=== PATIENT | male | born 1940 | race Caucasian/White ===

== ENCOUNTER 2017-12-31 18:55 | Observation (INO) | payer OTHER ==
--- OUTSIDE RECORDS SUMMARY | 2017-12-31 18:58 | XMS REPORT | Clinical Summary ---
:1940 Author Organization [facility] Address [address] [place] [address] Care Team Providers Name Role Phone Henrry Nevarez MD Primary Care Provider Allergies Active Allergy Reactions Severity Noted Date Comments Morphine 06/30/2017 confusion Current Medications Prescription Sig. Disp. Refills Start Date End Date Status atorvastatin (LIPITOR) Take 10 mg by Active 10 MG tablet mouth daily. glimepiride (AMARYL) 4 Take 4 mg by Active MG tablet mouth daily before breakfast. lisinopril Take 5 mg by 4 04/28/2017 Active (PRINIVIL,ZESTRIL) 5 mg mouth nightly. tablet clopidogrel (PLAVIX) 75 Take 75 mg by 2 03/18/2017 Active mg tablet mouth nightly. levothyroxine Take 50 mcg by Active (SYNTHROID, LEVOXYL) 50 mouth every mcg tablet morning. tamsulosin (FLOMAX) 0.4 Take 0.4 mg by Active mg capsule,extended mouth nightly. release 24hr allopurinol (ZYLOPRIM) Take 100 mg by Active 100 MG tablet mouth daily. metoprolol tartrate Take 25 mg by Active (LOPRESSOR) 25 mg mouth 2 (two) tablet times a day. insulin ASPART Inject under the Active (NovoLOG) 100 unit/mL skin 3 (three) injection times a day before meals. INSULIN DETEMIR Inject 15 Units Active (LEVEMIR U-100 INSULIN under the skin 2 SUBQ) (two) times a day. cetirizine (ZyrTEC) 5 Take 5 mg by Active MG tablet mouth daily. traMADol (ULTRAM) 50 mg Take 1 tablet (50 80 tablet 0 07/11/2017 tablet mg total) by 8 mouth every 4 (four) hours as needed for moderate pain for up to 14 days. HYDROcodone-acetaminoph Take 1 tablet by 80 tablet 0 07/11/2017 en (NORCO) 7.5-325 mg mouth every 6 8 per tablet (six) hours as needed for severe pain for up to 14 days. Max Daily Amount: 4 tablets HYDROcodone-acetaminoph Take 1 tablet by 60 tablet 07/28/2017 en (NORCO) 7.5-325 mg mouth every 6 8 per tablet (six) hours as needed for severe pain for up to 14 days. Max Daily Amount: 4 tablets methylPREDNISolone Take 1 tablet (4 21 tablet 0 12/06/2017 (MEDROL DOSEPAK) 4 mg mg total) by 8 tablet mouth See Admin Instructions for 5 days. Use as directed by package instructions traMADol (ULTRAM) 50 mg Take 1 tablet (50 30 tablet 0 12/06/2017 tablet mg total) by 8 mouth every 6 (six) hours as needed for moderate pain for up to 5 days. Active Problems Problem Noted Date Osteoarthritis of left knee 07/10/2017 Primary osteoarthritis of left knee 07/03/2017 Encounters Date Type Specialty Care Team Description 12/06/2017 Office Visit Orthopedic Surgery Roman Camarena Quadriceps weakness HAZEL Mckee (Primary Dx) 07/28/2017 Office Visit Orthopedic Surgery Brea Rodríguez Status post total MD Dimitrios left knee replacement (Primary Dx) 07/18/2017 Office Visit Orthopedic Surgery Roman Camarena Status post total HAZEL Mckee left knee replacement (Primary Dx) 07/11/2017 Orders Only Orthopedic Surgery Roman Camarena PA-C 07/10/2017 - Hospital Encounter Orthopedic Surgery Brea Rodríguez Osteoarthritis of 07/11/2017 MD Dimitrios left knee, unspecified osteoarthritis type 07/10/2017 Anesthesia Event Orthopedic Surgery Rob Weber Jr., LEGAL ACTIVITY ADJUDICATOR 07/10/2017 Procedure Pass Orthopedic Surgery 07/10/2017 Surgery Orthopedic Surgery Brea Rodríguez LEFT TOTAL KNEE MD Dimitrios ARTHROPLASTY 07/04/2017 Orders Only Orthopedic Surgery Roman Camarena PA-C 07/04/2017 Orders Only Orthopedic Surgery Edgar, Ernestine, Primary MA osteoarthritis of left knee (Primary Dx) 06/30/2017 Hospital Encounter Radiology Brea Rodríguez MD 06/30/2017 Pre-Admit Testing Pre-Admission Brea Rodríguez Pre-op testing Appointment Testing MD Dimitrios (Primary Dx) 06/30/2017 Office Visit Orthopedic Surgery Brea Rodríguez Primary MD Dimitrios osteoarthritis of left knee (Primary Dx) 06/30/2017 Anesthesia Event Pre-Admission Isabel Santiago Testing W., GRINDER NEEDLE TIP 06/21/2017 Office Visit Orthopedic Surgery Brea Rodríguez Acute medial meniscus MD Dimitrios tear of left knee, initial encounter (Primary Dx) 06/21/2017 Procedure Pass Radiology 06/20/2017 Orders Only Orthopedic Surgery Jeannine Hernández L, Left knee pain, MA unspecified chronicity (Primary Dx) after 12/30/2016 Social History Tobacco Use Types Packs/Day Years Used Date Former Smoker Cigarettes 1 10 Quit: 1989 Smokeless Tobacco: Never Used Alcohol Use Drinks/Week oz/Week Comments No Sex Assigned at Date Recorded Not on file Last Filed Vital Signs Vital Sign Reading Time Taken Blood Pressure 134/63 07/11/2017 7:36 AM CDT Pulse 57 07/11/2017 7:36 AM CDT Temperature 36.1 C (96.9 F) 07/11/2017 7:36 AM CDT Respiratory Rate 18 07/11/2017 7:36 AM CDT Oxygen Saturation 96% 07/11/2017 7:36 AM CDT Inhaled Oxygen Concentration - - Weight 110 kg (242 lb 11.2 oz) 07/10/2017 6:08 AM CDT Height 182.9 cm (6') 07/10/2017 6:08 AM CDT Body Mass Index 32.92 07/10/2017 6:08 AM CDT Plan of Treatment Health Maintenance Due Date Last Done Comments SHINGRIX VACCINE (#1) 1988 ZOSTER VACCINE 1998 PNEUMOCOCCAL-13 12/17/2003 INFLUENZA VACCINE 10/18/2017 01/18/2010 PNEUMOCOCCAL POLYSACCHARIDE VACCINE AGE 65 AND OVER Completed 01/18/2010 Implants Implanted Type Area Automatic Lathe Tender Device Expiration Model / Identifier Date Serial / Lot Vangrd Ant Stblzd Brg 14x79 - [id number] IMPLANT Left: [employer] [id number] / Implanted: Qty: 1 on 07/10/2017 by Brea Rodríguez MD DEVICES Knee / [id number] Cement Bone R+G 1dose Palacos - [id number] Knee Joint Left: [employer] [id number] / Implanted: Qty: 1 on 07/10/2017 by Brea Rodríguez MD Implants Knee / [id number]$ Cement Bone R+G 1dose Palacos - [id number] Knee Joint Left: [employer] [id number] / Implanted: Qty: 1 on 07/10/2017 by Brea Rodríguez MD Implants Knee / [id number]$ Stem Tib Prim Finned [id number] Ascent Maxim - [id number] Knee Joint Left: [employer] 11/06/2026 [id number] / Implanted: Qty: 1 on 07/10/2017 by Brea Rodríguez MD Implants Knee / [id number] Component Fml Cr Lt Anatom Interlok 70mm Vanguard - [id number] Knee Joint Left: [employer] 02/06/2025 [id number] / Implanted: Qty: 1 on 07/10/2017 by Brea Rodríguez MD Implants Knee / [id number] Tray Tib Prim Interlok 79mm Ascent Maxim - [id number] Knee Joint Left: [employer] 04/05/2027 [id number] / Implanted: Qty: 1 on 07/10/2017 by Brea Rodríguez MD Implants Knee / [id number] Implant Ptlr Vanguard 3 Peg Series A Std 34x8.5mm - [id number] Knee Joint Left: [employer] 05/29/2022 [id number] / Implanted: Qty: 1 on 07/10/2017 by Brea Rodríguez MD Implants Knee / [id number] Procedures Procedure Name Priority Date/Time Associated Diagnosis Comments XR KNEE 3 VW LEFT Routine 07/28/2017 1:24 Status post total Results for this PM CDT left knee procedure are in replacement the results section. XR LEG LENGTH Routine 07/28/2017 1:24 Status post total Results for this EVALUATION PM CDT left knee procedure are in replacement the results section. POC GLUCOSE Routine 07/11/2017 9:04 Results for this AM CDT procedure are in the results section. HC COMPLETE BLD COUNT Routine 07/11/2017 8:46 Results for this W/AUTO DIFF AM CDT procedure are in the results section. CBC WITH PLATELET AND Routine 07/11/2017 7:40 Results for this DIFFERENTIAL AM CDT procedure are in the results section. CBC WITH PLATELET AND Routine 07/11/2017 5:20 Results for this DIFFERENTIAL AM CDT procedure are in the results section. ZZESTIMATED GFR Routine 07/11/2017 4:00 Results for this AM CDT procedure are in the results section. MAGNESIUM LEVEL Routine 07/11/2017 4:00 Results for this AM CDT procedure are in the results section. PHOSPHORUS LEVEL Routine 07/11/2017 4:00 Results for this AM CDT procedure are in the results section. BASIC METABOLIC PANEL Routine 07/11/2017 4:00 Results for this AM CDT procedure are in the results section. POC GLUCOSE Routine 07/10/2017 9:42 Results for this PM CDT procedure are in the results section. POC GLUCOSE Routine 07/10/2017 5:50 Results for this PM CDT procedure are in the results section. POC GLUCOSE Routine 07/10/2017 11:33 Results for this AM CDT procedure are in the results section. POC GLUCOSE Routine 07/10/2017 10:06 Results for this AM CDT procedure are in the results section. SURGICAL PATHOLOGY Routine 07/10/2017 9:38 Results for this REQUEST AM CDT procedure are in the results section. CO AN ELECTIVE Routine 07/10/2017 9:01 ENDOTRACHEAL AIRWAY AM CDT Procedure Note - Rob Weber Jr., LEGAL ACTIVITY ADJUDICATOR - 07/10/2017 9:01 AM CDT Airway Date/Time: 07/10/2017 8:25 AM Performed by: ROB WEBER JR. Authorized by: JOSE EDUARDO STRAUSS Location: OR Urgency: Elective Difficult Airway: No Preoxygenated with 100% O2: Yes C-spine Precautions Maintained Throughout: Yes Mask Ventilation: Easy mask Final Airway Type: Endotracheal airway Final Endotracheal Airway: ETT Cuffed: Yes Technique Used: Video laryngoscopy (GLIDESCOPE 4) Devices/Methods Used in Placement: Intubating stylet Insertion Site: Oral Laryngoscope Blade/Videolaryngoscope Blade Size: 4 ETT Size (mm): 8.0 Cuff at minimum occlusion pressure: Yes Measured from: Teeth ETT to Teeth (cm): 22 Placement Verified by: CO2 detection, direct visualization and equal breath sounds Rapid Sequence Induction (RSI): No Modified RSI: No Number of Attempts at Approach: 1 DL X 1 no view, glidescope x 1 successful. ARTHROPLASTY, KNEE, TOTAL 07/10/2017 7:30 AM CDT Osteoarthritis of left knee, unspecified osteoarthritis type Case Notes POSSIBLE EXTENDED RECOVERY NEEDED; BIOMET LLOYD, CRYOCUFF, ROLLING WALKER Special Needs POSSIBLE EXTENDED RECOVERY NEEDED; BIOMET LLOYD, CRYOCUFF, ROLLING WALKER POC PANEL 4 Routine 07/10/2017 7:12 Results for this AM CDT procedure are in the results section. XR CHEST 2 VW Routine 06/30/2017 2:15 Pre-op testing Results for this PM CDT procedure are in the results section. ECG PRE/POST OP Routine 06/30/2017 1:32 Pre-op testing Results for this PM CDT procedure are in the results section. URINE CULTURE Routine 06/30/2017 1:30 Results for this PM CDT procedure are in the results section. ZZESTIMATED GFR Routine 06/30/2017 1:17 Results for this PM CDT procedure are in the results section. HEMOGLOBIN A1C Routine 06/30/2017 1:17 Pre-op testing Results for this PM CDT procedure are in the results section. URINALYSIS SCREEN AND Routine 06/30/2017 1:17 Pre-op testing Results for this MICROSCOPY, WITH REFLEX PM CDT procedure are in TO CULTURE the results section. PROTHROMBIN TIME WITH Routine 06/30/2017 1:17 Pre-op testing Results for this INR PM CDT procedure are in the results section. PARTIAL THROMBOPLASTIN Routine 06/30/2017 1:17 Pre-op testing Results for this TIME (PTT) PM CDT procedure are in the results section. COMPREHENSIVE METABOLIC Routine 06/30/2017 1:17 Pre-op testing Results for this PANEL PM CDT procedure are in the results section. CBC HEMOGRAM Routine 06/30/2017 1:17 Pre-op testing Results for this PM CDT procedure are in the results section. MRI KNEE WO CONTRAST Routine 06/28/2017 1:40 Acute medial Results for this LEFT PM CDT meniscus tear of procedure are in left knee, initial the results encounter section. XR KNEE 3 VW LEFT Routine 06/21/2017 10:49 Left knee pain, Results for this AM CDT unspecified procedure are in chronicity the results section. XR LEG LENGTH Routine 06/21/2017 10:48 Left knee pain, Results for this EVALUATION AM CDT unspecified procedure are in chronicity the results section. after 12/30/2016 Results XR Knee 3 Vw Left (07/28/2017 1:24 PM)Only the most recent of2 resultswithin the time period is included. Narrative Performed At 3 x-ray views of the left knee show properly placed Biomet Vanguard total HM RADIANT knee replacement 80 mm stem. The patella is tracking concentrically. The posterior slope of the tibial component is excellent. Performing Organization Address [facility] CenterLabotec Phone Number [facility] [address] [place] [address] XR Leg Length Evaluation (07/28/2017 1:24 PM)Only the most recent of2 resultswithin the time period is included. Narrative Performed At Social mechanical axis of the right lower extremity to fall through the RADIANT midline where there is a revision style total knee that is properly placed. On the opposite left lower extremity the mechanical axis falls just lateral to the midline where the knee is slightly rotated, and there is a properly placed total knee arthroplasty. Bilateral hips and ankles are essentially normal. Performing Organization Address [facility] CenterPerception Softwarems Phone Number [facility] [address] [place] [address] POC glucose (07/11/2017 9:04 AM)Only the most recent of5 resultswithin the time period is included. POC glucose 141 (H) 65 - 99 mg/dL [facility] DEPARTMENT OF PATHOLOGY AND Comment: GENOMIC MEDICINE [facility] Notified RN Meter ID: [id number] Mer[employer] System Director: Edd Perez I Performing Organization Address [facility]/[employer] Phone Number [facility] DEPARTMENT OF PATHOLOGY AND [address] [place] [phone] GENOMIC MEDICINE CBC with platelet and differential (07/11/2017 8:46 AM)Only the most recent of3 resultswithin the time period is included. WBC 8.90 4.50 - 11.00 k/uL [facility] DEPARTMENT OF PATHOLOGY AND GENOMIC MEDICINE RBC 3.73 (L) 4.40 - 6.00 m/uL [facility] DEPARTMENT OF PATHOLOGY AND GENOMIC MEDICINE HGB 10.9 (L) 14.0 - 18.0 g/dL [facility] DEPARTMENT OF PATHOLOGY AND GENOMIC MEDICINE HCT 32.6 (L) 41.0 - 51.0 % [facility] DEPARTMENT OF PATHOLOGY AND GENOMIC MEDICINE MCV 87.4 82.0 - 100.0 fL [facility] DEPARTMENT OF PATHOLOGY AND GENOMIC MEDICINE MCH 29.2 27.0 - 34.0 pg [facility] DEPARTMENT OF PATHOLOGY AND GENOMIC MEDICINE MCHC 33.4 31.0 - 37.0 g/dL [facility] DEPARTMENT OF PATHOLOGY AND GENOMIC MEDICINE RDW - SD 42.5 37.0 - 55.0 fL [facility] DEPARTMENT OF PATHOLOGY AND GENOMIC MEDICINE MPV 8.7 (L) 8.8 - 13.2 fL [facility] DEPARTMENT OF PATHOLOGY AND GENOMIC MEDICINE Platelet count 110 (L) 150 - 400 k/uL [facility] DEPARTMENT OF PATHOLOGY AND GENOMIC MEDICINE Nucleated RBC 0.00 /100 WBC [facility] DEPARTMENT OF PATHOLOGY AND GENOMIC MEDICINE Neutrophils 71.3 (H) 39.0 - 69.0 % [facility] DEPARTMENT OF PATHOLOGY AND GENOMIC MEDICINE Lymphocytes 18.4 (L) 25.0 - 45.0 % [facility] DEPARTMENT OF PATHOLOGY AND GENOMIC MEDICINE Monocytes 8.5 0.0 - 10.0 % [facility] DEPARTMENT OF PATHOLOGY AND GENOMIC MEDICINE Eosinophils 1.1 0.0 - 5.0 % [facility] DEPARTMENT OF PATHOLOGY AND GENOMIC MEDICINE Basophils 0.3 0.0 - 1.0 % [facility] DEPARTMENT OF PATHOLOGY AND GENOMIC MEDICINE Immature granulocytes 0.4Comment: 0.0 - 1.0 % [facility] DEPARTMENT OF "Immature PATHOLOGY AND GENOMIC granulocytes" MEDICINE (promyelocytes, myelocytes, metamyelocytes) Performing Organization Address City/State/Zipcode Phone Number [facility] DEPARTMENT OF PATHOLOGY AND [address] [place] [address] [facility] Estimated GFR (07/11/2017 4:00 AM)Only the most recent of2 resultswithin the time period is included. GFR Non Af Amer 32 (A) mL/min/1.73 m2 [facility] DEPARTMENT OF PATHOLOGY AND GENOMIC MEDICINE GFR Af Amer 39 (A) mL/min/1.73 m2 [facility] DEPARTMENT OF Comment: PATHOLOGY AND GENOMIC Chronic kidney disease: <60 mL/min/1.73m2 MEDICINE Kidney failure: <15 mL/min/1.73m2 The estimated GFR is calculated from the IDMS-traceable Modification of Diet in Renal Disease Equation. The accuracy of the calculation is poor when the creatinine is normal. Calculated values >90 mL/min/1.73m2 are not reported. This equation has not been validated in children (<18 years), women, the elderly (>70 years), or ethnic groups other than Caucasians and Americans. Specimen Plasma specimen Performing Organization Address City/[facility] Centercode Phone Number [facility] DEPARTMENT OF PATHOLOGY AND [address] [place] [address] Phosphorus level (07/11/2017 4:00 AM) Phosphorus 3.1 2.4 - 4.5 mg/dL [facility] DEPARTMENT OF PATHOLOGY AND [facility] MEDICINE Specimen Plasma specimen Performing Organization Address [facility] Centercode Phone Number [facility] DEPARTMENT OF PATHOLOGY AND [address] [place] [address] Magnesium level (07/11/2017 4:00 AM) Magnesium 1.8 1.6 - 2.4 mg/dL [facility] DEPARTMENT OF PATHOLOGY AND [facility] MEDICINE Specimen Plasma specimen Performing Organization Address [facility] Phone Number [facility] DEPARTMENT OF PATHOLOGY AND [address] [place] [address] Basic metabolic panel (07/11/2017 4:00 AM) Sodium 134 (L) 135 - 148 mEq/L [facility] DEPARTMENT OF PATHOLOGY AND GENOMIC MEDICINE Potassium 5.8 (H) 3.5 - 5.0 mEq/L [facility] DEPARTMENT OF PATHOLOGY AND GENOMIC MEDICINE Chloride 102 98 - 112 mEq/L [facility] DEPARTMENT OF PATHOLOGY AND GENOMIC MEDICINE CO2 15 (L) 24 - 31 mEq/L [facility] DEPARTMENT OF PATHOLOGY AND GENOMIC MEDICINE Anion gap 17 (H) 7 - 15 mEq/L [facility] DEPARTMENT OF PATHOLOGY Comment: [facility] Starting from June , anion gap calculation no longer incorporates potassium. Please note the change. BUN 38 (H) 8 - 23 mg/dL [facility] DEPARTMENT OF PATHOLOGY AND GENOMIC MEDICINE Creatinine 2.0 (H) 0.7 - 1.2 mg/dL [facility] DEPARTMENT OF PATHOLOGY AND GENOMIC MEDICINE Glucose 152 (H) 65 - 99 mg/dL [facility] DEPARTMENT OF PATHOLOGY AND GENOMIC MEDICINE Calcium 8.4 (L) 8.8 - 10.2 mg/dL [facility] DEPARTMENT OF PATHOLOGY AND GENOMIC MEDICINE Specimen Plasma specimen Performing Organization Address City/[facility] Centercode Phone Number [facility] DEPARTMENT OF PATHOLOGY AND [address] [place] [address] GENOMIC MEDICINE Surgical pathology request (07/10/2017 9:38 AM) [facility] DEPARTMENT OF PATHOLOGY AND GENOMIC MEDICINE Surgical pathology report See link below for PDF [facility] DEPARTMENT OF Lab Report PATHOLOGY AND GENOMIC MEDICINE Result status This is Final Report to [facility] DEPARTMENT OF [id number] PATHOLOGY AND GENOMIC MEDICINE Performing Organization Address City/[facility] Centercode Phone Number [facility] DEPARTMENT OF PATHOLOGY AND [address] [place] [phone] GENOMIC MEDICINE POC panel 4 (07/10/2017 7:12 AM) POC sodium 138 135 - 148 mmol/L [facility] DEPARTMENT OF PATHOLOGY AND GENOMIC MEDICINE POC potassium 4.7 3.5 - 5.0 mmol/L [facility] DEPARTMENT OF PATHOLOGY AND GENOMIC MEDICINE POC hematocrit 36 (L) 41 - 51 % [facility] DEPARTMENT OF Comment: PATHOLOGY AND GENOMIC Meter ID: [id number] MEDICINE Merit System Director: [email or web address] POC glucose 185 (H) 65 - 99 mg/dL [facility] DEPARTMENT OF PATHOLOGY AND GENOMIC MEDICINE Performing Organization Address [facility] Phone Number [facility] DEPARTMENT OF PATHOLOGY AND [address] [place] [address] GENOMIC MEDICINE XR Chest 2 Vw (06/30/2017 2:15 PM) Narrative Performed At EXAMINATION:XR CHEST 2 VW RADIANT CLINICAL HISTORY: Z01.818 Encounter for other preprocedural examination, pre op testing COMPARISON:03/06/2012 IMPRESSION: No active disease in the chest. Lungs are clear. Cardiomediastinal silhouette is within normal limits. No effusion or pneumothorax noted. Visualized osseous structures are intact. [facility]-[id number] Procedure Note Interface, Radiology Results Incoming - 06/30/2017 2:40 PM CDT EXAMINATION: XR CHEST 2 VW CLINICAL HISTORY: Z01.818 Encounter for other preprocedural examination, pre op testing COMPARISON: 03/06/2012 IMPRESSION: No active disease in the chest. Lungs are clear. Cardiomediastinal silhouette is within normal limits. No effusion or pneumothorax noted. Visualized osseous structures are intact. [facility]-[id number] Performing Organization Address City/[facility] Centercode Phone Number [facility] [address] [place] [address] ECG Pre/Post Op (06/30/2017 1:32 PM) Ventricular rate 59 [facility] MUSE Atrial rate 59 [facility] MUSE CO interval 180 [facility] MUSE QRSD interval 92 [facility] MUSE QT interval 426 [facility] MUSE QTC interval 421 [facility] MUSE P axis 1 63 [facility] MUSE QRS axis 1 -3 [facility] MUSE T wave axis 20 [facility] MUSE EKG impression Sinus bradycardia-Otherwise normal ECG-No [facility] MUSE previous ECGs available- Performing Organization Address City/[facility]/Zipcode Phone Number [facility] MUSE [address] [place] [address] Urine culture (06/30/2017 1:30 PM) Urine culture SEE COMMENTComment: Bacteriuria [facility] DEPARTMENT OF PATHOLOGY screen negative. AND GENOMIC MEDICINE Performing Organization Address [facility] Centercoms Phone Number [facility] DEPARTMENT OF PATHOLOGY AND [address] [place] [phone] GENOMIC MEDICINE Urinalysis screen and microscopy, with reflex to culture (06/30/2017 1:17 PM) Specimen site Clean catch [facility] DEPARTMENT OF PATHOLOGY AND GENOMIC MEDICINE Color, UA Straw [facility] DEPARTMENT OF PATHOLOGY AND GENOMIC MEDICINE Appearance, UA Clear [facility] DEPARTMENT OF PATHOLOGY AND GENOMIC MEDICINE Specific gravity, UA 1.018 1.001 - 1.035 [facility] DEPARTMENT OF PATHOLOGY AND GENOMIC MEDICINE pH, UA 5.0 5.0 - 8.5 [facility] DEPARTMENT OF PATHOLOGY AND GENOMIC MEDICINE Protein, UA Negative Negative [facility] DEPARTMENT OF PATHOLOGY AND GENOMIC MEDICINE Glucose, UA 2+ (A) Negative [facility] DEPARTMENT OF PATHOLOGY AND GENOMIC MEDICINE Ketones, UA Negative Negative [facility] DEPARTMENT OF PATHOLOGY AND GENOMIC MEDICINE Bilirubin, UA Negative Negative [facility] DEPARTMENT OF PATHOLOGY AND GENOMIC MEDICINE Blood, UA Negative Negative [facility] DEPARTMENT OF PATHOLOGY AND GENOMIC MEDICINE Nitrite, UA Negative Negative [facility] DEPARTMENT OF PATHOLOGY AND GENOMIC MEDICINE Urobilinogen, UA <2.0 <2.0 [facility] DEPARTMENT OF PATHOLOGY AND GENOMIC MEDICINE Leukocyte esterase, UA Negative Negative [facility] DEPARTMENT OF PATHOLOGY AND GENOMIC MEDICINE Epithelial cells, UA <1 /HPF [facility] DEPARTMENT OF PATHOLOGY AND GENOMIC MEDICINE WBC, UA 1 0 - 1 /HPF [facility] DEPARTMENT OF PATHOLOGY AND GENOMIC MEDICINE RBC, UA 1 0 - 5 /HPF [facility] DEPARTMENT OF PATHOLOGY AND GENOMIC MEDICINE Bacteria, UA Few None seen [facility] DEPARTMENT OF PATHOLOGY AND GENOMIC MEDICINE Yeast, UA None seen [facility] DEPARTMENT OF PATHOLOGY AND GENOMIC MEDICINE Yeast with pseudohyphae, UA None seen [facility] DEPARTMENT OF PATHOLOGY AND GENOMIC MEDICINE Specimen Urine Performing Organization Address [facility] Centercoms Phone Number [facility] [facility] DEPARTMENT OF PATHOLOGY AND [address] [place] [address] Partial thromboplastin time, activated (06/30/2017 1:17 PM) PTT 30.1 23.0 - 36.0 sec [facility] DEPARTMENT OF PATHOLOGY Comment: AND [facility] MEDICINE PTT therapeutic range for unfractionated heparin is 61.0-112.0 seconds which corresponds to Anti-Xa 0.3-0.7 U/ml. Specimen Blood Performing Organization Address City/[facility] Phone Number [facility] DEPARTMENT OF PATHOLOGY AND [address] [place] [address] Prothrombin time with INR (06/30/2017 1:17 PM) Prothrombin time 14.0 12.0 - 15.0 sec [facility] DEPARTMENT OF PATHOLOGY AND GENOMIC MEDICINE INR 1.1 [facility] DEPARTMENT OF Comment: PATHOLOGY AND GENOMIC The International Normalized Ratio (INR) is a therapeutic MEDICINE monitoring tool for patients who are stable on oral anticoagulant therapy. An INR of 2.0-3.0 is suggested for deep vein thrombosis/pulmonary embolism. Specimen Blood Performing Organization Address [facility] Phone Number [facility] DEPARTMENT OF PATHOLOGY AND [address] [place] [address] CBC hemogram (06/30/2017 1:17 PM) WBC 7.76 4.50 - 11.00 k/uL [facility] DEPARTMENT OF PATHOLOGY AND GENOMIC MEDICINE RBC 4.79 4.40 - 6.00 m/uL [facility] DEPARTMENT OF PATHOLOGY AND GENOMIC MEDICINE HGB 14.1 14.0 - 18.0 g/dL [facility] DEPARTMENT OF PATHOLOGY AND GENOMIC MEDICINE HCT 42.1 41.0 - 51.0 % [facility] DEPARTMENT OF PATHOLOGY AND GENOMIC MEDICINE MCV 87.9 82.0 - 100.0 fL [facility] DEPARTMENT OF PATHOLOGY AND GENOMIC MEDICINE MCH 29.4 27.0 - 34.0 pg [facility] DEPARTMENT OF PATHOLOGY AND GENOMIC MEDICINE MCHC 33.5 31.0 - 37.0 g/dL [facility] DEPARTMENT OF PATHOLOGY AND GENOMIC MEDICINE RDW - SD 43.3 37.0 - 55.0 fL [facility] DEPARTMENT OF PATHOLOGY AND GENOMIC MEDICINE MPV 8.7 (L) 8.8 - 13.2 fL [facility] DEPARTMENT OF PATHOLOGY AND GENOMIC MEDICINE Platelet count 152 150 - 400 k/uL [facility] DEPARTMENT OF PATHOLOGY AND GENOMIC MEDICINE Nucleated RBC 0.00 /100 WBC [facility] DEPARTMENT OF PATHOLOGY AND GENOMIC MEDICINE Specimen Blood Performing Organization Address City/[facility]ercode Phone Number [facility] DEPARTMENT PATHOLOGY AND [address] [place] [id number] [place] [address] Hemoglobin A1c (06/30/2017 1:17 PM) Hemoglobin A1C 8.4 (H) 4.0 - 5.6 % [facility] DEPARTMENT OF PATHOLOGY Comment: AND [facility] HbA1c cutoffs for diagnosing diabetes: 4.0% - 5.6%=normal 5.7% - 6.4%=increased risk for diabetes (prediabetes) >=6.5%=diabetes Goals for glycemic control (ADA 2016) < 7.0%Target for non adults with diabetes. More or less stringent targets may be appropriate for individual patients. <7.5% Target for Children and adolescents with type 1 diabetes. Specimen Blood Performing Organization Address City/[facility]ode Phone Number [facility] DEPARTMENT PATHOLOGY AND [address] [place] [address] [facility] Comprehensive metabolic panel (06/30/2017 1:17 PM) Sodium 141 135 - 148 mEq/L [facility] DEPARTMENT OF PATHOLOGY AND GENOMIC MEDICINE Potassium 5.7 (H) 3.5 - 5.0 mEq/L [facility] DEPARTMENT OF PATHOLOGY AND GENOMIC MEDICINE Chloride 104 98 - 112 mEq/L [facility] DEPARTMENT OF PATHOLOGY AND GENOMIC MEDICINE CO2 23 (L) 24 - 31 mEq/L [facility] DEPARTMENT OF PATHOLOGY AND GENOMIC MEDICINE Anion gap 14 7 - 15 mEq/L [facility] DEPARTMENT OF Comment: PATHOLOGY AND GENOMIC Starting from June , anion gap calculation MEDICINE no longer incorporates potassium. Please note the change. BUN 46 (H) 8 - 23 mg/dL [facility] DEPARTMENT OF PATHOLOGY AND GENOMIC MEDICINE Creatinine 2.3 (H) 0.7 - 1.2 mg/dL [facility] DEPARTMENT OF PATHOLOGY AND GENOMIC MEDICINE Glucose 126 (H) 65 - 99 mg/dL [facility] DEPARTMENT OF PATHOLOGY AND GENOMIC MEDICINE Calcium 10.3 (H) 8.8 - 10.2 mg/dL [facility] DEPARTMENT OF PATHOLOGY AND GENOMIC MEDICINE Protein 7.7 6.3 - 8.3 g/dL [facility] DEPARTMENT OF Comment: PATHOLOGY AND GENOMIC 4.6-7.0 g/dL MEDICINE 1 week 4.4-7.6 g/dL 7 months-1year5.1-7.3 g/dL 1-2 years5.6-7.5 g/dL >3 years6.0-8.0 g/dL 18-150 6.3-8.3 g/dL Albumin 3.6 3.5 - 5.0 g/dL [facility] DEPARTMENT OF PATHOLOGY AND GENOMIC MEDICINE A/G ratio 0.9 0.7 - 3.8 [facility] DEPARTMENT OF PATHOLOGY AND GENOMIC MEDICINE Alkaline phosphatase 63 40 - 129 U/L [facility] DEPARTMENT OF PATHOLOGY AND GENOMIC MEDICINE AST 20 10 - 50 U/L [facility] DEPARTMENT OF PATHOLOGY AND GENOMIC MEDICINE ALT 21 5 - 50 U/L [facility] DEPARTMENT OF PATHOLOGY AND GENOMIC MEDICINE Total bilirubin 0.3 0.0 - 1.2 mg/dL [facility] DEPARTMENT OF PATHOLOGY AND GENOMIC MEDICINE Specimen Plasma specimen Performing Organization Address City/State/Zipcode Phone Number [facility] DEPARTMENT OF PATHOLOGY AND [address] [place] [address] [facility] MEDICINE MRI Knee Left Wo Contrast (06/28/2017 1:40 PM) Narrative Performed At EXAMINATION:MRI KNEE WO CONTRAST LEFT [facility] CLINICAL HISTORY: 76 years Male S83.242A Other tear of medial meniscuscurrent injuryleft kneeinitial encounter, Please evaluate for medial meniscal tear as well as articular cartilage. TECHNIQUE:Multiplanar multisequence MR imaging of the left knee was performed without contrast. COMPARISON:None. FINDINGS: There is blunting of the posterior horn of the lateral meniscus consistent with a small to moderate tear. This extends to the area of the posterior root attachment. The anterior horn of the lateral meniscus demonstrates degenerative signal change but otherwise appears intact. The medial meniscus demonstrates blunting and degeneration of the posterior horn witha horizontal degenerative tear along the inferior surface and extending to the free edge. The medial meniscus demonstrates diffuse degenerative signal change especially involving the posterior horn. Cruciate ligaments: The anterior and posterior cruciate ligaments are intact. Collateral ligaments: The medial and lateral collateral ligaments are intact. Osseous structures and cartilaginous surfaces: In the lateral compartment there is no focal full-thickness chondral lesion identified although articular cartilage is diffusely attenuated. A small subchondral cyst in the proximal tibial plateau posterior laterally measures approximately 3 mm. Medially there is diffuse denuding of articular cartilage over the central weightbearing surfaces of the medial femoral condyle medial tibial plateau with extensive subchondral cystic changes involving the medial tibial plateau anteriorly with a cyst measuring up to 11 mm. In the patellofemoral compartment there is diffuse attenuation of articular cartilage with no focal lesions identified. Patellofemoral joint: The patella fits normally and the trochlear groove. The visualized portions of the quadriceps and patellar tendons are intact. Miscellaneous findings: There is a small joint effusion. There is no popliteal cyst. IMPRESSION: 1. Small to moderate tear involving the posterior horn of the lateral meniscus extending to the posterior root attachment. 2. Complex although mainly a degenerative tear involving the posterior horn of the medial meniscus 3. 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 Minimal volume of joint fluid. [id number] Procedure Note Hm Interface, Radiology Results Incoming - 06/28/2017 2:39 PM CDT EXAMINATION: MRI KNEE WO CONTRAST LEFT CLINICAL HISTORY: 76 years Male S83.242A Other tear of medial meniscus current injury left knee initial encounter, Please evaluate for medial meniscal tear as well as articular cartilage. TECHNIQUE: Multiplanar multisequence MR imaging of the left knee was performed without contrast. COMPARISON: None. FINDINGS: There is blunting of the posterior horn of the lateral meniscus consistent with a small to moderate tear. This extends to the area of the posterior root attachment. The anterior horn of the lateral meniscus demonstrates degenerative signal change but otherwise appears intact. The medial meniscus demonstrates blunting and degeneration of the posterior horn with a horizontal degenerative tear along the inferior surface and extending to the free edge. The medial meniscus demonstrates diffuse degenerative signal change especially involving the posterior horn. Cruciate ligaments: The anterior and posterior cruciate ligaments are intact. Collateral ligaments: The medial and lateral collateral ligaments are intact. Osseous structures and cartilaginous surfaces: In the lateral compartment there is no focal full-thickness chondral lesion identified although articular cartilage is diffusely attenuated. A small subchondral cyst in the proximal tibial plateau posterior laterally measures approximately 3 mm. Medially there is diffuse denuding of articular cartilage over the central weightbearing surfaces of the medial femoral condyle medial tibial plateau with extensive subchondral cystic changes involving the medial tibial plateau anteriorly with a cyst measuring up to 11 mm. In the patellofemoral compartment there is diffuse attenuation of articular cartilage with no focal lesions identified. Patellofemoral joint: The patella fits normally and the trochlear groove. The visualized portions of the quadriceps and patellar tendons are intact. Miscellaneous findings: There is a small joint effusion. There is no popliteal cyst. IMPRESSION: 1. Small to moderate tear involving the posterior horn of the lateral meniscus extending to the posterior root attachment. 2. Complex although mainly a degenerative tear involving the posterior horn of the medial meniscus 3. 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 Minimal volume of joint fluid. [id number] [facility] Organization Address City/State/Zipcode Phone Number [facility] [address] [place] [address] after 12/30/2016 Insurance Payer Benefit Plan / Group Subscriber ID Type Phone Address [employer] MEDICARE AETNA MEDICARE HMO/PPO [facility] xxxxxxxx HMO [phone] [id number]
[2017-12-31 20:18] LABS: Absolute Lymphocytes (CBC) 1.2 K/uL (0.7-4.9); Absolute Monocytes 0.9 K/uL (0.1-1.3); Absolute Neutrophil 10.4 K/uL (1.8-8.0); Basophils % 0.4 % (0-1.3); Eosinophils % 0.5 % (0-4.4); Hematocrit 34.4 % (39.6-49.0); Lymphocytes % 9.8 % (15.3-44.8); MCH 30.5 pg (27.0-35.0); MCV 88.1 fL (80-100); MPV 6.3 fL (7.6-11.3); Monocytes % 7.1 % (3.3-12.3)
[2017-12-31 20:19] LABS: Protime INR 1.22
--- NOTE | 2017-12-31 20:21 | RAD REPORT ---
EXAM DESCRIPTION: RAD - Chest Single View - 12/31/2017 8:11 pm CLINICAL HISTORY: weakness Chest pain. COMPARISON: CHEST SINGLE VIEW dated 09/03/2009; CHEST PA AND LAT 2 VIEW dated 12/16/2008; CHEST PA AND LAT 2 VIEW dated 09/28/2004 FINDINGS: Portable technique limits examination quality. The lungs are grossly clear. The heart is normal in size. No displaced fractures. IMPRESSION: No acute intrathoracic process suspected.
[2017-12-31 20:35] LABS: ALT/SGPT 28 U/L (12-78); AST/SGOT 55 U/L (15-37); Albumin 3.3 g/dL (3.4-5.0); Alkaline Phosphatase 54 U/L (45-117); BUN Blood Urea Nitrogen 35 mg/dL (7-18); Bicarbonate 25 mmol/L (21-32); Bilirubin Direct < 0.1 mg/dL (0-0.2); Bilirubin Total 0.3 mg/dL (0.2-1.0); Glucose Level 172 mg/dL (74-106); NT PRO-BNP 687 pg/mL (<450); Potassium 4.2 mmol/L (3.5-5.1); Protein, Total 6.6 g/dL (6.4-8.2); Sodium Level 139 mmol/L (136-145); Troponin (Emerg Dept Use Only) 0.04 ng/mL (0.0-0.045)
[2017-12-31] MEDS ORDERED: CEFTRIAXONE/SWI 1gm 1 GM/10 ML SYR ONE (21:34)
[2017-12-31 21:35] LABS: Urine Bacteria 20-50 /HPF (NONE SEEN); Urine Culture Reflex Order REFLEXED; Urine RBC <5 /HPF (NONE SEEN)
--- NOTE | 2017-12-31 22:01 | EDPHYS ---
Physician Documentation [facility] Name: Kendrick Worley Age: 77 yrs Sex: Male : 1940 Arrival Date: 12/31/2017 Time: 18:56 Bed 19 Private MD: ED Physician Lizeth Renae HPI: 12/31 19:09 This 77 yrs old Male presents to ER via EMS with complaints of Urinary jmm Problem. 19:09 Patient complains of progressively worsening weakness and dysuria beginning earlier jmm this week. Patient states he is unable to get up out of his chair. Patient denies chest pain, shortness of breath, abdominal pain, vomiting or back pain. . Onset: The symptoms/episode began/occurred gradually. The patient has not experienced similar symptoms in the past. Historical: - Allergies: 19:04 No Known Allergies; aj - Home Meds: 19:04 Glimepiride Oral [Active]; Lasix Oral [Active]; Plavix Oral [Active]; Novolog Sub-Q aj [Active]; - PMHx: 19:04 Myocardial infarction; Diabetes - IDDM; aj - PSHx: 19:04 Knee surgery; aj - Immunization history:: Adult Immunizations up to date. - Social history:: Smoking status: Patient/guardian denies using tobacco. - Ebola Screening: : Patient negative for fever greater than or equal to 101.5 degrees Fahrenheit, and additional compatible Ebola Virus Disease symptoms Patient denies exposure to infectious person Patient denies travel to an Ebola-affected area in the 21 days before illness onset No symptoms or risks identified at this time. ROS: 19:09 Constitutional: Negative for fever, chills, and weight loss, Eyes: Negative for injury, jmm pain, redness, and discharge, ENT: Negative for injury, pain, and discharge, Neck: Negative for injury, pain, and swelling, Cardiovascular: Negative for chest pain, palpitations, and edema, Respiratory: Negative for shortness of breath, cough, wheezing, and pleuritic chest pain, Abdomen/GI: Negative for abdominal pain, nausea, vomiting, diarrhea, and constipation. 19:09 : Positive for urinary symptoms. 19:09 Neuro: Positive for weakness. 19:09 All other systems are negative. Exam: 19:09 Head/Face: atraumatic. Eyes: EOMI, no conjunctival erythema appreciated ENT: Moist [facility] Mucus Membranes Neck: Trachea midline, Supple Chest/axilla: Normal chest wall appearance and motion. 19:09 Constitutional: The patient appears in no acute distress, alert, awake. 19:09 Cardiovascular: Rate: normal, Rhythm: regular, Pulses: no pulse deficits are appreciated. 19:09 Respiratory: the patient does not display signs of respiratory distress, Respirations: normal, Breath sounds: are clear throughout. 19:09 Abdomen/GI: Inspection: abdomen appears normal, Bowel sounds: normal, Palpation: abdomen is soft and non-tender. 19:09 Back: ROM is normal. 19:09 Musculoskeletal/extremity: ROM: intact in all extremities. 19:09 Skin: Appearance: Color: normal in color. 19:09 Neuro: Orientation: is normal, Mentation: is normal, Memory: is normal. 19:09 Psych: Behavior/mood is pleasant, cooperative. Vital Signs: 19:04 BP 140 / 58; Pulse 84; Resp 20; Temp 98.1; Pulse Ox 94% on R/A; Weight 102.06 kg; aj Height 6 ft. 0 in. (182.88 cm); 20:08 BP 129 / 63; Pulse 76; Resp 19 S; Pulse Ox 95% on R/A; jd3 22:34 BP 144 / 83; Pulse 85; Resp 17 S; Pulse Ox 98% on R/A; jd3 23:13 BP 128 / 77; Pulse 73; Resp 20 S; Pulse Ox 99% on R/A; jd3 19:04 Body Mass Index 30.52 (102.06 kg, 182.88 cm) aj MDM: 19:09 Patient medically screened. [facility] 21:59 Data reviewed: vital signs, nurses notes. Counseling: I had a detailed discussion with [facility] the patient and/or guardian regarding: the historical points, exam findings, and any diagnostic results supporting the discharge/admit diagnosis, lab results, radiology results, the need for further work-up and treatment in the hospital. ED course: I discussed the patient with Dr. joseph whom accepted admission. . 12/31 19:12 Order name: Basic Metabolic Panel; Complete Time: 21:12 [facility] 12/31 19:12 Order name: CBC with Diff; Complete Time: 20:29 [facility] 12/31 19:12 Order name: LFT's; Complete Time: 21:12 [facility] 12/31 19:12 Order name: Magnesium; Complete Time: 21:12 [facility] 12/31 19:12 Order name: NT PRO-BNP; Complete Time: 21:12 [facility] 12/31 19:12 Order name: PT-INR; Complete Time: 20:29 [facility] 12/31 19:12 Order name: Troponin (emerg Dept Use Only); Complete Time: 21:12 [facility] 12/31 19:15 Order name: Lipase; Complete Time: 20:31 [facility] 12/31 19:16 Order name: Procalcitonin; Complete Time: 21:12 [facility] 12/31 19:16 Order name: Lactate; Complete Time: 20:31 [facility] 12/31 19:16 Order name: Blood Culture Adult (2) [facility] 12/31 19:43 Order name: Urine Microscopic Only; Complete Time: 21:40 [facility] 12/31 19:43 Order name: Urine Culture [facility] 12/31 21:30 Order name: Urine Dipstick--Ancillary (enter results) wy 12/31 19:12 Order name: XRAY Chest (1 view); Complete Time: 20:29 [facility] 12/31 19:12 Order name: EKG; Complete Time: 19:12 [facility] 12/31 19:12 Order name: Cardiac monitoring; Complete Time: 19:32 [facility] 12/31 19:12 Order name: EKG - Nurse/Tech; Complete Time: 20:05 [facility] 12/31 19:12 Order name: IV Saline Lock; Complete Time: 19:32 [facility] 12/31 19:12 Order name: Labs collected and sent; Complete Time: 20:05 [facility] 12/31 19:12 Order name: O2 Per Protocol; Complete Time: 19:32 [facility] 12/31 19:12 Order name: O2 Sat Monitoring; Complete Time: 19:32 [facility] 12/31 19:16 Order name: Urine Dipstick-Ancillary (obtain specimen); Complete Time: 21:23 [facility] Administered Medications: 21:33 Drug: Rocephin - (cefTRIAXone) 1 grams Route: IVPB; Infused Over: 30 mins; Site: right jd3 antecubital; 22:35 Follow up: Response: No adverse reaction; IV Status: Completed infusion jd3 Disposition: 01/01 09:53 Co-signature as Attending Physician, Lizeth Renae MD. ma2 Disposition: 12/31/17 22:00 Hospitalization ordered by Lizeth Morin for Observation. Preliminary diagnosis are Urinary tract infection, site not specified, Weakness. - Bed requested for Telemetry/MedSurg (observation). - Status is Observation. jd3 - Condition is Stable. - Problem is new. - Symptoms are unchanged. UTI on Admission? Yes Signatures: Dispatcher [employer] EDIsabel Brownlee RN Dileep Fulton PA PA jmm Garcia, Cindy RN Lars Nguyen RN RN jd3 Alzahri, Mohammad, MD MD ma2 Corrections: (The following items were deleted from the chart) 12/31 22:51 22:00 Hospitalization Ordered by Lizeth Morin MD for Observation. Preliminary cg diagnosis is Urinary tract infection, site not specified; Weakness. Bed requested for Telemetry/MedSurg (observation). Status is Observation. Condition is Stable. Problem is new. Symptoms are unchanged. UTI on Admission? Yes. [facility] 23:55 22:51 12/31/2017 22:00 Hospitalization Ordered by Lizeth Morin MD for Observation. jd3 Preliminary diagnosis is Urinary tract infection, site not specified; Weakness. Bed requested for Telemetry/MedSurg (observation). Status is Observation. Condition is Stable. Problem is new. Symptoms are unchanged. UTI on Admission? Yes. cg
--- NOTE | 2017-12-31 22:01 | ER ---
Nurse's Notes [facility] Name: Kendrick Worley Age: 77 yrs Sex: Male : 1940 Arrival Date: 12/31/2017 Time: 18:56 Bed 19 Private MD: Diagnosis: Urinary tract infection, site not specified;Weakness Presentation: 12/31 18:57 Presenting complaint: EMS states: Burning with urination and generalized weakness for 2 aj days. Patient reports chronic UTI's, has appointment with PCP tomorrow. EMS reports patient was unable to stand up to get onto stretcher. Transition of care: patient was not received from another setting of care. Onset of symptoms was December 29, 2017. Risk Assessment: Do you want to hurt yourself or someone else? Patient reports no desire to harm self or others. Initial Sepsis Screen: Does the patient meet any 2 criteria? No. Patient's initial sepsis screen is negative. Does the patient have a suspected source of infection? No. Patient's initial sepsis screen is negative. 18:57 Method Of Arrival: EMS: [facility] 18:57 Acuity: SHERLEY 3 18:57 Care prior to arrival: Medication(s) given: Normal saline infusion, 700 ml IV aj initiated. 18 GA, in the right antecubital area. 19:07 Care prior to arrival: Glucose check: 183. Triage Assessment: 19:04 General: Appears in no apparent distress. comfortable, Behavior is calm, cooperative, aj appropriate for age. Pain: Denies pain. Neuro: Level of Consciousness is awake, alert, obeys commands, Oriented to person, place, time, situation, Appropriate for age. Neuro: Reports weakness generalized. Respiratory: Airway is patent Respiratory effort is even, unlabored, Respiratory pattern is regular, symmetrical. : Reports burning with urination. Derm: Skin is intact, is healthy with good turgor, Skin is pink, warm \T\ dry. normal. Historical: - Allergies: 19:04 No Known Allergies; aj - Home Meds: 19:04 Glimepiride Oral [Active]; Lasix Oral [Active]; Plavix Oral [Active]; Novolog Sub-Q aj [Active]; - PMHx: 19:04 Myocardial infarction; Diabetes - IDDM; aj - PSHx: 19:04 Knee surgery; aj - Immunization history:: Adult Immunizations up to date. - Social history:: Smoking status: Patient/guardian denies using tobacco. - Ebola Screening: : Patient negative for fever greater than or equal to 101.5 degrees Fahrenheit, and additional compatible Ebola Virus Disease symptoms Patient denies exposure to infectious person Patient denies travel to an Ebola-affected area in the 21 days before illness onset No symptoms or risks identified at this time. Screenin:45 Abuse screen: Denies threats or abuse. Nutritional screening: No deficits noted. jd3 Tuberculosis screening: No symptoms or risk factors identified. Fall Risk IV access (20 points). Ambulatory Aid- None/Bed Rest/Nurse Assist (0 pts). Gait- Weak (10 pts.). Mental Status- Oriented to own ability (0 pts). Total Leal Fall Scale indicates Low Risk Score (25-44 pts). Fall prevention measures have been instituted. Side Rails Up X 2 Placed close to Nursing Station Frequent Obs/Assesments occuring Family Present and informed to notify staff if they need to leave bedside. Assessment: 19:15 General: Appears in no apparent distress. uncomfortable, Behavior is calm, cooperative, jd3 appropriate for age. Pain: Denies pain. Neuro: Level of Consciousness is awake, alert, obeys commands, Oriented to person, place, time, situation, Appropriate for age Speech is normal, Pupils are PERRLA, Reports weakness. Cardiovascular: Capillary refill < 3 seconds Patient's skin is warm and dry. Rhythm is sinus rhythm. Respiratory: Airway is patent Respiratory effort is even, unlabored, Respiratory pattern is regular, symmetrical, Denies shortness of breath. GI: No signs and/or symptoms were reported involving the gastrointestinal system. : Reports urinary frequency. EENT: No signs and/or symptoms were reported regarding the EENT system. Derm: Skin is intact, Skin is dry, Skin is normal, Skin temperature is warm. Musculoskeletal: Circulation, motion, and sensation intact. Range of motion: intact in all extremities. 20:58 Reassessment: Patient appears in no apparent distress at this time. No changes from jd3 previously documented assessment. Patient and/or family updated on plan of care and expected duration. Pain level reassessed. Patient is alert, oriented x 3, equal unlabored respirations, skin warm/dry/pink. 21:30 Reassessment: Patient appears in no apparent distress at this time. No changes from d3 previously documented assessment. Patient and/or family updated on plan of care and expected duration. Pain level reassessed. Patient is alert, oriented x 3, equal unlabored respirations, skin warm/dry/pink. 22:31 Reassessment: Patient appears in no apparent distress at this time. No changes from jd3 previously documented assessment. Patient and/or family updated on plan of care and expected duration. Pain level reassessed. Patient is alert, oriented x 3, equal unlabored respirations, skin warm/dry/pink. awaiting bed assignment. 23:11 Reassessment: Patient appears in no apparent distress at this time. No changes from jd3 previously documented assessment. Patient and/or family updated on plan of care and expected duration. Pain level reassessed. Patient is alert, oriented x 3, equal unlabored respirations, skin warm/dry/pink. Vital Signs: 19:04 BP 140 / 58; Pulse 84; Resp 20; Temp 98.1; Pulse Ox 94% on R/A; Weight 102.06 kg; aj Height 6 ft. 0 in. (182.88 cm); 20:08 BP 129 / 63; Pulse 76; Resp 19 S; Pulse Ox 95% on R/A; jd3 22:34 BP 144 / 83; Pulse 85; Resp 17 S; Pulse Ox 98% on R/A; jd3 23:13 BP 128 / 77; Pulse 73; Resp 20 S; Pulse Ox 99% on R/A; jd3 19:04 Body Mass Index 30.52 (102.06 kg, 182.88 cm) ED Course: 18:56 Patient arrived in ED. 19:00 Dileep Lawrence PA is PHCP. [facility] 19:00 Lizeth Renae MD is Attending Physician. [facility] 19:00 Triage completed. 19:04 Arm band placed on left wrist. Patient placed in an exam room, on a stretcher, on telemetry monitor, on pulse oximetry. 19:20 Lars Hess, JANET is Primary Nurse. [facility] 20:11 XRAY Chest (1 view) In Process Unspecified. EDMS 20:46 Patient has correct armband on for positive identification. Bed in low position. Call [facility] light in reach. Side rails up X2. Adult w/ patient. 21:59 Lizeth Morin MD is Hospitalizing Provider. ignacio 23:34 No provider procedures requiring assistance completed. Maintain EMS IV. Dressing jd3 intact. Good blood return noted. Site clean \T\ dry. Gauge \T\ site: 20 G in right AC. Patient admitted, IV remains in place. Administered Medications: 21:33 Drug: Rocephin - (cefTRIAXone) 1 grams Route: IVPB; Infused Over: 30 mins; Site: right jd3 antecubital; 22:35 Follow up: Response: No adverse reaction; IV Status: Completed infusion jd3 Outcome: 22:00 Decision to Hospitalize by Provider. ignacio 23:35 Admitted to Med/surg accompanied by tech, via stretcher, room 422, with chart, Report laisha called to Lisa GONZALES 23:35 Condition: stable 23:35 Instructed on the need for admit, Demonstrated understanding of instructions. 23:55 Patient left the ED. laisha Signatures: Dispatcher [employer] Isabel Guzman RN Dileep Fulton PA PA jmm Davies, Jonathon, RN RN jcookie Corrections: (The following items were deleted from the chart) 19:00 18:57 Care prior to arrival: None. pedro vasquez
[2017-12-31 22:10] LABS: Urine Blood 2+ (NEG); Urine Glucose 1+ (NEG); Urine Protein TRACE (NEG); Urine Specific Gravity 1.015 (1.005-1.030); Urine pH 5.5 (5.0-7.0)
[2017-12-31] MEDS ORDERED: ONDANSETRON 4 MG/2 ML VIAL IV PRN (22:52)
[2017-12-31] MEDS ORDERED: ACETAMINOPHEN 500 MG TAB PO PRN (22:52)
[2017-12-31] MEDS ORDERED: MORPHINE 2 MG/ML SYR IV PRN (22:52)
[2018-01-01] MEDS: NA CHLORIDE 0.9% 1,000 ML IV SCH ×2 (00:17→12:55)
[2018-01-01 04:35] LABS: Absolute Lymphocytes (CBC) 1.8 K/uL (0.7-4.9); Absolute Monocytes 0.9 K/uL (0.1-1.3); Absolute Neutrophil 10.1 K/uL (1.8-8.0); Basophils % 0.6 % (0-1.3); Eosinophils % 0.6 % (0-4.4); Hematocrit 32.4 % (39.6-49.0); Lymphocytes % 13.7 % (15.3-44.8); MCH 30.3 pg (27.0-35.0); MPV 6.5 fL (7.6-11.3); Monocytes % 6.9 % (3.3-12.3); RBC Red Blood Cell Count 3.69 M/uL (4.33-5.43)
[2018-01-01 04:47] LABS: Albumin 2.9 g/dL (3.4-5.0); Bilirubin Total 0.5 mg/dL (0.2-1.0); Potassium 4.2 mmol/L (3.5-5.1); Protein, Total 6.2 g/dL (6.4-8.2)
[2018-01-01] MEDS ORDERED: MORPHINE 4 MG/ML SYR IV PRN (07:25)
--- NOTE | 2018-01-01 08:07 | P.HP ---
Certification for Inpatient Patient admitted to: Observation With expected LOS: <2 Midnights Patient will require the following post-hospital care: None Practitioner: I am a practitioner with admitting privileges, knowledge of patient current condition, hospital course, and medical plan of care. Services: Services provided to patient in accordance with Admission requirements found in Title 42 Section 412.3 of the Code of Federal Regulations Patient History Date of Service: 01/01/18 History of Present Illness: Patient is a 77-year-old gentleman who comes into the hospital with dysuria. Patient also has generalized weakness and has not been able to really get out of bed much. When EMS came to his home he was unable to stand up to get onto the stretcher. Patient was loaded up on the stretcher and he was brought to the emergency room were his workup revealed that he had a urinary tract infection. This may be causing his weakness. Will go ahead and treat with IV antibiotics and IV hydration. Will monitor his labs closely. Will also get physical therapy evaluation. He will be admitted to the hospital for further evaluation. Allergies No Known Drug Allergies Allergy (Unverified 08/22/14 22:40) Unknown - Past Medical/Surgical History Has patient received pneumonia vaccine in the past: Yes Diabetic: Yes -: [place] -: DM -: STENT PLACEMENT 3YRS AGO -: KNEE REPLACEMENT - Family History Father Medical History: Lung disease, Cancer - Social History Smoking Status: Former smoker Alcohol use: No CD- Drugs: No Caffeine use: Yes Place of Residence: Home Review of Systems 10-point ROS is otherwise unremarkable Physical Examination - Vital Signs Temperature: 98.1 F Blood Pressure: 145/86 Pulse: 76 Respirations: 20 Pulse Ox (%): 100 - Physical Exam General: Alert, In no apparent distress, Oriented x2 HEENT: Atraumatic, PERRLA, Mucous membr. moist/pink, EOMI, Sclerae nonicteric Neck: Supple, 2+ carotid pulse no bruit, No LAD, Without JVD or thyroid abnormality Respiratory: Clear to auscultation bilaterally, Normal air movement Cardiovascular: Regular rate/rhythm, Normal S1 S2, Systolic murmur Gastrointestinal: Normal bowel sounds, Soft and benign, Non-distended, No tenderness, No rebound, No guarding Musculoskeletal: No clubbing, No swelling, No tenderness Integumentary: No rashes Neurological: Normal gait, Normal speech, Normal strength at 5/5 x4 extr, Normal tone, Sensation intact, Cranial nerves 3-12 intact, Normal affect Lymphatics: No axilla or inguinal lymphadenopathy - Studies Laboratory Data (last 24 hrs) 12/31/17 20:00: Lipase 156 12/31/17 20:00: PT 14.4 H, INR 1.22 12/31/17 20:00: WBC 12.6 H, Hgb 11.9 L, Hct 34.4 L, Plt Count 145 L 12/31/17 20:00: Sodium 139, Potassium 4.2, BUN 35 H, Creatinine 2.30 H, Glucose 172 H, Magnesium 2.0, Total Bilirubin 0.3, AST 55 H, ALT 28, Alkaline Phosphatase 54 Assessment & Plan - Problems (Diagnosis) (1) Generalized weakness Current Visit: Yes Status: Acute (2) UTI (urinary tract infection) Current Visit: Yes Status: Acute (3) Risk for falls Current Visit: Yes Status: Acute (4) Hypertension Current Visit: Yes Status: Acute (5) Type 2 diabetes mellitus Current Visit: Yes Status: Acute (6) Acute on chronic kidney failure Current Visit: Yes Status: Acute (7) CAD (coronary artery disease) Current Visit: Yes Status: Acute - Plan 1. Continue with IV hydration 2. Continue with IV antibiotics 3. Continue with pain control 4. Heart healthy diet 5. Infectious disease consultation if symptoms do not improve 6. Monitor labs closely including CBC and renal function. Await culture results prior to switching over to oral antibiotics; clinically patient is doing well and anticipate discharge in next 24-48 hrs 7. GI and DVT prophylaxis Discharge Plan: Other - Advance Directives Does patient have a Living Will: Yes Does patient have a Durable POA for Healthcare: Yes - Code Status/Comfort Care Code Status Assessed: Yes Code Status: Full Code Critical Care: No Time Spent Managing PTS Care (In Minutes): 55
[2018-01-01] MEDS: CEFTRIAXONE/SWI 1gm 1 GM/10 ML SYR IV SCH (08:16)
[2018-01-01] MEDS: ENOXAPARIN 30 MG/0.3 ML SQ SCH (08:17)
[2018-01-01] MEDS ORDERED: CEFTRIAXONE 1 GM/NS 50 ML 1 GM/50 ML BAG IV SCH (09:00)
[2018-01-01] MEDS ORDERED: D50W 25 GM/50 ML SYRINGE IV PRN (09:26)
[2018-01-01] MEDS ORDERED: GLUCAGON 1 MG/VIAL IM PRN (09:26)
--- NOTE | 2018-01-01 10:04 | EKG ---
Test Date: 2017-12-31 Test Time: 19:46:16 Interior Design Program Chair: ALEX MEASUREMENT RESULTS: Intervals: Rate: 76 OR: 198 QRSD: 96 QT: 378 QTc: 425 [place]: P: 35 OR: 198 QRS: -31 T: 2 INTERPRETIVE STATEMENTS: Normal sinus rhythm Left axis deviation Inferior infarct, age undetermined Cannot rule out Anterior infarct, age undetermined Abnormal ECG Compared to ECG 08/22/2014 15:59:12 No significant changes Electronically Signed On 01-01-18 10:03:37 CDT by Abhinav Santos
--- NOTE | 2018-01-01 12:03 | RAD REPORT ---
EXAM DESCRIPTION: RAD - Hip Bilateral With Pelvis - 01/01/2018 11:46 am CLINICAL HISTORY: Fall, pelvic pain, back pain COMPARISON: None. TECHNIQUE: AP view of the pelvis and hip joints was obtained with frogleg views of each hip joint. FINDINGS: No fracture, dislocation or acute bone findings. Femoral heads maintain smooth rounded co ntours. No AVN or other significant femoral head process. No joint effusion. No lytic, sclerotic or expansile bony destructive process. Patient does have degenerative change deepak g the superior aspect of each acetabulum, right greater than left. No suspicious soft tissue findings. Lower lumbar degenerative changes are present not fully assessed. 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
--- NOTE | 2018-01-01 12:03 | RAD REPORT ---
EXAM DESCRIPTION: RAD - Knee Left 3 View - 01/01/2018 11:46 am CLINICAL HISTORY: Fall, knee pain COMPARISON: None. FINDINGS: No fracture, dislocation or periosteal reaction.Minimal joint effusion is present. This co uld be acute or chronic. 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 No radiographic evidenc e for loosening. Small chronic joint effusion is not uncommon. No soft tissue abnormality. IMPRESSION: No acute findings seen to the implant or [place] bone. Minimal joint effusion is present which could be acute or chronic.
--- NOTE | 2018-01-01 12:04 | RAD REPORT ---
EXAM DESCRIPTION: RAD - Knee Right 3 View - 01/01/2018 11:46 am CLINICAL HISTORY: Fall, knee pain COMPARISON: None. FINDINGS: No fracture, dislocation or periosteal reaction.No measurable joint effusion seen. Patient has a revision total knee prosthesis in place. No radiographic evidence for loosening. No acute find ing of the [place] bone. Arterial calcifications are present. Degenerative changes are seen along the articular surface of the [place] patella. No foreign body or other soft tissue abnormality. IMPRESSION: Right total knee prosthesis in place with no evidence for loosening. No fracture or acute finding of the [place] bone.
[2018-01-01] MEDS: INSULIN -REGULAR HUMAN 50 UNIT/0.5 ML ML SQ SCH ×3 (12:55→21:16)
[2018-01-01] MEDS: ENSURE CLEAR 200 ML CAN PO SCH ×2 (12:59→17:36)
[2018-01-01] MEDS ORDERED: TRAMADOL HCL 50 MG TAB PO PRN (13:22)
[2018-01-01] MEDS ORDERED: ATORVASTATIN 20 MG TAB PO SCH (21:00)
[2018-01-01] MEDS: METOPROLOL XL 25 MG TAB PO SCH (21:15)
[2018-01-01] MEDS: TAMSULOSIN 0.4 MG SR CAP PO SCH (21:16)
[2018-01-02] MEDS: NA CHLORIDE 0.9% 1,000 ML IV SCH (05:03)
[2018-01-02] MEDS ORDERED: LEVOTHYROXINE SOD 0.05 MG TABLET PO SCH (06:30)
[2018-01-02] MEDS: INSULIN -REGULAR HUMAN 50 UNIT/0.5 ML ML SQ SCH ×2 (07:30→11:56)
[2018-01-02] MEDS: ENSURE CLEAR 200 ML CAN PO SCH ×2 (08:35→13:16)
[2018-01-02] MEDS: CEFTRIAXONE/SWI 1gm 1 GM/10 ML SYR IV SCH (08:35)
[2018-01-02] MEDS: ENOXAPARIN 30 MG/0.3 ML SQ SCH (08:36)
[2018-01-02] MEDS: METOPROLOL XL 25 MG TAB PO SCH (08:36)
[2018-01-02] MEDS: TAMSULOSIN 0.4 MG SR CAP PO SCH (08:37)
[2018-01-02] MEDS ORDERED: LISINOPRIL 5 MG TAB PO SCH (09:00)
[2018-01-02] MEDS ORDERED: CLOPIDOGREL 75 MG TABLET PO SCH (09:00)
[2018-01-02 13:48] LABS: Absolute Lymphocytes (CBC) 1.6 K/uL (0.7-4.9); Absolute Monocytes 0.5 K/uL (0.1-1.3); Absolute Neutrophil 5.6 K/uL (1.8-8.0); Basophils % 0.4 % (0-1.3); Eosinophils % 1.5 % (0-4.4); Hematocrit 34.4 % (39.6-49.0); MCH 30.3 pg (27.0-35.0); MPV 6.8 fL (7.6-11.3); Monocytes % 6.4 % (3.3-12.3); RBC Red Blood Cell Count 3.91 M/uL (4.33-5.43)
[2018-01-02 14:04] LABS: Potassium 4.4 mmol/L (3.5-5.1)
--- NOTE | 2018-01-03 03:58 | DS ---
Date of Discharge: 01/02/2018 Admitting Diagnoses: 1.Generalized weakness. 2.Urinary tract infection. 3.Risk for falls. 4.Essential hypertension. 5.Diabetes mellitus type 2. 6.Acute on chronic kidney injury. 7.Coronary artery disease. Discharge Diagnoses: 1.Generalized weakness, improved, likely secondary to urinary tract infection. 2.Acute urinary tract infection. Acute cystitis without hematuria. Urine culture growing mixed ana luisa ra. 3.Coronary artery disease, [place] artery and [place] heart, without angina. 4.Acute on chronic kidney injury, improved. 5.Diabetes mellitus type 2 with hyperglycemia with long-term use of insulin. 6.Risk for falls, set up with home physical therapy. 7.Essential hypertension. 8.Obesity. Hospital Course: The patient is a 77-year-old male who was admitted to the hospital with dysuria. T he patient had some generalized weakness and unable to stand up, was brought in by EMS. The patient was found to have UTI with elevated white count and left shift. The patient was started on IV antibi otics. His white count normalized. Cultures grew out mixed franky. Blood cultures did not show any growth to date. The patient otherwise did well over the course of the hospital stay. He had some im aging studies of his bilaterally knees and hip, which did not show any fracture or loosening of previ ous hardware in his knees. The patient was doing well, was then cleared for discharge and sent home in a stable condition with home health care with PT. Medications: As per medication reconciliation list that showed a course of Ceftin for UTI. Followup: Follow up with primary care physician in 2-3 days. Return to ER for worsening condition. Diet: Diabetic, renal diet. Activity: Fall precautions. Continue with home PT. Physical Examination: General: Awake, alert, oriented x3. Obese male. CV: S1, S2. No murmurs. Respiratory: Moving air well bilaterally. Abdomen: Soft, nontender, nondistended. Positive bowel sounds. Extremities: No clubbing, cyanosis, edema. Neurologic: Nonfocal. Code Status: Full. SA/MODL Voice ID: [id number] Report ID: [id number]
== END 2018-01-02 16:20 | disposition home health service (06) ==
LOC: ER 18:55 → ERHOLD 22:02 → 4TH 23:11
PROVIDERS: ADMIT Hospitalist; ATTEND Hospitalist
DX: N30.00 Acute cystitis without hematuria (principal); I25.10 Atherosclerotic heart disease of native coronary artery without angina pectoris; E66.9 Obesity, unspecified; Z68.32 Body mass index [BMI] 32.0-32.9, adult; I10 Essential (primary) hypertension; N17.9 Acute kidney failure, unspecified; E11.65 Type 2 diabetes mellitus with hyperglycemia; Z91.81 History of falling; Z96.659 Presence of unspecified artificial knee joint; Z79.4 Long term (current) use of insulin
CPT/HCPCS: 36415 ×2; 71045; 73521; 73562 ×2; 80048 ×2; 80053; 80076; 82962 ×5; 83605; 83690; 83721; 83735; 83880; 84145; 84484; 85025 ×3; 85610; 87040 ×2; 87086; 87088; 93005; 96365; 97163; 99285; G0378 ×2; J0696 ×3; J1650 ×2; J7030 ×3; 81003; 81015; J2270

== ENCOUNTER 2018-06-02 16:57 | Emergency (ER) | payer OTHER ==
--- OUTSIDE RECORDS SUMMARY | 2018-06-02 17:00 | XMS REPORT ---
:1940 Author Organization [facility] Address [address] [place] [address] Dr. Thompson [address] [place] [id number] Care Team Providers Name Role Phone Unavailable Unavailable Unavailable Problems This patient has no known problems. Allergies, Adverse Reactions, Alerts This patient has no known allergies or adverse reactions. Medications This patient has no known medications.
--- OUTSIDE RECORDS SUMMARY | 2018-06-02 17:00 | XMS REPORT | Clinical Summary ---
:1940 Author Organization [facility] Address [address] [place] [address] Care Team Providers Name Role Phone Henrry Nevarez MD Primary Care Provider Allergies Active Allergy Reactions Severity Noted Date Comments Morphine 06/30/2017 confusion Medications Medication Sig Dispensed Refills Start Date End Date Status atorvastatin (LIPITOR) Take 10 mg by 0 Active 10 MG tablet mouth daily. glimepiride (AMARYL) 4 Take 4 mg by 0 Active MG tablet mouth daily before breakfast. lisinopril Take 5 mg by 4 04/28/2017 Active (PRINIVIL,ZESTRIL) 5 mg mouth nightly. tablet clopidogrel (PLAVIX) 75 Take 75 mg by 2 03/18/2017 Active mg tablet mouth nightly. levothyroxine Take 50 mcg by 0 Active (SYNTHROID, LEVOXYL) 50 mouth every mcg tablet morning. tamsulosin (FLOMAX) 0.4 Take 0.4 mg by 0 Active mg capsule,extended mouth nightly. release 24hr allopurinol (ZYLOPRIM) Take 100 mg by 0 Active 100 MG tablet mouth daily. metoprolol tartrate Take 25 mg by 0 Active (LOPRESSOR) 25 mg mouth 2 (two) tablet times a day. insulin ASPART Inject under the 0 Active (NovoLOG) 100 unit/mL skin 3 (three) injection times a day before meals. INSULIN DETEMIR Inject 15 Units 0 Active (LEVEMIR U-100 INSULIN under the skin 2 SUBQ) (two) times a day. cetirizine (ZyrTEC) 5 Take 5 mg by 0 Active MG tablet mouth daily. traMADol (ULTRAM) 50 mg Take 1 tablet (50 80 tablet 0 07/11/2017 05/08/ 201 tablet mg total) by 8 mouth every 4 (four) hours as needed for moderate pain for up to 14 days. HYDROcodone-acetaminoph Take 1 tablet by 80 tablet 0 07/11/2017 en (NORCO) 7.5-325 mg mouth every 6 8 per tablet (six) hours as needed for severe pain for up to 14 days. 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) 07/18/2017 Office Visit Orthopedic Surgery Roman Camarena Status post total HAZEL Mckee left knee replacement (Primary Dx) 07/11/2017 Orders Only Orthopedic Surgery Roman Camarena PA-C 07/10/2017 Anesthesia Event Orthopedic Surgery Rob Weber Jr., CRISIS INTERVENTION SPECIALIST 07/10/2017 Surgery Orthopedic Surgery Kendrick Rodríguez LEFT TOTAL KNEE MD Dimitrios ARTHROPLASTY 07/10/2017 - Hospital Encounter Orthopedic Surgery Kendrick Rodríguez Osteoarthritis of 07/11/2017 MD Dimitrios left knee, unspecified osteoarthritis type 07/04/2017 Orders Only Orthopedic Surgery Roman Camarena PA-C 07/04/2017 Orders Only Orthopedic Surgery Jeannine Hernández, Primary MA osteoarthritis of left knee (Primary Dx) 06/30/2017 Hospital Encounter Radiology Kendrick Rodríguez MD 06/30/2017 Pre-Admit Testing Pre-Admission Kendrick Rodríguez Pre-op testing Appointment Testing MD Dimitrios (Primary Dx) 06/30/2017 Office Visit Orthopedic Surgery Kendrick Rodríguez Primary MD Dimitrios osteoarthritis of left knee (Primary Dx) 06/21/2017 Office Visit Orthopedic Surgery Kendrick Rodríguez Acute medial meniscus MD Dimitrios tear of left knee, initial encounter (Primary Dx) 06/20/2017 Orders Only Orthopedic Surgery Jeannine Hernández, Left knee pain, MA unspecified chronicity (Primary Dx) after 06/01/2017 Social History Tobacco Use Types Packs/Day Years Used Date Former Smoker Cigarettes 1 10 Quit: 1989 Smokeless Tobacco: Never Used Alcohol Use Drinks/Week oz/Week Comments No Sex Assigned at Date Recorded Not on file Job Start Date Occupation Industry Not on file Not on file Not on file Travel History Travel Start Travel End No recent travel history available. Last Filed Vital Signs Vital Sign Reading [...] Health Maintenance Due Date Last Done Comments SHINGLES VACCINES (#1) 1988 65+ PNEUMOCOCCAL VACCINE (2 of 2 - PPSV23) 12/17/2003 01/18/2010 INFLUENZA VACCINE 10/18/2017 01/18/2010 PNEUMOCOCCAL POLYSACCHARIDE VACCINE AGE 65 AND OVER Completed 01/18/2010 Implants Implanted Type Area Fuel Operator Device Shelf Model / Identifier Expiration Serial / Lot Date Vangrd Ant Stblzd Brg 14x79 - [id number] IMPLANT Left: [employer] [id number] / Implanted: Qty: 1 on 07/10/2017 by Kendrick Rodríguez MD DEVICES Knee / [id number] Cement Bone R+G 1dose Palacos - [id number] Knee Joint Left: [employer] [id number] / Implanted: Qty: 1 on 07/10/2017 by Kendrick Rodríguez MD Implants Knee / [id number]$ Cement Bone R+G 1dose Palacos - [id number] Knee Joint Left: [employer] [id number] / Implanted: Qty: 1 on 07/10/2017 by Kendrick Rodríguez MD Implants Knee / [id number]$ Stem Tib Prim Finned [id number] Ascent Maxim - [id number] Knee Joint Left: [employer] 11/06/2026 [id number] / Implanted: Qty: 1 on 07/10/2017 by Kendirck Rodríguez MD Implants Knee / [id number] Component Fml Cr Lt Anatom Interlok 70mm Vanguard - [id number] Knee Joint Left: [employer] 02/06/2025 [id number] / Implanted: Qty: 1 on 07/10/2017 by Kendrick Rodríguez MD Implants Knee / [id number] Tray Tib Prim Interlok 79mm Ascent Maxim - [id number] Knee Joint Left: [employer] 04/05/2027 [id number] / Implanted: Qty: 1 on 07/10/2017 by Kendrick Rodríguez MD Implants Knee / [id number] Implant Ptlr Vanguard 3 Peg Series A Std 34x8.5mm - [id number] Knee Joint Left: [employer] 05/29/2022 [id number] / Implanted: Qty: 1 on 07/10/2017 by Kendrick Rodríguez MD Implants Knee / [id number] Procedures Procedure Name Priority Date/Time Associated Diagnosis [...] CDT procedure are in the results section. OH AN ELECTIVE Routine 07/10/2017 9:01 ENDOTRACHEAL AIRWAY AM CDT Procedure Note - Rob Weber Jr., CRISIS INTERVENTION SPECIALIST - 07/10/2017 9:01 AM CDT Airway Date/Time: [...] are in chronicity the results section. after 06/01/2017 Results XR Knee 3 Vw Left (07/28/2017 1:24 PM CDT)Only the most recent of2 resultswithin the time period is included. Narrative Performed At 3 x-ray views of the left knee show properly placed Biomet Vanguard total HM [facility] knee replacement 80 mm stem. The patella is tracking concentrically. The posterior slope of the tibial component is excellent. Performing Organization Address [facility] Phone Number [facility] [address] [place] [address] XR Leg Length Evaluation (07/28/2017 1:24 PM CDT)Only the most recent of2 resultswithin the time [...] ankles are essentially normal. Performing Organization Address [facility] Phone Number [facility] [address] [place] [address] POC glucose (07/11/2017 9:04 AM CDT)Only the most recent of5 resultswithin the time period is included. POC glucose 141 (H) 65 - 99 mg/dL [facility] DEPARTMENT OF PATHOLOGY AND Comment: GENOMIC MEDICINE [facility] Notified RN Meter ID: [id number] [facility] Cashier: Edd Perez I Performing Organization Address [facility] Phone Number [facility] DEPARTMENT OF PATHOLOGY AND [address] [place], [place] [phone] [employer] CBC with platelet and differential (07/11/2017 8:46 AM CDT)Only the most recent of3 resultswithin the time period is included. WBC 8.90 4.50 - 11.00 k/uL [facility] DEPARTMENT OF PATHOLOGY AND GENOMIC MEDICINE RBC 3.73 (L) 4.40 - 6.00 m/uL [facility] DEPARTMENT OF PATHOLOGY AND GENOMIC MEDICINE HGB 10.9 (L) 14.0 - 18.0 g/dL [facility] DEPARTMENT OF PATHOLOGY AND GENOMIC MEDICINE HCT 32.6 (L) 41.0 - 51.0 % [facility] DEPARTMENT OF PATHOLOGY AND GENOMIC MEDICINE MCV 87.4 82.0 - 100.0 fL [facility] DEPARTMENT OF PATHOLOGY AND GENOMIC MEDICINE MCH 29.2 27.0 - 34.0 pg [facility] DEPARTMENT OF PATHOLOGY AND GENOMIC MEDICINE MCHC 33.4 31.0 - 37.0 g/dL [facility] DEPARTMENT OF PATHOLOGY AND GENOMIC MEDICINE RDW - SD 42.5 37.0 - 55.0 fL [facility] DEPARTMENT OF PATHOLOGY AND GENOMIC MEDICINE MPV 8.7 (L) 8.8 - 13.2 fL [facility] DEPARTMENT OF PATHOLOGY AND GENOMIC MEDICINE Platelet count 110 (L) 150 - 400 k/uL [facility] DEPARTMENT OF PATHOLOGY AND GENOMIC MEDICINE Nucleated RBC 0.00 /100 WBC [facility] DEPARTMENT OF PATHOLOGY AND GENOMIC MEDICINE Neutrophils 71.3 (H) 39.0 - 69.0 % [facility] DE[facility]MENT OF PATHOLOGY AND GENOMIC MEDICINE Lymphocytes 18.4 (L) 25.0 - 45.0 % [facility] DEPARTMENT OF PATHOLOGY AND GENOMIC MEDICINE Monocytes 8.5 0.0 - 10.0 % [facility] DE[facility]MENT OF PATHOLOGY AND GENOMIC MEDICINE Eosinophils 1.1 0.0 - 5.0 % [facility] DEPARTMENT OF PATHOLOGY AND GENOMIC MEDICINE Basophils 0.3 0.0 - 1.0 % [facility] DEPARTMENT OF PATHOLOGY AND GENOMIC MEDICINE Immature granulocytes 0.4Comment: 0.0 - 1.0 % [facility] DEPARTMENT OF "Immature PATHOLOGY AND GENOMIC granulocytes" MEDICINE (promyelocytes, myelocytes, metamyelocytes) Performing Organization Address City/State/[facility] Phone Number [facility] DEPARTMENT OF PATHOLOGY AND [address] [place] [phone] [facility] Estimated GFR (07/11/2017 4:00 AM CDT)Only the most recent of2 resultswithin the time period is included. GFR Non Af Amer 32 (A) mL/min/1.73 m2 [facility] DEPARTMENT OF PATHOLOGY AND GENOMIC MEDICINE GFR Af Amer 39 (A) mL/min/1.73 m2 [facility] DEPARTMENT OF Comment: PATHOLOGY AND GENOMIC Chronic [...] Americans. Specimen Plasma specimen Performing Organization Address City/[facility] Phone Number [facility] DEPARTMENT OF PATHOLOGY AND [address] [place] [address] Phosphorus level (07/11/2017 4:00 AM CDT) Phosphorus 3.1 2.4 - 4.5 mg/dL [facility] DEPARTMENT OF PATHOLOGY AND [facility] MEDICINE Specimen Plasma specimen Performing Organization Address City/[facility] Phone Number [facility] DEPARTMENT OF PATHOLOGY AND [address] [place] [address] Magnesium level (07/11/2017 4:00 AM CDT) Magnesium 1.8 1.6 - 2.4 mg/dL [facility] DEPARTMENT OF PATHOLOGY AND [employer] MEDICINE Specimen Plasma specimen Performing Organization Address City/[facility] Phone Number [facility] DEPARTMENT OF PATHOLOGY AND [address] [place] [address] Basic metabolic panel (07/11/2017 4:00 AM CDT) Sodium 134 (L) 135 - 148 mEq/L [facility] DEPARTMENT OF PATHOLOGY AND GENOMIC MEDICINE Potassium 5.8 (H) 3.5 - 5.0 mEq/L [facility] DEPARTMENT OF PATHOLOGY AND GENOMIC MEDICINE Chloride 102 98 - 112 mEq/L [facility] DEPARTMENT OF PATHOLOGY AND GENOMIC MEDICINE CO2 15 (L) 24 - 31 mEq/L [facility] DEPARTMENT OF PATHOLOGY AND GENOMIC MEDICINE Anion gap 17 (H) 7 - 15 mEq/L [facility] DEPARTMENT OF PATHOLOGY Comment: [facility] Starting from June , anion gap calculation no longer incorporates potassium. Please note the change. BUN 38 (H) 8 - 23 mg/dL [facility] DEPARTMENT OF PATHOLOGY AND GENOMIC MEDICINE Creatinine 2.0 (H) 0.7 - 1.2 mg/dL [facility] DEPARTMENT OF PATHOLOGY AND GENOMIC MEDICINE Glucose 152 (H) 65 - 99 mg/dL [facility] DEPARTMENT OF PATHOLOGY AND GENOMIC MEDICINE Calcium 8.4 (L) 8.8 - 10.2 mg/dL [facility] DEPARTMENT OF PATHOLOGY AND GENOMIC MEDICINE Specimen Plasma specimen Performing Organization Address [facility] Phone Number [facility] DEPARTMENT OF PATHOLOGY AND [address] [place] [phone] GENOMIC MEDICINE Surgical pathology request (07/10/2017 9:38 AM CDT) [facility] DEPARTMENT OF PATHOLOGY AND GENOMIC MEDICINE Surgical pathology report See link below for PDF [facility] DEPARTMENT OF Lab Report PATHOLOGY AND GENOMIC MEDICINE Result status This is Final Report to [facility] DEPARTMENT OF [id number] PATHOLOGY AND GENOMIC MEDICINE Performing Organization Address City/[facility] Phone Number [facility] DEPARTMENT OF PATHOLOGY AND [address] [place] [phone] GENOMIC MEDICINE POC panel 4 (07/10/2017 7:12 AM CDT) POC sodium 138 135 - 148 mmol/L [facility] DEPARTMENT OF PATHOLOGY AND GENOMIC MEDICINE POC potassium 4.7 3.5 - 5.0 mmol/L [facility] DEPARTMENT OF PATHOLOGY AND GENOMIC MEDICINE POC hematocrit 36 (L) 41 - 51 % [facility] DEPARTMENT OF Comment: PATHOLOGY AND GENOMIC Meter ID: [id number] MEDICINE [facility] Cashier: Zavala Justyna POC glucose 185 (H) 65 - 99 mg/dL [facility] DEPARTMENT OF PATHOLOGY AND GENOMIC MEDICINE Performing Organization Address [facility] Phone Number [facility] DEPARTMENT OF PATHOLOGY AND [address] [place], [place] [phone] GENOMIC MEDICINE XR Chest 2 Vw (06/30/2017 2:15 PM CDT) Narrative Performed At EXAMINATION:XR CHEST 2 VW [facility] CLINICAL HISTORY: Z01.818 Encounter for other preprocedural examination, pre op testing COMPARISON:03/06/2012 IMPRESSION: No active disease in the chest. Lungs are clear. Cardiomediastinal silhouette is within normal limits. No effusion or pneumothorax noted. Visualized osseous structures are intact. [id number] Procedure Note Interface, Radiology Results Incoming - 06/30/2017 2:40 PM CDT EXAMINATION: XR CHEST 2 VW CLINICAL HISTORY: Z01.818 Encounter for other preprocedural examination, pre op testing COMPARISON: 03/06/2012 IMPRESSION: No active disease in the chest. Lungs are clear. Cardiomediastinal silhouette is within normal limits. No effusion or pneumothorax noted. Visualized osseous structures are intact. [id number] Performing Organization Address [facility]/Zipcode Phone Number [facility] [address] [place] [phone] ECG Pre/Post Op (06/30/2017 1:32 PM CDT) Ventricular rate 59 [facility] Atrial rate 59 [facility] [place] interval 180 [facility] QRSD interval 92 [facility] QT interval 426 [facility] QTC interval 421 [facility] P axis 1 63 [facility] QRS axis 1 -3 [facility] T wave axis 20 [facility] EKG impression Sinus bradycardia-Otherwise normal ECG-No [facility] previous ECGs available- Performing Organization Address [facility] Phone Number [facility] [address] [place] [phone] Urine culture (06/30/2017 1:30 PM CDT) Urine culture SEE COMMENTComment: Bacteriuria [facility] DEPARTMENT OF PATHOLOGY screen negative. AND GENOMIC MEDICINE Performing Organization Address [facility] Phone Number [facility] DEPARTMENT OF PATHOLOGY AND [address] [place] [phone] GENOMIC MEDICINE Urinalysis screen and microscopy, with reflex to culture (06/30/2017 1:17 PM CDT) Specimen site Clean catch [facility] DEPARTMENT OF PATHOLOGY AND GENOMIC MEDICINE Color, UA Straw [facility] DEPARTMENT OF PATHOLOGY AND GENOMIC MEDICINE Appearance, UA Clear [facility] DEPARTMENT OF PATHOLOGY AND GENOMIC MEDICINE Specific gravity, UA 1.018 1.001 - 1.035 [facility] DEPARTMENT OF PATHOLOGY AND GENOMIC MEDICINE pH, UA 5.0 5.0 - 8.5 [facility] DEPARTMENT OF PATHOLOGY AND GENOMIC MEDICINE Protein, UA Negative Negative [facility] DEPARTMENT OF PATHOLOGY AND GENOMIC MEDICINE Glucose, UA 2+ (A) Negative [facility] DEPARTMENT OF PATHOLOGY AND GENOMIC MEDICINE Ketones, UA Negative Negative [facility] DEPARTMENT OF PATHOLOGY AND GENOMIC MEDICINE Bilirubin, UA Negative Negative [facility] DEPARTMENT OF PATHOLOGY AND GENOMIC MEDICINE Blood, UA Negative Negative [facility] DEPARTMENT OF PATHOLOGY AND GENOMIC MEDICINE Nitrite, UA Negative Negative [facility] DEPARTMENT OF PATHOLOGY AND GENOMIC MEDICINE Urobilinogen, UA <2.0 <2.0 [facility] DEPARTMENT OF PATHOLOGY AND GENOMIC MEDICINE Leukocyte esterase, UA Negative Negative [facility] DEPARTMENT OF PATHOLOGY AND GENOMIC MEDICINE Epithelial cells, UA <1 /HPF [facility] DEPARTMENT OF PATHOLOGY AND GENOMIC MEDICINE WBC, UA 1 0 - 1 /HPF [facility] DEPARTMENT OF PATHOLOGY AND GENOMIC MEDICINE RBC, UA 1 0 - 5 /HPF [facility] DEPARTMENT OF PATHOLOGY AND GENOMIC MEDICINE Bacteria, UA Few None seen [facility] DEPARTMENT OF PATHOLOGY AND GENOMIC MEDICINE Yeast, UA None seen [facility] DEPARTMENT OF PATHOLOGY AND GENOMIC MEDICINE Yeast with pseudohyphae, UA None seen [facility] DEPARTMENT OF PATHOLOGY AND GENOMIC MEDICINE Specimen Urine Performing Organization Address [facility] Phone Number [facility] DEPARTMENT OF PATHOLOGY AND [address] [place] [address] Partial thromboplastin time, activated (06/30/2017 1:17 PM CDT) PTT 30.1 23.0 - 36.0 sec [facility] DEPARTMENT OF PATHOLOGY Comment: AND [facility] MEDICINE PTT therapeutic range for unfractionated heparin is 61.0-112.0 seconds which corresponds to Anti-Xa 0.3-0.7 U/ml. Specimen Blood Performing Organization Address City/[facility] Phone Number [facility] DEPARTMENT OF PATHOLOGY AND [address] [place] [address] Prothrombin time with INR (06/30/2017 1:17 PM CDT) Prothrombin time 14.0 12.0 - 15.0 sec [facility] DEPARTMENT OF PATHOLOGY AND GENOMIC MEDICINE INR 1.1 [facility] DEPARTMENT OF Comment: PATHOLOGY AND GENOMIC The International Normalized Ratio (INR) is a therapeutic MEDICINE monitoring tool for patients who are stable on oral anticoagulant therapy. An INR of 2.0-3.0 is suggested for deep vein thrombosis/pulmonary embolism. Specimen Blood Performing Organization Address [facility] Phone Number [facility] DEPARTMENT OF PATHOLOGY AND [address] [place], [place] [phone] [facility] CBC hemogram (06/30/2017 1:17 PM CDT) WBC 7.76 4.50 - 11.00 k/uL [facility] DEPARTMENT OF PATHOLOGY AND GENOMIC MEDICINE RBC 4.79 4.40 - 6.00 m/uL [facility] DEPARTMENT OF PATHOLOGY AND GENOMIC MEDICINE HGB 14.1 14.0 - 18.0 g/dL [facility] DEPARTMENT OF PATHOLOGY AND GENOMIC MEDICINE HCT 42.1 41.0 - 51.0 % [facility] DEPARTMENT OF PATHOLOGY AND GENOMIC MEDICINE MCV 87.9 82.0 - 100.0 fL [facility] DEPARTMENT OF PATHOLOGY AND GENOMIC MEDICINE MCH 29.4 27.0 - 34.0 pg [facility] DEPARTMENT OF PATHOLOGY AND GENOMIC MEDICINE MCHC 33.5 31.0 - 37.0 g/dL [facility] DEPARTMENT OF PATHOLOGY AND GENOMIC MEDICINE RDW - SD 43.3 37.0 - 55.0 fL [facility] DEPARTMENT OF PATHOLOGY AND GENOMIC MEDICINE MPV 8.7 (L) 8.8 - 13.2 fL [facility] DEPARTMENT OF PATHOLOGY AND GENOMIC MEDICINE Platelet count 152 150 - 400 k/uL [facility] DEPARTMENT OF PATHOLOGY AND GENOMIC MEDICINE Nucleated RBC 0.00 /100 WBC [facility] DEPARTMENT OF PATHOLOGY AND GENOMIC MEDICINE Specimen Blood Performing Organization Address City/State/[facility] Phone Number [facility] DEPARTMENT OF PATHOLOGY AND [address] [place] [phone] [place] [address] MEDICINE Hemoglobin A1c (06/30/2017 1:17 PM CDT) Hemoglobin A1C 8.4 (H) 4.0 - 5.6 % [facility] DEPARTMENT OF PATHOLOGY Comment: AND GENOMIC MEDICINE HbA1c cutoffs for diagnosing diabetes: 4.0% - 5.6%=normal 5.7% - 6.4%=increased risk for diabetes (prediabetes) >=6.5%=diabetes Goals for glycemic control (ADA 2016) < 7.0%Target for non adults with diabetes. More or less stringent targets may be appropriate for individual patients. <7.5% Target for Children and adolescents with type 1 diabetes. Specimen Blood Performing Organization Address City/[facility] Phone Number [facility] DEPARTMENT OF PATHOLOGY AND [address] [place] [phone] [facility] Comprehensive metabolic panel (06/30/2017 1:17 PM CDT) Sodium 141 135 - 148 mEq/L [facility] DEPARTMENT OF PATHOLOGY AND GENOMIC MEDICINE Potassium 5.7 (H) 3.5 - 5.0 mEq/L [facility] DEPARTMENT OF PATHOLOGY AND GENOMIC MEDICINE Chloride 104 98 - 112 mEq/L [facility] DEPARTMENT OF PATHOLOGY AND GENOMIC MEDICINE CO2 23 (L) 24 - 31 mEq/L [facility] DEPARTMENT OF PATHOLOGY AND GENOMIC MEDICINE Anion gap 14 7 - 15 mEq/L [facility] DEPARTMENT OF Comment: PATHOLOGY AND GENOMIC Starting from June , anion gap calculation MEDICINE no longer incorporates potassium. Please note the change. BUN 46 (H) 8 - 23 mg/dL [facility] DEPARTMENT OF PATHOLOGY AND GENOMIC MEDICINE Creatinine 2.3 (H) 0.7 - 1.2 mg/dL [facility] DEPARTMENT OF PATHOLOGY AND GENOMIC MEDICINE Glucose 126 (H) 65 - 99 mg/dL [facility] DEPARTMENT OF PATHOLOGY AND GENOMIC MEDICINE Calcium 10.3 (H) 8.8 - 10.2 mg/dL [facility] DEPARTMENT OF PATHOLOGY AND GENOMIC MEDICINE Protein 7.7 6.3 - 8.3 g/dL [facility] DEPARTMENT OF Comment: PATHOLOGY AND GENOMIC 4.6-7.0 g/dL MEDICINE 1 week 4.4-7.6 g/dL 7 months-1year5.1-7.3 g/dL 1-2 years5.6-7.5 g/dL >3 years6.0-8.0 g/dL 18-150 6.3-8.3 g/dL Albumin 3.6 3.5 - 5.0 g/dL [facility] DEPARTMENT OF PATHOLOGY AND GENOMIC MEDICINE A/G ratio 0.9 0.7 - 3.8 [facility] DEPARTMENT OF PATHOLOGY AND GENOMIC MEDICINE Alkaline phosphatase 63 40 - 129 U/L [facility] DEPARTMENT OF PATHOLOGY AND GENOMIC MEDICINE AST 20 10 - 50 U/L [facility] DEPARTMENT OF PATHOLOGY AND GENOMIC MEDICINE ALT 21 5 - 50 U/L [facility] DEPARTMENT OF PATHOLOGY AND GENOMIC MEDICINE Total bilirubin 0.3 0.0 - 1.2 mg/dL [facility] DEPARTMENT OF PATHOLOGY AND GENOMIC MEDICINE Specimen Plasma specimen Performing Organization Address City/State/Zipcode Phone Number [facility] DEPARTMENT OF PATHOLOGY AND [address] [place] [address] [facility] MEDICINE MRI Knee Left Wo Contrast (06/28/2017 1:40 PM CDT) Narrative Performed At EXAMINATION:MRI KNEE WO CONTRAST [...] mm 4. Minimal volume of joint fluid. [id number] Procedure Note Hm Interface, Radiology Results Incoming [...] mm 4. Minimal volume of joint fluid. [id number] [facility] Organization Address City/State/Zipcode Phone Number [facility] [address] [place] [address] after 06/01/2017 Insurance Payer Benefit Plan / Group Subscriber ID Type Phone Address [employer]NA MEDICARE AETNA MEDICARE HMO/PPO [facility] xxxxxxxx HMO Advance Directives Patient has advance care planning documents on file. For more information, please contact:Chon Orta[address] [place] [address]
[2018-06-02 18:52] LABS: Urine Bacteria NONE SEEN /HPF (NONE SEEN); Urine Culture Reflex Order NOT NEEDED; Urine RBC <5 /HPF (NONE SEEN)
--- NOTE | 2018-06-02 18:57 | EDPHYS ---
Physician Documentation [facility] Name: Kendrick Worley Age: 77 yrs Sex: Male : 1940 Arrival Date: 06/02/2018 Time: 17:01 Bed 27 Private MD: Kj Nevarez B ED Physician Stephen Saleem HPI: 06/02 18:00 This 77 yrs old Male presents to ER via Wheelchair with complaints of Urinary pm1 Problem. 18:00 The patient presents with urinary symptoms, Burning with urination last night. Onset: pm1 The symptoms/episode began/occurred last night. Modifying factors: The symptoms are alleviated by nothing, the symptoms are aggravated by nothing. Associated signs and symptoms: Pertinent negatives: abdominal pain, diarrhea, fever, nausea, vomiting. Severity of symptoms: in the emergency department the symptoms have improved, No burning with urination with urine sample provided in the ER. The patient has experienced similar episodes in the past, a few times. The patient has not recently seen a physician. Historical: - Allergies: 17:18 Morphine (hallucinations ); aa5 17:19 Bactrim; aa5 - PMHx: 17:18 Diabetes - IDDM; Myocardial infarction; aa5 - PSHx: 17:18 Knee surgery; aa5 17:19 Right Kidney removed - cancer; aa5 - Immunization history:: Flu vaccine is up to date. - Social history:: Smoking status: Patient/guardian denies using tobacco. - Ebola Screening: : No symptoms or risks identified at this time. ROS: 18:00 Constitutional: Negative for fever, chills, and weight loss, Eyes: Negative for injury, pm1 pain, redness, and discharge, ENT: Negative for injury, pain, and discharge, Neck: Negative for injury, pain, and swelling, Cardiovascular: Negative for chest pain, palpitations, and edema, Respiratory: Negative for shortness of breath, cough, wheezing, and pleuritic chest pain, Abdomen/GI: Negative for abdominal pain, nausea, vomiting, diarrhea, and constipation, Back: Negative for injury and pain. 18:00 MS/Extremity: Negative for injury and deformity, Skin: Negative for injury, rash, and discoloration, Neuro: Negative for headache, weakness, numbness, tingling, and seizure. 18:00 : Positive for burning with urination, Negative for urinary frequency, difficulty urinating. Exam: 18:00 Constitutional: This is a well developed, well nourished patient who is awake, alert, pm1 and in no acute distress. Head/Face: Normocephalic, atraumatic. Eyes: Pupils equal round and reactive to light, extra-ocular motions intact. Lids and lashes normal. Conjunctiva and sclera are non-icteric and not injected. Cornea within normal limits. Periorbital areas with no swelling, redness, or edema. ENT: Nares patent. No nasal discharge, no septal abnormalities noted. Tympanic membranes are normal and external auditory canals are clear. Oropharynx with no redness, swelling, or masses, exudates, or evidence of obstruction, uvula midline. Mucous membranes moist. Neck: Trachea midline, no thyromegaly or masses palpated, and no cervical lymphadenopathy. Supple, full range of motion without nuchal rigidity, or vertebral point tenderness. No Meningismus. Chest/axilla: Normal chest wall appearance and motion. Nontender with no deformity. No lesions are appreciated. Cardiovascular: Regular rate and rhythm with a normal S1 and S2. No gallops, murmurs, or rubs. Normal PMI, no JVD. No pulse deficits. Respiratory: Lungs have equal breath sounds bilaterally, clear to auscultation and percussion. No rales, rhonchi or wheezes noted. No increased work of breathing, no retractions or nasal flaring. Abdomen/GI: Soft, non-tender, with normal bowel sounds. No distension or tympany. No guarding or rebound. No evidence of tenderness throughout. Back: No spinal tenderness. No costovertebral tenderness. Full range of motion. Skin: Warm, dry with normal turgor. Normal color with no rashes, no lesions, and no evidence of cellulitis. MS/ Extremity: Pulses equal, no cyanosis. Neurovascular intact. Full, normal range of motion. 18:00 Neuro: Orientation: is normal, Motor: is normal, moves all fours. Vital Signs: 17:19 BP 138 / 62; Pulse 71; Resp 16 S; Temp 98.7(TE); Pulse Ox 96% on R/A; Weight 104.33 kg aa5 (R); Height 6 ft. 0 in. (182.88 cm) (R); Pain 0/10; 19:42 BP 126 / 74; Pulse 73; Resp 18; Pulse Ox 98% on R/A; la1 17:19 Body Mass Index 31.19 (104.33 kg, 182.88 cm) aa5 MDM: 17:38 Patient medically screened. pm1 18:10 ED course: Patient just wants urine sample tested and antibiotics. Patient does not pm1 want any blood work tested. Patient wants to go home soon to receive his grandchildren at his home who are driving from out of town. 18:56 Data reviewed: vital signs. Data interpreted: Pulse oximetry: on room air is 96 %. pm1 Interpretation: normal. Counseling: I had a detailed discussion with the patient and/or guardian regarding: the historical points, exam findings, and any diagnostic results supporting the discharge/admit diagnosis, lab results, the need for outpatient follow up, to return to the emergency department if symptoms worsen or persist or if there are any questions or concerns that arise at home. 06/02 17:48 Order name: Urine Microscopic Only; Complete Time: 18:58 pm1 06/02 18:07 Order name: Urine Dipstick--Ancillary (enter results) eb 06/02 17:48 Order name: Urine Dipstick-Ancillary (obtain specimen); Complete Time: 18:06 pm1 Administered Medications: 19:00 Drug: Rocephin (cefTRIAXone) 1 grams Route: IM; Site: right ventrogluteal; la1 19:42 Follow up: Response: No adverse reaction la1 Disposition: 06/03 09:46 Co-signature as Attending Physician, Stephen Saleem MD. rn Disposition: 06/02/18 18:57 Discharged to Home. Impression: Urinary tract infection, site not specified. - Condition is Stable. - Discharge Instructions: Urinary Tract Infection, Adult. - Prescriptions for Augmentin 875- 125 mg Oral Tablet - take 1 tablet by ORAL route every 12 hours for 10 days; 20 tablet. - Medication Reconciliation Form, Thank You Letter, Antibiotic Education form. - Follow up: Emergency Department; When: As needed; Reason: Worsening of condition. Follow up: Private Physician; When: 2 - 3 days; Reason: Recheck today's complaints, Continuance of care, Re-evaluation by your physician. - Problem is new. - Symptoms have improved. Signatures: Dispatcher [employer] EDMS Stephen Saleem MD MD rn Calderon, Audri RN RN aa5 Ashok Ayala RN RN la1 Harris Allen NP PIT HOIST OPERATOR pm1 Corrections: (The following items were deleted from the chart) 06/02 19:43 18:57 06/02/2018 18:57 Discharged to Home. Impression: Urinary tract infection, site la1 not specified. Condition is Stable. Forms are Medication Reconciliation Form, Thank You Letter, Antibiotic Education, Prescription Opioid Use. Follow up: Emergency Department; When: As needed; Reason: Worsening of condition. Follow up: Private Physician; When: 2 - 3 days; Reason: Recheck today's complaints, Continuance of care, Re-evaluation by your physician. Problem is new. Symptoms have improved. pm1
--- NOTE | 2018-06-02 18:57 | ER ---
Nurse's Notes [facility] Name: Kendrick Worley Age: 77 yrs Sex: Male : 1940 Arrival Date: 06/02/2018 Time: 17:01 Bed 27 Private MD: Kj Nevarez B Diagnosis: Urinary tract infection, site not specified Presentation: 06/02 17:16 Presenting complaint: Patient states: burning with urination that began last night. Pt aa5 denies pain, denies nausea/vomiting. Reports generalized weakness that began yesterday. Transition of care: patient was not received from another setting of care. Onset of symptoms was May 2018. Risk Assessment: Do you want to hurt yourself or someone else? Patient reports no desire to harm self or others. Initial Sepsis Screen: Does the patient meet any 2 criteria? No. Patient's initial sepsis screen is negative. Does the patient have a suspected source of infection? No. Patient's initial sepsis screen is negative. Care prior to arrival: None. 17:16 Method Of Arrival: Wheelchair aa5 17:16 Acuity: SHERLEY 3 aa5 Historical: - Allergies: 17:18 Morphine (hallucinations ); aa5 17:19 Bactrim; aa5 - PMHx: 17:18 Diabetes - IDDM; Myocardial infarction; aa5 - PSHx: 17:18 Knee surgery; aa5 17:19 Right Kidney removed - cancer; aa5 - Immunization history:: Flu vaccine is up to date. - Social history:: Smoking status: Patient/guardian denies using tobacco. - Ebola Screening: : No symptoms or risks identified at this time. Screenin:43 Abuse screen: Denies threats or abuse. Nutritional screening: No deficits noted. la1 Tuberculosis screening: No symptoms or risk factors identified. Fall Risk None identified. Assessment: 18:42 General: Appears in no apparent distress. Behavior is calm, cooperative. Pain: Denies la1 pain. Neuro: Level of Consciousness is awake, alert, obeys commands, Oriented to person, place, time, situation. Cardiovascular: Capillary refill < 3 seconds Patient's skin is warm and dry. Respiratory: Airway is patent Respiratory effort is even, unlabored, Respiratory pattern is regular, symmetrical, Breath sounds are clear bilaterally. GI: No signs and/or symptoms were reported involving the gastrointestinal system. : Reports burning with urination. 19:42 Reassessment: Patient appears in no apparent distress at this time. No changes from la1 previously documented assessment. Patient and/or family updated on plan of care and expected duration. Pain level reassessed. Patient is alert, oriented x 3, equal unlabored respirations, skin warm/dry/pink. Vital Signs: 17:19 BP 138 / 62; Pulse 71; Resp 16 S; Temp 98.7(TE); Pulse Ox 96% on R/A; Weight 104.33 kg aa5 (R); Height 6 ft. 0 in. (182.88 cm) (R); Pain 0/10; 19:42 BP 126 / 74; Pulse 73; Resp 18; Pulse Ox 98% on R/A; la1 17:19 Body Mass Index 31.19 (104.33 kg, 182.88 cm) aa5 ED Course: 17:01 Patient arrived in ED. mr 17:01 Kj Nevarez MD is Private Physician. mr 17:15 Arm band placed on. aa5 17:17 Triage completed. aa5 17:38 Harris Allen NP is PHCP. pm1 17:38 Stephen Saleem MD is Attending Physician. pm1 17:40 Ashok Ayala, JANET is Primary Nurse. la1 18:06 Urine Microscopic Only Sent. jp3 18:07 Urine collected: clean catch specimen, clear, jose colored, Amount Voided: 80mL. jp3 18:15 Urine Dipstick--Ancillary (enter results) Sent. ms 18:43 Call light in reach. la1 19:43 No provider procedures requiring assistance completed. Patient did not have IV access la1 during this emergency room visit. Administered Medications: 19:00 Drug: Rocephin (cefTRIAXone) 1 grams Route: IM; Site: right ventrogluteal; la1 19:42 Follow up: Response: No adverse reaction la1 Outcome: 18:57 Discharge ordered by . pm1 19:43 Discharged to home ambulatory. la1 19:43 Condition: stable 19:43 Discharge instructions given to Instructed on discharge instructions, follow up and referral plans. medication usage, Demonstrated understanding of instructions, follow-up care, medications, Prescriptions given X 1. 19:43 Patient left the ED. la1 Signatures: Eloisa Solorio mr Lisa Santana ms Virginia Bates, RN RN aa5 Ashok Ayala, RN RN la1 Harris Allen, FRAMING MANAGER FRAMING MANAGER pm1 Raffi Odell jp3
[2018-06-02] MEDS ORDERED: LIDOCAINE 1% MPF 2 ML AMPULE ONE (19:04)
[2018-06-02] MEDS ORDERED: CEFTRIAXONE 1000 MG/VIAL ONE (19:04)
[2018-06-02 19:56] LABS: Urine Blood NEGATIVE (NEG); Urine Glucose 1+ (NEG); Urine Protein TRACE (NEG)
== END 2018-06-02 19:43 | disposition home or self-care (01) ==
LOC: ER 16:57
DX: N39.0 Urinary tract infection, site not specified (principal); E11.9 Type 2 diabetes mellitus without complications; I25.2 Old myocardial infarction; Z88.1 Allergy status to other antibiotic agents; Z88.5 Allergy status to narcotic agent; Z79.4 Long term (current) use of insulin
CPT/HCPCS: 96372; 99283; J2001; 81003; 81015

== ENCOUNTER 2018-10-19 10:58 | Emergency (ER) | payer OTHER ==
--- OUTSIDE RECORDS SUMMARY | 2018-10-19 11:05 | XMS REPORT ---
:1940 [facility] Address [address] [place] [address] Dr. Thompson [address] [place] [id number] Care Team Providers Name Role Phone Unavailable Unavailable Unavailable Problems This patient has no known problems. Allergies, Adverse Reactions, Alerts This patient has no known allergies or adverse reactions. Medications This patient has no known medications.
--- OUTSIDE RECORDS SUMMARY | 2018-10-19 11:05 | XMS REPORT | Clinical Summary ---
:1940 Author Organization [facility] Address [address] [place] [address] Care Team Providers Name Role Phone Henrry [...] by 0 Active MG tablet mouth daily. methylPREDNISolone Take 1 tablet (4 21 tablet [...] Camarena Quadriceps weakness HAZEL Mckee (Primary Dx) after 10/18/2017 Social History Tobacco Use Types Packs/Day Years Used Date Former Smoker Cigarettes 1 10 Quit: 1989 Smokeless Tobacco: Never Used Alcohol Use Drinks/Week oz/Week Comments No Sex Assigned at Date Recorded Not on file Job Start Date Occupation Industry Not on file Not on file Not on file Travel History Travel Start Travel End No recent travel history available. Last Filed Vital Signs Not on file Plan of Treatment Health Maintenance Due Date Last Done Comments SHINGLES VACCINES (#1) 1988 65+ PNEUMOCOCCAL VACCINE (2 of 2 - PPSV23) 12/17/2003 01/18/2010 INFLUENZA VACCINE 10/18/2018 01/18/2010 Implants Implanted Type Area Home Comfort Advisor Device Shelf Model / Identifier Expiration Serial / Lot Date Tony Sanchez [employer] [facility] 14x79 - [id number] IMPLANT Left: [employer] [id number] / Implanted: Qty: 1 on 07/10/2017 by Kendrick Rodríguez MD DEVICES Knee / [id number] Cement Bone R+G 1dose Palacos - [id number] Knee Joint Left: [employer] [id number] / Implanted: Qty: 1 on 07/10/2017 by Kendrick Rodríguez MD Implants Knee / [id number]$ Cement Bone R+G 1dose Palacos - [id number] Knee Joint Left: [employer] [id number] / Implanted: Qty: 1 on 07/10/2017 by Kendrick Rodríguez MD Implants Knee / [id number]$ Stem Tib Prim Finned [id number] Ascent Maxim - [id number] Knee Joint Left: [employer] 11/06/2026 [id number] / Implanted: Qty: 1 on 07/10/2017 by Kendrick Rodríguez MD Implants Knee / [id number] Component Fml Cr Lt Anatom Interlok 70mm Vanguard - [id number] Knee Joint Left: [employer] 02/06/2025 [id number] / Implanted: Qty: 1 on 07/10/2017 by Kendrick Rodríguez MD Implants Knee / [id number] Tray Tib Prim Interlok 79mm Ascent Maxim - [id number] Knee Joint Left: [employer] 04/05/2027 [id number] / Implanted: Qty: 1 on 07/10/2017 by Kendrick Rodríguez MD Implants Knee / [id number] Implant Ptlr Vanguard 3 Peg Series A Std 34x8.5mm - [id number] Knee Joint Left: [employer] 05/29/2022 [id number] / Implanted: Qty: 1 on 07/10/2017 by Kendrick Rodríguez MD Implants Knee / [id number] Results Not on fileafter 10/18/2017 Advance Directives Patient has advance care planning documents on file. For more information, please contact:Chon [address] [place] [address]
[2018-10-19 11:30] LABS: Absolute Lymphocytes (CBC) 1.3 K/uL (0.7-4.9); Basophils % 0.6 % (0-1.3); Hematocrit 40.8 % (39.6-49.0); Lymphocytes % 20.6 % (15.3-44.8); RBC Red Blood Cell Count 4.59 M/uL (4.33-5.43)
[2018-10-19 11:38] LABS: Protime INR 1.06
[2018-10-19 11:44] LABS: Potassium 4.7 mmol/L (3.5-5.1)
--- NOTE | 2018-10-19 11:56 | RAD REPORT ---
EXAM DESCRIPTION: CT - [id number] - 10/19/2018 11:23 am CLINICAL HISTORY: Fall onto concrete, head and neck injury, history of renal cell carcinoma COMPARISON: None. TECHNIQUE: Axial 5 mm thick images of the head were obtained. Axial 2 mm thick images of the cervic al spine were obtained with sagittal and coronal reconstruction images generated and reviewed. All CT scans are performed using dose optimization technique as appropriate and may include automated exposure control or mA/KV adjustment according to patient size. FINDINGS: No intracranial hemorrhage, mass, edema or acute intracranial finding. No acute cortical b ased infarction. No cortical edema or sulcal effacement. Patient has moderate severity atrophy and ch ronic ischemic change. Ventricles are in proportion to the volume loss. Arterial tree calcifications are present and there is tortuosity of the basilar artery. No extra-axial fluid collections. Mastoid air cells and paranasal sinuses are clear. No globe or orbit abnormality seen. Patient has a moderate -sized left frontal scalp hematoma. This extends over the superior left orbital ridge. No globe or or bital content abnormality seen. Partially imaged facial bones are intact. Cervical body height and alignment are normal. Significant C4-5 disc space narrowing with moderate C3 -4, C5-6 and C6-7 disc space narrowing. No fracture or acute bony abnormality. Dense vertebral artery calcifications are seen. Significant facet joint degenerative change present with bony foraminal enc roachment on the right at C2-3. Significant bony foraminal encroachment on the right at C3-4 and very severe foraminal stenosis on the right at C4-5. Moderate bilateral foraminal stenosis at C5-6. No paraspinal mass or hematoma. IMPRESSION: Patient has advanced atrophy and chronic ischemic change with no acute intracranial find ing. Prominent cervical spine degenerative change as detailed. No acute cervical spine finding. Central ca nal detail is inherently limited. Moderate scalp hematoma over the left frontal bone and left superior orbital ridge.
[2018-10-19] MEDS ORDERED: TETANUS & DIPHTHERIA TOX,ADULT 0.5 ML VIAL ONE (12:09)
--- NOTE | 2018-10-19 12:26 | EDPHYS ---
Physician Documentation [facility] Name: Kendrick Worley Age: 77 yrs Sex: Male : 1940 Arrival Date: 10/19/2018 Time: 10:59 Bed 5 Private MD: ED Physician Kiran Jacinto HPI: 10/19 11:13 This 77 yrs old Male presents to ER via EMS with complaints of Fall Injury to kdr head. 11:13 Details of fall: The patient fell from an upright position, while standing. Onset: The kdr symptoms/episode began/occurred suddenly, just prior to arrival. Associated injuries: The patient sustained injury to the head, contusion, hematoma, pain, swelling, tenderness, right knee, contusion, painful injury. Severity of symptoms: At their worst the symptoms were mild, in the emergency department the symptoms are unchanged. The patient has not experienced similar symptoms in the past. The patient has not recently seen a physician. He was cutting plywood and when he went to catch a piece of board that was falling, he fell forward hitting his head on the concrete. He denies LOC. Historical: - Allergies: 13:00 Bactrim; bp 13:00 Morphine (Hallucinations); bp - Home Meds: 13:00 Glimepiride Oral [Active]; Lasix Oral [Active]; Novolog Sub-Q [Active]; Plavix Oral bp [Active]; - PMHx: 13:00 Diabetes - IDDM; Myocardial infarction; bp - Immunization history: Last tetanus immunization: unknown. - Social history:: Smoking status: Patient/guardian denies using tobacco. - Ebola Screening: : No symptoms or risks identified at this time. ROS: 11:13 Constitutional: Negative for fever, chills, and weight loss, Eyes: Negative for injury, kdr pain, redness, and discharge, Neck: Negative for injury, pain, and swelling, Cardiovascular: Negative for chest pain, palpitations, and edema, Respiratory: Negative for shortness of breath, cough, wheezing, and pleuritic chest pain, Abdomen/GI: Negative for abdominal pain, nausea, vomiting, diarrhea, and constipation, Back: Negative for injury and pain, : Negative for injury, bleeding, discharge, and swelling, Skin: Negative for injury, rash, and discoloration, Neuro: Negative for headache, weakness, numbness, tingling, and seizure activity. Psych: Negative for depression, anxiety, suicide ideation, homicidal ideation, and hallucinations, Allergy/Immunology: Negative for hives, rash, and allergies, Endocrine: Negative for neck swelling, polydipsia, polyuria, polyphagia, and marked weight changes, Hematologic/Lymphatic: Negative for swollen nodes, abnormal bleeding, and unusual bruising. 11:13 Skin: Positive for hematoma, Large to left forehead. Exam: 11:13 Constitutional: This is a well developed, well nourished patient who is awake, alert, kdr and in no acute distress. 11:13 Constitutional: The patient appears in no acute distress. 11:13 Head/face: Noted is hematoma, that is moderate, of the forehead and left side of forehead. 11:13 Musculoskeletal/extremity: Extremities: grossly normal except: noted in the right knee: contusion, pain. Vital Signs: 10:59 BP 122 / 60; Pulse 68; Resp 15; Temp 98; Pulse Ox 95% ; Weight 104.33 kg; Height 6 ft. bp (182.88 cm); 12:14 BP 133 / 73; Pulse 61; Resp 12; Temp 98; Pulse Ox 97% ; bp 10:59 Body Mass Index 31.19 (104.33 kg, 182.88 cm) bp [place] Coma Score: 10:59 Eye Response: spontaneous(4). Verbal Response: oriented(5). Motor Response: obeys bp commands(6). Total: 15. Trauma Score (Adult): 10:59 Eye Response: spontaneous(1); Verbal Response: oriented(1); Motor Response: obeys bp commands(2); Systolic BP: > 89 mm Hg(4); Respiratory Rate: 10 to 29 per min(4); Magi Score: 15; Trauma Score: 12 MDM: 11:13 Data reviewed: vital signs, nurses notes, lab test result(s), radiologic studies. kdr Counseling: I had a detailed discussion with the patient and/or guardian regarding: the historical points, exam findings, and any diagnostic results supporting the discharge/admit diagnosis, lab results, radiology results, the need for outpatient follow up. 12:25 Patient medically screened. kdr 10/19 11:12 Order name: Basic Metabolic Panel; Complete Time: 11:54 kdr 10/19 11:12 Order name: CBC with Diff; Complete Time: 11:54 kdr 10/19 11:12 Order name: CT Head C Spine; Complete Time: 12:00 kdr 10/19 11:12 Order name: Creatinine for Radiology; Complete Time: 11:54 kdr 10/19 11:12 Order name: PT-INR; Complete Time: 11:54 kdr 10/19 11:12 Order name: Labs collected and sent; Complete Time: 11:33 kdr 10/19 12:07 Order name: Misc. Order: Clean and dress wound on head; Complete Time: 12:14 kdr Administered Medications: 11:35 Drug: Tetanus-Diphtheria Toxoid Adult 0.5 ml {Rivet Tester: [employer]. Exp: bp 06/09/2020. Lot #: [id number]. } Route: IM; Site: right deltoid; 12:14 Follow up: Response: No adverse reaction bp Disposition: 10/19/18 12:25 Discharged to Home. Impression: Unspecified injury of head, Superficial injury of head, Hematoma of Left Forehead, Right knee contusion. - Condition is Stable. - Discharge Instructions: Hematoma, Glym-[id number], Contusion, [id number], Head Injury, Adult, [id number]-[id number]. - Medication Reconciliation Form, Thank You Letter form. - Follow up: Private Physician; When: 2 - 3 days; Reason: If symptoms return, Further diagnostic work-up, Recheck today's complaints, Continuance of care, Re-evaluation by your physician. - Problem is new. - Symptoms have improved. Signatures: Dispatcher [employer] EDAK Kiran Jacinto MD MD kdr Raul Long, RN RN bp Corrections: (The following items were deleted from the chart) 13:01 12:25 10/19/2018 12:25 Discharged to Home. Impression: Unspecified injury of head; bp Superficial injury of head; Hematoma of Left Forehead; Right knee contusion. Condition is Stable. Forms are Medication Reconciliation Form, Thank You Letter, Antibiotic Education, Prescription Opioid Use. Follow up: Private Physician; When: 2 - 3 days; Reason: If symptoms return, Further diagnostic work-up, Recheck today's complaints, Continuance of care, Re-evaluation by your physician. Problem is new. Symptoms have improved. kdr
--- NOTE | 2018-10-19 12:26 | ER ---
Nurse's Notes [facility] Name: Kendrick Worley Age: 77 yrs Sex: Male : 1940 Arrival Date: 10/19/2018 Time: 10:59 Bed 5 Private MD: Diagnosis: Unspecified injury of head;Superficial injury of head;Hematoma of Left Forehead;Right knee contusion Presentation: 10/19 10:59 Presenting complaint: EMS states: FALL ONTO CONCRETE, NO LOC. Care prior to arrival: bp None. Mechanism of Injury: Fall from standing position. Trauma event details: Injury occurred in the [facility], Injury occurred: at home. Injury occurred: October 19, 2018 Injury occurred at: 10:30. 10:59 Acuity: SHERLEY 3 bp 10:59 Method Of Arrival: EMS: [facility] bp 12:59 Transition of care: patient was not received from another setting of care. Onset of bp symptoms is unknown. Risk Assessment: Do you want to hurt yourself or someone else? Patient reports no desire to harm self or others. Initial Sepsis Screen: Does the patient meet any 2 criteria? No. Patient's initial sepsis screen is negative. Does the patient have a suspected source of infection? No. Patient's initial sepsis screen is negative. Trauma Activation: Consult Physician: ED Physician; Name: LAMAR; Notified At: 10:50; Arrived At: Physician: General Surgeon; Name: ; Notified At: 10:50; Arrived At: Physician: Radiology; Name: ; Notified At: 10:50; Arrived At: Physician: Respiratory; Name: ; Notified At: 10:50; Arrived At: Physician: Lab; Name: ; Notified At: 10:50; Arrived At: Historical: - Allergies: 13:00 Bactrim; bp 13:00 Morphine (Hallucinations); bp - Home Meds: 13:00 Glimepiride Oral [Active]; Lasix Oral [Active]; Novolog Sub-Q [Active]; Plavix Oral bp [Active]; - PMHx: 13:00 Diabetes - IDDM; Myocardial infarction; bp - Immunization history: Last tetanus immunization: unknown. - Social history:: Smoking status: Patient/guardian denies using tobacco. - Ebola Screening: : No symptoms or risks identified at this time. Screenin:59 Abuse screen: Denies threats or abuse. Denies injuries from another. Tuberculosis bp screening: No symptoms or risk factors identified. 13:00 Nutritional screening: No deficits noted. Fall Risk None identified. bp Primary Survey: 10:59 NO uncontrolled hemorrhage observed. A: The patient is alert. Airway: patent, No bp supplemental oxygen in use on arrival. Breathing/Chest: Respiratory pattern: regular, Respiratory effort: spontaneous, unlabored, Breath sounds: clear, bilaterally. Circulation: Skin color: pink, Skin temperature: warm, dry. Disability Alert. Exposure/Environment: All clothing and personal items were removed. Forensic evidence collection is not deemed to be indicated at this time. Items placed in patient belonging bag. There is no evidence of uncontrolled external bleeding. 12:59 Reassessment Breathing/Chest Respiratory pattern Regular Respiratory effort Spontaneous bp Unlabored. Assessment: 10:59 General: Appears in no apparent distress. comfortable, Behavior is calm, cooperative, bp appropriate for age. Pain: Complains of pain in left side of forehead and right knee. Neuro: No deficits noted. Level of Consciousness is awake, alert, obeys commands, Oriented to person, place, time, situation, Appropriate for age. EENT: No deficits noted. Cardiovascular: No deficits noted. Respiratory: Airway is patent Respiratory effort is even, unlabored, Respiratory pattern is regular, symmetrical. GI: No signs and/or symptoms were reported involving the gastrointestinal system. : No signs and/or symptoms were reported regarding the genitourinary system. Derm: No deficits noted. Musculoskeletal: No deficits noted. Injury Description: Bruise sustained to left side of forehead is red. 12:58 Reassessment: PT D/C HOME VIA W/C WITH FAMILY, DX WITH CONTUSIONS. bp Vital Signs: 10:59 BP 122 / 60; Pulse 68; Resp 15; Temp 98; Pulse Ox 95% ; Weight 104.33 kg; Height 6 ft. bp (182.88 cm); 12:14 BP 133 / 73; Pulse 61; Resp 12; Temp 98; Pulse Ox 97% ; bp 10:59 Body Mass Index 31.19 (104.33 kg, 182.88 cm) bp Magi Coma Score: 10:59 Eye Response: spontaneous(4). Verbal Response: oriented(5). Motor Response: obeys bp commands(6). Total: 15. Trauma Score (Adult): 10:59 Eye Response: spontaneous(1); Verbal Response: oriented(1); Motor Response: obeys bp commands(2); Systolic BP: > 89 mm Hg(4); Respiratory Rate: 10 to 29 per min(4); Magi Score: 15; Trauma Score: 12 ED Course: 10:59 Patient arrived in ED. bp 10:59 Patient has correct armband on for positive identification. Bed in low position. Call bp light in reach. Side rails up X2. 10:59 Patient maintains SpO2 saturation greater than 95% on room air. Thermoregulation: warm bp blanket given to patient. 11:01 Triage completed. bp 11:06 Kiran Jacinto MD is Attending Physician. kdr 11:15 Raul Long, RN is Primary Nurse. bp 11:23 CT Head C Spine In Process Unspecified. EDMS 12:59 No provider procedures requiring assistance completed. IV discontinued. bp 13:01 Arm band placed on. 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 Exp: bp 06/09/2020. Lot #: [id number]. } Route: IM; Site: right deltoid; 12:14 Follow up: Response: No adverse reaction bp Intake: 10:59 PO: 0ml; Total: 0ml. bp Output: 10:59 Urine: 0ml; Total: 0ml. bp Outcome: 12:25 Discharge ordered by . kdr 12:59 Discharged to home via wheelchair, with family. bp 12:59 Condition: stable 12:59 Discharge instructions given to patient, family, Instructed on discharge instructions, follow up and referral plans. Demonstrated understanding of instructions, follow-up care. 13:01 Patient's length of stay was not longer than 2 hours. bp 13:01 Patient left the ED. bp Signatures: Dispatcher [employer] EDMS Kiran Jacinto MD MD kdr Raul Long, RN RN bp
== END 2018-10-19 13:01 | disposition home or self-care (01) ==
LOC: ER 10:58
DX: S00.83XA Contusion of other part of head, initial encounter (principal); S80.01XA Contusion of right knee, initial encounter; W01.0XXA Fall on same level from slipping, tripping and stumbling without subsequent striking against object, initial encounter; Y93.89 Activity, other specified; Z23 Encounter for immunization; E11.9 Type 2 diabetes mellitus without complications; I25.2 Old myocardial infarction; Z79.4 Long term (current) use of insulin; Z88.1 Allergy status to other antibiotic agents; Z88.5 Allergy status to narcotic agent
CPT/HCPCS: 36415; 70450; 72125; 80048; 85025; 85610; 90471; 90714; 99284

== ENCOUNTER 2018-11-30 22:58 | Inpatient (IN) | payer OTHER ==
--- OUTSIDE RECORDS SUMMARY | 2018-11-30 23:01 | XMS REPORT ---
:1940 [facility] Address [address] [place] [address] Dr. Thompson [address] [place] [id number] Care Team Providers Name Role Phone Unavailable Unavailable Unavailable Problems This patient has no known problems. Allergies, Adverse Reactions, Alerts This patient has no known allergies or adverse reactions. Medications This patient has no known medications.
--- OUTSIDE RECORDS SUMMARY | 2018-11-30 23:01 | XMS REPORT | Clinical Summary ---
:1940 Author Organization [facility] Address [address] [place] [address] Care Team Providers Name Role Phone Henrry [...] Quadriceps weakness HAZEL Mckee (Primary Dx) after 11/29/2017 Social History Tobacco Use Types Packs/Day Years [...] Signs Not on file Plan of Treatment Date Type Specialty Care Team Description 12/05/2018 Office Visit Orthopedic Surgery Kendrick Rodríguez MD [address] [place] [phone] Health Maintenance Due Date Last Done Comments SHINGLES VACCINES (#1) 1988 65+ PNEUMOCOCCAL VACCINE (2 of 2 - PPSV23) 12/17/2003 01/18/2010 INFLUENZA VACCINE 10/18/2018 01/18/2010 Implants Implanted Type Area 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 Clerk Device Shelf Model / Identifier Expiration Serial / Lot Date Tony Sanchez [facility] 14x79 - [id number] IPM IMPLANT Left: [employer] [id number] / Implanted: Qty: 1 on 07/10/2017 by Kendrick Rodríguez MD at [facility] DEVICES Knee / [id number] Cement Bone R+G 1dose Palacos - [id number] Knee Joint Left: [employer] [id number] / Implanted: Qty: 1 on 07/10/2017 by Kendrick Rodríguez MD at [facility] Implants Knee / [id number]$ Cement Bone R+G 1dose Palacos - [id number] Knee Joint Left: [employer] [id number] / Implanted: Qty: 1 on 07/10/2017 by Kendrick Rodríguez MD at [facility] Implants Knee / [id number]$ Stem Tib Prim Finned [id number] Ascent Maxim - [id number] Knee Joint Left: [employer] 11/06/2026 [id number] / Implanted: Qty: 1 on 07/10/2017 by Kendrick Rodríguez MD at [facility] Implants Knee / [id number] Component Fml Cr Lt Anatom Interlok 70mm Vanguard - [id number] Knee Joint Left: [employer] 02/06/2025 [id number] / Implanted: Qty: 1 on 07/10/2017 by Kendrick Rodríguez MD at [facility] Implants Knee / [id number] Tray Tib Prim Interlok 79mm Ascent Maxim - [id number] Knee Joint Left: [employer] 04/05/2027 [id number] / Implanted: Qty: 1 on 07/10/2017 by Kendrick Rodríguez MD at [facility] Implants Knee / [id number] Implant Ptlr Vanguard 3 Peg Series A Std 34x8.5mm - [id number] Knee Joint Left: [employer] 05/29/2022 [id number] / Implanted: Qty: 1 on 07/10/2017 by Kendrick Rodríguez MD at [facility] Implants Knee / [id number] Results Not on fileafter 11/29/2017 Advance Directives For more information, please contact: [phone] Type Date Recorded Patient Infectious Disease Technician Explanation Advance Directives, Living Will 07/10/2017 5:41 AM and Medical Power of Protein Scientist
[2018-11-30 23:53] LABS: Urine Glucose 2+ (NEG); Urine Specific Gravity 1.015 (1.005-1.030)
[2018-11-30 23:54] LABS: Urine Blood 2+ (NEG); Urine Protein 1+ (NEG)
[2018-12-01 00:11] LABS: Absolute Lymphocytes (CBC) 0.8 K/uL (0.7-4.9); Basophils % 0.7 % (0-1.3); Hematocrit 40.4 % (39.6-49.0); MPV 6.9 fL (7.6-11.3); RBC Red Blood Cell Count 4.62 M/uL (4.33-5.43)
[2018-12-01 00:24] LABS: Urine Bacteria 20-50 /HPF (NONE SEEN); Urine Culture Reflex Order REFLEXED
[2018-12-01 00:25] LABS: Potassium 4.7 mmol/L (3.5-5.1)
[2018-12-01 00:34] LABS: ALT/SGPT 28 U/L (12-78); AST/SGOT 12 U/L (15-37); Alkaline Phosphatase 81 U/L (45-117); Bilirubin Direct 0.2 mg/dL (0-0.2); Bilirubin Total 0.5 mg/dL (0.2-1.0); Creatine Phosphokinase 80 U/L (39-308); Protein, Total 7.5 g/dL (6.4-8.2); Troponin I < 0.02 ng/mL (0.0-0.045)
--- NOTE | 2018-12-01 00:47 | ER ---
Nurse's Notes [facility] Name: Kendrick Worley Age: 77 yrs Sex: Male : 1940 Arrival Date: 11/30/2018 Time: 23:03 Bed 6 Private MD: Diagnosis: Weakness;Urinary tract infection, site not specified Presentation: 11/30 23:13 Presenting complaint: EMS states: patient is complaining of bladder infection . been mg2 running fever 101 at home. Transition of care: patient was not received from another setting of care. Onset of symptoms was November 30, 2018. Risk Assessment: Do you want to hurt yourself or someone else? Patient reports no desire to harm self or others. Initial Sepsis Screen: Does the patient meet any 2 criteria? No. Patient's initial sepsis screen is negative. Does the patient have a suspected source of infection? No. Patient's initial sepsis screen is negative. Care prior to arrival: None. 23:13 Method Of Arrival: EMS: [facility] mg2 23:13 Acuity: SHERLEY 3 mg2 Historical: - Allergies: 23:19 Bactrim; mg2 23:19 Morphine (Hallucinations); mg2 - Home Meds: 23:19 Glimepiride Oral [Active]; Lasix Oral [Active]; Novolog Sub-Q [Active]; Plavix Oral mg2 [Active]; - PMHx: 23:19 Diabetes - IDDM; Myocardial infarction; mg2 - PSHx: 23:19 right kidney removal; both knee replacement; mg2 - Immunization history:: Flu vaccine status is unknown. - Social history:: Smoking status: unknown. - Ebola Screening: : No symptoms or risks identified at this time. Screenin/14 00:01 Abuse screen: Denies threats or abuse. Denies injuries from another. Nutritional mg2 screening: No deficits noted. Tuberculosis screening: No symptoms or risk factors identified. Fall Risk IV access (20 points). Assessment: 00:02 General: Appears in no apparent distress. comfortable, Behavior is calm, cooperative. mg2 Pain: Denies pain. Neuro: Level of Consciousness is awake, alert, obeys commands, Oriented to person, place, time, situation. Cardiovascular: Capillary refill < 3 seconds Patient's skin is warm and dry. Respiratory: Airway is patent Respiratory effort is even, unlabored, Respiratory pattern is regular, symmetrical. GI: No signs and/or symptoms were reported involving the gastrointestinal system. : Reports burning with urination, history of uti. EENT: No signs and/or symptoms were reported regarding the EENT system. Derm: Skin is intact, is healthy with good turgor, Skin is pink, warm \T\ dry. normal. Musculoskeletal: Circulation, motion, and sensation intact. Capillary refill < 3 seconds. Vital Signs: 11/30 23:18 BP 136 / 69; Pulse 96; Resp 18; Temp 99.9; Pulse Ox 95% on R/A; Weight 102.97 kg; mg2 Height 6 ft. 0 in. (182.88 cm); Pain 0/10; 12/01 00:31 BP 123 / 66; Pulse 87; Resp 18; Pulse Ox 95% on R/A; mg2 01:00 BP 134 / 66; Pulse 86; Resp 17; Temp 98.6(O); Pulse Ox 97% on R/A; mg2 11/30 23:18 Body Mass Index 30.79 (102.97 kg, 182.88 cm) mg2 ED Course: 11/30 23:03 Patient arrived in ED. mg2 23:13 Brooks Hummel RN is Primary Nurse. mg2 23:18 Triage completed. mg2 23:20 Twan Tomlinson PA is PHCP. cp 23:20 Twan Oliva MD is Attending Physician. cp 23:20 Arm band placed on. mg2 12/01 00:01 No provider procedures requiring assistance completed. Inserted saline lock: 20 gauge mg2 in right forearm, using aseptic technique. Blood collected. 00:02 Patient has correct armband on for positive identification. mg2 00:31 Pulse ox on. NIBP on. Door closed. Warm blanket given. mg2 00:45 Abe Basilio MD is Hospitalizing Provider. cp 01:08 Patient admitted, IV remains in place. lp1 Administered Medications: 00:55 Drug: Rocephin 1 grams Route: IV; Rate: bolus; Site: right forearm; mg2 01:18 Follow up: Response: No adverse reaction; IV Status: Completed infusion; IV Intake: [id number] Intake: 01:18 IV: 10ml; Total: 10ml. lp1 Outcome: 00:46 Decision to Hospitalize by Provider. cp 01:17 Admitted to Tele room 423, with chart, Report called to JANET Chavez lp1 01:17 Condition: stable lp1 01:37 Patient left the ED. lp1 Signatures: Ramya Mendosa RN RN lp1 Twan Tomlinson PA PA cp Gardose, Michele, RN RN mg2
--- NOTE | 2018-12-01 00:48 | EDPHYS ---
Physician Documentation [facility] Name: Kendrick Worley Age: 77 yrs Sex: Male : 1940 Arrival Date: 11/30/2018 Time: 23:03 Bed 6 Private MD: ED Physician Twan Oliva HPI: 11/30 23:49 This 77 yrs old Male presents to ER via EMS with complaints of general cp weakness. 23:49 The patient presents with urinary symptoms, dysuria. cp 23:49 Associated signs and symptoms: Pertinent positives: general weakness. Severity of cp symptoms: in the emergency department the symptoms are unchanged, despite home interventions. reports patient was diagnosed with UTI today and started on oral Nitrofurantoin but after returning home today has been weak all over and unable to get up out of chair. Fever at home of 101. Historical: - Allergies: 23:19 Bactrim; mg2 23:19 Morphine (Hallucinations); mg2 - Home Meds: 23:19 Glimepiride Oral [Active]; Lasix Oral [Active]; Novolog Sub-Q [Active]; Plavix Oral mg2 [Active]; - PMHx: 23:19 Diabetes - IDDM; Myocardial infarction; mg2 - PSHx: 23:19 right kidney removal; both knee replacement; mg2 - Immunization history:: Flu vaccine status is unknown. - Social history:: Smoking status: unknown. - Ebola Screening: : No symptoms or risks identified at this time. ROS: 23:55 Constitutional: Negative for body aches, chills, fever, poor PO intake. cp 23:55 Eyes: Negative for injury, pain, redness, and discharge. cp 23:55 ENT: Negative for drainage from ear(s), ear pain, sore throat, difficulty swallowing, difficulty handling secretions. 23:55 Cardiovascular: Positive for edema, Negative for chest pain, palpitations. 23:55 Respiratory: Negative for cough, shortness of breath, wheezing. 23:55 Abdomen/GI: Negative for abdominal pain, vomiting, diarrhea, constipation, black/tarry stool, rectal bleeding. 23:55 Back: Negative for pain at rest, pain with movement. 23:55 : Positive for urinary symptoms. 23:55 Skin: Negative for cellulitis, rash. 23:55 Neuro: Positive for weakness, Negative for altered mental status, headache, syncope. 23:55 All other systems are negative. Exam: 23:59 Constitutional: The patient appears in no acute distress, alert, awake, cp non-diaphoretic, non-toxic, well developed, well nourished. 23:59 Head/Face: Normocephalic, atraumatic. cp 23:59 Eyes: Periorbital structures: appear normal, Pupils: equal, round, and reactive to light and accomodation, Extraocular movements: intact throughout, Conjunctiva: normal, no exudate, no injection, Sclera: no appreciated abnormality, Lids and lashes: appear normal, bilaterally. 23:59 ENT: External ear(s): are unremarkable, Ear canal(s): are normal, clear, TM's: dullness, bilaterally, Nose: is normal, Mouth: Lips: dry, Oral mucosa: dry, Posterior pharynx: Airway: no evidence of obstruction, patent, swelling, is not appreciated, erythema, is not appreciated, exudate, is not appreciated. 23:59 Neck: ROM/movement: is normal, is supple, without pain, no range of motions limitations, no meningismus, no nuchal rigidity. 23:59 Chest/axilla: Inspection: normal, Palpation: is normal, no crepitus, no tenderness. 23:59 Cardiovascular: Rate: normal, Rhythm: regular, Edema: ankle edema, that is mild, JVD: is not appreciated. 23:59 Respiratory: the patient does not display signs of respiratory distress, Respirations: normal, no use of accessory muscles, no retractions, no splinting, no tachypnea, labored breathing, is not present, Breath sounds: are clear throughout, no decreased breath sounds, no stridor, no wheezing. 23:59 Abdomen/GI: Inspection: abdomen appears normal, Bowel sounds: active, all quadrants, Palpation: abdomen is soft and non-tender, in all quadrants, rebound tenderness, is not appreciated, voluntary guarding, is not appreciated, involuntary guarding, is not appreciated. 23:59 Back: pain, is absent, ROM is normal. 23:59 Skin: no rash present. 23:59 Neuro: Orientation: to person, place \T\ time. Mentation: slow to respond, Motor: moves all fours, general weakness w/o focal deficits. 12/01 00:40 ECG was reviewed by the Attending Physician. Vital Signs: 11/30 23:18 BP 136 / 69; Pulse 96; Resp 18; Temp 99.9; Pulse Ox 95% on R/A; Weight 102.97 kg; mg2 Height 6 ft. 0 in. (182.88 cm); Pain 0/10; 12/01 00:31 BP 123 / 66; Pulse 87; Resp 18; Pulse Ox 95% on R/A; mg2 01:00 BP 134 / 66; Pulse 86; Resp 17; Temp 98.6(O); Pulse Ox 97% on R/A; mg2 11/30 23:18 Body Mass Index 30.79 (102.97 kg, 182.88 cm) mg2 MDM: 11/30 23:29 Patient medically screened. [facility] 12/01 00:00 Differential diagnosis: UTI, prostatitis, sepsis. 00:45 Data reviewed: vital signs, nurses notes, lab test result(s), EKG, I have discussed the patient's presentation/case with the attending Emergency Department Physician; and as a result, I will admit patient. 00:45 Test interpretation: by ED physician or midlevel provider: ECG. Counseling: I had a cp detailed discussion with the patient and/or guardian regarding: the historical points, exam findings, and any diagnostic results supporting the discharge/admit diagnosis, lab results, the need for further work-up and treatment in the hospital. 11/30 23:21 Order name: CBC with Diff; Complete Time: 02:45 mg2 12/01 00:41 Interpretation: Normal except: WBC 14.2; PLT 145; MPV 6.9; CHAITANYA% 87.8; LYM% 6.0; NEUT A cp 12.5. 11/30 23:21 Order name: BMP; Complete Time: 00:41 mg2 12/01 00:41 Interpretation: Normal except: GLUC 253; BUN 42; CRE 2.43; GFR 26. cp 11/30 23:47 Order name: Urine Dipstick--Ancillary (enter results); Complete Time: 00:41 mw2 11/30 23:51 Order name: Procalcitonin; Complete Time: 00:41 cp 11/30 23:51 Order name: Lactate; Complete Time: 02:45 cp 12/01 02:45 Interpretation: Within normal limits. 11/30 23:51 Order name: Urine Microscopic Only; Complete Time: 00:41 cp 12/01 00:41 Interpretation: Normal except: UWBC >50; URBC 5-10; UBACT 20-50. cp 11/30 23:51 Order name: Blood Culture Adult (2) cp 11/30 23:51 Order name: Troponin I; Complete Time: 00:41 cp 11/30 23:51 Order name: LFT's; Complete Time: 00:41 cp 11/30 23:51 Order name: CPK; Complete Time: 00:41 cp 12/01 01:10 Order name: Basic Metabolic Panel EDMS 12/01 01:11 Order name: Basic Metabolic Panel EDMS 12/01 01:11 Order name: CBC with Automated Diff EDMS 12/01 01:11 Order name: CBC with Automated Diff EDMS 11/30 23:20 Order name: Urine Dipstick-Ancillary (obtain specimen); Complete Time: 23:47 mg2 11/30 23:51 Order name: EKG; Complete Time: 23:52 cp 11/30 23:51 Order name: EKG - Nurse/Tech; Complete Time: 00:31 cp 11/30 23:51 Order name: IV; Complete Time: 00:01 cp 12/01 01:10 Order name: Consistent Carb (ADA) [address] EDMS 12/01 01:11 Order name: CBC Smear Scan EDMS EC:40 Rate is 89 beats/min. Rhythm is regular. OH interval is normal. QRS interval is normal. cp QT interval is normal. Interpreted by me. Reviewed by me. Administered Medications: 00:55 Drug: Rocephin 1 grams Route: IV; Rate: bolus; Site: right forearm; mg2 01:18 Follow up: Response: No adverse reaction; IV Status: Completed infusion; IV Intake: [id number] Disposition: 12/01/18 00:46 Hospitalization ordered by Abe Basilio for Inpatient Admission. Preliminary diagnosis are Weakness, Urinary tract infection, site not specified. - Bed requested for Telemetry/MedSurg (Inpatient). - Status is Inpatient Admission. lp1 - Condition is Fair. - Problem is new. - Symptoms have improved. UTI on Admission? Yes Addendum: 12/03/2018 08:40 Co-signature as Attending Physician, Twan Oliva MD I agree with the assessment and c sandoval plan of care. Signatures: Dispatcher [employer] EDSheridan Miller RN RN dw Twan Oliva MD MD cha Pena, Laura RN RN lp1 Twan Tomlinson PA PA cp Gardose, Michele, RN RN mg2 Corrections: (The following items were deleted from the chart) 12/01 00:48 00:46 Hospitalization Ordered by Abe Basilio MD for Inpatient Admission. Preliminary dw diagnosis is Weakness; Urinary tract infection, site not specified. Bed requested for Telemetry/MedSurg (Inpatient). Status is Inpatient Admission. Condition is Fair. Problem is new. Symptoms have improved. UTI on Admission? Yes. cp 01:37 00:48 12/01/2018 00:46 Hospitalization Ordered by Abe Basilio MD for Inpatient lp1 Admission. Preliminary diagnosis is Weakness; Urinary tract infection, site not specified. Bed requested for Telemetry/MedSurg (Inpatient). Status is Inpatient Admission. Condition is Fair. Problem is new. Symptoms have improved. UTI on Admission? Yes. dw
[2018-12-01 00:52] LABS: Blood Morphology Comment NOT SEEN (NOT SEEN); Platelet Estimate DECR; Urine White Blood Cell Casts OK
[2018-12-01] MEDS ORDERED: ACETAMINOPHEN 500 MG TAB PO PRN (00:55)
[2018-12-01] MEDS ORDERED: ONDANSETRON 4 MG/2 ML VIAL IV PRN (00:55)
[2018-12-01] MEDS ORDERED: CEFTRIAXONE/SWI 1gm 1 GM/10 ML SYR ONE (00:56)
[2018-12-01 03:16] VITALS: BMI 30.7
[2018-12-01] MEDS ORDERED: CALCIUM CARBONATE CHEW 500MG TAB PO ONE (06:04)
[2018-12-01] MEDS ORDERED: CEFTRIAXONE 1 GM/NS 50 ML 1 GM/50 ML BAG IV SCH (09:00)
[2018-12-01] MEDS: CEFTRIAXONE/SWI 1gm 1 GM/10 ML SYR IV SCH ×2 (09:17→20:36)
[2018-12-01] MEDS ORDERED: TRAMADOL HCL 50 MG TAB PO PRN (11:02)
--- NOTE | 2018-12-01 11:26 | P.HP ---
Certification for Inpatient Patient admitted to: Inpatient With expected LOS: >2 Midnights Practitioner: I am a practitioner with admitting privileges, knowledge of patient current condition, hospital course, and medical plan of care. Services: Services provided to patient in accordance with Admission requirements found in Title 42 Section 412.3 of the Code of Federal Regulations Patient History Date of Service: 12/01/18 Reason for admission: WEAK, COULD NOT GET OUT OF BED History of Present Illness: MR. RACHEL HAS HAD DIFFUSE WEAKNESS WHEN HE GETS UTI. BEFORE UTI HE IS ABLE TO WALK WITH WALKER SLOWLY. HE HAD LOW TESTOSTEORNE LEVEL BUT TREATMENT DID NOT CHANGE HIS STATUS. WE HAD HIM CHECK WITH DR. BARKER AND DID FIND NEUROPATHY FROM DM. HE ONCE AGAIN HAD WEAKNESS AND COULD NOT GET OUT OF BED. HE HAS UTI PER URINALYSIS BUT HAS NO SYMPTOMS. HE HAS NO CHEST PAIN. Allergies No Known Drug Allergies Allergy (Verified 01/02/18 08:34) Unknown Home Medications: Atorvastatin Calcium 20 mg PO BEDTIME 01/01/18 Clopidogrel Bisulfate [Plavix*] 75 mg PO DAILY 01/01/18 Furosemide 20 mg PO DAILY 01/01/18 Levothyroxine [Synthroid*] 50 mcg PO DAILY 01/01/18 Lisinopril 5 mg PO DAILY 01/01/18 Metoprolol Succinate [Toprol Xl*] 25 mg PO BID 01/01/18 Tamsulosin [Flomax*] 0.4 mg PO BID 01/01/18 Tramadol HCl [Ultram] 50 mg PO Q6H PRN 01/01/18 Gabapentin [Neurontin] 100 mg PO BEDTIME 12/01/18 Insulin Aspart [Novolog] 10 units SQ AC 12/01/18 Insulin Detemir [Levemir Flextouch] 30 units SQ BEDTIME 12/01/18 - Past Medical/Surgical History Has patient received pneumonia vaccine in the past: Yes Diabetic: Yes -: OR -: DM -: kidney, bladder cancer -: kidney removal -: knee surgery -: right elbow surgery -: STENT PLACEMENT 3YRS AGO -: KNEE REPLACEMENT - Family History Father -: Lung disease, Cancer - Social History Smoking Status: Former smoker Alcohol use: No CD- Drugs: No Caffeine use: Yes Place of Residence: Home Review of Systems 10-point ROS is otherwise unremarkable General: Weakness, Malaise Physical Examination - Vital Signs Temperature: 98.0 F Blood Pressure: 100/55 Pulse: 73 Respirations: 20 Pulse Ox (%): 95 - Physical Exam General: Mild distress, Obese HEENT: Atraumatic, PERRLA, Mucous membr. moist/pink, EOMI, Sclerae nonicteric Neck: Supple, 2+ carotid pulse no bruit, No LAD, Without JVD or thyroid abnormality Respiratory: Clear to auscultation bilaterally, Normal air movement Cardiovascular: Regular rate/rhythm, Normal S1 S2 Gastrointestinal: Normal bowel sounds, No tenderness Musculoskeletal: No tenderness Integumentary: No rashes Neurological: Normal speech, Abnormal strength (POWER 4/5 , GEN WEAKNESS. ), Abnormal reflexes Lymphatics: No axilla or inguinal lymphadenopathy - Studies Laboratory Data (last 24 hrs) 11/30/18 23:45: Sodium 136, Potassium 4.7, BUN 42 H, Creatinine 2.43 H, Glucose 253 H 11/30/18 23:45: WBC 14.2 H, Hgb 13.9, Hct 40.4, Plt Count 145 L 11/30/18 23:40: Total Bilirubin 0.5, AST 12 L, ALT 28, Alkaline Phosphatase 81, Troponin I < 0.02 Assessment and Plan - Problems (Diagnosis) (1) Acute on chronic kidney failure Onset Date: 01/01/18 Current Visit: No Status: Acute Plan: PRERENAL GIVE IV FLUIDS. STOP LASIX AND LISINOPRIL BP IS LOW. SHOULD IMPROVE. (2) Generalized weakness Onset Date: 01/01/18 Current Visit: No Status: Chronic Plan: I CALLED DR. BARKER TO DISCUSS IF HE MAY HAVE M GRAVIES. HE WILL REVIEW HIS RECORDS AND CALL ME. I WILL ORDER ANTIBODIES FOR IT. MEANWHILE CONTINUE T SHOTS. STOP ATORVASTATIN TO SEE IF HE IS AFFECTED BY IT. (3) Type 2 diabetes mellitus Onset Date: 01/01/18 Current Visit: No Status: Acute Plan: CHECK A1C HE HAS DIABETIC NEUROPATHY. HE HAS BEEN PATIENT OF DR. MEYER. Qualifiers: Diabetes mellitus skilled nursing insulin use: without skilled nursing use Diabetes mellitus complication status: with neurologic complications (4) UTI (urinary tract infection) Onset Date: 01/01/18 Current Visit: No Status: Acute - Advance Directives Does patient have a Living Will: No Does patient have a Durable POA for Healthcare: No
[2018-12-01] MEDS: INSULIN LISPRO 100 UNIT/1 ML SQ SCH ×2 (12:44→17:51)
[2018-12-01] MEDS: NACHLORIDE 0.45% 1,000 ML IV SCH (12:45)
[2018-12-01] MEDS: INSULIN GLARGINE 100 UNITS/ML SQ SCH (20:37)
[2018-12-01] MEDS: GABAPENTIN 100 MG CAP PO SCH (20:38)
[2018-12-01] MEDS: TAMSULOSIN 0.4 MG SR CAP PO SCH (20:38)
[2018-12-01] MEDS: METOPROLOL XL 25 MG TAB PO SCH (20:38)
[2018-12-02] MEDS: NACHLORIDE 0.45% 1,000 ML IV SCH ×2 (04:13→12:49)
[2018-12-02 06:18] LABS: Absolute Lymphocytes (CBC) 1.8 K/uL (0.7-4.9); Basophils % 0.5 % (0-1.3); Hematocrit 36.3 % (39.6-49.0); Lymphocytes % 17.7 % (15.3-44.8); RBC Red Blood Cell Count 4.16 M/uL (4.33-5.43)
[2018-12-02 06:44] LABS: Potassium 4.5 mmol/L (3.5-5.1)
[2018-12-02] MEDS: LEVOTHYROXINE SOD 0.05 MG TABLET PO SCH (06:45)
[2018-12-02] MEDS: INSULIN LISPRO 100 UNIT/1 ML SQ SCH ×3 (07:30→17:08)
[2018-12-02] MEDS: CEFTRIAXONE/SWI 1gm 1 GM/10 ML SYR IV SCH ×2 (08:47→21:09)
[2018-12-02] MEDS: CLOPIDOGREL 75 MG TABLET PO SCH (08:48)
[2018-12-02] MEDS: TAMSULOSIN 0.4 MG SR CAP PO SCH ×2 (08:48→21:07)
[2018-12-02] MEDS: METOPROLOL XL 25 MG TAB PO SCH ×2 (08:49→21:05)
[2018-12-02] MEDS ORDERED: FUROSEMIDE 20 MG TABLET PO SCH (09:00)
[2018-12-02] MEDS ORDERED: LISINOPRIL 5 MG TAB PO SCH (09:00)
[2018-12-02] MEDS ORDERED: GLUCAGON 1 MG/VIAL IM PRN (10:00)
[2018-12-02] MEDS ORDERED: D50W 25 GM/50 ML SYRINGE IV PRN (10:00)
[2018-12-02] MEDS: INSULIN -REGULAR HUMAN 50 UNIT/0.5 ML ML SQ SCH ×3 (12:48→21:08)
--- NOTE | 2018-12-02 17:33 | PN ---
Subjective: Mr. Worley subjectively is feeling a lot better. He is able to stand up and walk about 100 feet. Generally, he gets very weak with any kind of UTI. He gets recurrent UTIs. He has incon tinence of urine. I was trying to figure out why he does have UTI, and he actually has incontinence and he urinates in the diapers all day and many times. says he is waterlogged in diapers. I ex plained to them that if the urine stays in diapers and stays too long, bacteria overgrow and he can g et infection from there itself. He has not been able to see any effect of Myrbetriq. Myrbetriq has not worked for him, so he quit taking it. He does go to urologist every 3 months for a bladder cysto scopy for bladder cancer. This is in [facility]. Physical Examination: General: He is stable, comfortable, still generally weak. He is a tall, obese gentleman, walks with a walker, very slow in getting around usually. Vital Signs: Blood pressure 129/59, temperature 97.6, pulse is 60. Neck: No JVD. No carotid bruits. Chest: Clear. Heart: Regular. Abdomen: No guarding, no rebound, no rigidity. Laboratory Data: Hemoglobin 12, hematocrit 36, WBC count 9900, platelets 133,000. BUN of 34; creati nine 2.05, slightly higher than his baseline. Blood cultures have been negative so far. Urine cultu re is not done from the emergency room. He has already been on antibiotics since ER. Assessment/plan: 1.Recurrent urinary tract infection. Continue antibiotics. Possible discharge tomorrow. I am brie g to try to get this family a diaper which is super absorbent and does not get wet at all. 2.Generalized diffuse weakness. He has been fully checked by Dr. Díaz before. Has not found any neurological issues. 3.Diabetes. He is on Levemir injections and sliding scale. We will watch A1c on an outpatient basi s. Currently stable. 4.Chronic kidney disease. Creatinine about 2.0, stable. 5.Testicular hypogonadism. Even testosterone injection has not really helped his status. 6.Hypertension. 7.Overall guarded prognosis. RVD/MODL Voice ID: [id number] Report ID: [id number]
--- NOTE | 2018-12-02 18:26 | EKG ---
Test Date: 2018-12-01 Test Time: 00:31:03 Product Designer: MEASUREMENT RESULTS: Intervals: Rate: 89 ME: 194 QRSD: 84 QT: 348 QTc: 423 [place]: P: 29 ME: 194 QRS: -44 T: 25 INTERPRETIVE STATEMENTS: Normal sinus rhythm Left axis deviation Inferior infarct, age undetermined Anterolateral infarct, age undetermined Abnormal ECG Compared to ECG 12/31/2017 19:46:16 No significant changes Electronically Signed On 12-02-18 18:23:06 CDT by Prosper Gipson
[2018-12-02] MEDS: GABAPENTIN 100 MG CAP PO SCH (21:08)
[2018-12-02] MEDS: INSULIN GLARGINE 100 UNITS/ML SQ SCH (21:09)
[2018-12-03] MEDS: LEVOTHYROXINE SOD 0.05 MG TABLET PO SCH (05:42)
[2018-12-03] MEDS: INSULIN -REGULAR HUMAN 50 UNIT/0.5 ML ML SQ SCH (07:30)
[2018-12-03] MEDS: INSULIN LISPRO 100 UNIT/1 ML SQ SCH (08:39)
[2018-12-03] MEDS: CEFTRIAXONE/SWI 1gm 1 GM/10 ML SYR IV SCH (08:39)
[2018-12-03] MEDS: CLOPIDOGREL 75 MG TABLET PO SCH (08:40)
[2018-12-03] MEDS: TAMSULOSIN 0.4 MG SR CAP PO SCH (08:40)
[2018-12-03] MEDS: METOPROLOL XL 25 MG TAB PO SCH (08:41)
[2018-12-03 12:01] VITALS: O2SAT 94
[2018-12-03 13:13] VITALS: BP 140/66; TEMP 96.7
--- NOTE | 2018-12-03 17:17 | P.DS ---
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 RACHEL HAS HAD DIFFUSE WEAKNESS WHEN HE GETS UTI. BEFORE UTI HE IS ABLE TO WALK WITH WALKER SLOWLY. HE HAD LOW TESTOSTEORNE LEVEL BUT TREATMENT DID NOT CHANGE HIS STATUS. WE HAD HIM CHECK WITH DR. BARKER AND DID FIND NEUROPATHY FROM DM. HE ONCE AGAIN HAD WEAKNESS AND COULD NOT GET OUT OF BED. HE HAS UTI PER URINALYSIS BUT HAS NO SYMPTOMS. HE HAS NO CHEST PAIN. Hospital Course: MR. RACHEL GETS VERY WEAK WITH UTI AND CAN'T WALK ANY LONGER. HE ONCE AGAIN HAD THIS EPISODE. HE IMPROVED ON IV ROCEPHIN. HE IS STABLE AND AMBULATING NOW. HE HAS UTI ESSENTIAL ALREADY. HE WEARS WET DIAPERS AND THAT IS ONE REASON WHY HE GETS UTI. HE IS TOTALLY INCONTINENT AND Balihoo DID NOT WORK. I WILL HAVE HIM USE LONG HOURS TOTALLY DRY PULLUPS AND THAT MAY HELP THE ISSUES. Vital Signs/Physical Exam: Temp Pulse Resp BP Pulse Ox 96.7 F L 55 16 140/66 94 12/03/18 12:00 12/03/18 12:00 12/03/18 12:00 12/03/18 12:00 12/03/18 12:00 Laboratory Data at Discharge: WBC 9.9 K/uL (4.3-10.9) D 12/02/18 05:32 Hgb 12.6 g/dL (13.6-17.9) L 12/02/18 05:32 Hct 36.3 % (39.6-49.0) L 12/02/18 05:32 Plt Count 133 K/uL (152-406) L 12/02/18 05:32 Sodium 139 mmol/L (136-145) 12/02/18 05:32 Potassium 4.5 mmol/L (3.5-5.1) 12/02/18 05:32 BUN 34 mg/dL (7-18) H 12/02/18 05:32 Creatinine 2.05 mg/dL (0.55-1.3) H 12/02/18 05:32 Glucose 146 mg/dL (74-106) H 12/02/18 05:32 Total Bilirubin 0.5 mg/dL (0.2-1.0) 11/30/18 23:40 AST 12 U/L (15-37) L 11/30/18 23:40 ALT 28 U/L (12-78) 11/30/18 23:40 Alkaline Phosphatase 81 U/L (45-117) 11/30/18 23:40 Troponin I < 0.02 ng/mL (0.0-0.045) 11/30/18 23:40 LDL Cholesterol Direct 73 mg/dL (100-129) L 12/01/18 12:40 Home Medications: Atorvastatin Calcium 20 mg PO BEDTIME 01/01/18 Clopidogrel Bisulfate [Plavix*] 75 mg PO DAILY 01/01/18 Levothyroxine [Synthroid*] 50 mcg PO DAILY 01/01/18 Lisinopril 5 mg PO DAILY 01/01/18 Metoprolol Succinate [Toprol Xl*] 25 mg PO BID 01/01/18 Tamsulosin [Flomax*] 0.4 mg PO BID 01/01/18 Tramadol HCl [Ultram] 50 mg PO Q6H PRN 01/01/18 Gabapentin [Neurontin*] 100 mg PO BEDTIME 12/01/18 Insulin Aspart [Novolog] 10 units SQ AC 12/01/18 Insulin Detemir [Levemir Flextouch] 30 units SQ BEDTIME 12/01/18 Patient Discharge Instructions: I CALLED ANTIBIOTIC FROM OFFICE- AMPICILLIN. RAISE YOUR INSULIN 5 UNITS EVERY 5 DAYS UNTIL YOUR GLUCOSE IS DOWN TO 110 AND KEEP THAT DOS ON YOUR LONG ACTING INSULIN. Diet: Renal Followup: Abe Basilio MD [ACTIVE - CAN ADMIT] - 1-2 Weeks
--- NOTE | 2018-12-03 22:34 | PN ---
Date of Progress Note: 12/02/2018 Subjective: Patient is feeling a lot better. Denies any chest pain, nausea, or vomiting. He is abl e to ambulate now with support. He does not have any UTI symptoms. Physical Examination: Vital Signs: His blood pressure is 125/59, temperature 97.6, pulse is 59. HEENT: No JVD. No carotid bruits. ABDOMEN: No guarding, no rebound, no rigidity. Laboratory Data: On lab examination, culture showing E coli which is sensitive to most of the antibi otics. His sugars stayed anywhere from 160 to 190 and he will take care of his diabetes with using o ral medications and diet control. His A1c is 8.6. His diet is not the best and he is to lose weight . I have been cutting them for a long duration for this and prognosis overall remains guarded. We w ill discharge him tomorrow. RVD/MODL Voice ID: [id number] Report ID: [id number]
== END 2018-12-03 12:44 | disposition home or self-care (01) | DRG 690 ==
LOC: ER 22:58 → 4TH 12-01 01:23
PROVIDERS: ADMIT Internal Medicine; ATTEND Internal Medicine
DX: N39.0 Urinary tract infection, site not specified (principal); N17.9 Acute kidney failure, unspecified; R53.1 Weakness; E11.40 Type 2 diabetes mellitus with diabetic neuropathy, unspecified; I12.9 Hypertensive chronic kidney disease with stage 1 through stage 4 chronic kidney disease, or unspecified chronic kidney disease; E11.22 Type 2 diabetes mellitus with diabetic chronic kidney disease; N18.9 Chronic kidney disease, unspecified; E29.1 Testicular hypofunction; Z87.891 Personal history of nicotine dependence; Z85.51 Personal history of malignant neoplasm of bladder; Z85.528 Personal history of other malignant neoplasm of kidney; Z96.659 Presence of unspecified artificial knee joint
CPT/HCPCS: 36415; 80048; 80076; 81003; 81015; 82550; 82962; 83036; 83605; 84145; 84238; 84484; 85025; 87040; 87077; 87086; 87088; 87186; 93005; 96365; 97116; 97530; 99285; J0696; J2405

== ENCOUNTER 2019-03-20 10:07 | Observation (INO) | payer OTHER ==
--- OUTSIDE RECORDS SUMMARY | 2019-03-20 10:09 | XMS REPORT ---
:1940 [facility] Address [address] [place] [address] Dr. Thompson [address] [place] [id number] Care Team Providers Name Role Phone Unavailable Unavailable Unavailable Problems This patient has no known problems. Allergies, Adverse Reactions, Alerts This patient has no known allergies or adverse reactions. Medications This patient has no known medications.
[2019-03-20] MEDS ORDERED: NA CHLORIDE 0.9% 1,000 ML ONE (10:43)
[2019-03-20 10:50] LABS: Absolute Lymphocytes (CBC) 1.2 K/uL (0.7-4.9); Basophils % 0.9 % (0-1.3); Lymphocytes % 16.8 % (15.3-44.8); MPV 6.6 fL (7.6-11.3); RBC Red Blood Cell Count 4.48 M/uL (4.33-5.43)
[2019-03-20 11:03] LABS: ALT/SGPT 44 U/L (12-78); AST/SGOT 20 U/L (15-37); Albumin 3.4 g/dL (3.4-5.0); Alkaline Phosphatase 70 U/L (45-117); BUN Blood Urea Nitrogen 49 mg/dL (7-18); Bicarbonate 21 mmol/L (21-32); Bilirubin Direct 0.2 mg/dL (0-0.2); Bilirubin Total 0.4 mg/dL (0.2-1.0); Glucose Level 230 mg/dL (74-106); Lipase 155 U/L (73-393); Potassium 4.7 mmol/L (3.5-5.1); Protein, Total 7.1 g/dL (6.4-8.2); Sodium Level 138 mmol/L (136-145); Troponin (Emerg Dept Use Only) < 0.02 ng/mL (0.0-0.045)
[2019-03-20] MEDS ORDERED: CEFTRIAXONE/SWI 1gm 1 GM/10 ML SYR ONE (11:05)
[2019-03-20 11:34] LABS: Urine Blood NEGATIVE (NEG); Urine Glucose 3+ (NEG); Urine Protein NEGATIVE (NEG); Urine Specific Gravity 1.015 (1.005-1.030)
[2019-03-20 11:42] LABS: Urine Bacteria 20-50 /HPF (NONE SEEN); Urine Culture Reflex Order REFLEXED; Urine RBC <5 /HPF (NONE SEEN)
--- NOTE | 2019-03-20 12:14 | EDPHYS ---
Physician Documentation [facility] Name: Kendrick Worley Age: 78 yrs Sex: Male : 1940 Arrival Date: 03/20/2019 Time: 10:11 Bed 4 Private MD: ED Physician Lizeth Renae HPI: 03/20 12:09 This 78 yrs old Male presents to ER via EMS with complaints of General ma2 Weakness, Fall Injury. 12:09 Onset: The symptoms/episode began/occurred gradually, 2 day(s) ago. Severity of ma2 symptoms: At their worst the symptoms were moderate, in the emergency department the symptoms are unchanged. The patient has not experienced similar symptoms in the past. generalized weakness, unable to walk or stand or left hand, he had this before and had a uti, no head trauma . Historical: - Allergies: 10:20 Bactrim; iw 10:20 Morphine (Hallucinations); iw - Home Meds: 11:16 Glimepiride Oral [Active]; Lasix Oral [Active]; Novolog Sub-Q [Active]; Plavix Oral jl7 [Active]; - PMHx: 10:20 Diabetes - IDDM; Myocardial infarction; iw - PSHx: 10:20 both knee replacement; right kidney removal; iw - Immunization history:: Adult Immunizations unknown. - Social history:: Smoking status: Patient/guardian denies using tobacco, Patient/guardian denies using alcohol, street drugs, The patient lives with family. - Ebola Screening: : No symptoms or risks identified at this time. - Family history:: not pertinent. ROS: 12:09 ENT: Negative for injury, pain, and discharge. ma2 12:09 Constitutional: Positive for malaise, Negative for weight loss. 12:09 All other systems are negative. Exam: 12:09 Constitutional: This is a well developed, has generalized weakness and dehudrated, t ma2 who is awake, alert, and in no acute distress. Chest/axilla: Normal chest wall appearance and motion. Nontender with no deformity. No lesions are appreciated. Cardiovascular: Regular rate and rhythm with a normal S1 and S2. No gallops, murmurs, or rubs. Normal PMI, no JVD. No pulse deficits. Respiratory: Lungs have equal breath sounds bilaterally, clear to auscultation and percussion. No rales, rhonchi or wheezes noted. No increased work of breathing, no retractions or nasal flaring. Abdomen/GI: Soft, non-tender, with normal bowel sounds. No distension or tympany. No guarding or rebound. No evidence of tenderness throughout. Skin: Warm, dry with normal turgor. Normal color with no rashes, no lesions, and no evidence of cellulitis. MS/ Extremity: Pulses equal, no cyanosis. Neurovascular intact. Full, normal range of motion. Neuro: Awake and alert, GCS 15, oriented to person, place, time, and situation. Cranial nerves II-XII grossly intact. Motor strength 5/5 in all extremities. Sensory grossly intact. Cerebellar exam normal. Normal gait. Vital Signs: 10:11 BP 117 / 69; Pulse 68; Resp 16; Temp 97.9(TE); Pulse Ox 98% on R/A; Weight 99.79 kg; iw Height 6 ft. 0 in. (182.88 cm); Pain 8/10; 11:18 BP 135 / 56; Pulse 67; Resp 17 S; Pulse Ox 98% on R/A; jl7 12:30 BP 114 / 69; Pulse 62; Resp 17 S; Pulse Ox 97% on R/A; jl7 13:30 BP 126 / 69; Pulse 59; Resp 16 S; Pulse Ox 99% on R/A; jl7 15:00 BP 111 / 71; Pulse 58; Resp 17 S; Pulse Ox 99% on R/A; jl7 16:36 BP 122 / 67; Pulse 61; Resp 19 S; Pulse Ox 98% on R/A; jl7 10:11 Body Mass Index 29.84 (99.79 kg, 182.88 cm) iw MDM: 10:12 Patient medically screened. ma2 12:09 Differential diagnosis: sprain, strain, UTI . Data reviewed: vital signs, nurses notes. ma2 Counseling: I had a detailed discussion with the patient and/or guardian regarding: the historical points, exam findings, and any diagnostic results supporting the discharge/admit diagnosis, the presence of at least one elevated blood pressure reading (>120/80) during this emergency department visit, the need for further work-up and treatment in the hospital. Response to treatment: the patient's symptoms have markedly improved after treatment. 03/20 10:19 Order name: Basic Metabolic Panel; Complete Time: 11:24 ma2 03/20 10:19 Order name: CBC with Diff; Complete Time: 11:24 ma2 03/20 10:19 Order name: Creatinine for Radiology; Complete Time: 11:24 ma2 03/20 10:19 Order name: Hepatic Function; Complete Time: 11:24 ma2 03/20 10:19 Order name: Lipase; Complete Time: 11:24 ma2 03/20 10:19 Order name: Troponin (emerg Dept Use Only); Complete Time: 11:24 ma2 03/20 11:01 Order name: Urine Microscopic Only; Complete Time: 11:55 jl7 03/20 11:15 Order name: Urine Dipstick--Ancillary (enter results); Complete Time: 11:35 bd 03/20 11:44 Order name: Urine Culture [facility] 03/20 12:44 Order name: Basic Metabolic Panel [facility] 03/20 12:44 Order name: Basic Metabolic Panel [facility] 03/20 12:44 Order name: CBC with Automated Diff EDMS 03/20 12:44 Order name: CBC with Automated Diff EDMS 03/20 12:44 Order name: Lipase EDUT 03/20 10:19 Order name: IV Saline Lock; Complete Time: 10:34 ma2 03/20 10:19 Order name: Labs collected and sent; Complete Time: 10:34 ma2 03/20 10:19 Order name: Urine Dipstick-Ancillary (obtain specimen); Complete Time: 10:58 ma2 03/20 11:55 Order name: Knee Left 3 View XRAY; Complete Time: 12:35 ma2 03/20 12:35 Order name: Straight Cath; Complete Time: 12:58 ma2 03/20 12:44 Order name: NPO EDMS 03/20 12:44 Order name: Lipase EDMS 03/20 12:44 Order name: Liver (Hepatic) Function EDMS 03/20 12:44 Order name: Liver (Hepatic) Function EDMS 03/20 13:06 Order name: Urine Culture jl7 Administered Medications: 11:01 Drug: NS 0.9% 1000 ml Route: IV; Rate: 1 bolus; Site: left antecubital; jl7 12:30 Follow up: Response: No adverse reaction; IV Status: Completed infusion; IV Intake: jl7 1000ml 11:07 Drug: Rocephin 1 grams Route: IV; Rate: calculated rate; Site: left antecubital; jl7 11:10 Follow up: Response: No adverse reaction; IV Status: Completed infusion jl7 Disposition: 03/20/19 12:12 Hospitalization ordered by Abe Basilio for Observation. Preliminary diagnosis are Cystitis, unspecified without hematuria, Weakness. - Bed requested for Telemetry/MedSurg (observation). - Status is Observation. jl7 - Condition is Stable. - Problem is new. - Symptoms are unchanged. UTI on Admission? Yes Signatures: Dispatcher [employer] EDMS Sheridan Jensen RN RN Kerry Zhu RN Karrie Corey RN RN jl7 Lizeth Renae MD MD ma2 Corrections: (The following items were deleted from the chart) 16:15 12:12 Hospitalization Ordered by Abe Basilio MD for Observation. Preliminary diagnosis dw is Cystitis, unspecified without hematuria; Weakness. Bed requested for Telemetry/MedSurg (observation). Status is Observation. Condition is Stable. Problem is new. Symptoms are unchanged. UTI on Admission? Yes. ma2 17:07 16:15 03/20/2019 12:12 Hospitalization Ordered by Abe Basilio MD for Observation. jl7 Preliminary diagnosis is Cystitis, unspecified without hematuria; Weakness. Bed requested for Telemetry/MedSurg (observation). Status is Observation. Condition is Stable. Problem is new. Symptoms are unchanged. UTI on Admission? Yes. dw
--- NOTE | 2019-03-20 12:14 | ER ---
Nurse's Notes [facility] Name: Kendrick Worley Age: 78 yrs Sex: Male : 1940 Arrival Date: 03/20/2019 Time: 10:11 Bed 4 Private MD: Diagnosis: Cystitis, unspecified without hematuria;Weakness Presentation: 03/20 10:17 Presenting complaint: Patient states: has been feeling weak for past two days, has been iw feeling off balance and dizzy, fell yesterday and today, felt himself started to fall and was able to grab the sink and lower himself down to ground, c/o pain to sae knees, thinks he hyperextended them, denies fever/chill, denies n/v/d. Transition of care: patient was not received from another setting of care. Onset of symptoms was March 19, 2019. Risk Assessment: Do you want to hurt yourself or someone else? Patient reports no desire to harm self or others. Initial Sepsis Screen: Does the patient meet any 2 criteria? No. Patient's initial sepsis screen is negative. Does the patient have a suspected source of infection? No. Patient's initial sepsis screen is negative. Care prior to arrival:. 10:17 Method Of Arrival: EMS: [facility] iw 10:17 Acuity: SHERLEY 3 iw Historical: - Allergies: 10:20 Bactrim; iw 10:20 Morphine (Hallucinations); iw - Home Meds: 11:16 Glimepiride Oral [Active]; Lasix Oral [Active]; Novolog Sub-Q [Active]; Plavix Oral jl7 [Active]; - PMHx: 10:20 Diabetes - IDDM; Myocardial infarction; iw - PSHx: 10:20 both knee replacement; right kidney removal; iw - Immunization history:: Adult Immunizations unknown. - Social history:: Smoking status: Patient/guardian denies using tobacco, Patient/guardian denies using alcohol, street drugs, The patient lives with family. - Ebola Screening: : No symptoms or risks identified at this time. - Family history:: not pertinent. Screenin:18 Abuse screen: Denies threats or abuse. Denies injuries from another. Nutritional jl7 screening: No deficits noted. Tuberculosis screening: No symptoms or risk factors identified. Fall Risk Fall in past 12 months (25 points). IV access (20 points). Total Leal Fall Scale indicates Low Risk Score (25-44 pts). Fall prevention measures have been instituted. Side Rails Up X 2 Placed close to Nursing Station Frequent Obs/Assesments occuring Family Present and informed to notify staff if they need to leave bedside As available Patient and Family Educated on Fall Prevention Program and strategies. Assessment: 10:20 General: Appears in no apparent distress. uncomfortable, Behavior is calm, cooperative, jl7 appropriate for age. Pain: Denies pain. Neuro: Level of Consciousness is awake, alert, obeys commands, Oriented to person, place, time, situation. Cardiovascular: Heart tones present Patient's skin is warm and dry. Respiratory: Airway is patent Respiratory effort is even, unlabored, Respiratory pattern is regular, symmetrical, Breath sounds are clear Denies shortness of breath. GI: Abdomen is round non-distended. : No signs and/or symptoms were reported regarding the genitourinary system. EENT: No signs and/or symptoms were reported regarding the EENT system. Derm: Skin is pink, warm \\T\\ dry. Musculoskeletal: No signs and/or symptoms reported regarding the musculoskeletal system. 11:30 Reassessment: Patient appears in no apparent distress at this time. No changes from jl7 previously documented assessment. Patient and/or family updated on plan of care and expected duration. Pain level reassessed. Patient is alert, oriented x 3, equal unlabored respirations, skin warm/dry/pink. 12:00 Reassessment: Pt's states "I really think he has a UTI with him being so weak and jl7 feeling so bad." Pt denies burning with urination, denies pain or discomfort, ERD notified, urine collected via clean catch. 12:30 Reassessment: Patient appears in no apparent distress at this time. No changes from jl7 previously documented assessment. Patient and/or family updated on plan of care and expected duration. Pain level reassessed. Patient is alert, oriented x 3, equal unlabored respirations, skin warm/dry/pink. 14:30 Reassessment: Patient appears in no apparent distress at this time. No changes from jl7 previously documented assessment. Patient and/or family updated on plan of care and expected duration. Pain level reassessed. Patient is alert, oriented x 3, equal unlabored respirations, skin warm/dry/pink. 15:30 Reassessment: Pt laying in bed with eyes closed, respirations even and unlabored, no jl7 signs of distress noted. 16:31 Reassessment: Patient appears in no apparent distress at this time. No changes from jl7 previously documented assessment. Patient and/or family updated on plan of care and expected duration. Pain level reassessed. Patient is alert, oriented x 3, equal unlabored respirations, skin warm/dry/pink. Vital Signs: 10:11 BP 117 / 69; Pulse 68; Resp 16; Temp 97.9(TE); Pulse Ox 98% on R/A; Weight 99.79 kg; iw Height 6 ft. 0 in. (182.88 cm); Pain 8/10; 11:18 BP 135 / 56; Pulse 67; Resp 17 S; Pulse Ox 98% on R/A; jl7 12:30 BP 114 / 69; Pulse 62; Resp 17 S; Pulse Ox 97% on R/A; jl7 13:30 BP 126 / 69; Pulse 59; Resp 16 S; Pulse Ox 99% on R/A; jl7 15:00 BP 111 / 71; Pulse 58; Resp 17 S; Pulse Ox 99% on R/A; jl7 16:36 BP 122 / 67; Pulse 61; Resp 19 S; Pulse Ox 98% on R/A; jl7 10:11 Body Mass Index 29.84 (99.79 kg, 182.88 cm) iw ED Course: 10:11 Patient arrived in ED. em1 10:12 Lizeth Renae MD is Attending Physician. ma2 10:20 Triage completed. iw 10:20 Arm band placed on. iw 10:25 Patient has correct armband on for positive identification. Bed in low position. Call jl7 light in reach. Side rails up X2. trace evidence technician on. Pulse ox on. NIBP on. Warm blanket given. 10:37 Karrie Hopper RN is Primary Nurse. jl7 10:37 Initial lab(s) drawn, by in, sent to lab. Inserted saline lock: 20 gauge in left em1 antecubital area, using aseptic technique. Blood collected. 12:00 Urine collected: clean catch specimen, clear. jl7 12:12 Abe Basilio MD is Hospitalizing Provider. ma2 12:12 Knee Left 3 View XRAY In Process Unspecified. EDMS 12:55 Straight cath inserted, using sterile technique, 16 Fr. Specimen obtained. Returned jl7 clear yellow urine. Patient tolerated well. 16:39 No provider procedures requiring assistance completed. Patient admitted, IV remains in jl7 place. intact, No redness/swelling at site. Administered Medications: 11:01 Drug: NS 0.9% 1000 ml Route: IV; Rate: 1 bolus; Site: left antecubital; jl7 12:30 Follow up: Response: No adverse reaction; IV Status: Completed infusion; IV Intake: jl7 1000ml 11:07 Drug: Rocephin 1 grams Route: IV; Rate: calculated rate; Site: left antecubital; jl7 11:10 Follow up: Response: No adverse reaction; IV Status: Completed infusion jl7 Intake: 12:30 IV: 1000ml; Total: 1000ml. jl7 Outcome: 12:12 Decision to Hospitalize by Provider. ma2 16:39 Admitted to Tele accompanied by tech, family with patient, via stretcher, room 210, jl7 with chart, Report called to JANET Ward 16:39 Condition: stable 16:39 Discharge instructions given to patient, family, Instructed on the need for admit, Demonstrated understanding of instructions. 17:07 Patient left the ED. jl7 Signatures: Dispatcher [employer] Kerry Gooden, RN Teo Flores em1 Karrie Hopper RN RN jl7 Lizeth Renae MD MD ma2 Corrections: (The following items were deleted from the chart) 10:21 10:11 BP 117 / 69; Pulse 68bpm; Resp 16bpm; Pulse Ox 98% RA; Temp 97.9F Temporal; Pain iw 8/10; em1 11:18 10:20 BP 135 / 56; Pulse 67bpm; Resp 17bpm; Spontaneous; Pulse Ox 98% RA; jl7 jl7 11:18 11:18 Fall Risk IV access (20 points). Total Leal Fall Scale indicates No Risk (0-24 jl7 pts). jl7
--- NOTE | 2019-03-20 12:20 | RAD REPORT ---
EXAM DESCRIPTION: RAD - Knee Left 3 View - 03/20/2019 12:14 pm CLINICAL HISTORY: Fall, left knee pain COMPARISON: Left knee December 2017 FINDINGS: Left total knee prosthesis in place. No radiographic evidence for loosening. No measurable joint effusion on these images. No acute fracture of the cachil dehe bone. Knee is not significantly diff erent from comparison. No foreign body. IMPRESSION: Negative left knee for acute bone or implant finding. No suspicious soft tissue finding.
[2019-03-20] MEDS ORDERED: ONDANSETRON 4 MG/2 ML VIAL IV PRN (12:41)
[2019-03-20] MEDS ORDERED: LIDOCAINE VISCOUS 2% SOLN 15 ML UDC ONE (12:45)
[2019-03-20] MEDS ORDERED: D5 0.45 NS 1,000 ML IV SCH (13:00)
[2019-03-20 18:05] VITALS: BMI 29.8
[2019-03-20 20:34] LABS: MPV 6.3 fL (7.6-11.3)
--- NOTE | 2019-03-20 20:38 | P.HP ---
Certification for Inpatient Patient admitted to: Observation With expected LOS: <2 Midnights Practitioner: I am a practitioner with admitting privileges, knowledge of patient current condition, hospital course, and medical plan of care. Services: Services provided to patient in accordance with Admission requirements found in Title 42 Section 412.3 of the Code of Federal Regulations Patient History Date of Service: 03/20/19 Reason for admission: WEAKNESS. History of Present Illness: MR. RACHEL HAS HAD GEN WEAKNESS OFF AND ON WHEN HE CAN'T GET OUT OF BED AND FALLS OFTEN. I HAVE DONE FULL WORKUP FOR THIS. HIS LAB FOR M. GRAVIES, PMR, B12 , HAS BEEN NORMAL. HIS VIT D LEVEL IS MILD LOW AND TESTOSTERONE WAS LOW BUT TREATMENT DID NOT CHANGE HIS STATUS. HE ALSO HAS HAD MRI OF BRAIN AND SPINE WITH NO EVIDENCE OF ETIOLOGY BY DR. BARKER. HE ONCE AGAIN COMES WITH FALLING AND WEAKNESS. HE USUALLY HAS UTI BUT UA THIS TIME IS NOT IMPRESSIVE. I WAS TOLD BY ER THAT HE HAS UTI. HE HAS NO SYMPTOMS OF IT. Allergies sulfamethoxazole [From Bactrim] Allergy (Intermediate, Verified 03/20/19 17:30) Hives trimethoprim [From Bactrim] Allergy (Intermediate, Verified 03/20/19 17:30) Hives morphine Allergy (Verified 03/20/19 17:30) Itching No Known Drug Allergies Allergy (Verified 03/20/19 17:17) Unknown Home medications list reviewed: Yes Home Medications: Atorvastatin Calcium 20 mg PO BEDTIME 01/01/18 Clopidogrel Bisulfate [Plavix*] 75 mg PO DAILY 01/01/18 Levothyroxine [Synthroid*] 50 mcg PO DAILY 01/01/18 Metoprolol Succinate [Toprol Xl*] 25 mg PO BID 01/01/18 Tamsulosin [Flomax*] 0.4 mg PO BID 01/01/18 Tramadol HCl [Ultram] 50 mg PO Q6H PRN 01/01/18 lisinopriL [Lisinopril] 5 mg PO DAILY 01/01/18 Gabapentin [Neurontin*] 100 mg PO BEDTIME 12/01/18 Insulin Aspart [Novolog] 10 units SQ AC 12/01/18 Insulin Detemir [Levemir Flextouch] 30 units SQ BEDTIME 12/01/18 - Past Medical/Surgical History Has patient received pneumonia vaccine in the past: Yes Diabetic: Yes -: ME -: DM -: kidney, bladder cancer -: kidney removal -: knee surgery -: right elbow surgery -: STENT PLACEMENT 3YRS AGO -: KNEE REPLACEMENT - Family History Family History: Reviewed- Non-Contributory - Family History Father -: Lung disease, Cancer - Social History Smoking Status: Former smoker Alcohol use: No CD- Drugs: No Caffeine use: Yes Place of Residence: Home Review of Systems 10-point ROS is otherwise unremarkable General: Weakness Physical Examination - Vital Signs Temperature: 97.6 F Blood Pressure: 133/66 Pulse: 65 Respirations: 20 Pulse Ox (%): 97 - Physical Exam General: Alert, Mild distress, Obese HEENT: Atraumatic, PERRLA, Mucous membr. moist/pink, EOMI, Sclerae nonicteric Neck: Supple, 2+ carotid pulse no bruit, No LAD, Without JVD or thyroid abnormality Respiratory: Clear to auscultation bilaterally, Normal air movement Cardiovascular: Regular rate/rhythm, Normal S1 S2 Gastrointestinal: Normal bowel sounds, No tenderness Musculoskeletal: No tenderness Integumentary: No rashes Neurological: Normal gait, Normal speech, Normal strength at 5/5 x4 extr, Normal tone, Normal affect Lymphatics: No axilla or inguinal lymphadenopathy - Studies Laboratory Data (last 24 hrs) 03/20/19 10:30: Creatinine 2.31 H 03/20/19 10:30: WBC 7.1, Hgb 13.2 L, Hct 40.0, Plt Count 172 03/20/19 10:30: Sodium 138, Potassium 4.7, BUN 49 H, Creatinine 2.35 H, Glucose 230 H, Total Bilirubin 0.4, AST 20, ALT 44, Alkaline Phosphatase 70, Lipase 155 Assessment and Plan - Problems (Diagnosis) (1) CKD stage 4 secondary to hypertension Current Visit: Yes Status: Chronic Plan: GOES TO NEPHROLOGISTS. HIS CREATININE ABOVE 2 IS BASELINE FOR HIM. (2) Frequent falls Current Visit: Yes Status: Chronic Plan: WILL REDO ACTH STIM TEST. START VIT D RX DOSE. START B12 INJECTIONS. START PT (3) Risk for falls Onset Date: 01/01/18 Current Visit: No Status: Acute (4) Type 2 diabetes mellitus Onset Date: 01/01/18 Current Visit: No Status: Chronic Qualifiers: Diabetes mellitus complication status: with neurologic complications - Advance Directives Does patient have a Living Will: No Does patient have a Durable POA for Healthcare: No
[2019-03-20] MEDS: CEFTRIAXONE/SWI 1gm 1 GM/10 ML SYR IV SCH (20:42)
[2019-03-20] MEDS: D5 0.45 NS 1,000 ML IV SCH (21:00)
[2019-03-20 21:38] LABS: Platelet Estimate ADEQ
[2019-03-20] MEDS: CYANOCOBALAMIN 1000MCG/ML INJ SQ SCH (22:08)
[2019-03-21] MEDS: D5 0.45 NS 1,000 ML IV SCH ×4 (04:03→23:05)
[2019-03-21 06:01] LABS: Albumin 2.8 g/dL (3.4-5.0); Bilirubin Direct 0.1 mg/dL (0-0.2); Bilirubin Total 0.4 mg/dL (0.2-1.0); Potassium 4.3 mmol/L (3.5-5.1); Protein, Total 5.9 g/dL (6.4-8.2)
[2019-03-21 06:13] LABS: Absolute Lymphocytes (CBC) 1.8 K/uL (0.7-4.9); Basophils % 0.6 % (0-1.3); Hematocrit 35.7 % (39.6-49.0); Lymphocytes % 30.2 % (15.3-44.8); MPV 6.7 fL (7.6-11.3); RBC Red Blood Cell Count 4.02 M/uL (4.33-5.43)
[2019-03-21] MEDS: COSYNTROPIN 0.25 MG VIAL IV SCH (08:06)
[2019-03-21] MEDS: CYANOCOBALAMIN 1000MCG/ML INJ SQ SCH (09:19)
[2019-03-21] MEDS: ENOXAPARIN 40 MG/0.4 ML SQ SCH (09:19)
[2019-03-21] MEDS: CEFTRIAXONE/SWI 1gm 1 GM/10 ML SYR IV SCH ×2 (09:20→20:14)
[2019-03-21] MEDS: ACETAMINOPHEN 500 MG TAB PO PRN (12:24)
--- NOTE | 2019-03-21 14:47 | RAD REPORT ---
EXAM DESCRIPTION: RAD - Chest Pa And Lat (2 Views) - 03/21/2019 2:28 pm CLINICAL HISTORY: DYSPNEA, FOLLOW UP COMPARISON: Chest Single View dated 12/31/2017 TECHNIQUE: Frontal and lateral views of the chest were obtained. FINDINGS: The lungs are clear of focal process. Interstitial pattern matches comparison. Heart siz e is normal and central vasculature is within normal limits. No pleural effusion or pneumothorax see n. No acute bony finding noted. No aortic abnormality. IMPRESSION: No acute cardiopulmonary process.
[2019-03-21] MEDS ORDERED: GLUCAGON 1 MG/VIAL IM PRN (16:29)
[2019-03-21] MEDS ORDERED: D50W 25 GM/50 ML SYRINGE/VIAL IV PRN (16:29)
[2019-03-21] MEDS: INSULIN -REGULAR HUMAN 50 UNIT/0.5 ML ML SQ SCH ×2 (17:25→20:13)
--- NOTE | 2019-03-21 17:35 | PN ---
Subjective: Mr. Worley is feeling a little better. Denies chest pain, nausea, vomiting, coughing, sputum, hemoptysis, hematemesis, melena. Physical Examination: Vital Signs: Blood pressure 122/56, pulse is 66, temperature 97.8. HEENT: Patient morbidly obese. Chest: Clear. Heart: Regular. Abdomen: No guarding, no rebound, no rigidity. Neurologic: He is has a diffuse weakness of his body which is not unusual for him. Lab Examination: Creatinine came down to 1.99. Assessment And Planning: Diffuse weakness. We have done a full evaluation. Testosterone level has been done in the past. Treatment has not benefitted him. He has been checked for myasthenia gravis, MRI of neck, MRI of lower spine, MRI of brain, suggestive of no major findings. I did B12, vitamin D, TSH. I also had him do ACTH stimulation test today which was negative. His CRP is high and sedim entation rate is normal. He has clinical signs of polymyalgia rheumatica. 1.Polymyalgia rheumatica possibility. We will give him a trial of prednisone 20 mg once a day. [facility] x-ray, PA, lateral, and continue with physical therapy. 2.Dehydration and renal insufficiency. Currently stable. I see no signs of urinary tract infection . Culture is pending. This culture which was done, we did a straight cath also, which was a clean-catch urine sample and may be false positive. RVD/MODL Voice ID: [id number] Report ID: [id number]
[2019-03-21] MEDS ORDERED: TRAMADOL HCL 50 MG TAB PO PRN (21:36)
[2019-03-21] MEDS: INSULIN GLARGINE 100 UNITS/ML SQ SCH (23:14)
[2019-03-22] MEDS: LEVOTHYROXINE SOD 0.05 MG TABLET PO SCH (05:17)
[2019-03-22 06:05] LABS: Absolute Lymphocytes (CBC) 1.9 K/uL (0.7-4.9); Basophils % 0.4 % (0-1.3); Hematocrit 35.3 % (39.6-49.0); Lymphocytes % 30.5 % (15.3-44.8); MPV 6.5 fL (7.6-11.3); RBC Red Blood Cell Count 4.02 M/uL (4.33-5.43)
[2019-03-22] MEDS: INSULIN -REGULAR HUMAN 50 UNIT/0.5 ML ML SQ SCH (07:30)
[2019-03-22] MEDS: COSYNTROPIN 0.25 MG VIAL IV SCH (08:00)
[2019-03-22] MEDS: DAPAGLIFLOZIN PROPANEDIOL PO SCH (09:00)
[2019-03-22] MEDS: INSULIN LISPRO 100 UNIT/1 ML SQ SCH ×3 (09:06→16:46)
[2019-03-22] MEDS: CLOPIDOGREL 75 MG TABLET PO SCH (09:07)
[2019-03-22] MEDS: predniSONE 20 MG TAB PO SCH (09:07)
[2019-03-22] MEDS: lisinopriL 5 MG TAB PO SCH (09:07)
[2019-03-22] MEDS: CYANOCOBALAMIN 1000MCG/ML INJ IM SCH (09:07)
[2019-03-22] MEDS: TAMSULOSIN 0.4 MG SR CAP PO SCH ×2 (09:07→22:11)
[2019-03-22] MEDS: CEFTRIAXONE/SWI 1gm 1 GM/10 ML SYR IV SCH ×2 (09:08→22:11)
[2019-03-22] MEDS: ENOXAPARIN 40 MG/0.4 ML SQ SCH (09:08)
[2019-03-22] MEDS: D5 0.45 NS 1,000 ML IV SCH (13:04)
[2019-03-22] MEDS: INSULIN GLARGINE 100 UNITS/ML SQ SCH (22:10)
[2019-03-22] MEDS: METOPROLOL XL 25 MG TAB PO SCH (22:11)
[2019-03-22] MEDS: ATORVASTATIN 20 MG TAB PO SCH (22:11)
[2019-03-22] MEDS: GABAPENTIN 100 MG CAP PO SCH (22:12)
--- NOTE | 2019-03-22 22:57 | PN ---
Subjective: Patient is feeling a lot better. Denies chest pain, nausea, vomiting, diarrhea coughing . Physically, he is still very weak. Physical Examination: Vital Signs: Blood pressure 120/60, pulse 56, temperature 97.7. HEENT: No JVD. No carotid bruits. Chest: Clear. Heart: Regular. Abdomen: No guarding. No rebound. No rigidity. Neurological: He has no focal deficits and no signs of myasthenia on clinical examination. Assessment And Planning: Generalized diffuse weakness. He said, he had needed testosterone before a nd improved a little bit on testosterone shots. We will be doing this on outpatient basis. Currentl y, I want him to try prednisone 20 mg once a day to see if polymyalgia rheumatica could be a factor h ere. His is CRP is high. His sedimentation rate is normal and clinically, he has signs of polymyalg ia rheumatica, basically diffuse weakness. We will follow up tomorrow, possibly discharge tomorrow. Physical Therapy has done the evaluation. FRANCES/MODL Voice ID: [id number] Report ID: [id number]
[2019-03-23] MEDS: LEVOTHYROXINE SOD 0.05 MG TABLET PO SCH (05:04)
[2019-03-23 05:48] LABS: Absolute Lymphocytes (CBC) 2.3 K/uL (0.7-4.9); Basophils % 0.6 % (0-1.3); Hematocrit 36.1 % (39.6-49.0); Lymphocytes % 28.6 % (15.3-44.8); MPV 6.7 fL (7.6-11.3); RBC Red Blood Cell Count 4.15 M/uL (4.33-5.43)
[2019-03-23 06:01] LABS: Potassium 4.2 mmol/L (3.5-5.1)
[2019-03-23] MEDS: CEFTRIAXONE/SWI 1gm 1 GM/10 ML SYR IV SCH ×2 (08:28→21:00)
[2019-03-23] MEDS: predniSONE 20 MG TAB PO SCH (08:28)
[2019-03-23] MEDS: CLOPIDOGREL 75 MG TABLET PO SCH (08:28)
[2019-03-23] MEDS: TAMSULOSIN 0.4 MG SR CAP PO SCH ×2 (08:28→21:22)
[2019-03-23] MEDS: CYANOCOBALAMIN 1000MCG/ML INJ IM SCH (08:28)
[2019-03-23] MEDS: INSULIN LISPRO 100 UNIT/1 ML SQ SCH ×3 (08:29→17:23)
[2019-03-23] MEDS: VITAMIN D 1000 UNIT TAB PO SCH (08:30)
[2019-03-23] MEDS: ENOXAPARIN 40 MG/0.4 ML SQ SCH (08:30)
[2019-03-23] MEDS: DAPAGLIFLOZIN PROPANEDIOL PO SCH (08:32)
[2019-03-23] MEDS: lisinopriL 5 MG TAB PO SCH (08:46)
[2019-03-23 18:32] LABS: Urine Appearance CLEAR; Urine Bilirubin NEGATIVE (NEG); Urine Blood NEGATIVE (NEG); Urine Color YELLOW; Urine Glucose 3+ (NEG); Urine Protein NEGATIVE (NEG); Urine Urobilinogen 0.2 mg/dL (0.2-1.0)
[2019-03-23 18:34] LABS: Urine Microscopic Reflex NO UMIC
[2019-03-23] MEDS: METOPROLOL XL 25 MG TAB PO SCH (21:22)
[2019-03-23] MEDS: GABAPENTIN 100 MG CAP PO SCH (21:22)
[2019-03-23] MEDS: ATORVASTATIN 20 MG TAB PO SCH (21:23)
[2019-03-23] MEDS: INSULIN GLARGINE 100 UNITS/ML SQ SCH (21:23)
--- NOTE | 2019-03-24 04:19 | DS ---
Final Diagnoses: Diffuse weakness, acute on chronic renal failure, possible polymyalgia rheumatica. Secondary Diagnoses: Diabetes mellitus, hypogonadism, B12 deficiency, vitamin D deficiency, hyperten hailey, hypothyroidism, diabetic neuropathy, degenerative joint disease, questionable urinary tract inf ection. Hospital Course: Patient is 78 years old gentleman comes in once again with symptoms like he had bef ore diffuse weakness. He has no signs of UTI. He has no burning in the urine, fever, chills, nausea , vomiting. I do not see the suspicion of UTI here even though he received about 3-4 days of antibio tic which should be okay for any minor UTI. He is improved clinically as usual with IV fluids. He i s able to ambulate now with assistance. He is going home with home health. He does not want to wait in the hospital for longterm placement, his insurance company may take 5 more days to decide. Daniela jordan jacki Pope who had before, he will continue with [facility], order will be sent today. Nurses know how to do it now. They do not need a family welfare social work professor for sending ordered on the weekend because we do not have a family welfare social work professor covering on the weekend and he should not be waiti ng here 2 more days just for that purpose. There is a possibility he might have PMR, polymyalgia rhe umatica as his CRP is high. He has diffuse weakness symptoms and I am willing to give a trial of pre dnisone 20 mg once a day for about a couple of weeks to see if there is any improvement, otherwise, I will taper him off prednisone. He will come to office in about a week to 10 days. His discharge medications in addition to prednisone 20 mg once a day, he will still be on the same me dications as before which include Lipitor 20 mg once a day; Plavix 75 mg once a day; B12, he will be getting intramuscular injections in office once a month; Farxiga 10 mg once a day; gabapentin 100 mg p.o. q.h.s.; insulin he is on 18 units subcu before meals; NovoLog and he is on 30 units of Levemir a t night every day; levothyroxine 0.05 mg mg once a day; lisinopril 2.5 mg once a day; tamsulosin 0.4 mg p.o. b.i.d., tramadol p.r.n. RVD/NARGIS Voice ID: [id number] Report ID: [id number]
[2019-03-24] MEDS: LEVOTHYROXINE SOD 0.05 MG TABLET PO SCH (05:34)
[2019-03-24 05:46] LABS: Basophils % 0.3 % (0-1.3); Hematocrit 35.3 % (39.6-49.0); Lymphocytes % 24.6 % (15.3-44.8); MPV 6.6 fL (7.6-11.3); RBC Red Blood Cell Count 4.11 M/uL (4.33-5.43)
[2019-03-24 06:03] LABS: Potassium 4.5 mmol/L (3.5-5.1)
[2019-03-24] MEDS: lisinopriL 5 MG TAB PO SCH (08:55)
[2019-03-24] MEDS: ENOXAPARIN 40 MG/0.4 ML SQ SCH (08:55)
[2019-03-24] MEDS: VITAMIN D 1000 UNIT TAB PO SCH (08:55)
[2019-03-24] MEDS: CLOPIDOGREL 75 MG TABLET PO SCH (08:56)
[2019-03-24] MEDS: TAMSULOSIN 0.4 MG SR CAP PO SCH ×2 (08:56→21:15)
[2019-03-24] MEDS: CYANOCOBALAMIN 1000MCG/ML INJ IM SCH (08:56)
[2019-03-24] MEDS: CEFTRIAXONE/SWI 1gm 1 GM/10 ML SYR IV SCH ×2 (08:57→21:00)
[2019-03-24] MEDS: predniSONE 20 MG TAB PO SCH (08:57)
[2019-03-24] MEDS: DAPAGLIFLOZIN PROPANEDIOL PO SCH (08:57)
[2019-03-24] MEDS: INSULIN LISPRO 100 UNIT/1 ML SQ SCH ×3 (09:05→17:57)
[2019-03-24] MEDS: ACETAMINOPHEN 500 MG TAB PO PRN (12:51)
--- NOTE | 2019-03-24 14:25 | PN ---
Subjective: Mr. Worley is generally weak as usual. There are no changes. He could not walk yester day much, so family refused to take him home. He is still on observation here and then the standard observation has to be about 2 days or unless, unfortunately his diagnosis does not meet inpatient cri zurdo. I was hoping to meet the today, but she is at [facility], she will be coming back here after 11:30. Physical Examination: VITAL SIGNS: Blood pressure 132/62, pulse 57, temperature 97.9. HEENT: No JVD. No carotid bruits. Morbidly obese. HEART: Regular. ABDOMEN: No guarding. No rebound or rigidity. NEUROLOGIC: He does not have any focal deficits. Generally, he is slow and weak. Assessment And Planning: Diffuse weakness. Patient has a fully checked by Dr. Díaz and myself. We have done full evaluation for his generalized weakness including myasthenia gravis, which has been ruled out. He had an MRI brain, spine, cervical and lumbar vitamin D, thyroid, B12, testosterone le vels and sedimentation rate, and none of those were significantly a problem except for testosterone. He quit taking testosterone somehow, but he will try it again to see if it helps his muscles. Muscl es of the legs are weak, not able to hold his body, he needs to lose weight, and he will hopefully lo se weight at home after I convinced him one more time to do so. His discharged is on hold right now. Discharge was canceled yesterday because family could not take care of him. He may need intermediate for longer time, but again he refuses to go to a intermediate. FRANCES/NARGIS Voice ID: [id number] Report ID: [id number]
[2019-03-24] MEDS: ATORVASTATIN 20 MG TAB PO SCH (21:15)
[2019-03-24] MEDS: GABAPENTIN 100 MG CAP PO SCH (21:15)
[2019-03-24] MEDS: METOPROLOL XL 25 MG TAB PO SCH (21:15)
[2019-03-24] MEDS: INSULIN GLARGINE 100 UNITS/ML SQ SCH (21:16)
[2019-03-24 21:25] VITALS: O2SAT 98
[2019-03-25] MEDS: LEVOTHYROXINE SOD 0.05 MG TABLET PO SCH (05:23)
[2019-03-25 06:14] LABS: Absolute Lymphocytes (CBC) 2.7 K/uL (0.7-4.9); Basophils % 0.4 % (0-1.3); Hematocrit 36.3 % (39.6-49.0); MPV 6.6 fL (7.6-11.3); RBC Red Blood Cell Count 4.16 M/uL (4.33-5.43)
[2019-03-25 06:36] LABS: Potassium 4.5 mmol/L (3.5-5.1)
[2019-03-25] MEDS: INSULIN LISPRO 100 UNIT/1 ML SQ SCH (07:30)
[2019-03-25] MEDS: VITAMIN D 1000 UNIT TAB PO SCH (08:32)
[2019-03-25] MEDS: CEFTRIAXONE/SWI 1gm 1 GM/10 ML SYR IV SCH (08:32)
[2019-03-25] MEDS: CLOPIDOGREL 75 MG TABLET PO SCH (08:32)
[2019-03-25] MEDS: predniSONE 20 MG TAB PO SCH (08:33)
[2019-03-25] MEDS: lisinopriL 5 MG TAB PO SCH (08:33)
[2019-03-25] MEDS: TAMSULOSIN 0.4 MG SR CAP PO SCH (08:34)
[2019-03-25] MEDS: CYANOCOBALAMIN 1000MCG/ML INJ IM SCH (08:35)
[2019-03-25] MEDS: ENOXAPARIN 40 MG/0.4 ML SQ SCH (08:41)
[2019-03-25] MEDS: DAPAGLIFLOZIN PROPANEDIOL PO SCH (08:41)
[2019-03-25 08:42] VITALS: BP 126/60
[2019-03-25 10:07] VITALS: TEMP 97.9
[2019-03-27] MEDS ORDERED: DRISDOL (VITAMIN D=ERGOCALCIFEROL) 50000 UNIT CAP PO SCH (09:00)
== END 2019-03-25 10:10 | disposition home health service (06) ==
LOC: ER 10:07 → ERHOLD 12:42 → 2ND 16:46
PROVIDERS: ADMIT Internal Medicine; ATTEND Internal Medicine
DX: R53.1 Weakness (principal); N17.9 Acute kidney failure, unspecified; I12.9 Hypertensive chronic kidney disease with stage 1 through stage 4 chronic kidney disease, or unspecified chronic kidney disease; E11.22 Type 2 diabetes mellitus with diabetic chronic kidney disease; N18.4 Chronic kidney disease, stage 4 (severe); E86.0 Dehydration; E11.40 Type 2 diabetes mellitus with diabetic neuropathy, unspecified; E66.9 Obesity, unspecified; Z68.30 Body mass index [BMI] 30.0-30.9, adult; I25.2 Old myocardial infarction; Z96.659 Presence of unspecified artificial knee joint; Z88.2 Allergy status to sulfonamides; Z87.891 Personal history of nicotine dependence; Z91.81 History of falling; E29.1 Testicular hypofunction; E53.8 Deficiency of other specified B group vitamins; E55.9 Vitamin D deficiency, unspecified; M19.90 Unspecified osteoarthritis, unspecified site
CPT/HCPCS: 96361; 87088 ×3; 85025 ×6; 87086 ×2; 80048 ×5; 36415 ×6; 85049; 82947 ×16; 80076 ×2; 85652; 87077 ×2; 87186 ×2; 81003; 84484; 83690 ×2; 82533 ×4; 82024; 86140; 71046; 73562; 97110; 97116 ×3; 97161; 97530 ×3; 51702; 96374; 99285; J0834 ×2; J3420 ×6; J1650 ×5; J0696 ×7; G0378 ×8; J7799 ×4; J7030; 81015; J1815; J7512

== ENCOUNTER 2019-05-30 10:53 | Emergency (ER) | payer OTHER ==
--- OUTSIDE RECORDS SUMMARY | 2019-05-30 10:56 | XMS REPORT ---
:1940 [facility] Address [address] [place] [address] Dr. Thompson [address] [place] [id number] Care Team Providers Name Role Phone Unavailable Unavailable Unavailable Problems This patient has no known problems. Allergies, Adverse Reactions, Alerts This patient has no known allergies or adverse reactions. Medications This patient has no known medications.
--- OUTSIDE RECORDS SUMMARY | 2019-05-30 10:58 | XMS REPORT | Summary of Care ---
:1940 Author Organization [facility] Address [address] [place] [id number] Care Team Providers Name Role Phone Pcp, Patient Does Not Have A Primary Care Provider Reason for Visit Reason Comments Refill Request Encounter Details Date Type Department Care Team Description 04/29/2019 Refill [facility] Endocrinology- Madelaine Morin MD Refill Request [facility] [address] [place] [phone] Allergies Active Allergy Reactions Severity Noted Date Comments Morphine Hallucinations 04/22/2016 confusion documented as of this encounter (statuses as of 04/30/2019) Medications Medication Sig Dispensed Refills Start Date End Date Status acetaminophen (TYLENOL 8 Take 1 tablet by 30 tablet 0 10/30/2018 Active HOUR) 650 mg CR mouth every 8 tabletIndications: (eight) hours as Urothelial cancer needed for Pain. NOVOLOG U-100 INSULIN INJECT 18 UNITS 10 mL 0 11/27/2018 Active ASPART 100 unit/mL UNDER THE SKIN 3 solutionIndications: (THREE) TIMES Type 2 diabetes, DAILY BEFORE uncontrolled, with renal MEALS. 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, 05/13 with long-term current use of insulin Type 2 diabetes, uncontrolled, with renal manifestation 05/11/2015 Hyperpotassemia 03/19/2012 Malignant neoplasm of bladder 01/03/2011 Overview: ICD10 Diagnosis Term Rat Breeder Utility Chronic kidney disease, stage III (moderate) 10/21/2010 Urinary tract infection, site not specified 10/21/2010 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 HLD (hyperlipidemia) 09/09/2010 Overview: ICD10 Diagnosis Term Rat Breeder Utility Essential hypertension, benign 09/09/2010 Coronary atherosclerosis of [place] coronary artery 09/09/2010 Overview: 1985 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 02/09/2010 Overview: ICD10 Diagnosis Term Rat Breeder Utility documented as of this encounter (statuses as of 04/30/2019) Resolved Problems Problem Noted Date Resolved Date Chronic kidney disease, stage IV (severe) 10/21/2010 10/21/2010 Type 2 diabetes mellitus without complications 09/09/2010 11/13/2017 Overview: ICD10 Diagnosis Term Rat Breeder Utility documented as of this encounter (statuses as of 04/30/2019) Immunizations Name Administration Dates Next Due Influenza Virus Vaccine 01/18/2010 Pneumococcal 7 Conjugate, PCV7 (Prevnar7) 01/18/2010 documented as of this encounter Social History Tobacco Use Types Packs/Day Years Used Date Former Smoker 1 15 Smokeless Tobacco: Never Used Comments: Quit 30 years ago Alcohol Use Drinks/Week oz/Week Comments No 0 Standard drinks or equivalent 0.0 Sex Assigned at Date Recorded Not on file Job Start Date Occupation Industry Not on file Not on file Not on file Travel History Travel Start Travel End No recent travel history available. documented as of this encounter Last Filed Vital Signs Not on filedocumented in this encounter Plan of Treatment Date Type Specialty Care Team Description 10/01/2019 Office Visit Dermatology Sidney Luther MD [address] [facility] [id number] [place], [place] [id number] 03/24/2020 Office Visit Urology Mike Steven MD [address] [place] [phone] Health Maintenance Due Date Last Done Comments EYE EXAM 1950 URINE MICROALBUMIN 1950 DTaP,Tdap,and Td Vaccines (1 - 1949 Tdap) Zoster Recombinant Vaccine 1988 (SHINGRIX) (1 of 2) LUNG CANCER SCREEN: Recommended 1993 for age 55-80 with 30 + pack year history Medicare Wellness Visit 12/17/2003 PNEUMOCOCCAL VACCINES 65+ (1 of 2 12/17/2003 - PCV13) LDL-C 12/14/2016 12/15/2015 CREATININE (SERUM) 12/23/2017 12/23/2016, 12/21/2016, 12/20/2016, Additional history exists HgA1C 11/13/2018 05/16/2018, 05/15/2017, 12/23/2016, Additional history exists INFLUENZA VACCINE (#1) 2018 01/18/2010 FOOT EXAM 05/16/2019 05/16/2018, 05/16/2018, 11/13/2017, Additional history exists documented as of this encounter Implants Implanted Type Area Special Police Device Shelf Model / Identifier Expiration Serial / Date Lot Sinplex Hv W/ Gentamicin CEMENT Right: [employer] Solar 04/19/2018 [id number] / Implanted: Qty: 4 on 12/19/2016 by Yasir Mullins MD at [facility] Knee [id number] / [id number] Vanguard Distal Femoral Augment W/ [place] Femoral Right: Biomet 07/27/2026 [id number] / Implanted: Qty: 1 on 12/19/2016 by Yasir Mullins MD at [facility] Augment Knee [id number] / [id number] Vanguard Femoral Right W/ Screw Femur Right: Biomet 01/08/2025 [id number] / Implanted: Qty: 1 on 12/19/2016 by Yasir Mullins MD at [facility] Knee [id number] / [id number] Tibial Tray KNEE Right: Biomet 10/24/2026 [id number] / Implanted: Qty: 1 on 12/19/2016 by Yasir Mullins MD at [facility] Knee [id number] / [id number] Tibial Cruciate Wing KNEE Right: [employer]omet 10/27/2026 [id number] / Implanted: Qty: 1 on 12/19/2016 by Yasir Mullins MD at [facility] Knee [id number] / [id number] Splined Knee Stem KNEE Right: Biomet 08/19/2023 [id number] / Implanted: Qty: 1 on 12/19/2016 by Yasir Mullins MD at [facility] Knee [id number] / [id number] Slined Knee Stem W/ Screw KNEE Right: [employer]omet 01/18/2022 [id number] / Implanted: Qty: 1 on 12/19/2016 by Yasir Mullins MD at [facility] Knee [id number] / [id number] Vanguard Dcm Tibial Bearing KNEE Right: Biomet 05/18/2018 [id number] / Implanted: Qty: 1 on 12/19/2016 by Yasir Mullins MD at [facility] Knee [id number] / [id number] documented as of this encounter Results Not on filedocumented in this encounter Insurance Payer Benefit Plan Subscriber ID Effective Phone Address Type / Group Dates AETNA - AETNA [id number] 2013-[address] Medicare Adv MANAGED MEDICARE [place] [id number] [place] [address] documented as of this encounter Advance Directives Type Date Recorded 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
--- NOTE | 2019-05-30 11:50 | RAD REPORT ---
EXAM DESCRIPTION: CT - Abdomen Pelvis Wo Contrast - 05/30/2019 11:28 am CLINICAL HISTORY: fall injury COMPARISON: CT-STONE PROTOCOL dated 09/03/2009; CT ABDOMEN PELVIS WO CONTRAST dated 08/31/2009 TECHNIQUE: Axial [address] imaging of the abdomen and pelvis was performed without IV contrast. No IV contrast was given because of allergy, abnormal renal function, patient refusal or physician re quest. No oral contrast administered. All CT scans are performed using dose optimization technique as appropriate and may include automated exposure control or mA/KV adjustment according to patient size. FINDINGS: No suspicious findings in the lung bases. The liver, spleen and pancreas show no suspicious findings on non-contrast imaging. Gallbladder and b iliary tree are also without suspicious finding. No hydronephrosis or suspicious renal mass. Right kidney has been removed since prior imaging. No sig nificant adrenal finding. Isodense renal masses and pyelonephritis cannot be excluded in the absence of IV contrast. The urinary bladder is without significant finding. No prostate gland or seminal vesi brayden abnormality. No dilated bowel loops or bowel wall thickening. No acute GI process identified. The patient has a 3. 5 centimeter incidental duodenal diverticulum No free air, free fluid or inflammatory stranding in th e peritoneal or retroperitoneal spaces. No hernia, mass or bulky lymphadenopathy. Patient has moderat e contusion change in the fatty tissues of the left flank. Disc and bony degenerative changes are present. Arterial tree calcifications are present. IMPRESSION: Patient has a moderate amount of contusion in the fatty tissues of the left flank. No la rge hematoma seen in the deeper bone and muscle structures are uninvolved. No acute peritoneal or retroperitoneal process. Full assessment is limited is the absence of IV contrast. Additional nonacute findings detailed in th e body of the report.
--- NOTE | 2019-05-30 12:13 | ER ---
Nurse's Notes [facility] Name: Kendrick Worley Age: 78 yrs Sex: Male : 1940 Arrival Date: 05/30/2019 Time: 11:04 Bed 19 Private MD: Diagnosis: Traumatic Hematoma Soft Tissue Left Flank;Abrasion of right forearm;Superficial injury of head Presentation: 05/29 10:56 Chief complaint: EMS states: Pt. A \T\ O x 4, fell this morning and hit on the wheel of rb1 the walker and landed on the tile. denies hitting head and LOC. Pt. does take Plavix. Has a skin tear on the left elbow, abrasion to the left posterior ribs and left flank. vital signs are stable, BS 196. Has a cardiac history. Allergy to morphine and Bactrim. 10:56 Coronavirus screen: The patient has NOT traveled to a country currently being monitored rb1 by the [facility] within the last 14 days. The patient has NOT had contact with any known and/or suspected case of coronavirus. Ebola Screen: Patient negative for fever greater than or equal to 101.5 degrees Fahrenheit, and additional compatible Ebola Virus Disease symptoms. Initial Sepsis Screen: Does the patient meet any 2 criteria? No. Patient's initial sepsis screen is negative. Does the patient have a suspected source of infection? No. Patient's initial sepsis screen is negative. Risk Assessment: Do you want to hurt yourself or someone else? Patient reports no desire to harm self or others. 10:56 Method Of Arrival: EMS: [facility] rb1 10:56 Acuity: SHERLEY 3 rb1 10:56 Onset of symptoms was May 30, 2019. rb1 Triage Assessment: 10:56 General: Appears in no apparent distress. comfortable, Behavior is calm, cooperative, rb1 Denies feeling ill. Pain: Complains of pain in left elbow, left flank, left posterior ribs Pain currently is 2 out of 10 on a pain scale. Neuro: Level of Consciousness is awake, alert, obeys commands, Oriented to person, place, time, situation, Pt. denies hitting head and LOC. Cardiovascular: Capillary refill < 3 seconds is brisk in bilateral fingers. Respiratory: Airway is patent Respiratory effort is even, unlabored, Respiratory pattern is regular, symmetrical, Denies shortness of breath. GI: No signs and/or symptoms were reported involving the gastrointestinal system. 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 Derm: skin tear to the left elbow, abrasion on the left posterior ribs and left flank. Musculoskeletal: Range of motion: intact in all extremities. Historical: - Allergies: 10:56 Bactrim; rb1 10:56 Morphine (Hallucinations); rb1 - Home Meds: 10:56 Glimepiride Oral [Active]; Lasix Oral [Active]; Novolog Sub-Q [Active]; Plavix Oral rb1 [Active]; - PMHx: 10:56 Diabetes - IDDM; Myocardial infarction; rb1 - PSHx: 10:56 both knee replacement; right kidney removal; rb1 - Immunization history:: Adult Immunizations up to date. - Social history:: Smoking status: Patient/guardian denies using. Screenin:56 Abuse screen: Denies threats or abuse. Nutritional screening: No deficits noted. rb1 Tuberculosis screening: No symptoms or risk factors identified. Fall Risk Fall in past 12 months (25 points). Secondary diagnosis (15 points) impaired mobility, No IV (0 pts). Ambulatory Aid- Crutches/Cane/Walker (15 pts). Gait- Impaired (20 pts.). Mental Status- Oriented to own ability (0 pts). Total Leal Fall Scale indicates High Risk Score (45 or more points). Fall prevention measures have been instituted. Side Rails Up X 2 Placed Close to Nursing Station 1:1 Attendant Assigned Frequent Obs/Assessments Occuring As available patient and family educated on Fall Prevention Program and Strategies. Assessment: 10:56 General: See triage assessment. rb1 11:55 Reassessment: Patient appears in no apparent distress at this time. Patient and/or rb1 family updated on plan of care and expected duration. Pain level reassessed. Patient is alert, oriented x 3, equal unlabored respirations, skin warm/dry/pink. Family at the bedside. 12:45 Reassessment: Discharge pending due to pt. going back to CT. rb1 13:00 Reassessment: Patient appears in no apparent distress at this time. Patient and/or rb1 family updated on plan of care and expected duration. Pain level reassessed. Patient is alert, oriented x 3, equal unlabored respirations, skin warm/dry/pink. Pt. is talking with family at the bedside. Vital Signs: 10:56 BP 117 / 68; Pulse 63; Resp 19; Temp 97.9(TE); Pulse Ox 99% on R/A; Weight 104.33 kg rb1 (R); Height 6 ft. 0 in. (182.88 cm) (R); Pain 2/10; 12:00 BP 118 / 62; Pulse 58; Resp 18; Pulse Ox 98% ; rb1 13:00 BP 112 / 60; Pulse 61; Resp 19; Pulse Ox 99% on R/A; rb1 10:56 Body Mass Index 31.19 (104.33 kg, 182.88 cm) rb1 ED Course: 10:56 Arm band placed on right wrist. rb1 10:56 Patient has correct armband on for positive identification. Bed in low position. Call rb1 light in reach. Side rails up X2. Pulse ox on. NIBP on. Warm blanket given. 11:04 Patient arrived in ED. rb1 11:04 Noel Byrnes PA is PHCP. jr8 11:04 Kiran Jacinto MD is Attending Physician. jr8 11:09 Triage completed. rb1 11:31 CT Abd/Pelvis - Without Contrast In Process Unspecified. EDMS 12:45 Loida Carcamo, RN is Primary Nurse. rb1 12:51 CT Head Brain wo Cont In Process Unspecified. EDMS 13:22 No provider procedures requiring assistance completed. Patient did not have IV access rb1 during this emergency room visit. Administered Medications: No medications were administered Outcome: 12:12 Discharge ordered by . jr8 13:22 Patient left the ED. rb1 13:22 Discharged to home via wheelchair, with family. rb1 13:22 Condition: stable 13:22 Discharge instructions given to patient, Instructed on discharge instructions, follow up and referral plans. Demonstrated understanding of instructions, follow-up care, Prescriptions given X none Signatures: Dispatcher [employer] EDMS Noel Byrnes PA PA jr8 Loida Carcamo, RN RN rb1
--- NOTE | 2019-05-30 12:14 | EDPHYS ---
Physician Documentation [facility] Name: Kendrick Worley Age: 78 yrs Sex: Male : 1940 Arrival Date: 05/30/2019 Time: 11:04 Bed 19 Private MD: ED Physician Kiran Jacinto HPI: 05/29 11:33 This 78 yrs old Male presents to ER via EMS with complaints of Fall Injury. jr8 11:33 Details of fall: The patient fell from an upright position, while standing. Onset: The jr8 symptoms/episode began/occurred acutely, today. Associated injuries: The patient sustained back, hematoma, painful injury. Severity of symptoms: At their worst the symptoms were mild, in the emergency department the symptoms are unchanged. The patient has experienced similar episodes in the past, a few times. The patient has not recently seen a physician. Patient stated that he was pulling his shirt off and fell backwards hitting his mid and lower left back. Denies hitting head or neck. Pain to specified areas. Was on ground for about an hour before family got to him. Historical: - Allergies: 10:56 Bactrim; rb1 10:56 Morphine (Hallucinations); rb1 - Home Meds: 10:56 Glimepiride Oral [Active]; Lasix Oral [Active]; Novolog Sub-Q [Active]; Plavix Oral rb1 [Active]; - PMHx: 10:56 Diabetes - IDDM; Myocardial infarction; rb1 - PSHx: 10:56 both knee replacement; right kidney removal; rb1 - Immunization history:: Adult Immunizations up to date. - Social history:: Smoking status: Patient/guardian denies using. ROS: 11:33 Eyes: Negative for injury, pain, redness, and discharge, ENT: Negative for injury, jr8 pain, and discharge, Neck: Negative for injury, pain, and swelling, Cardiovascular: Negative for chest pain, palpitations, and edema, Respiratory: Negative for shortness of breath, cough, wheezing, and pleuritic chest pain, Abdomen/GI: Negative for abdominal pain, nausea, vomiting, diarrhea, and constipation, MS/Extremity: Negative for injury and deformity, Skin: Positive for hematoma and abrasion to left back Neuro: Negative for headache, weakness, numbness, tingling, and seizure. 11:33 Back: Positive for pain at rest. Exam: 11:33 Head/Face: Old healing bruise noted to left forehead Eyes: Pupils equal round and jr8 reactive to light, extra-ocular motions intact. Lids and lashes normal. Conjunctiva and sclera are non-icteric and not injected. Cornea within normal limits. Periorbital areas with no swelling, redness, or edema. ENT: Nares patent. No nasal discharge, no septal abnormalities noted. Tympanic membranes are normal and external auditory canals are clear. Oropharynx with no redness, swelling, or masses, exudates, or evidence of obstruction, uvula midline. Mucous membranes moist. Neck: Trachea midline, no thyromegaly or masses palpated, and no cervical lymphadenopathy. Supple, full range of motion without nuchal rigidity, or vertebral point tenderness. No Meningismus. Chest/axilla: Normal chest wall appearance and motion. Nontender with no deformity. No lesions are appreciated. Cardiovascular: Regular rate and rhythm with a normal S1 and S2. No gallops, murmurs, or rubs. Normal PMI, no JVD. No pulse deficits. Respiratory: Lungs have equal breath sounds bilaterally, clear to auscultation and percussion. No rales, rhonchi or wheezes noted. No increased work of breathing, no retractions or nasal flaring. Abdomen/GI: Soft, non-tender, with normal bowel sounds. No distension or tympany. No guarding or rebound. No evidence of tenderness throughout. Skin: Warm, dry with normal turgor. Normal color with no rashes, no lesions, and no evidence of cellulitis. MS/ Extremity: Pulses equal, no cyanosis. Neurovascular intact. Full, normal range of motion. Neuro: Awake and alert, GCS 15, oriented to person, place, time, and situation. Cranial nerves II-XII grossly intact. Motor strength 5/5 in all extremities. Sensory grossly intact. Cerebellar exam normal. Normal gait. 11:33 Back: pain, that is mild, of the left subscapular area and left flank, ROM is normal, normal spinal alignment noted, CVA tenderness, is absent, vertebral tenderness, is not appreciated, linear abrasion noted to left posterior thorax near CVA region. Another hematoma with mild tenderness and abrasion noted to left low back near iliac crest . Vital Signs: 10:56 BP 117 / 68; Pulse 63; Resp 19; Temp 97.9(TE); Pulse Ox 99% on R/A; Weight 104.33 kg rb1 (R); Height 6 ft. 0 in. (182.88 cm) (R); Pain 2/10; 12:00 BP 118 / 62; Pulse 58; Resp 18; Pulse Ox 98% ; rb1 13:00 BP 112 / 60; Pulse 61; Resp 19; Pulse Ox 99% on R/A; rb1 10:56 Body Mass Index 31.19 (104.33 kg, 182.88 cm) rb1 MDM: 11:04 Patient medically screened. jr8 12:11 Data reviewed: vital signs, nurses notes, radiologic studies, CT scan. Data jr8 interpreted: Pulse oximetry: on room air is 99 %. Interpretation: normal. Counseling: I had a detailed discussion with the patient and/or guardian regarding: the historical points, exam findings, and any diagnostic results supporting the discharge/admit diagnosis, radiology results, the need for outpatient follow up, a family practitioner, to return to the emergency department if symptoms worsen or persist or if there are any questions or concerns that arise at home. ED course: Mild soft tissue hematoma noted. Patient stable. No other acute findings noted at this time. In minimal pain. Will d/c home to f/u with PCP . 13:07 ED course: Upon discharge patient stated hat he realized that he did hit the front of jr8 his head and that it was not from last time when he initially was questioned. CT head ordered at that time. If negative will go home . 05/29 11:05 Order name: CT Abd/Pelvis - Without Contrast; Complete Time: 12:27 jr8 05/29 12:28 Order name: CT Head Brain wo Cont jr8 Administered Medications: No medications were administered Disposition: 17:20 Co-signature as Attending Physician, Krian Jacinto MD I agree with the assessment and kdr plan of care. Disposition: 05/30/19 12:12 Discharged to Home. Impression: Traumatic Hematoma Soft Tissue Left Flank, Abrasion of right forearm, Superficial injury of head. - Condition is Stable. - Discharge Instructions: Head Injury, Adult, Hematoma. - Medication Reconciliation Form, Thank You Letter, Antibiotic Education, Prescription Opioid Use form. - Follow up: Private Physician; When: 2 - 3 days; Reason: Recheck today's complaints, Continuance of care, Re-evaluation by your physician. - Problem is new. - Symptoms have improved. Signatures: Dispatcher [employer] EDMS Kiran Jacinto MD MD [facility] Noel Byrnes PA PA jr8 Loida Carcamo, RN RN rb1 Corrections: (The following items were deleted from the chart) 13:06 12:12 05/30/2019 12:12 Discharged to Home. Impression: Traumatic Hematoma Soft Tissue jr8 Left Flank; Abrasion of right forearm. Condition is Stable. Forms are Medication Reconciliation Form, Thank You Letter, Antibiotic Education, Prescription Opioid Use. Follow up: Private Physician; When: 2 - 3 days; Reason: Recheck today's complaints, Continuance of care, Re-evaluation by your physician. Problem is new. Symptoms have improved. jr8 13:22 13:06 05/30/2019 12:12 Discharged to Home. Impression: Traumatic Hematoma Soft Tissue rb1 Left Flank; Abrasion of right forearm; Superficial injury of head. Condition is Stable. Discharge Instructions: Hematoma. Forms are Medication Reconciliation Form, Thank You Letter, Antibiotic Education, Prescription Opioid Use. Follow up: Private Physician; When: 2 - 3 days; Reason: Recheck today's complaints, Continuance of care, Re-evaluation by your physician. Problem is new. Symptoms have improved. jr8
--- NOTE | 2019-05-30 12:57 | RAD REPORT ---
EXAM DESCRIPTION: CT - Head Brain Wo Cont - 05/30/2019 12:51 pm CLINICAL HISTORY: TRAUMAI am going to fall with head trauma, patient on blood thinners COMPARISON: Head C Spine Mpr Wo Con dated 10/19/2018 TECHNIQUE: Axial 5 mm thick images of the head were obtained without IV contrast. All CT scans are performed using dose optimization technique as appropriate and may include automated exposure control or mA/KV adjustment according to patient size. FINDINGS: No intracranial hemorrhage, mass, edema or shift of mid-line structures. No acute infarcti on changes seen. Moderate atrophy and chronic ischemic change present. Ventricles are in proportion t o the volume loss. No acute cortical based infarction, cortical edema or sulcal effacement. Vasculatu re is tortuous. Dense calcifications are present in the distal left vertebral artery. Mastoid air cells and visualized portions of the paranasal sinuses are clear. No skull fracture present. Patient has a small left frontal scalp hematoma. No foreign body in the so ft tissues. IMPRESSION: Small left frontal scalp hematoma with underlying bone intact. No hemorrhage or acute intracranial finding. Moderate severity atrophy and chronic ischemic change. Intracranial findings are similar to comparis on.
[2019-05-30 14:35] VITALS: TEMP 97.9
[2019-05-30 14:37] VITALS: BP 118/62; O2SAT 98
== END 2019-05-30 13:22 | disposition home or self-care (01) ==
LOC: ER 10:53
DX: S50.811A Abrasion of right forearm, initial encounter (principal); S30.1XXA Contusion of abdominal wall, initial encounter; W19.XXXA Unspecified fall, initial encounter; Y93.89 Activity, other specified; Y92.9 Unspecified place or not applicable; Z79.4 Long term (current) use of insulin; Z79.01 Long term (current) use of anticoagulants; Z88.1 Allergy status to other antibiotic agents; Z88.5 Allergy status to narcotic agent; I25.2 Old myocardial infarction; E11.9 Type 2 diabetes mellitus without complications
CPT/HCPCS: 70450; 74176; 99284

== ENCOUNTER 2019-08-27 10:38 | Inpatient (IN) | payer OTHER ==
--- NOTE | 2019-08-27 12:52 | RAD REPORT ---
EXAM DESCRIPTION: RAD - Hip Right 2 View - 08/27/2019 12:37 pm CLINICAL HISTORY: PAIN COMPARISON: No comparisons FINDINGS: AP and frog-leg views of the right hip were obtained. There is no fracture or dislocation. Right total hip prosthesis in place. No implant suspicious findi ng. [place] bone shows no suspicious finding. No acute or destructive bony process seen. IMPRESSION: No acute bone or hip implant abnormality.
--- OUTSIDE RECORDS SUMMARY | 2019-08-27 15:32 | XMS REPORT | Clinical Summary ---
:1940 Author Organization [facility] Address [address] [place] [address] Care Team Providers Name Role Phone MD Roque Primary Care Provider Allergies Active Allergy Reactions Severity Noted Date Comments Morphine 06/30/2017 confusion Medications Medication Sig Dispensed Refills Start Date End Date Status atorvastatin Take 10 mg by 0 Act lynn (LIPITOR) 10 MG mouth nightly. tablet lisinopril Take 2.5 mg by 4 04/28/2017 Act lynn (PRINIVIL,ZESTRIL) 5 mouth nightly. mg tablet clopidogrel (PLAVIX) Take 75 mg by 2 03/18/2017 Active 75 mg tablet mouth nightly. levothyroxine Take 50 mcg by 0 A ctive (SYNTHROID, LEVOXYL) mouth nightly. 50 mcg tablet tamsulosin (FLOMAX) Take 0.4 mg by 0 Active 0.4 mg mouth nightly. capsule,extended release 24hr allopurinol Take 100 mg by 0 Act lynn (ZYLOPRIM) 100 MG mouth nightly. tablet metoprolol tartrate Take 12.5 mg 0 Active (LOPRESSOR) 25 mg by mouth tablet nightly. insulin ASPART Inject 10-12 0 Ac tive (NovoLOG) 100 Units under unit/mL injection the skin 3 (three) times a day before meals. Per sliding scale INSULIN DETEMIR Inject 35 0 Acti ve (LEVEMIR U-100 Units under INSULIN SUBQ) the skin nightly. cetirizine (ZyrTEC) Take 10 mg by 0 Active 5 MG tablet mouth 2 (two) times a day. dapagliflozin Take 1 tablet 0 Ac tive (FARXIGA) 10 mg by mouth tablet nightly. gabapentin Take 100 mg by 0 Acti ve (NEURONTIN) 100 mg mouth nightly. capsule montelukast Take 10 mg by 0 Acti ve (SINGULAIR) 10 mg mouth nightly. tablet ascorbic acid, Take 1,000 mg 0 A ctive vitamin C, (VITAMIN by mouth C) 1000 MG tablet nightly. cyanocobalamin Take 1,000 mcg 0 Active (VITAMIN B-12) 1000 by mouth MCG tablet nightly. cholecalciferol, Take 2,000 0 Ac tive vitamin D3, 50 mcg Units by mouth (2,000 unit) capsule nightly. capsule aspirin (ECOTRIN) 81 Take 1 tablet 60 tablet 0 08/06/2019 Active MG enteric coated (81 mg total) tablet by mouth 2 (two) times a day. glimepiride (AMARYL) Take 4 mg by 0 Discontinued 4 MG tablet mouth daily 0 before breakfast. HYDROcodone-acetamin Take 1 tablet 30 tablet 0 08/06/201907/19 ophen ([place]) 5-325 by mouth every 0 mg per 6 (six) hours tabletIndications: as needed for acute pain moderate pain or severe pain for up to 10 days .acute pain. Max Daily Amount: 4 tablets Active Problems Problem Noted Date Osteoarthritis of right hip 08/05/2019 Arthritis of right hip 05/02/2019 Overview: Added automatically from request for vivian coughlin [id number] Osteoarthritis of left knee 07/10/2017 Primary osteoarthritis of left knee 07/03/2017 Encounters Date Type Specialty Care Team Description 08/22/2019 Office Visit Orthopedic Coreen, Pain of right h ip joint (Primary Dx); Surgery Dariel Acosta MD Status post r ight hip replacement 08/22/2019 Travel 08/14/2019 Travel 08/07/2019 Orders Only Orthopedic Neo, Trudy Horta MA 08/07/2019 Patient Outreach Quality Savanah Garcia RN 08/05/2019 Surgery Orthopedic [facility]en, ARTHROPLASTY, H IP, Surgery Dariel Acosta MD TOTAL(RIGHT) 08/05/2019 Anesthesia Event Orthopedic Erika Wu Surgery MD Migel Zendejas Alison Joy, NP 08/05/2019 - Hospital Encounter Orthopedic Coreen, Primary o steoarthritis of right hip (Primary Dx); 08/06/2019 Surgery Dariel Acosta MD Arthritis of right hip 08/05/2019 Travel 07/31/2019 Travel 07/29/2019 Pre-Admit Testing Pre-Admission Incavo, Pre-op te sting Appointment Testing Dariel Acosta MD 07/29/2019 Travel 07/24/2019 Travel 07/22/2019 Orders Only Orthopedic Neo, Pre-op testing Surgery NASIR Horta (Primary Dx) 06/04/2019 Office Visit Orthopedic Papi Cisneros Hip pain, rig ht (Primary Dx); Surgery KALLI Cat Arthritis of ri ght hip 06/04/2019 Pre-Admit Testing Pre-Admission Incavo, Preop exa mination Appointment Testing Dariel Acosta MD (Primary Dx) 06/04/2019 Travel 05/02/2019 Orders Only Orthopedic Neo, Arthritis of ri ght Surgery NASIR Horta hip (Primary Dx ) 05/01/2019 Office Visit Orthopedic Coreen, 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 (Primary Dx); Surgery Dariel Acosta MD Pain of right hip joint; Right knee pain , unspecified chronicity; Arthritis of ri ght hip 05/01/2019 Documentation Medical Records Provider, Unknown 04/18/2019 Office Visit Orthopedic Coreen, Chronic pain of right knee (Primary Dx); Surgery Dariel Acosta MD Arthritis of knee, right; Arthritis of ri ght hip after 08/26/2018 Social History Tobacco Use Types Packs/Day Years Used Date Former Smoker Cigarettes 1 10 Quit: 1989 Smokeless Tobacco: Never Used Comments: stopped 35 years ago Alcohol Use Drinks/Week oz/Week Comments No Sex Assigned at Date Recorded Not on file Job Start Date Occupation Industry Not on file Not on file Not on file Travel History Travel Start Travel End No recent travel history available. COVID-19 Exposure Response Date Recorded In the last month, have you been in contact with No / Unsure 08/22/2019 9:50 AM CDT someone who was confirmed or suspected to have Coronavirus / COVID-19? Last Filed Vital Signs Vital Sign Reading Time Taken Comments Blood Pressure 121/57 08/06/2019 3:33 PM CDT Pulse 72 08/06/2019 3:33 PM CDT Temperature 35.6 C (96.1 F) 08/06/2019 3:33 PM CDT Respiratory Rate 18 08/06/2019 3:33 PM CDT Oxygen Saturation 94% 08/06/2019 3:33 PM CDT Inhaled Oxygen Concentration - - Weight 103 kg (227 lb) 08/22/2019 10:31 AM CDT Height 182.9 cm (6') 08/22/2019 10:31 AM CDT Body Mass Index 30.79 08/22/2019 10:31 AM CDT Plan of Treatment Date Type Specialty Care Team Description 12/19/2019 Office Visit Orthopedic Surgery Doris Angela MD [address] [place] [address] [place] [address]703 [phone] Health Maintenance Due Date Last Done Comments DIABETIC RETINAL EYE EXAM 1940 DIABETIC FOOT EXAM 1950 65+ PNEUMOCOCCAL VACCINE (2 of 2 - PPSV23) 12/17/200301/18 INFLUENZA VACCINE 10/19/2019 12/21/2018, 01/18/2010 SHINGLES VACCINES Completed 12/21/2018, 10/06/2018 Implants Implanted Type Area Telegraphic Typewriter Installer Device Shelf Model / Identifier Expiration Serial / Lot Date Tony Sanchez [facility] 14x79 - [id number] IPM IMPLANT Left: BIOME T[employer] INC 04/25/2022 [id number] / Implanted: Qty: 1 on 07/10/2017 by Kendrick Rodríguez MD at [facility] DEVICES Knee / [id number] Tprlc 133 Type1 Pps So 16.0 Taperloc Complete Stem - [id number] IPM IMPLANT Right: LLOYD INC 02/18/2029 [id number] / Implanted: 08/05/2019 at [facility] (Quantity not on file) DEVICES Hip / [id number] Biolox Delta Hip System-Modular Ceramic Head - [id number] IPM IM PLANT Right: L[employer]YD INC 04/02/2028 [id number] / Implanted: 08/05/2019 at [facility] (Quantity not on file) DEVICES Hip / [id number] Shell G7 Pps Ltd Acetabular 56 - [id number] IPM IMPLANT Right: Catalyze MMER INC 12/12/2028 [id number] / Implanted: 08/05/2019 at [facility] (Quantity not on file) DEVICES Hip / [id number] G7 Neutral Vivacit-E Liner 36mm F - [id number] IPM IMPLANT Right: LLOYD Otogami 10/18/2023 [id number] / Implanted: 08/05/2019 at [facility] (Quantity not on file) DEVICES Hip / [id number] Cement Bone R+G 1dose Palacos - [id number] Knee Joint Left: ZIMM ER INC 11/17/2020 [id number] / Implanted: Qty: 1 on 07/10/2017 by Kendrick Rodríguez MD at [facility] Implants Knee / [id number]$ Cement Bone R+G 1dose Palacos - [id number] Knee Joint Left: ZIMM [employer] INC 11/17/2020 [id number] / Implanted: Qty: 1 on 07/10/2017 by Kendrick Rodríguez MD at [facility] Implants Knee / [id number]$ Stem Tib Prim Finned [id number] Ascent Maxim - [id number] Knee Join t Left: BIOMET INC 11/06/2026 [id number] / Implanted: Qty: 1 on 07/10/2017 by Kendrick Rodríguez MD at [facility] Implants Knee / [id number] Component Fml Cr Lt Anatom Interlok 70mm Vanguard - [id number] K nee Joint Left: BIOMET INC 02/06/2025 [id number] / Implanted: Qty: 1 on 07/10/2017 by Kendrick Rodríguez MD at [facility] Implants Knee / [id number] Tray Tib Prim Interlok 79mm Ascent Maxim - [id number] Knee Joint Left: BIOMET INC 04/05/2027 [id number] / Implanted: Qty: 1 on 07/10/2017 by Kendrick Rodríguez MD at [facility] Implants Knee / [id number] Implant Ptlr Vanguard 3 Peg Series A Std 34x8.5mm - [id number] K nee Joint Left: BIOMET INC 05/29/2022 [id number] / Implanted: Qty: 1 on 07/10/2017 by Kendrick Rodríguez MD at [facility] Implants Knee / [id number] Screw Bone Slf-Tap 6.5x25mm Trilogy - [id number] Orthopedic Right: LLOYD INC 12/17/2028 [id number] / Implanted: 08/05/2019 at [facility] (Quantity not on file) Trauma Hip / Implants [id number] Screw Bone Slf-Tap 6.5x30mm [facility] - [id number] Orthopedic Right: LLOYD INC 02/18/2029 [id number] / Implanted: 08/05/2019 at [facility] (Quantity not on file) Trauma Hip / Implants [id number] Procedures Procedure Name Priority Date/Time Associated Comments Diagnosis POC GLUCOSE Routine 08/06/2019 11:35 Results for this AM CDT procedure are i n the results section. POC GLUCOSE Routine 08/06/2019 7:41 Results for this AM CDT procedure are i n the results section. B NATRIURETIC PEPTIDE Routine 08/06/2019 4:30 Re sults for this AM CDT procedure are i n the results section. HC COMPLETE BLD COUNT Routine 08/06/2019 4:30 Re sults for this W/AUTO DIFF AM CDT procedure are i n the results section. ESTIMATED GFR Routine 08/06/2019 4:00 Results fo r this AM CDT procedure are i n the results section. PHOSPHORUS LEVEL Routine 08/06/2019 4:00 Results for this AM CDT procedure are i n the results section. MAGNESIUM LEVEL Routine 08/06/2019 4:00 Results for this AM CDT procedure are i n the results section. BASIC METABOLIC PANEL Routine 08/06/2019 4:00 Re sults for this AM CDT procedure are i n the results section. POC GLUCOSE Routine 08/05/2019 8:38 Results for this PM CDT procedure are i n the results section. POC GLUCOSE Routine 08/05/2019 4:18 Results for this PM CDT procedure are i n the results section. XR PELVIS 1 OR 2 VW Routine 08/05/2019 1:34 Resu lts for this PM CDT procedure are i n the results section. POC GLUCOSE Routine 08/05/2019 1:05 Results for this PM CDT procedure are i n the results section. XR PELVIS 1 OR 2 VW Routine 08/05/2019 12:29 Resu lts for this PM CDT procedure are i n the results section. SURGICAL PATHOLOGY Routine 08/05/2019 12:25 Resul ts for this REQUEST PM CDT procedure are i n the results section. XR PELVIS 1 OR 2 VW Routine 08/05/2019 11:58 Resu lts for this AM CDT procedure are i n the results section. DC AN ELECTIVE Routine 08/05/2019 11:38 Results f or this ENDOTRACHEAL AIRWAY AM CDT procedur e are in the results section. ARTHROPLASTY, HIP, 08/05/2019 11:10 Arthritis of right TOTAL AM CDT hip Special Needs POSSIBLE EXTENDED STAY / BIO MET ANESTHESIA SPINAL BLOCK Routine 08/05/2019 10:49 Results for this AM CDT procedure are i n the results section. POC GLUCOSE Routine 08/05/2019 8:01 Results for this AM CDT procedure are i n the results section. ECG PRE/POST OP Routine 07/29/2019 11:14 Pre-op testing Result s for this AM CDT procedure are i n the results section. URINE CULTURE Routine 07/29/2019 11:02 Results fo r this AM CDT procedure are i n the results section. URINALYSIS SCREEN AND Routine 07/29/2019 10:59 Pre-op testing Results for this MICROSCOPY, WITH REFLEX AM CDT proc edure are in TO CULTURE the results section. ESTIMATED GFR Routine 07/29/2019 10:58 Results fo r this AM CDT procedure are i n the results section. TYPE AND SCREEN Routine 07/29/2019 10:58 Pre-op testing Result s for this AM CDT procedure are i n the results section. PARTIAL THROMBOPLASTIN Routine 07/29/2019 10:58 Pre-op testing Results for this TIME (PTT) AM CDT procedure are i n the results section. PROTHROMBIN TIME WITH Routine 07/29/2019 10:58 Pre-op testing Results for this INR AM CDT procedure are i n the results section. HEMOGLOBIN A1C Routine 07/29/2019 10:58 Pre-op testing Results for this AM CDT procedure are i n the results section. COMPREHENSIVE METABOLIC Routine 07/29/2019 10:58 Pre-op testin g Results for this PANEL AM CDT procedure are i n the results section. HC COMPLETE BLD COUNT Routine 07/29/2019 10:58 Pre-op testing Results for this W/AUTO DIFF AM CDT procedure are i n the results section. CORONAVIRUS SARS-COV 2 Routine 07/29/2019 10:47 Pre-op testing Results for this AM CDT procedure are i n the results section. XR HIP 2-3 VIEWS RIGHT Routine 06/04/2019 1:33 Hip pain , right Results for this PM CDT Arthritis of right procedure are in hip the results section. URINE CULTURE Routine 06/04/2019 12:41 Results fo r this PM CDT procedure are i n the results section. ECG PRE/POST OP Routine 06/04/2019 11:47 Preop examination Res ults for this AM CDT procedure are i n the results section. ESTIMATED GFR Routine 06/04/2019 11:34 Results fo r this AM CDT procedure are i n the results section. URINALYSIS SCREEN AND Routine 06/04/2019 11:34 Preop examinati on Results for this MICROSCOPY, WITH REFLEX AM CDT proc edure are in TO CULTURE the results section. TYPE AND SCREEN Routine 06/04/2019 11:34 Preop examination Res ults for this AM CDT procedure are i n the results section. HEMOGLOBIN A1C Routine 06/04/2019 11:34 Preop examination Resu lts for this AM CDT procedure are i n the results section. COMPREHENSIVE METABOLIC Routine 06/04/2019 11:34 Preop examina tion Results for this PANEL AM CDT procedure are i n the results section. HC COMPLETE BLD COUNT Routine 06/04/2019 11:34 Preop examinati on Results for this W/AUTO DIFF AM CDT procedure are i n the results section. XR KNEE 3 VW BILATERAL Routine 04/18/2019 10:58 Chronic pain o f Results for this AM PIE MAKER right knee procedure are in Arthritis of knee, the resul ts right section. XR LEG LENGTH Routine 04/18/2019 10:42 Chronic pain of Results for this EVALUATION AM PIE MAKER right knee procedure are in Arthritis of knee, the resul ts right section. DC ARTHROCENTESIS Routine 04/18/2019 10:30 Arthritis of right Results for this ASPIR&/INJ MAJOR AM PIE MAKER hip procedure a re in JT/BURSA W/US the results section. after 08/26/2018 Results POC glucose (08/06/2019 11:35 AM CDT)Only the most recent of6 resultswithin the time period is included. Pathologist Sig nature POC glucose 314 (H) 65 - 99 mg/dL [facility] Comment: HOSPITAL Bioinformatics Specialist Name: Alex Sampson Device ID: [id number] Chartable: [facility] Notified RN Specimen Blood Performing Organization Address City/State/Zipcode Phone Number [facility] DEPARTMENT OF PATHOLOGY AND [address] [place], [place] [address] [address] [address] CBC with platelet and differential (08/06/2019 4:30 AM CDT)Only the most recent of3 resultswithin the time period is included. WBC 10.88 4.50 - 11.00 [facility] k/uL HOSPITAL RBC 4.75 4.40 - 6.00 [facility] m/uL HOSPITAL HGB 13.5 (L) 14.0 - 18.0 [facility] g/dL HOSPITAL HCT 42.0 41.0 - 51.0 % [facility] MCV 88.4 82.0 - 100.0 [facility] MCH 28.4 27.0 - 34.0 pg [facility] MCHC 32.1 31.0 - 37.0 [facility] RDW - SD 44.8 37.0 - 55.0 fL [facility] MPV 8.9 8.8 - 13.2 fL [facility] Platelet count 150 150 - 400 k/uL [facility] Nucleated RBC 0.00 /100 WBC [facility] Neutrophils 87.0 (H) 39.0 - 69.0 % [facility] Lymphocytes 6.8 (L) 25.0 - 45.0 % [facility] Monocytes 5.4 0.0 - 10.0 % [facility] Eosinophils 0.0 0.0 - 5.0 % [facility] Basophils 0.2 0.0 - 1.0 % [facility] Immature granulocytes 0.6Comment: 0.0 - 1.0 % [facility] "Immature HOSPITAL granulocytes" (promyelocytes , myelocytes, metamyelocytes ) Specimen Blood Performing Organization Address City/[facility]/Zipcode Phone Number [facility] DEPARTMENT OF PATHOLOGY AND [address] [place] [address] [phone] [address] B natriuretic peptide (08/06/2019 4:30 AM CDT) Pathologist Sig nature BNP 139 (H) 0 - 100 pg/mL [facility] Specimen Blood Performing Organization Address City/State/Zipcode Phone Number [facility] DEPARTMENT OF PATHOLOGY AND [address] [place] [address] [phone] [address] Estimated GFR (08/06/2019 4:00 AM CDT)Only the most recent of3 resultswithin the time period is included. Estimated GFR 28 (A) mL/min/1.73 [facility] Comment: m2 HOSPITAL Catergory Units Interpretation G1 >=90 Normal or high G2 60-89 Mildly decreased G3a 45-59 Mildly to moderately decreas ed G3b 30-44 Moderately to severely decre ased G4 15-29 Severely decreased G5 <15 Kidney failure The eGFR was calculated using the Chronic Kidney Disea se Epidemiology Collaboration (CKD-EPI) equation. Interpretation is based on recommendations of the National Kidney Foundation-Kidney Disease Outcomes Isaac lity Initiative (NKF-KDOQI) published in 2014. Specimen Performing Organization Address City/[facility] Phone Number [facility] DEPARTMENT OF PATHOLOGY AND [address] [place] [address] [place] [phone] Phosphorus level (08/06/2019 4:00 AM CDT) Pathologist Sig nature Phosphorus 3.4 2.4 - 4.5 mg/dL [facility] Specimen Blood Performing Organization Address City/[facility] Facility[facility] Phone Number [facility] DEPARTMENT OF PATHOLOGY AND [address] [place] [address] [phone] [address] Magnesium level (08/06/2019 4:00 AM CDT) Pathologist Sig nature Magnesium 1.7 1.6 - 2.4 mg/dL [facility] Specimen Blood Performing Organization Address [facility] Facility[facility] Phone Number [facility] DEPARTMENT OF PATHOLOGY AND [address] [place] [phone] [place] [phone] Basic metabolic panel (08/06/2019 4:00 AM CDT) Pathologist Sig nature Sodium 135 135 - 148 mEq/L [facility] Potassium 4.8 3.5 - 5.0 mEq/L [facility] Chloride 98 98 - 112 mEq/L [facility] CO2 16 (L) 24 - 31 mEq/L [facility] Anion gap 21@ANIO (H) 7 - 15 mEq/L [facility] BUN 33 (H) 8 - 23 mg/dL [facility] Creatinine 2.12 (H) 0.70 - 1.20 mg/dL [facility] Glucose 206 (H) 65 - 99 mg/dL [facility] Calcium 9.1 8.8 - 10.2 mg/dL [facility] Specimen Blood Performing Organization Address City/State/Zipcode Phone Number [facility] DEPARTMENT OF PATHOLOGY AND [address], [place] [address] GENOMIC MEDICINE [facility] [address] [place] [address] XR Pelvis 1 Or 2 Vw (08/05/2019 1:34 PM CDT)Only the most recent of3 results within the time period is included. Specimen Narrative Performed At EXAMINATION: XR PELVIS 1 OR 2 VW [facility] CLINICAL H[facility]: Post operative COMPARISON: Pelvis x-ray from earlier today IMPRESSION: Patient is status post right total hip arthroplasty. A cetabular cup and femoral component are in place and in anatomic alignme nt. There is no fracture. Expected soft tissue changes a re seen about the right hip. Mild degenerative changes of the left hi p with CAM type femoral head. [facility]-[id number] Dictated and approved by residential advisor/fellow: Ra john Packer M.D. I, Raymon Morales MD, personally reviewed the images and resident's/fellow's findings and agree with the final report. Procedure Note [facility], Radiology Results Incoming - 08/05/2019 2:08 PM CDT EXAMINATION: XR PELVIS 1 OR 2 VW CLINICAL HISTORY: Post operative COMPARISON: Pelvis x-ray from earlier t charan IMPRESSION: Patient is status post right total hip a rthroplasty. Acetabular cup and femoral component are in place and in anatomic alignment. There is no fracture. Expected soft tissue changes are seen about the right hip. Mild degenerative changes of the left hi p with CAM type femoral head. [facility]-[id number] Dictated and approved by radiology resid ent/fellow: [place] M.D. I, Raymon Morales MD, personally reviewed t images and resident's/fellow's findings and agree with the final report. Performing Organization Address City/State/Zipcode Phone Number [facility] [address] [place] [address] Surgical pathology request (08/05/2019 12:25 PM CDT) [facility] DEPARTMENT OF PATHOLOGY AND GENOMIC MEDICINE Surgical pathology See link below [facility] DEPARTMENT OF report for PDF Lab PATHOLOGY AND Report GENOMIC MEDICINE Result status This is Final [facility] DEPARTMENT OF Report for PATHOLOGY AND [id number] GENOMIC MEDICINE Specimen Performing Organization Address City/State/Zipcode Phone Number [facility] DEPARTMENT OF PATHOLOGY AND [address], [place] [address] GENOMIC MEDICINE Airway (08/05/2019 11:38 AM CDT) Narrative Performed At Aroldo Freeman CRNA 07/18 11:39 AM Airway Date/Time: 08/05/2019 11:23 AM Performed by: Aroldo Freeman CRNA Authorized by: Erika Wu MD Location: OR Urgency: Elective Difficult Airway: No Anesthesiologist: Erika Wu MD Resident/EPIC APPLICATION COORDINATOR/AA: Aroldo Freeman CRNA Performed by: resident/EPIC APPLICATION COORDINATOR/AA Preoxygenated with 100% O2: Yes C-spine Precautions Maintained Throughou t: Yes Mask Ventilation: Not attempted Final Airway Type: Endotracheal airway Final Endotracheal Airway: ETT Cuffed: Yes Technique Used: Video laryngoscopy Insertion Site: Oral Laryngoscope Blade/Videolaryngoscope Austen de Size: 4 ETT Size (mm): 8.0 Cuff at minimum occlusion pressure: Yes Measured from: Lips ETT to Lips (cm): 25 Placement Verified by: CO2 detection, di rect visualization and equal breath sounds Laryngoscopic view: Grade I - full vie w of glottis Rapid Sequence Induction (RSI): No Modified RSI: Yes Number of Attempts at Approach: 1 Smooth, atraumatic laryngoscopy; dentition intact Spinal Block (08/05/2019 10:49 AM CDT) Narrative Performed At Erika Wu MD 0 10:50 AM Spinal Block Date/Time: 08/05/2019 10:47 AM Performed by: Erika Wu MD Authorized by: Erika Wu MD Patient Location: Pre-op Start Time: 08/05/2019 10:44 AM End Time: 08/05/2019 10:47 AM Reason for Block: at surgeon's request Staff: Anesthesiologist: Erika Wu Sa, MD Performed by: Anesthesiologist Preprocedure: patient identified, IV marlene cked, site and side verified, risks and benefits discussed, procedure verified, surgical consent complete, patient position confirmed, mo nitors and equipment checked, pre-op evaluation complete, timeout perf ormed prior to procedure and coagulation status reviewed Spinal Block: Patient Position: Sitting Prep: Betadine Monitoring: Blood pressure monitoring, continuous pulse oximetry and heart rate Approach: Midline Interspace: L3-4 Injection Technique: Single injection Needle: Needle Type: Pencil-tip Needle Gauge: 25 G Assessment: Block assessment: No apparent compl ications and patient tolerated procedure well Post procedure: Patient returned to s upine position Notes: X 1 attempt, @ 7cm Medications Administered Bupivacaine 0.75% PF (mL), 0.8 mL ECG Pre/Post Op (07/29/2019 11:14 AM CDT)Only the most recent of2 resultswithin the time period is included. Pathologist Sig nature Ventricular rate 67 [facility] Atrial rate 67 [facility] DC interval 192 [facility] QRSD interval 92 [facility] QT interval 404 [facility] QTC interval 426 [facility] P axis 1 59 [facility] QRS axis 1 -11 [facility] T wave axis 18 [facility] EKG impression Normal sinus [facility] MUSE rhythm-Inferior infarct (cited on or before 29-JUL-2019)-Abnormal ECG-In automated comparison with ECG of 04-JUN-2019 11:47,-No significant change was found- Specimen Narrative Performed At This result has an attachment that is no t available. Performing Organization Address City/[facility]/Zipcode Phone Number [facility] MUSE [address] [place] [address] Urine culture (07/29/2019 11:02 AM CDT)Only the most recent of2 resultswithin the time period is included. Pathologist Sig [facility] Urine culture SEE COMMENTComment: [facility] Bacteriuria screen HOSPITAL negative. Specimen Performing Organization Address City/[facility]/Zipcode Phone Number [facility] DEPARTMENT OF PATHOLOGY AND [address] [place], [place] [address] [address] [address] Urinalysis screen and microscopy, with reflex to culture (07/29/2019 10:59 AM CDT)Only the most recent of2 resultswithin the time period is included. Specimen site Clean catch [facility] Color, UA Straw [facility] Appearance, UA Clear [facility] Specific gravity, UA 1.022 1.001 - 1.035 [facility] pH, UA 6.0 5.0 - 8.5 [facility] Protein, UA 1+ (A) Negative [facility] Glucose, UA 3+ (A) Negative [facility] Ketones, UA Negative Negative [facility] Bilirubin, UA Negative Negative [facility] Blood, UA Negative Negative [facility] Nitrite, UA Negative Negative [facility] Urobilinogen, UA <2.0 <2.0 [facility] Leukocyte esterase, Negative Negative [facility] Epithelial cells, UA <1 /HPF [facility] Round epithelial <1 0 - 1 /HPF [facility] cells, HOSPITAL WBC, UA <1 0 - 1 /HPF [facility] RBC, UA <1 0 - 5 /HPF [facility] Bacteria, UA None seen None seen [facility] Yeast, UA None seen [facility] Yeast with None seen [facility] pseudohyphae, [facility] Specimen Urine Performing Organization Address City/[facility]/Zipcode Phone Number [facility] DEPARTMENT OF PATHOLOGY AND [address] [place] [address] [phone] [address] Partial thromboplastin time, activated (07/29/2019 10:58 AM CDT) Pathologist [facility] PTT 32.0 23.0 - 36.0 [facility] Comment: [facility] PTT therapeutic range for unfractionated heparin is 61.0-112.0 seconds which corresponds to Anti-Xa 0.3-0.7 U/ml. Specimen Blood Performing Organization Address City/State/Zipcode Phone Number [facility] DEPARTMENT OF PATHOLOGY AND [address] [place] [address] [phone] [address] Prothrombin time with INR (07/29/2019 10:58 AM CDT) Prothrombin time 14.1 11.5 - 14.5 [facility] INR 1.1 [place] Comment: [facility] International Normalized Ratio (INR) is a [facility] monitoring tool for patients who are stable on oral anticoagulant therapy. An INR of 2.0-3.0 is suggested for deep vein thrombosis/pulmonary embolism. Specimen Blood Performing Organization Address City/State/Zipcode Phone Number [facility] DEPARTMENT OF PATHOLOGY AND [address] [place] [address] [phone] [address] Type and screen (07/29/2019 10:58 AM CDT)Only the most recent of2 resultswithin the time period is included. Pathologist Sig nature ABO grouping A [facility] Rh type POS [facility] Antibody screen (gel) NEG [facility] Specimen Blood Performing Organization Address City/[facility] Phone Number [facility] DEPARTMENT OF PATHOLOGY AND [address] [place] [address] [address] Hemoglobin A1c (07/29/2019 10:58 AM CDT)Only the most recent of2 resultswithin the time period is included. Hemoglobin A1C 8.2 (H) 4.0 - 5.6 % [facility] Comment: HOSPITAL HbA1c cutoffs for diagnosing diabetes: 4.0% - 5.6% = normal 5.7% - 6.4% = increased risk for diabetes (prediabetes )9 >=6.5% = diabetes9 Goals for glycemic control (ADA 2016) < 7.0% Target for non adults with diabetes. More or less stringent targets may be appropriate for individual patients. <7.5% Target for Children and adolescents with type 1 diabetes. Specimen Blood Performing Organization Address City/State/Zipcode Phone Number [facility] DEPARTMENT OF PATHOLOGY AND [address] [place] [address] [phone] [address] Comprehensive metabolic panel (07/29/2019 10:58 AM CDT)Only the most recent of2 resultswithin the time period is included. Sodium 138 135 - 148 [facility] mEq/L [facility] Potassium 4.8 3.5 - 5.0 [facility] mEq/L [facility] Chloride 101 98 - 112 [facility] mEq/L [facility] CO2 23 (L) 24 - 31 mEq/L [facility] Anion gap 14@ANIO 7 - 15 mEq/L [facility] BUN 35 (H) 8 - 23 mg/dL [facility] Creatinine 2.26 (H) 0.70 - 1.20 [facility] mg/dL [facility] Glucose 234 (H) 65 - 99 mg/dL [facility] Calcium 9.5 8.8 - 10.2 [facility] mg/dL [facility] Protein 7.5 6.3 - 8.3 [facility] Comment: g/dL [facility] [place] 4.6-7.0 g/dL 1 week 4.4-7.6 g/dL 7 months-1year 5.1-7.3 g/dL 1-2 years 5.6-7.5 g/dL >3 years 6.0-8.0 g/dL 18-150 6.3-8.3 g/dL Albumin 3.6 3.5 - 5.0 [facility] g/dL [facility] A/G ratio 0.9 0.7 - 3.8 [facility] Alkaline phosphatase 77 40 - 129 U/L [facility] AST 19 10 - 50 U/L [facility] ALT 25 5 - 50 U/L [facility] Total bilirubin 0.4 0.0 - 1.2 [facility] mg/dL [facility] Specimen Blood Performing Organization Address City/State/Zipcode Phone Number [facility] DEPARTMENT OF PATHOLOGY AND [address] [place], [place] [address] [address] [address] Coronavirus SARS-CoV 2 (07/29/2019 10:47 AM CDT) SARS-CoV-2 source Nasopharyngeal [facility] Comment: Corrected result; previously reported as Nasopha ryngeal Swab on 07/29/2019 at 10:47 by V/AUT SARS-CoV-2 by PCR Not Detected [facility] REF [facility] Comment: NOT DETECTED - A negative result does not rule out the presence of PCR inhibitors in the patient specimen or assay specif ic nucleic acid in concentrations below the level of detection by the assay. INTERPRETIVE INFORMATION: 2019 Novel Coronavirus SARS- CoV-2 by PCR This test should be ordered for the detection of the 2 019 novel coronavirus SARS-CoV-2 in individuals who meet SARS-Co V-2 clinical and/or epidemiological criteria. The 2019 Novel Coronavirus SARS-CoV-2 by PCR test is f or in vitro diagnostic use under the FDA Emergency Use Authorizati on (EUA) for US laboratories certified under CLIA to perform high c omplexity tests. This test has not been FDA cleared or approved. In compliance with this authorization, please visit [email or web address] for more information and to access the applicable information s heets. Performed by [facility], [address] [place] [id number] [email or web address], James Peterson MD, Lab. Director Specimen Nasopharyngeal Performing Organization Address [facility] Phone Number [facility] [address] [place] [address] [facility] [address] [place] [address] XR Hip 2-3 View Right (06/04/2019 1:33 PM CDT) Specimen Narrative Performed At This result has an attachment that is no t available. 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 Performing Organization Address [facility] Phone Number [facility] [address] [place] [address] XR Knee 3 Vw Bilateral (04/18/2019 10:58 AM PIE MAKER) Specimen Narrative Performed At This result has an attachment that is no t available. Knee radiographs demonstrate bilateral knee arthroplasties present. [facility] Components appear to be in good position and stable. There are no radiolucencies or fractures present Performing Organization Address [facility] Phone Number [facility] [address] [place] [address] XR Leg Length Evaluation (04/18/2019 10:42 AM PIE MAKER) Specimen Narrative Performed At This result has an attachment that is no t available. Long-leg radiographs demonstrate neutral alignment of the bilateral lower [facility] extremities status post right and left TKA. 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 There is also significant right hi p arthritis present Performing Organization Address [facility] Phone Number [facility] [address] [place] [address] Large Joint Arthrocentesis: hip, R hip joint (04/18/2019 10:30 AM PIE MAKER) Narrative Performed At Dariel Angela MD 04/18/2019 1 1:42 AM Large Joint Arthrocentesis: hip, R hip j oint Consent given by: patient Site marked: site marked Timeout: Immediately prior to procedure a time out was called to verify the correct patient, procedure, equipmen t, learning support specialist and site/side marked as required Supporting Documentation Indications: pain and diagnostic evaluat ion Procedure Details Preparation: Patient was prepped and garry ped in the usual sterile fashion Ultrasound guided: yes Platelet Rich Plasma Used: no PRP Use d Location: hip - R hip joint Right side: Needle size: 22 G Approach: anterolateral Right hip medications administered: 80 m g methylPREDNISolone acetate 40 mg/mL after 08/26/2018 Advance Directives For more information, please contact: [phone] Type Date Recorded Patient Television Servicer Explanati on Advance Directives, Living Will 07/10/2017 5:41 AM and Medical Power of Email Administrator
--- OUTSIDE RECORDS SUMMARY | 2019-08-27 15:34 | XMS REPORT | Summary of Care ---
:1940 Author Organization [facility] Address [address] [place] [address] Care Team Providers Name Role Phone Pcp, Patient Does Not Have A Primary Care Provider +[id number] 0-0000 Reason for Visit Reason Comments Refill Request Encounter Details Date Type Department Care Team Description 08/26/2019 Refill [facility] Endocrinology- Janes Lester MD Refill Request [address] [address] [address] [place] [address] [phone] Allergies Active Allergy Reactions Severity Noted Date Comments Morphine Hallucinations 04/22/2016 confusion documented as of this encounter (statuses as of 08/27/2019) Medications Medication Sig Dispensed Refills Start Date End Date Status acetaminophen (TYLENOL 8 Take 1 tablet by 30 tablet 0 10/31/19 19 Active HOUR) 650 mg CR mouth every 8 tabletIndications: (eight) hours as Urothelial cancer needed for Pain. NOVOLOG U-100 INSULIN INJECT 18 UNITS 10 mL 0 11/27/2018 Active ASPART 100 unit/mL UNDER THE SKIN 3 solutionIndications: (THREE) TIMES Type 2 diabetes, DAILY BEFORE uncontrolled, with renal MEALS. 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, 05/13/2016 with long-term current use of insulin Type 2 diabetes, uncontrolled, with renal manifestatio n 05/11/2015 Hyperpotassemia 03/19/2012 Malignant neoplasm of bladder 01/03/2011 Overview: ICD10 Diagnosis Term Bending Press Operator Utility Chronic kidney disease, stage III (moderate) 1 Urinary tract infection, site not specified 10/21/2010 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 HLD (hyperlipidemia) 09/09/2010 Overview: ICD10 Diagnosis Term Bending Press Operator Utility Essential hypertension, benign 09/09/2010 Coronary atherosclerosis of [place] coronary artery Overview: 1985 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 Overview: ICD10 Diagnosis Term Bending Press Operator Utility documented as of this encounter (statuses as of 08/27/2019) Resolved Problems Problem Noted Date Resolved Date Chronic kidney disease, stage IV (severe) 10/21/2010 10/21/2010 Type 2 diabetes mellitus without complications 09/09/2010 11/13/2017 Overview: ICD10 Diagnosis Term Bending Press Operator Utility documented as of this encounter (statuses as of 08/27/2019) Immunizations Name Administration Dates Next Due Influenza [...] Care Team Description 10/01/2019 Office Visit Dermatology Jake Luther MD [address] [facility] [address] [place] [phone] 03/24/2020 Office Visit Urology Mike Steven MD [address] [place] [address] [phone] Health Maintenance Due Date Last Done Comments EYE EXAM 1950 URINE MICROALBUMIN 1950 DTaP,Tdap,and Td Vaccines ( - 1949 Tdap) Zoster Recombinant Vaccine 1988 (SHINGRIX) (1 of 2) LUNG CANCER SCREEN: Recommended 1993 for age 55-80 with 30 + pack year history Medicare Wellness Visit 12/17/2003 PNEUMOCOCCAL VACCINES 65+ (1 of 2 12/17/2003 - PCV13) LDL-C 12/14/2016 12/15/2015 CREATININE (SERUM) 12/23/2017 12/23/2016, 12/21/2016, 12/20/2016, Additional history exists HgA1C 11/13/2018 05/16/2018, 05/15/2017, 12/23/2016, Additional history exists FOOT EXAM 05/16/2019 05/16/2018, 05/16/2018, 11/13/2017, Additional history exists Depression Screening 10/31/2019 10/30/2018 INFLUENZA VACCINE (Season Ended) 2019 01/18/2010 documented as of this encounter Implants Implanted Type Area Industrial Safety And Health Technician Device Shelf Model / Identifier Expiration Serial / Date Lot Sinplex Hv W/ Gentamicin CEMENT Right: Kathy 04/19 [id number] / Implanted: Qty: 4 on 12/19/2016 by Yasir Pederson MD at [facility] Knee 7 [id number] / [id number] [employer] Distal Femoral Augment W/ [place] Femoral Right: [employer] 07/27/2026 [id number] / Implanted: Qty: 1 on 12/19/2016 by Yasir Pederson MD at [facility] Augment Knee 2 [id number] / [id number] [employer] Femoral Right W/ Screw Femur Right: [employer] 01/08/2025 [id number] / Implanted: Qty: 1 on 12/19/2016 by Yasir Pederson MD at [facility] Knee 3 [id number] / [id number] Tibial Tray KNEE Right: [employer] 10/24/2026 [id number] / Implanted: Qty: 1 on 12/19/2016 by Yasir Pederson MD at [facility] Knee 3 [id number] / [id number] Tibial Cruciate Wing KNEE Right: [employer] [id number] / Implanted: Qty: 1 on 12/19/2016 by Yasir Pederson MD at [facility] Knee 5 [id number] / [id number] Splined Knee Stem KNEE Right: [employer] 08/19/2023 [id number] / Implanted: Qty: 1 on 12/19/2016 by Yasir Pederson MD at [facility] Knee 4 [id number] / [id number] Slined Knee Stem W/ Screw KNEE Right: [employer] 11/0 03/2021 [id number] / Implanted: Qty: 1 on 12/19/2016 by Yasir Pederson MD at [facility] Knee 5 [id number] / [id number] [employer] Dcm Tibial Bearing KNEE Right: [employer] [id number] / Implanted: Qty: 1 on 12/19/2016 by Yasir Pederson MD at [facility] Knee 0 [id number] / [id number] documented as of this encounter Results Not on filedocumented in this encounter Insurance Payer Benefit Plan Subscriber ID Effective Phone Address Typ e / Group Dates AETNA - AETNA [id number] 2013-Prese [address] Medic are Adv MANAGED MEDICARE ADV nt [id number] [place] [address] documented as of this encounter Advance Directives Type Date Recorded 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
--- OUTSIDE RECORDS SUMMARY | 2019-08-27 15:34 | XMS REPORT | Continuity of Care Document ---
:1940 Author Organization [facility] t Address [address] [place] [address] Care Team Providers Name Role Phone Roque LEAL Primary Care Physician Trevon LEAL Attending Clinician Dave Angela MD Attending Clinician Neo BEST Attending Clinician Unavailable Radha GONZALES Attending Clinician Unavailable Aashish Wu MD Attending Clinician Pratibha Lainez NP Attending Clinician Emory Brown Attending Clinician Provider Attending Clinician Unavailable Tracy Morin MD Attending Clinician Unavailable Vignesh Attending Clinician HUGO Admitting Clinician Unavailable Payers Payer Name Policy Type Policy Number Effective Date Expiration Date Neha johnson AETNA xxxxxxxx 2013 [place] MEDICAREAETNA 00:00:00 [facility] MEDICARE HMO/PPO MCRxxxxxxxx 4-PresentHMO Problems Condition Condition Condition Status Onset Resolution Last Treating Co mments Source Name Details Category Date Date Treatment Clinician Date Osteoarthr Osteoarthr Disease Active 2019- [place] [facility] of 5-18 [facility] right hip right hip 00:00: st 00 Arthritis Arthritis Disease Active Overview: [place] of right of right 2-13 Added Method i hip hip 00:00: automatic st 00 ally from request for surgery [id number] Osteoarthr Osteoarthr Disease Active [place] [facility] 07-10 [facility] left knee left knee 00:00: st 00 Primary Primary Disease Active [place] osteoarthr osteoarthr -16 Me th[place] itis of itis of 00:00: st left knee left knee 00 Allergies, Adverse Reactions, Alerts Allergy Allergy Status Severity Reaction(s) Onset Inactive Treating Comm ents Source Name Type Date Date Clinician Morphine Propensi Active confusion Jamshid pineda ty to 06-30 Method[facility] adverse 00:00: st reaction 00 s to drug No Known DA Active U 2002-03 [facility] Contrast 2-24 Clear Allergie 00:00: Gamble s 00 [facility] No Known DA Active U 2002-03 [facility] Drug 2-24 Clear Allergie 00:00: Gamble s 00 [facility] No Known DA Active U 2002-03 [facility] Food 2-24 Clear Allergie 00:00: Gamble s 00 [facility] No Known DA Active U 2002-03 [facility] Other 2-24 Clear Allergie 00:00: Gamble s 00 [facility] Social History Social Habit Start Date Stop Date Quantity Comments Source History of tobacco Current smoker Rubens Orta use Sex Assigned At [place] M ethodist Exposure to Not sure [place] Metho dist SARS-CoV-2 (event) Cigarettes smoked 2019-08-06 2019-08-06 Chon Orta current (pack per 00:00:00 00:00:00 day) - Reported Cigarette 2019-08-06 2019-08-06 Givens Method ist pack-years 00:00:00 00:00:00 Alcohol intake 2019-08-06 2019-08-06 Current [facility] thodist 00:00:00 00:00:00 non-drinker of alcohol (finding) Tobacco Comment 2019-05-31 2019-05-31 stopped 35 years Jamshid Orta 00:00:00 00:00:00 ago Smoking Status Start Date Stop Date Source Former smoker 2019-08-06 00:00:00 2019-08-06 00:00:00 Chon Orta Medications Ordered Filled Start Stop Current Ordering Indication Dosage Frequency Signature Comments Components Source Medication Medication Date Date Medication? Clinician (SIG) Name Name atorvastati 2020-0 Yes 10mg QD Take 10 mg Givens n (LIPITOR) 5-19 by mouth Meth judy 10 MG 16:36: nightly. st tablet 30 levothyroxi 2020-0 Yes 50ug QD Take 50 Jamshid ston ne 5-19 mcg by Methodi (SYNTHROID, 16:36: mouth st LEVOXYL) 50 30 nightly. mcg tablet tamsulosin 2020-0 Yes .4mg QD Take 0.4 Jamshid ston (FLOMAX) 5-19 mg by Methodi 0.4 mg 16:36: mouth st capsule,ext 30 nightly. ended release 24hr allopurinol 2020-0 Yes 100mg QD Take 100 [place] (ZYLOPRIM) 5-19 mg by Methodi 100 MG 16:36: mouth st tablet 30 nightly. metoprolol 2020-0 Yes 12.5mg QD Take 12.5 [place] tartrate 5-19 mg by Methodi (LOPRESSOR) 16:36: mouth st 25 mg 30 nightly. tablet insulin 2020-0 Yes 10U [id number] Inject [place] ASPART 5-19 [id number] 10-12 Method i (NovoLOG) 16:36: 3D Units st 100 unit/mL 30 under the injection skin 3 (three) times a day before meals. Per sliding scale INSULIN 2020-0 Yes 35U QD Inject 35 [place] on DETEMIR 5-19 Units Methodi (LEVEMIR 16:36: under the st U-100 30 skin INSULIN nightly. SUBQ) cetirizine 2020-0 Yes 10mg Q.5D Take 10 mg [place] (ZyrTEC) 5 5-19 by mouth 2 Met hodi MG tablet 16:36: (two) st 30 times a day. dapaglifloz 2020-0 Yes 1{tbl} QD Take 1 [place] in 5-19 tablet by Methodi (FARXIGA) 16:36: mouth st 10 mg 30 nightly. tablet gabapentin 2020-0 Yes 100mg QD Take 100 [place] (NEURONTIN) 5-19 mg by Methodi 100 mg 16:36: mouth st capsule 30 nightly. montelukast 2020-0 Yes 10mg QD Take 10 mg [place] (SINGULAIR) 5-19 by mouth Meth judy 10 mg 16:36: nightly. st tablet 30 ascorbic 2020-0 Yes 1000mg QD Take 1,000 [place] acid, 5-19 mg by Method[facility] vitamin C, 16:36: mouth st (VITAMIN C) 30 nightly. 1000 MG tablet cyanocobala 2020-0 Yes 1000ug QD Take 1,000 [place] min 5-19 mcg by Methodi (VITAMIN 16:36: mouth st B-12) 1000 30 nightly. MCG tablet cholecalcif 2020-0 Yes 2000U QD Take 2,000 Givens keyona, 5-19 Units by Methodi vitamin D3, 16:36: mouth st 50 mcg 30 nightly. (2,000 unit) capsule capsule aspirin 2019-0 Yes 81mg Q.5D Take 1 [place] (ECOTRIN) 5-19 tablet (81 Meth judy 81 MG 00:00: mg total) st enteric 00 by mouth 2 coated (two) tablet times a day. HYDROcodone 2020- No acute pain 1{tbl} Q6H Take 1 Givens -acetaminop 5-19 05-29 tablet by Me tanya clifford ([place]) 00:00: 23:[address] 5-325 mg 00 :00 every 6 per tablet (six) hours as needed for moderate pain or severe pain for up to 10 days .acute pain. Max Daily Amount: 4 tablets glimepiride 2020- No 4mg QD Take 4 mg Chon (AMARYL) 4 3-13 03-13 by mouth Meth judy MG tablet 11:34: 00:[address] 41 :00 before breakfast. lisinopril Yes 2.5mg QD Take 2.5 [place] (PRINIVIL,Z 2-09 mg by Methodi ESTRIL) 5 00:00: mouth st mg tablet 00 nightly. clopidogrel 2016-03 Yes 75mg QD Take 75 mg Chon (PLAVIX) 75 2-30 by mouth Meth judy mg tablet 00:00: nightly. st 00 Vital Signs Vital Name Observation Time Observation Value Comments Source Body height 2019-08-22 10:31:00 182.9 cm Chon Orta Body weight 2019-08-22 10:31:00 102.967 kg Chon Orta BMI 2019-08-22 10:31:00 30.79 kg/m2 Chon Orta Systolic blood 2019-08-06 15:33:53 121 mm[Hg] Wendy Orta pressure Diastolic blood 2019-08-06 15:33:53 57 mm[Hg] Gary on Alevism pressure Heart rate 2019-08-06 15:33:53 72 /min Chon Alevism Body temperature 2019-08-06 15:33:53 35.61 Eileen [place] [facility] Respiratory rate 2019-08-06 15:33:53 18 /min [place] [facility] Oxygen saturation in 2019-08-06 15:33:53 94 /min Chon Alevism Arterial blood by Pulse oximetry Procedures Procedure Date / Time Performing Clinician Source Performed POC GLUCOSE 2019-08-06 11:35:00 Dariel Angela ethodist POC GLUCOSE 2019-08-06 07:41:00 Dariel Angelast HC COMPLETE BLD COUNT 2019-08-06 04:30:00 Viraj Arias [facility] W/AUTO DIFF B NATRIURETIC PEPTIDE 2019-08-06 04:30:00 Viraj Arias [facility] BASIC METABOLIC PANEL 2019-08-06 04:00:00 Papi Cisneros Ale[facility]ism MAGNESIUM LEVEL 2019-08-06 04:00:00 Viraj Arias n [facility]ism PHOSPHORUS LEVEL 2019-08-06 04:00:00 Viraj Arias on Alevism ESTIMATED GFR 2019-08-06 04:00:00 Papi Cisneros [facility]ism POC GLUCOSE 2019-08-05 20:38:00 Dariel Angela ethodist POC GLUCOSE 2019-08-05 16:18:00 Dariel Angela ethodist XR PELVIS 1 OR 2 VW 2019-08-05 13:34:51 Papi Cisneros Ale[facility]ism POC GLUCOSE 2019-08-05 13:05:00 Dariel Angela ethodist XR PELVIS 1 OR 2 VW 2019-08-05 12:29:29 Dariel Angela on [facility]ism SURGICAL PATHOLOGY REQUEST 2019-08-05 12:25:00 Dariel Angelaist XR PELVIS 1 OR 2 VW 2019-08-05 11:58:00 Dariel Angela on Alevism AR AN ELECTIVE 2019-08-05 11:38:35 Aroldo Freeman hodist ENDOTRACHEAL AIRWAY Win-Sor ARTHROPLASTY, HIP, TOTAL 2019-08-05 11:10:00 Dariel Angela ANESTHESIA SPINAL BLOCK 2019-08-05 10:49:22 Erika Wu POC GLUCOSE 2019-08-05 08:01:00 Dariel Angela ethodist ECG PRE/POST OP 2019-07-29 11:14:18 Jocelyn Lainez URINE CULTURE 2019-07-29 11:02:00 Jocelyn Lainez URINALYSIS SCREEN AND 2019-07-29 10:59:00 Jocelyn Lainez MICROSCOPY, WITH REFLEX TO CULTURE HC COMPLETE BLD COUNT 2019-07-29 10:58:00 Jocelyn Lainez W/AUTO DIFF COMPREHENSIVE METABOLIC 2019-07-29 10:58:00 Jocelyn Lainez PANEL HEMOGLOBIN A1C 2019-07-29 10:58:00 Jocelyn Lainez PROTHROMBIN TIME WITH INR 2019-07-29 10:58:00 Jocelyn Lainez PARTIAL THROMBOPLASTIN 2019-07-29 10:58:00 Jocelyn Lainez TIME (PTT) TYPE AND SCREEN 2019-07-29 10:58:00 Jocelyn Lainez ESTIMATED GFR 2019-07-29 10:58:00 Jocelyn Lainez CORONAVIRUS SARS-COV 2 2019-07-29 10:47:00 Dariel Angela XR HIP 2-3 VIEWS RIGHT 2019-06-04 13:33:01 Papi Cisneros URINE CULTURE 2019-06-04 12:41:00 Melinda Carlos ECG PRE/POST OP 2019-06-04 11:47:18 Melinda Carlos HC COMPLETE BLD COUNT 2019-06-04 11:34:00 Melinda Carlos W/AUTO DIFF COMPREHENSIVE METABOLIC 2019-06-04 11:34:00 Melinda Carlos PANEL HEMOGLOBIN A1C 2019-06-04 11:34:00 Melinda Carlos TYPE AND SCREEN 2019-06-04 11:34:00 Melinda Carlos URINALYSIS SCREEN AND 2019-06-04 11:34:00 Melinda Carlos MICROSCOPY, WITH REFLEX TO CULTURE ESTIMATED GFR 2019-06-04 11:34:00 Melinda Carlos XR KNEE 3 VW BILATERAL 2019-04-18 10:58:05 Dariel Angela XR LEG LENGTH EVALUATION 2019-04-18 10:42:28 Dariel Angela AR ARTHROCENTESIS 2019-04-18 10:30:00 Dariel Angela ASPIR&/INJ MAJOR JT/CARLOS W/US Plan of Care Planned Activity Planned Date Details Comments Source Future Scheduled 2019-10-19 INFLUENZA VACCINE [place] [facility] Test 00:00:00 [code = INFLUENZA VACCINE] Future Scheduled 2003-12-17 65+ PNEUMOCOCCAL [facility] Test 00:00:00 VACCINE (2 of 2 - PPSV23) [code = 65+ PNEUMOCOCCAL VACCINE (2 of 2 - PPSV23)] Future Scheduled 1948 DIABETIC FOOT EXAM [place] [facility] [facility] Test 00:00:00 [code = DIABETIC FOOT EXAM] Future Scheduled 1938 DIABETIC RETINAL EYE Jamshid miriam [facility] Test 00:00:00 EXAM [code = DIABETIC RETINAL EYE EXAM] Encounters Start End Encounter Admission Attending Care Care Encounter Source Date/Time Date/Time Type Type Clinicians Facility Department ID 2019-08-26 2019-08-26 Refill Trevon [facility]MA[facility] [id number] 00:00:00 00:00:00 Janes Viveros [id number] H[place] [id number] Kelley [id number] [address] 2019-08-22 2019-08-22 Outpatient [facility], [facility] [id number] [place] 00:00:00 00:00:00 DARIEL [address] 2019-08-05 2019-08-06 Inpatient [facility] 021 [id number] [place] 00:00:00 00:00:00 DARIEL [address] 2019-07-29 2019-07-29 Outpatient [facility], [facility] [id number] [place] 00:00:00 00:00:00 DARIEL 563 Method i 2019-06-04 2019-06-04 Outpatient [facility], [facility] [id number] [place] 00:00:00 00:00:00 DARIEL 083 Method i 2019-06-04 2019-06-04 Outpatient [facility] [id number] [place] 00:00:00 00:00:00 615 Method i 2019-06-04 2019-06-04 Outpatient [facility] [id number] [place] 00:00:00 00:00:00 787 Method i 2019-04-29 2019-04-29 [facility] [id number] 00:00:00 00:00:00 Madelaine Delta [id number] [facility] [id number] [facility] [id number] [address] 2018-11-22 2018-11-22 [facility] [id number] 00:00:00 00:00:00 Madelaine Delta [id number] [facility] [id number] [facility] [id number] [address] 2018-11-01 2018-11-01 [facility] [id number] 14:29:14 15:38:07 Visit [facility] [id number] [place] [id number] [facility] [id number] Primary & 204 Specialty Care Results Test Description Test Time Test Comments Results Result Comments Source UA RFLX MICR CULT IF INDICATED 2019-08-15 11:59:00 Test Item Value Reference Range Interpretation Comme nts UA COLOR (test code = COLU) YELLOW discript YEL/STRAW UA APPEARANCE (test code = APPU) HAZY discript CLEAR A UA GLUCOSE DIPSTICK (test code = DGLUU) 3+ mg/dL NEG UA BILIRUBIN DIPSTICK (test code = BILU) NEGATIVE mg/dL NEG UA KETONE DIPSTICK (test code = KETU) NEGATIVE mg/dL NEG UA SPECIFIC GRAVITY (test code = SGU) 1.025 SG 1.005-1.030 UA BLOOD DIPSTICK (test code = PRO) 3+ mg/DL NEG A UA PH DIPSTICK (test code = FELI) 5.5 pH UNITS 5.0-7.0 UA PROTEIN DIPSTICK (test code = PROU) 2+ mg/dL NEG A UA UROBILINIOGEN DIPSTICK (test code = 0.2 mg/dL <2.0 URO) UA NITRITE DIPSTICK (test code = VIK) POSITIVE SCREEN NEG A UA LEUKOCYTE ESTERASE DIPSTICK (test 1+ Leuk/mcL NEGATIVE A code = LEUU) UA WBC (test code = WBCU) >50 #WBC/HPF 0-3 A UA RBC (test code = RBCU) TNTC #RBC/HPF 0-3 A UA BACTERIA (test code = BACU) 4+ /HPF NONE-TRACE A UA SQUAMOUS CELLS (test code = SQU) TRACE /HPF NONE UA CULTURE NEEDED? (test code = UACULT) YES,WBC>10 & EPI<25 Criteria Culture CHK BASIC METABOLIC [id number] 11:52:00 Test Item Value Reference Range Interpretation Comments SODIUM (test code = NA) 139 mmol/L 134-147 N POTASSIUM (test code = K) 5.6 mmol/L 3.4-5.0 H CHLORIDE (test code = CL) 104 mmol/L 100-108 N CARBON DIOXIDE (test code = CO2) 26 mmol/L 21-32 N ANION GAP (test code = GAP) 9.0 GAP calc 4.0-15.0 N GLUCOSE (test code = GLU) 74 MG/DL 70-110 N BLOOD UREA NITROGEN (test code = 46 MG/DL 7-18 H BUN) GLOMERULAR FILTRATION RATE (test 27 estGFR >60 L code = GFR) CREATININE (test code = CREAT) 2.5 MG/DL 0.8-1.3 H CALCIUM (test code = CA) 9.1 MG/DL 8.5-10.1 N UA RFLX MICR CULT IF [id number] 11:26:00 Test Item Value Reference Range Interpretation Comments UA COLOR (test code = COLU) YELLOW discript YEL/STRAW UA APPEARANCE (test code = HAZY discript CLEAR A APPU) UA GLUCOSE DIPSTICK (test 3+ mg/dL NEG code = DGLUU) UA BILIRUBIN DIPSTICK (test NEGATIVE mg/dL NEG code = BILU) UA KETONE DIPSTICK (test code NEGATIVE mg/dL NEG = KETU) UA SPECIFIC GRAVITY (test 1.025 SG 1.005-1.030 code = SGU) UA BLOOD DIPSTICK (test code 3+ mg/DL NEG A = PRO) UA PH DIPSTICK (test code = 5.5 pH UNITS 5.0-7.0 FELI) UA PROTEIN DIPSTICK (test 2+ mg/dL NEG A code = PROU) UA UROBILINIOGEN DIPSTICK 0.2 mg/dL <2.0 (test code = URO) UA NITRITE DIPSTICK (test POSITIVE SCREEN NEG A code = VIK) UA LEUKOCYTE ESTERASE 1+ Leuk/mcL NEGATIVE A DIPSTICK (test code = LEUU) UA CULTURE NEEDED? (test code Criteria Culture CHK = UACULT) CBC W/AUTO [id number] 11:24:00 Test Item Value Reference Range Interpretation Comments WHITE BLOOD CELL (test code = 16.1 K/mm3 3.5-11.0 H WBC) RED BLOOD CELL (test code = RBC) 5.13 M/mm3 4.70-6.10 N HEMOGLOBIN (test code = HGB) 14.1 G/DL 12.3-15.9 N HEMATOCRIT (test code = HCT) 46.0 % 35.8-46.7 N MEAN CELL VOLUME (test code = 89.7 Fl 86.3-98.9 N MCV) MEAN CELL HGB (test code = MCH) 27.5 pg 28.9-34.4 L MEAN CELL HGB CONCETRATION (test 30.7 G/DL 32.1-34.5 L code = MCHC) RED CELL DISTRIBUTION WIDTH (test 15.0 SD 11.5-14.5 H code = RDW) PLATELET COUNT (test code = PLT) 224.0 K/mm3 150-450 N MEAN PLATELET VOLUME (test code = 8.30 fL 7.0-9.6 N MPV) NEUTROPHIL % (test code = NT%) 88.0 % 40-76 H LYMPHOCYTE % (test code = LY%) 4.7 % 20.5-51.1 L MONOCYTE % (test code = MO%) 6.2 % 1.7-9.3 N EOSINOPHIL % (test code = EO%) 0.9 % 0.0-6.0 N BASOPHIL % (test code = BA%) 0.2 % 0.0-2.0 N NEUTROPHIL # (test code = NT#) 14.19 K/mm3 1.8-7.6 H LYMPHOCYTE # (test code = LY#) 0.8 K/mm3 0.6-3.0 N MONOCYTE # (test code = MO#) 1.0 K/mm3 0.2-1.5 N EOSINOPHIL # (test code = EO#) 0.1 K/mm3 0.0-0.4 N BASOPHIL # (test code = BA#) 0.0 K/mm3 0.0-0.2 N MANUAL DIFF REQUIRED (test code = NO DIFF/SCN CRITERIA MDIFF) UA RFLX MICR CULT IF [id number] 09:55:00 Test Item Value Reference Range Interpretation Comments UA COLOR (test code = COLU) YELLOW discript YEL/STRAW UA APPEARANCE (test code = CLEAR discript CLEAR APPU) UA GLUCOSE DIPSTICK (test 3+ mg/dL NEG code = DGLUU) UA BILIRUBIN DIPSTICK (test NEGATIVE mg/dL NEG code = BILU) UA KETONE DIPSTICK (test NEGATIVE mg/dL NEG code = KETU) UA SPECIFIC GRAVITY (test 1.020 SG 1.005-1.030 code = SGU) UA BLOOD DIPSTICK (test NEGATIVE mg/DL NEG code = PRO) UA PH DIPSTICK (test code = <=5.0 pH UNITS 5.0-7.0 FELI) UA PROTEIN DIPSTICK (test NEGATIVE mg/dL NEG code = PROU) UA UROBILINIOGEN DIPSTICK 0.2 mg/dL <2.0 (test code = URO) UA NITRITE DIPSTICK (test NEGATIVE SCREEN NEG code = VIK) UA LEUKOCYTE ESTERASE NEGATIVE Leuk/mcL NEGATIVE DIPSTICK (test code = LEUU) UR PROTEIN [id number] 09:55:00 Test Item Value Reference Range Interpretation Comments UR PROTEIN TOTAL (test code = 27.7 MG/DL 0.0-12.0 H PROTU) UR CREATININE [id number] 09:55:00 Test Item Value Reference Range Interpretation Comments UR CREATININE RANDOM (test code = 127.0 MG/DL 30-125 H CREATU) UA RFLX MICR CULT IF [id number] 09:48:00 Test Item Value Reference Range Interpretation Comments UA COLOR (test code = COLU) YELLOW discript YEL/STRAW UA APPEARANCE (test code = CLEAR discript CLEAR APPU) UA GLUCOSE DIPSTICK (test 3+ mg/dL NEG code = DGLUU) UA BILIRUBIN DIPSTICK (test NEGATIVE mg/dL NEG code = BILU) UA KETONE DIPSTICK (test NEGATIVE mg/dL NEG code = KETU) UA SPECIFIC GRAVITY (test 1.020 SG 1.005-1.030 code = SGU) UA BLOOD DIPSTICK (test NEGATIVE mg/DL NEG code = PRO) UA PH DIPSTICK (test code = <=5.0 pH UNITS 5.0-7.0 FELI) UA PROTEIN DIPSTICK (test NEGATIVE mg/dL NEG code = PROU) UA UROBILINIOGEN DIPSTICK 0.2 mg/dL <2.0 (test code = URO) UA NITRITE DIPSTICK (test NEGATIVE SCREEN NEG code = VIK) UA LEUKOCYTE ESTERASE NEGATIVE Leuk/mcL NEGATIVE DIPSTICK (test code = LEUU) UA CULTURE NEEDED? (test Criteria Culture CHK code = UACULT) UR PROTEIN [id number] 09:48:00 Test Item Value Reference Range Interpretation Comments UR PROTEIN TOTAL (test code = PROTU) MG/DL 0.0-12.0 UR CREATININE [id number] 09:48:00 Test Item Value Reference Range Interpretation Comments UR CREATININE RANDOM (test code = MG/DL 30-125 CREATU) UA RFLX MICR CULT IF [id number] 09:48:00 Test Item Value Reference Range Interpretation Comments UA COLOR (test code = COLU) YELLOW discript YEL/STRAW UA APPEARANCE (test code = CLEAR discript CLEAR APPU) UA GLUCOSE DIPSTICK (test 3+ mg/dL NEG code = DGLUU) UA BILIRUBIN DIPSTICK (test NEGATIVE mg/dL NEG code = BILU) UA KETONE DIPSTICK (test NEGATIVE mg/dL NEG code = KETU) UA SPECIFIC GRAVITY (test 1.020 SG 1.005-1.030 code = SGU) UA BLOOD DIPSTICK (test NEGATIVE mg/DL NEG code = PRO) UA PH DIPSTICK (test code = <=5.0 pH UNITS 5.0-7.0 FELI) UA PROTEIN DIPSTICK (test NEGATIVE mg/dL NEG code = PROU) UA UROBILINIOGEN DIPSTICK 0.2 mg/dL <2.0 (test code = URO) UA NITRITE DIPSTICK (test NEGATIVE SCREEN NEG code = VIK) UA LEUKOCYTE ESTERASE NEGATIVE Leuk/mcL NEGATIVE DIPSTICK (test code = LEUU) UR PROTEIN [id number] 09:48:00 Test Item Value Reference Range Interpretation Comments UR PROTEIN TOTAL (test code = PROTU) MG/DL 0.0-12.0 UR CREATININE [id number] 09:48:00 Test Item Value Reference Range Interpretation Comments UR CREATININE RANDOM (test code = MG/DL 30-125 CREATU) Surgical pathology [id number] 15:24:24 Test Item Value Reference Range Interpretation Comments Case number (test code = [id number]) Surgical pathology See link below for report (test code = PDF Lab Report [id number]) Result status (test code This is Final Report = [id number]) for [id number] [place] [facility] [id number] 11:36:07 Test Item Value Reference Range Interpretation Comments POC glucose (test code 314 mg/dL 65-99 H Opera tor Name: Alex = 52059-3) [employer] I D: [id number] able: [facility] 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 Interpretation Abnormal (test code = 33297-1) Chon OrtaB natriuretic [id number] 06:51:42 Test Item Value Reference Range Interpretation Comments BNP (test code = 07937-0) 139 pg/mL 0-100 H Lab Interpretation (test code = Abnormal 23629-7) [place] [facility]Basic metabolic [id number] 06:31:14 Test Item Value Reference Range Interpretation Comments Sodium (test code = 2951-2) 135 135- 148 mEq/L Potassium (test code = 2823-3) 4.8 3.5- 5.0 mEq/L Chloride (test code = 2075-0) 98 98- 112 mEq/L CO2 (test code = 2028-9) 16 24- 31 mEq/L L Anion gap (test code = 98858-4) 21@ANIO 7- 15 mEq/L H BUN (test code = 3094-0) 33 mg/dL 8-23 H Creatinine (test code = 2160-0) 2.12 mg/dL 0.7-1.2 H Glucose (test code = 2345-7) 206 mg/dL 65-99 H Calcium (test code = 44260-2) 9.1 mg/dL 8.8-10.2 Lab Interpretation (test code = Abnormal 56050-8) [facility] [id number] 06:31:14 Test Item Value Reference Range Interpretation Comments Magnesium (test code = 52901-7) 1.7 mg/dL 1.6-2.4 G[facility] MethodistEstimated [id number] 06:31:14 Test Item Value Reference Range Interpretation Comments Estimated GFR (test 28 mL/min/1.73 m2 Li davies Units code = 5488) InterpretationG 1 >=90 Grisel l or highG2 60-89 Mildly decrease dG3a 45-59 Mil dly to moderately decr aoxpjN9z 30-44 Moderately to s everely decreasedG4 15-29 Severe ly decreasedG5 <15 Kidney alfie lureThe eGFR was calcul ated using the Chron ic Kidney Disease Epidemiology Collaboration ( CKD-EPI) equation. Interpretation is based on recommendati ons of the National Ki dney Foundation-Kidn ey Disease Outcome s Quality Initiat mallorie (NKF-KDOQI) pub lished in 2013. Lab Interpretation Abnormal (test code = 40909-2) G[facility]ens MethodistPhosphorus [id number] 06:31:13 Test Item Value Reference Range Interpretation Comments Phosphorus (test code = 2777-1) 3.4 mg/dL 2.4-4.5 G[facility]ens MethodistCBC with platelet and [id number] 06:05:38 Test Item Value Reference Range Interpretation Comments WBC (test code = 97771-4) 10.88 4.50- 11.00 k/uL RBC (test code = 65858-3) 4.75 m/uL 4.4-6 HGB (test code = 718-7) 13.5 g/dL 14-18 L HCT (test code = 4544-3) 42.0 % 41-51 MCV (test code = 787-2) 88.4 fL 82-100 MCH (test code = 785-6) 28.4 pg 27-34 MCHC (test code = 786-4) 32.1 g/dL 31-37 RDW - SD (test code = 44.8 fL 37-55 16086-8) MPV (test code = 76841-0) 8.9 fL 8.8-13.2 Platelet count (test code 150 150- 400 k/uL = 07839-1) Nucleated RBC (test code 0.00 /100 WBC = 28937-8) Neutrophils (test code = 87.0 % 39-69 H 96070-1) Lymphocytes (test code = 6.8 % 25-45 L 74589-3) Monocytes (test code = 5.4 % 0-10 54793-3) Eosinophils (test code = 0.0 % 0-5 76099-9) Basophils (test code = 0.2 % 0-1 78888-3) Immature granulocytes 0.6 % 0-1 "Immat ure (test code = 52277-5) granul ocytes" (promyelocytes, myelocytes, metamyelocytes) Lab Interpretation (test Abnormal code = 67905-3) [facility] 1 Or 2 [id number] 14:05:05Hm Interface, Radiology Results 08/05/2019 2:08 PM CDTEXAMINATION: XR PELVIS 1 OR 2 VWCL INICAL HISTORY: Post operativeCOMPARISON: Pelvis x-ray from earlier todayIMPRESSION:Patient is status post right total hip arthroplasty. Acetabular cup and femoral component are in place and in anatomic alignment. There is no fracture. 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.[facility]- [id number] and approved byradiology resident/fellow: [place] Packer M.D.I, Raymon Morales MD, personally reviewed the images and resident's/fellow's findings and agree with the final report.[place] [id number] 11:38:35Aroldo Freeman-Herson, FLOOR NURSE 08/05/2019 11:39 AMAirwayDate/Time: 08/05/2019 11:23 AMPerformed by: Aroldo Freeman CRNAAuthorized by: Erika Wu MD Location: ORUrgency: ElectiveDifficult Airway: No Anesthesiologist: Erika Wu MDResident/FLOOR NURSE/AA: Aroldo Freeman CRNAPerformed by: resident/FLOOR NURSE/AAPreoxygenated with 100% O2: Yes C-spine Precautions Maintained Throughout: Yes Mask Ventilation: Not attemptedFinal Airway Type: Endotracheal airwayFinal Endotracheal Airway: ETTCuffed: Yes Technique Used: Video laryngoscopyInsertion Site: OralL aryngoscope Blade/Videolaryngoscope Blade Size: 4ETT Size (mm): 8.0Cuff at minimum occlusion pressure: Yes Measured from: LipsETT to Lips (cm): 25Placement Verified by: CO2 detection, direct visualization and equal breath sounds Laryngoscopic view: Grade I - full view of glottisRapid Sequence In duction (RSI): No Modified RSI: Yes Number of Attempts at Approach: 1 Smooth, atraumatic laryngoscopy; dentition intactPeru MethodistSpinal [id number] 10:49:22Erika Wu MD 08/05/2019 10:50 AMSpinal BlockDate/Time: 08/05/2019 10:47 AMPerformed by: Erika Wu MDAuthorized by: Erika Wu MD Patient Location: Pre-opStart Time: 08/05/2019 10:44 AMEnd Time: 08/05/2019 10:47 AMReason for Block: at surgeon's request Staff: Anesthesiologist: Erika Wu MD Performed by: AnesthesiologistPreprocedure: patient identified, IV checked, site and side verified, risks and benefits discussed, procedure verified, surgical consent complete, patient position confirmed, monitors and equipment checked, pre-op evaluationcomplete, timeout performed prior to procedure and coagulation status reviewed Spinal Block: Patient Position: Sitting Prep: Betadine Monitoring: Blood pressure monitoring, continuous pulse oximetry and heart rate Approach: Midline Interspace: L3-4Injection Technique: Single injectionNeed le: Needle Type: Pencil-tip Needle Gauge: 25 GAssessment: Block assessment: No apparent complications and patient tolerated procedure well Post procedure: Patient returned to supine positionNotes: X 1 attempt, @ 7cmMedications AdministeredBupivacaine 0.75% PF (mL), 0.8 mLHoumiriam Alevism Coronavirus SARS-CoV 22:46:01 Test Item Value Reference Range Interpretation Comments SARS-CoV-2 Nasopharyngeal Corrected res ult; source (test previously repo rted as code = 71696-4) Nasopharynge al Swab on 07/29/2019 at 1 0:47 by V/AUT SARS-CoV-2 by Not Detected NOT DETECTED - A PCR (test code negative resu lt does not = 43607-6) rule out the pr esence of PCR inhibitors in the patient specime n or assay specific nucleic acid in concent rations below the level of detection by th e assay.INTERPRET MALLORIE INFORMATION: 20 19 Novel Coronavirus KIMBERLY S-CoV-2 by PCRThis test should be ordered for the detection of th e 2019 novel coronavir us SARS-CoV-2 in individuals who meet SARS-CoV-2 clin ical and/or epidemio logical criteria.The 20 19 Novel Coronavirus KIMBERLY S-CoV-2 by PCR test is for in vitro diagnosti c use under the FDA E mergency Use Authorizati on (EUA) for laborato manisha certified under CLIA to perform high co mplexity tests. This pauline t has not been FDA cleare d or approved. In co mpliance with this autho rization, please visit [email or web address] [email or web address] for more information and to access the appl icable information sheets.Performe d by [employer] [id number] wlq .[employer], James farrell MD, Lab. Director Chon MethodistType and [id number] 14:13:00 Test Item Value Reference Range Interpretation Comments ABO grouping (test code = 883-9) A Rh type (test code = 15766-6) POS Antibody screen (gel) (test code = NEG 890-4) Chon MethodistECG Pre/Post [id number] 14:12:43 Test Item Value Reference Range Interpretation Comments Ventricular rate (test 67 code = 253) Atrial rate (test code 67 = 255) AR interval (test code 192 = 266) QRSD interval (test 92 code = 260) QT interval (test code 404 = 264) QTC interval (test code 426 = 265) P axis 1 (test code = 59 267) QRS axis 1 (test code = -11 268) T wave axis (test code 18 = 270) EKG impression (test Normal sinus code = 273) rhythm-Inferior infarct (cited on or before 29-JUL-2019)-Abnormal ECG-In automated comparison with ECG of 04-JUN-2019 11:47,-No significant change was found- Chon MethodistHemoglobin [id number] 13:42:34 Test Item Value Reference Range Interpretation Comments Hemoglobin A1C (test 8.2 % 4-5.6 H HbA1c c utoffs for code = 15054-9) diagnosing diabetes:4.0% - 5.6% = normal5.7% - 6.4% = increased risk for diabetes (prediabetes)9> =6.5% = [id number] s for glycemic contro l (ADA 2016)< 7.0% Ta rget for non adults with wally betes. More or less stringent targe ts may be appropriate for individual christy ents. <7.5% Target for Children and adolescents wit h type 1 diabetes. Lab Interpretation (test Abnormal code = 14393-1) Chon LopezistComprehensive metabolic [id number] 13:39:15 Test Item Value Reference Range Interpretation Comments Sodium (test code = 138 135- 148 mEq/L 2951-2) Potassium (test code = 4.8 3.5- 5.0 mEq/L 2823-3) Chloride (test code = 101 98- 112 mEq/L 5-0) CO2 (test code = 2027-9) 23 24- 31 mEq/L L Anion gap (test code = 14@ANIO 7- 15 mEq/L 73292-9) BUN (test code = 3094-0) 35 mg/dL 8-23 H Creatinine (test code = 2.26 mg/dL 0.7-1.2 H 2160-0) Glucose (test code = 234 mg/dL 65-99 H 2345-7) Calcium (test code = 9.5 mg/dL 8.8-10.2 86751-4) Protein (test code = 7.5 g/dL 6.3-8.3 -[place] n 2885-2) 4.6-7.0 g/dL1 week 4.4-7 .6 g/dL7 months-1y ear 5.1-7 .3 g/dL1-2 years 5.6-7 .5 g/dL>3 years 6.0-8 .0 g/fT59-511 6.3-8 .3 g/dL Albumin (test code = 3.6 g/dL 3.5-5 1751-7) A/G ratio (test code = 0.9 0.7-3.8 1759-0) Alkaline phosphatase 77 U/L 40-129 (test code = 6768-6) AST (test code = 1920-8) 19 U/L 10-50 ALT (test code = 1742-6) 25 U/L 5-50 Total bilirubin (test 0.4 mg/dL 0-1.2 code = 1974-2) Lab Interpretation (test Abnormal code = 75364-5) Chon MethodistPartial thromboplastin time, [id number] 13:17:30 Test Item Value Reference Range Interpretation Comments PTT (test code = 32.0 23.0- 36.0 [place] [address]-5) unfractionated heparin is61.0-112.0 se conds which corresponds to Anti-Xa0.3-0.7 U/ml. Chon MethodistProthrombin time with [id number] 13:16:46 Test Item Value Reference Range Interpretation Comments Prothrombin time (test 14.1 11.5- 14.5 sec code = 5902-2) INR (test code = 1.1 The Interna tional 62920-6) Normalized Rati o (INR) is a therapeutic m onitoring tool for patien ts who are stable on oral anticoagulant t herapy. An INR of 2.0-3.0 is suggested for d eep vein thrombosis/pulm onary embolism. Chon MethodistUrinalysis screen and microscopy, with reflex to culture 2019-07-29 12:39:13 Test Item Value Reference Range Interpretation Comments Specimen site (test code = Clean catch 0294109) Color, UA (test code = 5778-6) Straw Appearance, UA (test code = Clear 5767-9) Specific gravity, UA (test code = 1.022 1.001-1.035 5811-5) pH, UA (test code = 5803-2) 6.0 5.0-8.5 Protein, UA (test code = 05897-1) 1+ Negative A Glucose, UA (test code = 21794-8) 3+ Negative A Ketones, UA (test code = 2514-8) Negative Negative Bilirubin, UA (test code = Negative Negative 5770-3) Blood, UA (test code = 5794-3) Negative Negative Nitrite, UA (test code = 5802-4) Negative Negative Urobilinogen, UA (test code = <2.0 <2.0 25970-8) Leukocyte esterase, UA (test code Negative Negative = 5799-2) Epithelial cells, UA (test code = <1 /HPF 5787-7) Round epithelial cells, UA (test <1 0- 1 /HPF code = 48790-4) WBC, UA (test code = 5821-4) <1 0- 1 /HPF RBC, UA (test code = 22046-8) <1 0- 5 /HPF Bacteria, UA (test code = None seen None seen 61673-3) Yeast, UA (test code = 93821-3) None seen Yeast with pseudohyphae, UA (test None seen code = 48831-3) Lab Interpretation (test code = Abnormal 11618-8) Chon LopezDanish [id number] 12:37:54 Test Item Value Reference Range Interpretation Comments Urine culture (test SEE COMMENT Bacteriu justen screen code = 6755749) negative. Chon OrtaLarray Joint Arthrocentesis: hip, R hip [id number] 10:30:00 Dariel Angela MD 04/18/2019 11:42 AMLarge Joint Arthrocentesis: hip, R hip jointConsent given by: patientSite marked: site markedTimeout: Immediately prior to procedure a time out was called to verify the correct patient, procedure, equipment, mission support specialist and site/side marked as required Supporting DocumentationIndications: pain and diagnostic evaluation Procedure DetailsPreparation: Patient was prepped and draped in the usual sterile fashionUltrasound guided: yes Platelet Rich Plasma Used: no PRP Used Location: hip - R hip joint Right side:Needle size: 22 GApproach: anterolateralRighthip medications administered: 80 mg methylPREDNISolone acetate 40 mg/mLChon Orta
--- NOTE | 2019-08-27 17:28 | ER ---
Nurse's Notes [facility] Name: Kendrick Worley Age: 78 yrs Sex: Male : 1940 Arrival Date: 08/27/2019 Time: 10:47 Bed 3 Private MD: Diagnosis: Pain in left hip;Weakness Presentation: 08/26 10:47 Chief complaint: EMS states: NON-WEIGHT BEARING AFTER D/C FROM REHAB S/P R TOTAL HIP 2 bp WK AGO. ORTHO SURGEON RECOMMENDED EMS TRANSPORT TO LOCAL HOSPITAL AND TRANSFER TO [facility]. Coronavirus screen: Proceed with normal triage. Ebola Screen: No symptoms or risks identified at this time. Initial Sepsis Screen: Does the patient meet any 2 criteria? No. Patient's initial sepsis screen is negative. Does the patient have a suspected source of infection? No. Patient's initial sepsis screen is negative. Risk Assessment: Do you want to hurt yourself or someone else? Patient reports no desire to harm self or others. Onset of symptoms is unknown. 10:47 Method Of Arrival: EMS: [facility] bp 10:47 Acuity: SHERLEY 3 bp Triage Assessment: 10:51 General: Appears in no apparent distress. uncomfortable, Behavior is calm, cooperative, bp appropriate for age. Pain: Complains of pain in right hip. EENT: No deficits noted. Neuro: No deficits noted. Cardiovascular: No deficits noted. Respiratory: No deficits noted. GI: No signs and/or symptoms were reported involving the gastrointestinal system. : No signs and/or symptoms were reported regarding the genitourinary system. Derm: No deficits noted. Musculoskeletal: Range of motion: limited in right hip. Historical: - Allergies: 10:51 Morphine (Hallucinations); bp 10:51 Bactrim; bp - Home Meds: 11:03 metoprolol tartrate 25 mg Oral tab 1 tab once daily [Active]; cefuroxime axetil 250 mg bp Oral tab 1 tab 2 times per day [Active]; lisinopril 5 mg Oral tab 1 tab once daily [Active]; montelukast 10 mg oral tab 1 tab once daily [Active]; gabapentin 100 mg oral cap 3 caps 3 times per day [Active]; levothyroxine 50 mcg tab 1 tab once daily [Active]; tamsulosin 0.4 mg oral cp24 1 cap once daily [Active]; Farxiga 10 mg oral tab 1 tab once daily [Active]; Plavix 75 mg oral tab 1 tab once daily [Active]; - PMHx: 10:51 Diabetes - IDDM; Myocardial infarction; bp - Immunization history:: Adult Immunizations up to date. - Social history:: Smoking status: Patient denies any tobacco usage or history of. Screenin:53 Abuse screen: Denies threats or abuse. Denies injuries from another. Nutritional bp screening: No deficits noted. Tuberculosis screening: No symptoms or risk factors identified. Fall Risk None identified. Assessment: 10:53 General: SEE TRIAGE NOTE. bp 12:15 Reassessment: PT TO RADIOLOGY. bp 14:21 Reassessment: ALL CURRENT ORDERS COMPLETED, RESPONSE FROM ORTHO SURGEON PENDING. bp 15:00 Reassessment: MANAGER SIX SIGMA CONSULTED. RE-AFFIRMS INABILITY TO CARE FOR PT AT bp HOME. 16:46 Reassessment: DISCUSSION FOR DISPOSITION REMAINS IN PROCESS. VS STABLE. bp 17:29 Reassessment: SOCIAL ADMIT IN PROCESS FOR SNF PLACEMENT. bp 20:13 Reassessment: Patient appears in no apparent distress at this time. Patient and/or mg2 family updated on plan of care and expected duration. Pain level reassessed. Patient is alert, oriented x 3, equal unlabored respirations, skin warm/dry/pink. 21:38 Reassessment: Patient appears in no apparent distress at this time. No changes from mg2 previously documented assessment. 21:56 Reassessment: Report given to Olimpia GONZALES on second floor. ea Vital Signs: 10:47 BP 150 / 75; Pulse 75; Resp 16; Temp 98; Pulse Ox 95% ; bp 12:15 BP 121 / 60; Pulse 66; Resp 15; Pulse Ox 97% ; bp 14:18 BP 117 / 65; Pulse 71; Resp 15; Pulse Ox 98% ; bp 15:30 BP 120 / 62; Pulse 67; Resp 15; Pulse Ox 98% ; bp 16:30 BP 137 / 67; Pulse 69; Resp 16; Pulse Ox 98% ; bp 17:29 BP 134 / 70; Pulse 70; Resp 16; Pulse Ox 98% ; bp 20:13 BP 121 / 69; Pulse 84; Resp 18; Pulse Ox 97% on R/A; mg2 21:34 BP 131 / 88; Pulse 79; Resp 18; Pulse Ox 96% on R/A; mg2 ED Course: 10:47 Patient arrived in ED. bp 10:50 Triage completed. bp 10:51 Arm band placed on. bp 10:53 Patient has correct armband on for positive identification. Bed in low position. Call bp light in reach. Side rails up X2. 10:59 Kiran Jacinto MD is Attending Physician. kdr 11:00 Raul Long, RN is Primary Nurse. bp 12:36 Hip Right 2 View XRAY In Process Unspecified. EDMS 15:00 Awaiting: Case Management contacted for help with options for patient regarding dm5 alternative discharge options because family does not feel that they can adequately care for the patient at home. Catrachita Childers states that she will send Cassie to speak with patient and family. 15:30 Social work Spoke with Cassie Brady with social work. Pt already has an authorization dm5 pending to go to [facility]. After speaking with Lor Mcmahon and Cassie Brady, the pt does not qualify for admission to rehab as patient has already had a rehab admission. is concerned because she is unable to care for patient at home. Dr. Jacinto notified. 16:30 Spoke with the home health nurse of the patient. They are scheduled to see the patient dm5 3 times a week. Notified home health nurse that the disposition decision is still pending but that the would like the patient to go to [facility] instead of [facility]. [employer] is who opened the authorization for the SNF placement earlier this week. Nurse stated she would contact the patient's . Dr. Jacinto notified. 17:26 Lowell Singer MD is Hospitalizing Provider. kdr 18:45 Inserted saline lock: 20 gauge in right antecubital area, using aseptic technique. bp Blood collected. 19:18 CT Head Brain wo Cont In Process Unspecified. EDMS 20:14 No provider procedures requiring assistance completed. Patient admitted, IV remains in mg2 place. 21:38 Hospitalizing Provider role handed off by Lowell Singer MD tl1 21:38 Abe Basilio MD is Hospitalizing Provider. tl1 21:39 Door closed. Warm blanket given. Assisted with urinal. mg2 Administered Medications: 21:55 Drug: [place] 5 mg-325 mg 1 tabs {Note: RASS 0.} Route: PO; ea 22:21 Follow up: Response: No adverse reaction; RASS: Alert and Calm (0) ea Outcome: 17:27 Decision to Hospitalize by Provider. kdr 21:56 Condition: stable ea 21:56 Instructed on the need for admit, Demonstrated understanding of instructions. 21:57 Admitted to Med/surg accompanied by tech, room 231, with chart, Report called to Olimpia izaguirre RN 22:21 Patient left the ED. ea Signatures: Dispatcher [employer] EDMarina Meza, RN RN dm5 Kiran Jacinto MD MD kdr Lasagna, Tonya RN RN tl1 Olimpia Boo RN RN Raul Bryant, RN RN Brooks Carmona RN RN mg2 Corrections: (The following items were deleted from the chart) 14:24 14:18 Pulse 71bpm; Resp 15bpm; Pulse Ox 98%; bp bp
--- NOTE | 2019-08-27 17:28 | EDPHYS ---
Physician Documentation [facility] Name: Kendrick Worley Age: 78 yrs Sex: Male : 1940 Arrival Date: 08/27/2019 Time: 10:47 Bed 3 Private MD: ED Physician Kiran Jacinto HPI: 08/26 11:26 This 78 yrs old Male presents to ER via EMS with complaints of Post Surgical kdr Pain. 11:26 The patient was sent home from rehab last Josse from rehab but has been unable to kdr stand or bear weight on his right leg since. He had a right hip replacement on the .. Onset: The symptoms/episode began/occurred at an unknown time. Severity of symptoms: At their worst the symptoms were moderate incapacitating in the emergency department the symptoms have resolved At rest in bed, he is having minimal discomfort. The patient has not experienced similar symptoms in the past. The patient has been recently seen by a physician: Orthopedics. Historical: - Allergies: 10:51 Morphine (Hallucinations); bp 10:51 Bactrim; bp - Home Meds: 11:03 metoprolol tartrate 25 mg Oral tab 1 tab once daily [Active]; cefuroxime axetil 250 mg bp Oral tab 1 tab 2 times per day [Active]; lisinopril 5 mg Oral tab 1 tab once daily [Active]; montelukast 10 mg oral tab 1 tab once daily [Active]; gabapentin 100 mg oral cap 3 caps 3 times per day [Active]; levothyroxine 50 mcg tab 1 tab once daily [Active]; tamsulosin 0.4 mg oral cp24 1 cap once daily [Active]; Farxiga 10 mg oral tab 1 tab once daily [Active]; Plavix 75 mg oral tab 1 tab once daily [Active]; - PMHx: 10:51 Diabetes - IDDM; Myocardial infarction; bp - Immunization history:: Adult Immunizations up to date. - Social history:: Smoking status: Patient denies any tobacco usage or history of. ROS: 11:26 Constitutional: Negative for fever, chills, and weight loss, Eyes: Negative for injury, kdr pain, redness, and discharge, Neck: Negative for injury, pain, and swelling, Cardiovascular: Negative for chest pain, palpitations, and edema, Respiratory: Negative for shortness of breath, cough, wheezing, and pleuritic chest pain, Abdomen/GI: Negative for abdominal pain, nausea, vomiting, diarrhea, and constipation, Back: Negative for injury and pain. 11:26 MS/extremity: Positive for of the right hip. Exam: 11:26 Constitutional: This is a well developed, well nourished patient who is awake, alert, kdr and in no acute distress. Head/Face: Normocephalic, atraumatic. 11:26 Musculoskeletal/extremity: Well healing incision on the right lateral hip. Vital Signs: 10:47 BP 150 / 75; Pulse 75; Resp 16; Temp 98; Pulse Ox 95% ; bp 12:15 BP 121 / 60; Pulse 66; Resp 15; Pulse Ox 97% ; bp 14:18 BP 117 / 65; Pulse 71; Resp 15; Pulse Ox 98% ; bp 15:30 BP 120 / 62; Pulse 67; Resp 15; Pulse Ox 98% ; bp 16:30 BP 137 / 67; Pulse 69; Resp 16; Pulse Ox 98% ; bp 17:29 BP 134 / 70; Pulse 70; Resp 16; Pulse Ox 98% ; bp 20:13 BP 121 / 69; Pulse 84; Resp 18; Pulse Ox 97% on R/A; mg2 21:34 BP 131 / 88; Pulse 79; Resp 18; Pulse Ox 96% on R/A; mg2 MDM: 17:27 Patient medically screened. kdr 18:24 Data reviewed: vital signs, nurses notes, radiologic studies. Counseling: I had a kdr detailed discussion with the patient and/or guardian regarding: the historical points, exam findings, and any diagnostic results supporting the discharge/admit diagnosis, lab results, radiology results, the need for outpatient follow up. 18:25 ED course: After significant effort by nursing staff to place patient in new rehab kdr situation, they were not able to accomplish this. Therefore, since the could not manage the patient at home, the only option was to admit the patient for observation. SNIF unit placement had begun yesterday and hopefully will be completed soon to allow for discharge and proper placement. I had spoken with Dr Whitehead from [facility] [place] who indicated that he was very familiar with the patient and in fact they had seen him five days ago and no reason could currently be found to warrant transfer and/or admission.. 08/26 14:49 Order name: Glucose, Ancillary Testing; Complete Time: 21:52 EDMS 08/26 16:43 Order name: Urine Dipstick--Ancillary (enter results); Complete Time: 21:52 bd 08/26 11:26 Order name: Hip Right 2 View XRAY; Complete Time: 13:18 kdr 08/26 18:25 Order name: CBC with Diff; Complete Time: 21:52 kdr 08/26 18:25 Order name: Chem 7; Complete Time: 21:52 kdr 08/26 18:25 Order name: CT Head Brain wo Cont; Complete Time: 21:52 kdr 08/26 14:09 Order name: Social Service Consult EDMS Administered Medications: 21:55 Drug: [place] 5 mg-325 mg 1 tabs {Note: RASS 0.} Route: PO; ea 22:21 Follow up: Response: No adverse reaction; RASS: Alert and Calm (0) ea Disposition: 08/27/19 17:27 Hospitalization ordered by Abe Basilio for Observation. Preliminary diagnosis are Pain in left hip, Weakness. - Bed requested for Telemetry/MedSurg (observation). - Status is Observation. ea - Condition is Fair. - Problem is an ongoing problem. - Symptoms are unchanged. Signatures: Dispatcher [employer] EDMS Kiran Jacinto MD MD kdr Lasagna, Tonya RN RN tl1 Harris Allen, [employer] pm1 Olimpia Boo RN RN Raul Bryant RN RN Jolie Bernstein mw2 Corrections: (The following items were deleted from the chart) 21:38 17:27 Hospitalization Ordered by Lowell Singer MD for Observation. Preliminary tl1 diagnosis is Pain in left hip; Weakness. Bed requested for Telemetry/MedSurg (observation). Status is Observation. Condition is Fair. Problem is an ongoing problem. Symptoms are unchanged. kdr 21:46 21:38 08/27/2019 17:27 Hospitalization Ordered by Abe Basilio MD for Observation. mw2 Preliminary diagnosis is Pain in left hip; Weakness. Bed requested for Telemetry/MedSurg (observation). Status is Observation. Condition is Fair. Problem is an ongoing problem. Symptoms are unchanged. tl1 22:21 21:46 08/27/2019 17:27 Hospitalization Ordered by Abe Basilio MD for Observation. ea Preliminary diagnosis is Pain in left hip; Weakness. Bed requested for Telemetry/MedSurg (observation). Status is Observation. Condition is Fair. Problem is an ongoing problem. Symptoms are unchanged. mw2
[2019-08-27 19:05] LABS: Absolute Lymphocytes (CBC) 1.5 K/uL (0.7-4.9); Basophils % 0.9 % (0-1.3); Hematocrit 43.9 % (39.6-49.0); Lymphocytes % 14.2 % (15.3-44.8); MPV 6.7 fL (7.6-11.3); RBC Red Blood Cell Count 5.11 M/uL (4.33-5.43)
[2019-08-27 19:11] LABS: Potassium 5.3 mmol/L (3.5-5.1)
--- NOTE | 2019-08-27 19:26 | RAD REPORT ---
EXAM DESCRIPTION: CT - Head Brain Wo Cont - 08/27/2019 7:17 pm CLINICAL HISTORY: WEAKNESS COMPARISON: Head Brain Wo Cont dated 05/30/2019 TECHNIQUE: Axial 5 mm thick images of the head were obtained without IV contrast. All CT scans are performed using dose optimization technique as appropriate and may include automated exposure control or mA/KV adjustment according to patient size. FINDINGS: No intracranial hemorrhage, mass, edema or shift of mid-line structures. No acute infarcti on changes seen. Prominent atrophy changes are present. Ventricles are in proportion to the amount of volume loss. Patient also has prominent chronic ischemic change in the cerebral white matter. Arteri al and physiologic calcifications are present. Vertebrobasilar tortuosity noted. Mastoid air cells and visualized portions of the paranasal sinuses are clear. No acute bony findings. IMPRESSION: Prominent atrophy and chronic ischemic change similar to comparison. Ventricles are in p roportion to volume loss. No acute intracranial finding. Chronic ischemic changes can mask nonhemorrhagic acute infarction. MR brain followup can be obtained if there is ongoing concern for acute ischemia.
[2019-08-27 20:43] LABS: Urine Blood NEGATIVE (NEG); Urine Glucose 2+ (NEG); Urine Protein NEGATIVE (NEG); Urine pH 5.5 (5.0-7.0)
[2019-08-27] MEDS ORDERED: HYDROCODONE/APAP 5/325 MG TAB ONE (21:59)
[2019-08-27 22:30] VITALS: BMI 28.3
[2019-08-27] MEDS ORDERED: GLUCAGON 1 MG/VIAL IM PRN (22:42)
[2019-08-27] MEDS ORDERED: HYDROCODONE/APAP 5/325 MG TAB PO PRN (22:42)
[2019-08-27] MEDS ORDERED: D50W 25 GM/50 ML SYRINGE/VIAL IV PRN (22:42)
[2019-08-28 05:44] LABS: Absolute Lymphocytes (CBC) 1.6 K/uL (0.7-4.9); Basophils % 1.2 % (0-1.3); Hematocrit 41.9 % (39.6-49.0); Lymphocytes % 19.6 % (15.3-44.8); MPV 6.4 fL (7.6-11.3); RBC Red Blood Cell Count 4.91 M/uL (4.33-5.43)
[2019-08-28 06:00] LABS: Potassium 5.2 mmol/L (3.5-5.1)
[2019-08-28] MEDS: INSULIN -REGULAR HUMAN 50 UNIT/0.5 ML ML SQ SCH ×4 (07:30→21:00)
--- NOTE | 2019-08-28 09:14 | P.CNS ---
Date of Consult: 08/28/19 Chief Complaint: Generalized weakness Allergies sulfamethoxazole [From Bactrim] Allergy (Intermediate, Verified 03/20/19 17:30) Hives trimethoprim [From Bactrim] Allergy (Intermediate, Verified 03/20/19 17:30) Hives morphine Allergy (Verified 03/20/19 17:30) Itching No Known Drug Allergies Allergy (Verified 03/20/19 17:17) Unknown Home Medications: Atorvastatin Calcium 20 mg PO BEDTIME 01/01/18 Clopidogrel Bisulfate [Plavix*] 75 mg PO DAILY 01/01/18 Levothyroxine [Synthroid*] 50 mcg PO [id number] 01/01/18 Metoprolol Succinate [Toprol Xl*] 25 mg PO BEDTIME 01/01/18 Tamsulosin [Flomax*] 0.4 mg PO BID 01/01/18 Tramadol HCl [Ultram] 50 mg PO Q6H PRN 01/01/18 lisinopriL [Lisinopril] 5 mg PO DAILY 01/01/18 Gabapentin [Neurontin*] 100 mg PO BEDTIME 12/01/18 Insulin Aspart [Novolog] 15 units SQ SEECOM 12/01/18 Insulin Detemir [Levemir Flextouch] 40 units SQ BEDTIME 12/01/18 Dapagliflozin Propanediol [Farxiga] 1 tab PO DAILY 03/21/19 Cefuroxime Axetil [Cefuroxime] 250 mg PO DAILY 08/27/19 Montelukast [Singulair*] 10 mg PO DAILY 08/27/19 Tamsulosin [Flomax*] 1 cap PO DAILY 08/27/19 - Past Medical/Surgical History Diabetic: Yes -: MT -: DM -: kidney, bladder cancer -: kidney removal -: knee surgery -: right elbow surgery -: STENT PLACEMENT 3YRS AGO -: KNEE REPLACEMENT -: Hip surgery 08/04 - Family History Father Medical History: Lung disease, Cancer Mother History Unknown: Yes Notes: no known medical condition - Social History Smoking Status: Unknown if ever smoked Alcohol use: No CD- Drugs: No Caffeine use: Yes Place of Residence: Home Physical Examination Temp Pulse Resp BP Pulse Ox 97.6 F 81 12 133/57 L 96 08/28/19 02:42 08/28/19 02:42 08/28/19 02:42 08/28/19 02:42 08/28/19 02:42 Laboratory Data (last 24 hrs) 08/27/19 18:45: Sodium 136, Potassium 5.3 H, BUN 48 H, Creatinine 2.18 H, Glucose 141 H 08/27/19 18:45: WBC 10.6, Hgb 14.0, Hct 43.9, Plt Count 300
[2019-08-28] MEDS: Ringers Lactate 1,000 ML IV SCH ×2 (10:24→20:00)
--- NOTE | 2019-08-28 14:37 | P.HP ---
Certification for Inpatient Patient admitted to: Observation With expected LOS: <2 Midnights Practitioner: I am a practitioner with admitting privileges, knowledge of patient current condition, hospital course, and medical plan of care. Services: Services provided to patient in accordance with Admission requirements found in Title 42 Section 412.3 of the Code of Federal Regulations Patient History Date of Service: 08/28/19 Reason for admission: ACHY AND SNEEZING FOR TWO WEEKS. History of Present Illness: MR CROSS HAD HIP SURGERY AT [facility] OR [place] ABOUT TWO WEEKS AGO. HE TESTED NEG FOR COVID AT THAT TIME. SINCE THEN HE IS ACHY ALL OVER AND HAS SNEEZES. HE DOES NOT HAVE FEVER. Allergies sulfamethoxazole [From Bactrim] Allergy (Intermediate, Verified 03/20/19 17:30) Hives trimethoprim [From Bactrim] Allergy (Intermediate, Verified 03/20/19 17:30) Hives morphine Allergy (Verified 03/20/19 17:30) Itching No Known Drug Allergies Allergy (Verified 03/20/19 17:17) Unknown Home Medications: Atorvastatin Calcium 20 mg PO BEDTIME 01/01/18 Clopidogrel Bisulfate [Plavix*] 75 mg PO DAILY 01/01/18 Levothyroxine [Synthroid*] 50 mcg PO [id number] 01/01/18 Metoprolol Succinate [Toprol Xl*] 25 mg PO BEDTIME 01/01/18 Tamsulosin [Flomax*] 0.4 mg PO BID 01/01/18 Tramadol HCl [Ultram] 50 mg PO Q6H PRN 01/01/18 lisinopriL [Lisinopril] 5 mg PO DAILY 01/01/18 Gabapentin [Neurontin*] 100 mg PO BEDTIME 12/01/18 Insulin Aspart [Novolog] 15 units SQ SEECOM 12/01/18 Insulin Detemir [Levemir Flextouch] 40 units SQ BEDTIME 12/01/18 Dapagliflozin Propanediol [Farxiga] 1 tab PO DAILY 03/21/19 Cefuroxime Axetil [Cefuroxime] 250 mg PO DAILY 08/27/19 Montelukast [Singulair*] 10 mg PO DAILY 08/27/19 Tamsulosin [Flomax*] 1 cap PO DAILY 08/27/19 - Past Medical/Surgical History Has patient received pneumonia vaccine in the past: Yes Diabetic: Yes -: DE -: DM -: kidney, bladder cancer -: kidney removal -: knee surgery -: right elbow surgery -: STENT PLACEMENT 3YRS AGO -: KNEE REPLACEMENT -: Hip surgery 08/04 - Family History Father -: Lung disease, Cancer Mother History Unknown: Yes Notes: no known medical condition - Social History Smoking Status: Former smoker Alcohol use: No CD- Drugs: No Caffeine use: Yes Place of Residence: Home Review of Systems 10-point ROS is otherwise unremarkable General: Weakness, Malaise Physical Examination - Vital Signs Temperature: 98.1 F Blood Pressure: 133/71 Pulse: 77 Respirations: 17 Pulse Ox (%): 99 - Physical Exam General: Mild distress, Obese HEENT: Atraumatic, PERRLA, Mucous membr. moist/pink, EOMI, Sclerae nonicteric Neck: Supple, 2+ carotid pulse no bruit, No LAD, Without JVD or thyroid abnormality Respiratory: Clear to auscultation bilaterally, Normal air movement Cardiovascular: Regular rate/rhythm, Normal S1 S2 Gastrointestinal: Normal bowel sounds, No tenderness Musculoskeletal: No tenderness Integumentary: No rashes Neurological: Normal gait, Normal speech, Normal strength at 5/5 x4 extr, Normal tone, Normal affect Lymphatics: No axilla or inguinal lymphadenopathy - Studies Laboratory Data (last 24 hrs) 08/27/19 18:45: Sodium 136, Potassium 5.3 H, BUN 48 H, Creatinine 2.18 H, Glucose 141 H 08/27/19 18:45: WBC 10.6, Hgb 14.0, Hct 43.9, Plt Count 300 Assessment and Plan - Problems (Diagnosis) (1) Myalgia Current Visit: Yes Status: Acute Plan: RULE OUT COVID 19 INFECTION. HIS RISK FACTOR IS THAT HE HAS BEEN TO [place]. (2) General weakness Current Visit: Yes Status: Chronic Plan: HIS DIFFUSE WEAKNESS HAS BEEN CHECKED BY ME AND NEUROLOGIST. HE HAS LOW T BUT INJECTIONS REALLY DID NOT HELP . WILL CONTINUE INVESTIGATIONS. REFER TO CVC PER FAMILY. - Advance Directives Does patient have a Living Will: Yes Does patient have a Durable POA for Healthcare: Yes
[2019-08-28 21:48] LABS: Potassium 4.9 mmol/L (3.5-5.1)
[2019-08-28] MEDS: METOPROLOL XL 25 MG TAB PO SCH (23:25)
[2019-08-28] MEDS: GABAPENTIN 100 MG CAP PO SCH (23:25)
[2019-08-28 23:36] LABS: C-Reactive Protein 84.2 mg/L (<3.00); Thyroid Stimulating Hormone 2.5 uIU/mL (0.360-3.740)
[2019-08-29] MEDS: LEVOTHYROXINE SOD 0.05 MG TABLET PO SCH (05:33)
[2019-08-29] MEDS: INSULIN -REGULAR HUMAN 50 UNIT/0.5 ML ML SQ SCH ×4 (07:30→21:49)
[2019-08-29] MEDS: CLOPIDOGREL 75 MG TABLET PO SCH (08:03)
[2019-08-29] MEDS: MONTELUKAST 10 MG TAB PO SCH (08:03)
[2019-08-29] MEDS: TAMSULOSIN 0.4 MG SR CAP PO SCH (08:03)
[2019-08-29] MEDS ORDERED: lisinopriL 5 MG TAB PO SCH (09:00)
[2019-08-29] MEDS: POLYETHYL GLY 3350 17 GM/DOSE PO PRN (09:17)
[2019-08-29 09:57] LABS: Absolute Lymphocytes (CBC) 1.4 K/uL (0.7-4.9); Basophils % 0.9 % (0-1.3); Hematocrit 40.7 % (39.6-49.0); Lymphocytes % 16.9 % (15.3-44.8); MPV 6.4 fL (7.6-11.3); RBC Red Blood Cell Count 4.78 M/uL (4.33-5.43)
[2019-08-29 10:07] LABS: Potassium 4.7 mmol/L (3.5-5.1)
[2019-08-29] MEDS: dexAMETHasone 4 MG/ML VIAL IV SCH ×2 (11:27→17:03)
[2019-08-29] MEDS: TRAMADOL HCL 50 MG TAB PO PRN ×2 (11:28→21:50)
[2019-08-29] MEDS: NACHLORIDE 0.45% 1,000 ML IV SCH (18:08)
--- NOTE | 2019-08-29 19:34 | RAD REPORT ---
EXAM DESCRIPTION: US - Urinary Bladder - 08/29/2019 6:48 pm CLINICAL HISTORY: CKD. CHECK FOR POST VOID RESIDUAL. Pelvic pain COMPARISON: No comparisons TECHNIQUE: Real-time sonographic evaluation of the urinary bladder with pre and postvoid volume ger urements was performed. FINDINGS: No urinary bladder mass or ureterocele seen. Prevoid bladder volume 290 mL. Postvoid bladder volume 280 mL. IMPRESSION: Significant postvoid residual.
[2019-08-29] MEDS ORDERED: INSULIN GLARGINE 100 UNITS/ML SQ SCH (21:00)
[2019-08-29] MEDS ORDERED: INSULIN LISPRO 100 UNIT/1 ML SQ SCH (21:00)
[2019-08-29] MEDS: METOPROLOL XL 25 MG TAB PO SCH (21:51)
[2019-08-29] MEDS: GABAPENTIN 100 MG CAP PO SCH (21:51)
--- NOTE | 2019-08-29 22:06 | PN ---
Subjective: Mr. Ramsay is stable. Denies chest pain, nausea, vomiting. He is generally weak. He h as aching all over, he says. His COVID-19 test is negative. Physical Examination: Vital Signs: Blood pressure 122/66, pulse 72, temperature 97.9. HEENT: No JVD. No carotid bruits. Physically, he is clinically stable. Laboratory Data: BUN is 53, creatinine 2.33, slightly higher than before. His CRP is high at 84. S edimentation rate high at 53 and testosterone low at 66. Assessment And Plan: 1.This gentleman, I believe is suffering from polymyalgia rheumatica. I have given him steroid dose starting today, I will be changing over to oral medications tomorrow. He may or may not improve. I n the past, we have discussed this planning before. He has never had a treatment with steroids befor e because he never had this high sedimentation rate and CRP before. 2.Testosterone deficiency. Again, at this age of 78, it is not unusual. I have given him testoster one injections before, but that made of no difference in his physical ability in the past. 3.Diabetes. We will be continuing to watch his sugar. Sugar will go up with treatment of steroids and he will have to control this. I recommend skilled nursing for him at this point. The patient's wif e who is not able to take care of her in agreement. She is looking for skilled nursing now. 4.Acute on chronic renal failure. I will start patient on small dose of gentle hydration, avoiding RL because patient is diabetic. We will put him on half-normal saline at 50 cc/hour. His prognosis remains overall guarded. RVD/MODL Voice ID: [id number] Report ID: [id number]
[2019-08-30] MEDS: LEVOTHYROXINE SOD 0.05 MG TABLET PO SCH (05:29)
[2019-08-30] MEDS: INSULIN -REGULAR HUMAN 50 UNIT/0.5 ML ML SQ SCH ×4 (07:30→20:22)
[2019-08-30] MEDS: CLOPIDOGREL 75 MG TABLET PO SCH (08:10)
[2019-08-30] MEDS: MONTELUKAST 10 MG TAB PO SCH (08:10)
[2019-08-30] MEDS: TAMSULOSIN 0.4 MG SR CAP PO SCH (08:11)
[2019-08-30] MEDS: predniSONE 20 MG TAB PO SCH (08:12)
[2019-08-30] MEDS: POLYETHYL GLY 3350 17 GM/DOSE PO PRN (08:27)
[2019-08-30 13:35] LABS: Absolute Lymphocytes (CBC) 0.7 K/uL (0.7-4.9); Basophils % 0.3 % (0-1.3); Hematocrit 39.9 % (39.6-49.0); Lymphocytes % 6.6 % (15.3-44.8); MPV 6.6 fL (7.6-11.3); RBC Red Blood Cell Count 4.68 M/uL (4.33-5.43)
[2019-08-30 13:43] LABS: Potassium 4.5 mmol/L (3.5-5.1)
[2019-08-30] MEDS: NACHLORIDE 0.45% 1,000 ML IV SCH (16:13)
--- NOTE | 2019-08-30 19:22 | PN ---
Subjective: Mr. Worley is feeling lot better. He has no pain any longer. Physical Examination: Chest: Clear. Heart: Regular. Abdomen: No guarding, no rebound, no rigidity. Vital signs: Blood pressure 132/62. Laboratory Data: Lab examination show signs of polymyalgia rheumatica with elevated sedimentation ra te and CRP. Creatinine has come down to 0.21. Assessment Plannin.Polymyalgia rheumatica, steroid affective again. He is a diabetic, so I will be raising the insul in according to the need with chronic steroid therapy. He should be able to ambulate hopefully in a day or two with Polymyalgia rheumatica therapy. 2.Testicular deficiency. The patient has not done well with therapy in the past with injectable pauline tosterone, so I will leave it alone if we do not have to. 3.Diabetes mellitus as above. 4.Renal insufficiency. 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 Uropathy is [id number] at this point, I will avoid placement of Henao catheter permanently on him. He is not a candidate for prostatectomy also. Prognosis remains overall guarded. Discussed wi th patient's . RVD/MODL Voice ID: [id number] Report ID: [id number]
[2019-08-30] MEDS: METOPROLOL XL 25 MG TAB PO SCH (20:21)
[2019-08-30] MEDS: GABAPENTIN 100 MG CAP PO SCH (20:21)
[2019-08-30] MEDS: INSULIN LISPRO 100 UNIT/1 ML SQ SCH (20:22)
[2019-08-30] MEDS: INSULIN GLARGINE 100 UNITS/ML SQ SCH (20:22)
[2019-08-30] MEDS: TRAMADOL HCL 50 MG TAB PO PRN (20:32)
[2019-08-30 21:08] LABS: Blood Morphology Comment NOT SEEN (NOT SEEN); Platelet Estimate ADEQ; Urine White Blood Cell Casts OK
[2019-08-31] MEDS: LEVOTHYROXINE SOD 0.05 MG TABLET PO SCH (04:56)
[2019-08-31 06:17] LABS: Absolute Lymphocytes (CBC) 1.8 K/uL (0.7-4.9); Basophils % 0.2 % (0-1.3); Hematocrit 36.9 % (39.6-49.0); Lymphocytes % 19.3 % (15.3-44.8); MPV 6.7 fL (7.6-11.3); RBC Red Blood Cell Count 4.38 M/uL (4.33-5.43)
[2019-08-31 06:53] LABS: Potassium 4.2 mmol/L (3.5-5.1)
[2019-08-31] MEDS: INSULIN -REGULAR HUMAN 50 UNIT/0.5 ML ML SQ SCH ×4 (07:30→20:43)
[2019-08-31] MEDS: predniSONE 20 MG TAB PO SCH (08:07)
[2019-08-31] MEDS: MONTELUKAST 10 MG TAB PO SCH (08:07)
[2019-08-31] MEDS: TAMSULOSIN 0.4 MG SR CAP PO SCH (08:07)
[2019-08-31] MEDS: CLOPIDOGREL 75 MG TABLET PO SCH (08:07)
[2019-08-31] MEDS: NACHLORIDE 0.45% 1,000 ML IV SCH (12:02)
[2019-08-31] MEDS: TRAMADOL HCL 50 MG TAB PO PRN (17:26)
[2019-08-31] MEDS: METOPROLOL XL 25 MG TAB PO SCH (20:42)
[2019-08-31] MEDS: GABAPENTIN 100 MG CAP PO SCH (20:43)
[2019-08-31] MEDS: INSULIN LISPRO 100 UNIT/1 ML SQ SCH (20:43)
[2019-08-31] MEDS: INSULIN GLARGINE 100 UNITS/ML SQ SCH (20:44)
--- NOTE | 2019-09-01 00:02 | PN ---
Subjective: Mr. Worley is doing a lot better. His pain is improved. Denies any chest pain, nausea , vomiting. Physical Examination: He is still generally weak, able to ambulate with assistance, but he has a fall risk. We are waiting for insurance company to approve or disapprove his long-term facility. He has to stay here un til they decide because his who has a pain pump is not able to take care of him at home. Assessment And Plan: 1.Polymyalgia rheumatica. Continue medication prednisone 20 mg once a day. This will show some imp rovement. I told the to bring the testosterone injections from home, so we can start that here. 2.Lesion in the mouth at the back of the gum. He has pointed out today he has an ulcer there, which needs to be actually looked at by an ENT doctor on an outpatient basis as we do not have ENT special ist on a daily basis here at the hospital. FRANCES/NARGIS Voice ID: [id number] Report ID: [id number]
[2019-09-01 05:52] LABS: Absolute Lymphocytes (CBC) 1.8 K/uL (0.7-4.9); Basophils % 0.2 % (0-1.3); Hematocrit 35.7 % (39.6-49.0); Lymphocytes % 23.7 % (15.3-44.8); MPV 6.5 fL (7.6-11.3); RBC Red Blood Cell Count 4.22 M/uL (4.33-5.43)
[2019-09-01] MEDS: NACHLORIDE 0.45% 1,000 ML IV SCH ×2 (06:00→08:16)
[2019-09-01 06:13] LABS: Potassium 4.5 mmol/L (3.5-5.1)
[2019-09-01] MEDS: LEVOTHYROXINE SOD 0.05 MG TABLET PO SCH (06:20)
[2019-09-01] MEDS: INSULIN -REGULAR HUMAN 50 UNIT/0.5 ML ML SQ SCH ×4 (07:30→21:00)
[2019-09-01] MEDS: MONTELUKAST 10 MG TAB PO SCH (08:15)
[2019-09-01] MEDS: predniSONE 20 MG TAB PO SCH (08:15)
[2019-09-01] MEDS: CLOPIDOGREL 75 MG TABLET PO SCH (08:15)
[2019-09-01] MEDS: TAMSULOSIN 0.4 MG SR CAP PO SCH (08:15)
--- NOTE | 2019-09-01 20:33 | PN ---
Subjective: Mr. Worley is a deconditioned old gentleman who has severe testicular deficiency, polym yalgia rheumatica, diabetes mellitus, possible parkinsonian syndrome according to Dr. Díaz who has not been able to walk properly for the last few years, worse now since his hip surgery. He also has some mild pain now. He showed me there is an ulcer which is not healing for the last few weeks. We are waiting for assisted living or half-way facility approval by insurance company, which I am n ot hopeful for. His cannot take care of him. His is also suffering from chronic pain, has a pain pump. He is an obese gentleman who is too large in size for his to handle him also. Cu rrently he stable clinically, lying in the bed, but not able to do much ambulation on his own. One d ay he walked about 35 feet, but yesterday did not walk any. Assessment And Plan: 1.Polymyalgia rheumatica. Continue prednisone. Manage diabetes. 2.Raise insulin of diabetes to control sugar. 3.A mass in the base of tongue on the left side. I will order MRI of the head and neck region with contrast tomorrow if possible, if not without contrast. We have no ENT doctor regional marketing manager, so family yaz simon have to take him to ENT doctor and his is overwhelmed with all these things he need to do. Pr ognosis remains overall poor. FRANCES/MODL Voice ID: [id number] Report ID: [id number]
[2019-09-01] MEDS: INSULIN LISPRO 100 UNIT/1 ML SQ SCH (21:15)
[2019-09-01] MEDS: INSULIN GLARGINE 100 UNITS/ML SQ SCH (21:15)
[2019-09-01] MEDS: METOPROLOL XL 25 MG TAB PO SCH (21:15)
[2019-09-01] MEDS: GABAPENTIN 100 MG CAP PO SCH (21:15)
[2019-09-02 05:24] LABS: Potassium 4.1 mmol/L (3.5-5.1)
[2019-09-02 05:26] LABS: Absolute Lymphocytes (CBC) 2.4 K/uL (0.7-4.9); Basophils % 0.4 % (0-1.3); Hematocrit 36.9 % (39.6-49.0); Lymphocytes % 32.1 % (15.3-44.8); MPV 6.5 fL (7.6-11.3); RBC Red Blood Cell Count 4.43 M/uL (4.33-5.43)
[2019-09-02] MEDS: LEVOTHYROXINE SOD 0.05 MG TABLET PO SCH (05:48)
[2019-09-02] MEDS: NACHLORIDE 0.45% 1,000 ML IV SCH ×2 (05:49→22:00)
[2019-09-02] MEDS: INSULIN -REGULAR HUMAN 50 UNIT/0.5 ML ML SQ SCH ×4 (07:30→21:45)
[2019-09-02] MEDS: MONTELUKAST 10 MG TAB PO SCH (08:04)
[2019-09-02] MEDS: TAMSULOSIN 0.4 MG SR CAP PO SCH (08:04)
[2019-09-02] MEDS: CLOPIDOGREL 75 MG TABLET PO SCH (08:05)
[2019-09-02] MEDS: predniSONE 20 MG TAB PO SCH (08:05)
[2019-09-02 08:34] VITALS: O2SAT 96
--- NOTE | 2019-09-02 16:31 | RAD REPORT ---
EXAM DESCRIPTION: MRI - Brain Wo Cont - 09/02/2019 2:53 pm CLINICAL HISTORY: tongue mass COMPARISON: No comparisons TECHNIQUE: Sagittal T1-weighted images were obtained along with axial PD, heavily T2-weighted and T2 -FLAIR images. Axial DWI and ADC mapping sequences were also obtained along with coronal heavily T2-w eighted images. FINDINGS: Contrast was withheld due to abnormal renal function. No intracranial hemorrhage, mass or acute infarction. There is no edema or shift of midline structure s. No cortical edema or sulcal effacement. Moderate atrophy changes are present. Ventricles are in pr oportion to the amount of volume loss. Patient has very extensive T2 signal abnormalities throughout the cerebral white matter. Thalamus, basal ganglia and brainstem tissues are spared any significant c hronic ischemic disease. Méndez-matter/white matter junction is preserved. Signal voids are seen as a n ormal finding in the major intracranial vessels. No globe or orbital content abnormality. No sella or supra sella abnormality. Mastoid air cells and paranasal sinuses are clear. IMPRESSION: Patient has moderate atrophy and advanced chronic ischemic change in the cerebral hemisp heres. No hemorrhage or mass. Sensitivity for detection of primary or metastatic disease is reduced in the a bsence of contrast. However, there are no findings on this study but are felt to elevate the likeliho od of metastatic disease.
--- NOTE | 2019-09-02 16:37 | RAD REPORT ---
EXAM DESCRIPTION: MRI - Soft Tissue Neck W/O Cont - 09/02/2019 2:52 pm CLINICAL HISTORY: mass at base of tongue COMPARISON: Head Brain Wo Cont dated 08/27/2019; Head C Spine Mpr Wo Con dated 10/19/2018 TECHNIQUE: Multiplanar imaging of the neck performed using T1 weighted, T2 fat saturation, T2 sequen cing and T2 stir sequencing. FINDINGS: Contrast was withheld due to abnormal renal function. This does decrease sensitivity for m ass detection. Limited intracranial imaging shows no gross abnormality. MRI brain is separately reported. No globe o r orbital content acute finding. Mastoid air cells and paranasal sinuses clear of acute findings. No pharyngeal mucosal mass or asymmetry is clearly identifiable. No tonsillar mass. Soft palate is re latively prominent but without asymmetric thickening or clearly definable mass. No epiglottis abnorma lity identifiable. The base of the tongue mass is not clearly identifiable. There is subtle nodularity along the tongue base that is not uncommon given the lymphoid tissue in this region. Provided clinical history indicat es tongue base mass. There is no additional information as to size or location. No history of physica l exam finding or outside imaging finding that indicates a tongue base mass to be present. The parotid, submandibular and thyroid gland tissue show no suspicious findings. No abnormal cervical lymphadenopathy identifiable. IMPRESSION: No tongue base mass is clearly identifiable on this study. Provided history indicates ma ss of the tongue base; however, there is no additional information regarding the laterality, size or how the presence of a mass was determined. If additional information can be provided or outside imaging can be provided, the exam can be reviewe d and an addendum issued as needed. No abnormal cervical lymphadenopathy. No other mass or worrisome finding identifiable.
--- NOTE | 2019-09-02 16:38 | RAD REPORT ---
EXAM DESCRIPTION: US - Extrem Venous W Compress Yasmany - 09/02/2019 3:51 pm CLINICAL HISTORY: rule out blood clot, leg pain and swelling COMPARISON: None. TECHNIQUE: Real-time sonographic evaluation of the bilateral lower extremity common femoral, superfi cial femoral, popliteal and posterior tibial veins was performed. FINDINGS: Normal compressibility, flow augmentation, phasic flow and spontaneous flow are identified in the left and right lower extremity common femoral, superficial femoral, popliteal and posterior t ibial veins. No intraluminal filling defects seen. IMPRESSION: No DVT in either lower extremity.
[2019-09-02] MEDS ORDERED: ENOXAPARIN 30 MG/0.3 ML SQ SCH (17:00)
[2019-09-02] MEDS: INSULIN LISPRO 100 UNIT/1 ML SQ SCH (21:00)
[2019-09-02] MEDS: GABAPENTIN 100 MG CAP PO SCH (21:45)
[2019-09-02] MEDS: METOPROLOL XL 25 MG TAB PO SCH (21:45)
[2019-09-02] MEDS: INSULIN GLARGINE 100 UNITS/ML SQ SCH (21:50)
--- NOTE | 2019-09-03 02:47 | DS ---
Final Diagnosis: Polymyalgia rheumatica. Secondary Diagnoses: Chronic renal insufficiency, post obstructive uropathy, testicular hypogonadism , generalized weakness, recent hip surgery for hip replacement, diabetes mellitus. Hospital Course: Patient is 78 years old gentleman comes in with some weakness, not able to ambulate . The was not able to take care of him. He had some signs of acute on chronic renal failure, w hich improved with IV hydration. At the same time, I found that he had a polymyalgia rheumatica. Gi ernestina a dose of dexamethasone for 24 hours, helped him significantly, then we placed him on prednisone 20 mg once a day. He was rejected for transfer to rehab here, but he was accepted to detention [facility] today. He will be going to [facility] if possible today. Daniela jordan had MRI done today for his mouth ulcer, which was performed by Dr. Aponte, did not able to locate any bony lesion. This also will be followed up by Dr. Salma Brand on outpatient basis. Ana M castellanos has been to her before. He also had a venous Doppler examination which was negative, and otherwise , he is clinically stable to be discharged. I have raised his insulin to 45 units because he is on p rednisone now 20 mg once a day. I have advised the detention facility to continue prednisone for a year as he will require that for polymyalgia rheumatica. Once he improves, we can reduce the dose of prednisone down to 10 or 5 mg daily. Currently, he is in no distress and stable to be discharged. RVD/MODL Voice ID: [id number] Report ID: [id number]
[2019-09-03] MEDS: NACHLORIDE 0.45% 1,000 ML IV SCH (03:32)
[2019-09-03] MEDS: LEVOTHYROXINE SOD 0.05 MG TABLET PO SCH (05:43)
[2019-09-03] MEDS: INSULIN -REGULAR HUMAN 50 UNIT/0.5 ML ML SQ SCH (07:30)
[2019-09-03] MEDS: predniSONE 20 MG TAB PO SCH (07:40)
[2019-09-03] MEDS: MONTELUKAST 10 MG TAB PO SCH (07:40)
[2019-09-03] MEDS: CLOPIDOGREL 75 MG TABLET PO SCH (07:40)
[2019-09-03] MEDS: TAMSULOSIN 0.4 MG SR CAP PO SCH (07:40)
[2019-09-03] MEDS ORDERED: NYSTATIN 500,000 UNIT/5 ML UDC PO ONE (08:00)
[2019-09-03 09:13] VITALS: BP 128/61; TEMP 97.4
--- NOTE | 2019-09-03 18:19 | P.DS ---
Admission Date: 08/29/19 Discharge Date: 09/03/19 Disposition: TRANSFER TO RESIDENTIAL Reason for Admission: ACHY AND SNEEZING FOR TWO WEEKS. - Problems (1) Myalgia Status: Acute (2) General weakness Status: Chronic Brief History of Present Illness: MR CROSS HAD HIP SURGERY AT [facility] OR [place] ABOUT TWO WEEKS AGO. HE TESTED NEG FOR COVID AT THAT TIME. SINCE THEN HE IS ACHY ALL OVER AND HAS SNEEZES. HE DOES NOT HAVE FEVER. Hospital Course: WHAT MAKES ME. RACHEL WEAK IS PMR AND LOW T. HE WILL TAKE PREDNISONE 20 MG DAILY AND T SHOTS EVERY WEEK AT [facility]. HE WILL DO PT THERE. HE IS STABLE FOR DC. HE HAS ULCER ON LSIDE OF BASE OF TONGUE THAT IS TENDER. HE WILL DO NYSTATIN S AND SWALLOW. HE WILL FU WITH DR. WILSON. I HAVE DISCUSSED WITH THE ABOUT IT. Vital Signs/Physical Exam: Temp Pulse Resp BP Pulse Ox 97.4 F 58 18 128/61 97 09/03/19 08:00 09/03/19 08:00 09/03/19 08:00 09/03/19 08:00 09/03/19 08:00 Laboratory Data at Discharge: WBC 7.4 K/uL (4.3-10.9) 09/02/19 04:44 Hgb 12.4 g/dL (13.6-17.9) L 09/02/19 04:44 Hct 36.9 % (39.6-49.0) L 09/02/19 04:44 Plt Count 263 K/uL (152-406) 09/02/19 04:44 Sodium 141 mmol/L (136-145) 09/02/19 04:44 Potassium 4.1 mmol/L (3.5-5.1) 09/02/19 04:44 BUN 41 mg/dL (7-18) H 09/02/19 04:44 Creatinine 1.69 mg/dL (0.55-1.3) H 09/02/19 04:44 Glucose 60 mg/dL (74-106) L 09/02/19 04:44 Home Medications: Atorvastatin Calcium 20 mg PO BEDTIME 01/01/18 Clopidogrel Bisulfate [Plavix*] 75 mg PO DAILY 01/01/18 Levothyroxine [Synthroid*] 50 mcg PO [id number] 01/01/18 Metoprolol Succinate [Toprol Xl*] 25 mg PO BEDTIME 01/01/18 Tamsulosin [Flomax*] 0.4 mg PO BID 01/01/18 Tramadol HCl [Ultram] 50 mg PO Q6H PRN 01/01/18 lisinopriL [Lisinopril] 5 mg PO DAILY 01/01/18 Gabapentin [Neurontin*] 100 mg PO BEDTIME 12/01/18 Insulin Aspart [Novolog] 15 units SQ SEECOM 12/01/18 Insulin Detemir [Levemir Flextouch] 45 units SQ BEDTIME 12/01/18 Montelukast [Singulair*] 10 mg PO DAILY 08/27/19 Nystatin 5 ml PO Q6H 7 Days ml 09/02/19 predniSONE [Prednisone*] 1 tab PO DAILY 09/02/19 Testosterone Cypionate [Testone Cik] 200 mg IM Q7D #4 kit 09/03/19 New Medications: Nystatin 5 ml PO Q6H 7 Days ml Testosterone Cypionate [Testone Cik] 200 mg IM Q7D #4 kit Followup: Abe Basliio MD [ACTIVE - CAN ADMIT] - (call to schedule appointment) Salma Wilson MD [ACTIVE - CAN ADMIT] - (FOLLOW UP FOR MOUTH ULCER)
== END 2019-09-03 09:35 | DRG 546 ==
LOC: ER 10:38 → ERHOLD 21:48 → 2ND 21:57 → 4TH 08-28 08:55 → OBSVTOIN 08-29 09:25 → 2ND 08-31 14:32
PROVIDERS: ADMIT Internal Medicine; ATTEND Internal Medicine
DX: M35.3 Polymyalgia rheumatica (principal); N17.9 Acute kidney failure, unspecified; N13.8 Other obstructive and reflux uropathy; K14.9 Disease of tongue, unspecified; Z88.1 Allergy status to other antibiotic agents; Z88.5 Allergy status to narcotic agent; Z79.02 Long term (current) use of antithrombotics/antiplatelets; Z79.4 Long term (current) use of insulin; Z79.899 Other long term (current) drug therapy; I25.2 Old myocardial infarction; Z85.528 Personal history of other malignant neoplasm of kidney; Z85.51 Personal history of malignant neoplasm of bladder; Z96.659 Presence of unspecified artificial knee joint; Z87.891 Personal history of nicotine dependence; E11.22 Type 2 diabetes mellitus with diabetic chronic kidney disease; Z20.828 Contact with and (suspected) exposure to other viral communicable diseases; Z79.890 Hormone replacement therapy; E29.1 Testicular hypofunction; N18.9 Chronic kidney disease, unspecified
CPT/HCPCS: 36415; 70450; 70540; 70551; 76857; 80048; 81003; 82607; 82947; 84403; 84443; 85025; 85652; 86140; 93970; 97110; 97116; 97161; 97530; 99285; G0378; J1650; J1815; J7120; J7512; U0002

== ENCOUNTER 2020-10-07 06:18 | Emergency (ER) | payer OTHER ==
--- OUTSIDE RECORDS SUMMARY | 2020-10-07 06:22 | XMS REPORT | Continuity of Care Document ---
:1940 Author Organization [facility] t Address [address] [place] [address] Care Team Providers Name Role Phone Janna Nevarez MD Primary Care Physician Homero Steven MD Attending Clinician Dave Angela MD Attending Clinician Zully BEST Attending Clinician Unavailable HUGO Admitting Clinician Unavailable Payers Payer Name Policy Type Policy Effective Date Expiration Date Sour ce Number AETNA MEDICAREAETNA [id number] 2013 [place] MEDIC[place] HMO/PPO 00:00:00 Methodis t [id number] -PresentHMO Problems Condition Condition Condition Status Onset Resolution Last Treating Co mments Source Name Details Category Date Date Treatment Clinician Date Osteoarthr Osteoarthr Disease Active [place] [facility] 5-18 [facility] right hip right hip 00:00: st 00 Arthritis Arthritis Disease Active Overview: [place] of right of right 2-13 Formattin Met hodi hip hip 00:00: g of this st note might be different from the original. Added automatic ally from request for surgery [id number] Osteoarthr Osteoarthr Disease Active [place] [facility] [facility] 4-23 [facility] left knee left knee 00:00: st 00 Primary Primary Disease Active [place] osteoarthr osteoarthr 4-16 [place] itis of itis of 00:00: st left knee left knee 00 Allergies, Adverse Reactions, Alerts Allergy Allergy Status Severity Reaction(s) Onset Inactive Treating Comm ents Source Name Type Date Date Clinician Morphine Propensi Active confusion Jamshid miriam ty to 413 Methodi adverse 00:00: st reaction 00 s to drug No Known DA Active U 2002-03 [facility] Contrast 2-24 Clear Allergie 00:00: Gamble s 00 [facility] No Known DA Active U 2002-03 [facility] Drug 2-24 Clear Allergie 00:00: Gamble s 00 [facility] No Known DA Active U 2002-03 [facility] Food 2-24 Clear Allergie 00:00: Gamble s 00 [facility] No Known DA Active U 2002-03 [facility] Other 2-24 Clear Allergie 00:00: Gamble s 00 [facility] Social History Social Habit Start Date Stop Date Quantity Comments Source History of tobacco Current smoker Rubens Orta use Cigarettes smoked 2019-08-06 2019-08-06 Chon Orta current (pack per 00:00:00 00:00:00 day) - Reported Cigarette 2019-08-06 2019-08-06 [place] John ist pack-years 00:00:00 00:00:00 Tobacco use and 2019-08-06 2019-08-06 Never used Chon Avery ethodist exposure 00:00:00 00:00:00 Alcohol intake 2019-08-06 2019-08-06 Current [facility] thodist 00:00:00 00:00:00 non-drinker of alcohol (finding) Tobacco Comment 2019-05-31 2019-05-31 stopped 35 years Jamshid miriam Orta 00:00:00 00:00:00 ago Sex Ass[birth year] At [birth year] Chon Avery ethodist 00:00:00 00:00:00 Smoking Status Start Date Stop Date Source Former smoker 2019-08-06 00:00:00 2019-08-06 00:00:00 Chon Orta Medications Ordered Filled Start Stop Current Ordering Indication Dosage Frequency Signature Comments Components Source Medication Medication Date Date Medication? Clinician (SIG) Name Name atorvastati Yes 10mg QD Take 10 mg Chon mustafa (LIPITOR) -19 by mouth Meth judy 10 MG 16:36: [...] 30 nightly. tablet insulin 2020-0 Yes 10U [id number] Inject [place] ASPART 5-19 [id number] 10-12 Method i (NovoLOG) 16:36: 3D Units [...] B-12) 1000 30 nightly. MCG tablet cholecalcif 2019-0 Yes 2000U QD Take 2,000 [place] keyona, 5-19 Units by Methodi vitamin D3, 16:36: mouth st 50 mcg 30 nightly. (2,000 unit) capsule capsule aspirin 2019-0 Yes 81mg Q.5D Take 1 [place] (ECOTRIN) 5-19 tablet (81 Meth judy 81 MG 00:00: mg total) st enteric 00 by mouth 2 coated (two) tablet times a day. lisinopril Yes 2.5mg QD Take 2.5 Ho rudolph (PRINIVIL,Z 2-09 mg by Methodervin ESTRIL) 5 00:00: mouth st mg tablet 00 nightly. clopidogrel 2016-03 Yes 75mg QD Take 75 mg Chon (PLAVIX) 75 2-30 by mouth Meth judy mg tablet 00:00: nightly. st 00 Vital Signs Vital Name Observation Time Observation Value Comments Source Body height 2020-01-09 08:49:00 182.9 cm Chon Orta Body weight 2020-01-09 08:49:00 102.059 kg Chon Orta BMI 2020-01-09 08:49:00 30.52 kg/m2 Chon Orta Procedures Procedure Date / Time Performing Clinician Source Performed [facility] ARTHROCENTESIS 2020-01-09 09:00:00 Dariel Angela ASPIR&/INJ MAJOR JT/BURSA W/O US XR HIP 2-3 VIEWS RIGHT 2020-01-09 08:59:56 Dariel Angela Plan of Care Planned Activity Planned Date Details Comments Source Future Scheduled 2020-10-18 INFLUENZA VACCINE Wendy Lopezist Test 00:00:00 [code = INFLUENZA VACCINE] Future Scheduled 1950 COVID-19 VACCINE (1) Jamshid Orta Test 00:00:00 [code = COVID-19 VACCINE (1)] Future Scheduled 1948 DIABETES: RETINAL EYE Rubens Orta Test 00:00:00 EXAM [code = DIABETES: RETINAL EYE EXAM] Future Scheduled 1948 DIABETIC FOOT EXAM [place] [facility] Test 00:00:00 [code = DIABETIC FOOT EXAM] Future Scheduled 1944 65+ PNEUMOCOCCAL [facility] Tenriism Test 00:00:00 VACCINE (1 of 4 - PCV13) [code = 65+ PNEUMOCOCCAL VACCINE (1 of 4 - PCV13)] Encounters Start End Encounter Admission Attending Care Care Encounter Source Date/Time Date/Time Type Type Clinicians Facility Department ID 2020-06-30 2020-06-30 [facility] [id number] 10:11:23 10:41:23 Visit [facility] [id number] [facility] [id number] Center - [id number] [facility] 204 2020-01-09 2020-01-09 Outpatient INCAVO, [facility] [id number] [place] 00:00:00 00:00:[address] DARIEL [address] 2020-01-09 2020-01-09 Outpatient INCAVO, [facility] [id number] [place] 00:00:00 00:00:[address] DARIEL [address] 2019-08-22 2019-08-22 Outpatient INCAVO, [facility] [id number] [place] 00:00:00 00:00:00 DARIEL [address] 2019-08-05 2019-08-06 Inpatient INCAVO, [facility] [id number] [place] 00:00:00 00:00:[address] DARIEL [address] 2019-07-29 2019-07-29 Outpatient INCAVO, [facility] [id number] [place] 00:00:00 00:00:[address] DARIEL [address] 2019-06-04 2019-06-04 Outpatient INCAVO, [facility] [id number] [place] 00:00:00 00:00:[address] DARIEL [address] 2019-06-04 2019-06-04 Outpatient [facility] [id number] [place] 00:00:00 00:00:[address] 2019-06-04 2019-06-04 Outpatient [facility] [id number] [place] 00:00:00 00:00:[address] Results Test Description Test Time Test Results Result Source Comments Comments Large Joint 2019-12-20 Dariel Angela MD H ron Arthrocentesis: 2 01/09/2020 11:32 Tenriism hip, R greater 09:00:00 AMLarge Joint trochanteric Arthrocentesis: hip, R bursa greater trochanteric bursaConsent given by: patientSite marked: site markedTimeout: Immediately prior to procedure a time out was called to verify the correct patient, procedure, equipment, learning support assistant and site/side marked as required Supporting DocumentationIndicatio ns: pain Procedure DetailsPreparation: Patient was prepped and draped in the usual sterile fashionUltrasound guided: noPlatelet Rich Plasma Used: no PRP UsedLocation: hip - R greater trochanteric bursa Right side:Needle size: 22 GApproach: lateralRight hip medications administered: 2 mL bupivacaine 0.5 % (5 mg/mL); 80 mg methylPREDNISolone acetate 40 mg/mL; 3 mL lidocaine 10 mg/mL (1 %)Patient tolerance: patient tolerated the procedure well with no immediate complications SARS-COV2/RT-PCR ([facility]) 2019-08-28 17:26:00 Test Item Value Reference Range Interpretation Comme nts SARS-COV2/RT-PCR (test code = 7150319) Not Detected Not Detected, N egative SARS-COV-2 PERFORMING LAB (test code = [facility] 4212012) Negative results do not preclude SARS-CoV-2 infection and should not be used as the sole basis for patient management decisions. Negative results must be combined with clinical observations, patient history, and epidemiological information. A false negative result may occur if a specimen is improperly collected, transported or handled.The limit of detection for this assay is 250 copies/mL.This SARS CoV-2 test is a rapid, real-time RT-PCR test intended for the qualitative detection of nucleic acid from SARS-CoV-2 in a nasopharyngeal swab specimen collected from individuals suspected of COVID-19 by their healthcare provider.This test has not been Food and Drug Administration (FDA) cleared or approved and has been authorized by FDA under an Emergency Use Authorization (EUA). This EUA will be effective until the declaration that circumstances exist justifying the authorization of the emergency use of in vitro diagnostic tests for detection and/or diagnosis of COVID-19 is terminated under Section 564(b)(2) of the Act or the EUA is revoked under Section 564(g) of the Act.Fact Sheet for Healthcare Pro viders:https://www.Doctor kinetic/Documents/Xpert%20Xpress%20SARS%20CoV-2/Fact%20Sh eets/302-3802%27MYES-RLM-5%20HEALTHCARE%20PROVIDERS%20FACT%20SHEET.pdfFact Sheet for Healthcare Patients:https://www.Alminder/Documents/Xpert%20Xpress%20SARS%20CoV-2/Fact%20Sheets/302-3801%20SARS-COV -2%20PATIENT%20FACT%20SHEET.pdfPerforming Laboratory:[facility] [place], [place] [address]WH RFLX MICR CULT IF [id number] 11:59:00 Test Item Value Reference Range Interpretation Comments UA COLOR (test code = YELLOW discript YEL/STRAW COLU) UA APPEARANCE (test code HAZY discript CLEAR A = APPU) UA GLUCOSE DIPSTICK (test 3+ mg/dL NEG code = DGLUU) UA BILIRUBIN DIPSTICK NEGATIVE mg/dL NEG (test code = BILU) UA KETONE DIPSTICK (test NEGATIVE mg/dL NEG code = KETU) UA SPECIFIC GRAVITY (test 1.025 SG 1.005-1.030 code = SGU) UA BLOOD DIPSTICK (test 3+ mg/DL NEG A code = PRO) UA PH DIPSTICK (test code 5.5 pH UNITS 5.0-7.0 = FELI) UA PROTEIN DIPSTICK (test 2+ mg/dL NEG A code = PROU) UA UROBILINIOGEN DIPSTICK 0.2 mg/dL <2.0 (test code = URO) UA NITRITE DIPSTICK (test POSITIVE SCREEN NEG A code = VIK) UA LEUKOCYTE ESTERASE 1+ Leuk/mcL NEGATIVE A DIPSTICK (test code = LEUU) UA WBC (test code = WBCU) >50 #WBC/HPF 0-3 A UA RBC (test code = RBCU) TNTC #RBC/HPF 0-3 A UA BACTERIA (test code = 4+ /HPF NONE-TRACE A BACU) UA SQUAMOUS CELLS (test TRACE /HPF NONE code = SQU) UA CULTURE NEEDED? (test YES,WBC>10 & EPI<25 Culture CHK code = UACULT) Criteria BASIC METABOLIC [id number] 11:52:00 Test Item Value Reference Range Interpretation [...] 8.5-10.1 N UA RFLX MICR CULT IF [id number] 11:26:00 Test Item Value Reference Range Interpretation [...] Criteria Culture CHK = UACULT) CBC W/AUTO [id number] 11:24:00 Test Item Value Reference Range Interpretation [...] CRITERIA MDIFF) UA RFLX MICR CULT IF [id number] 09:55:00 Test Item Value Reference Range Interpretation [...] DIPSTICK (test code = LEUU) UR PROTEIN [id number] 09:55:00 Test Item Value Reference Range Interpretation Comments UR PROTEIN TOTAL (test code = 27.7 MG/DL 0.0-12.0 H PROTU) UR CREATININE [id number] 09:55:00 Test Item Value Reference Range Interpretation Comments UR CREATININE RANDOM (test code = 127.0 MG/DL 30-125 H CREATU) UA RFLX MICR CULT IF [id number] 09:48:00 Test Item Value Reference Range Interpretation [...] Culture CHK code = UACULT) UR PROTEIN [id number] 09:48:00 Test Item Value Reference Range Interpretation Comments UR PROTEIN TOTAL (test code = PROTU) MG/DL 0.0-12.0 UR CREATININE [id number] 09:48:00 Test Item Value Reference Range Interpretation Comments UR CREATININE RANDOM (test code = MG/DL 30-125 CREATU) UA RFLX MICR CULT IF [id number] 09:48:00 Test Item Value Reference Range Interpretation [...] DIPSTICK (test code = LEUU) UR PROTEIN [id number] 09:48:00 Test Item Value Reference Range Interpretation Comments UR PROTEIN TOTAL (test code = PROTU) MG/DL 0.0-12.0 UR CREATININE [id number] 09:48:00 Test Item Value Reference Range Interpretation Comments UR CREATININE RANDOM (test code = MG/DL 30-125 CREATU)
--- NOTE | 2020-10-07 06:34 | EDPHYS ---
Physician Documentation [facility] Name: Kendrick Worley Age: 79 yrs Sex: Male : 1940 Arrival Date: 10/07/2020 Time: 04:23 Bed 4 Private MD: ED Physician Stephen Saleem HPI: 10/07 04:24 This 79 yrs old Male presents to ER via Unassigned with complaints of Fall rn Injury. 04:24 Details of fall: The patient fell from an upright position, while standing. Onset: The rn symptoms/episode began/occurred just prior to arrival. Associated injuries: The patient sustained injury to the head, abrasion, laceration, swelling, tenderness. Severity of symptoms: At their worst the symptoms were moderate, in the emergency department the symptoms have improved. The patient has experienced similar episodes in the past. The patient has not recently seen a physician. Per report patient woke up, tried to get out of bed, fell over her walker and struck face. Denies loss of consciousness. Takes Plavix. Denies extremity injury other than a few skin tears. Remembers all events.. Historical: - Allergies: 04:28 Bactrim; bb 04:28 Morphine (Hallucinations); bb - Home Meds: 04:28 cefuroxime axetil 250 mg Oral tab 1 tab 2 times per day [Active]; Farxiga 10 mg Oral bb tab 1 tab once daily [Active]; gabapentin 100 mg Oral cap 3 caps 3 times per day [Active]; levothyroxine 50 mcg tab 1 tab once daily [Active]; lisinopril 5 mg Oral tab 1 tab once daily [Active]; metoprolol tartrate 25 mg Oral tab 1 tab once daily [Active]; montelukast 10 mg Oral tab 1 tab once daily [Active]; Plavix 75 mg Oral tab 1 tab once daily [Active]; tamsulosin 0.4 mg Oral cp24 1 cap once daily [Active]; - PMHx: 04:28 Diabetes - IDDM; Myocardial infarction; bb - Immunization history: Last tetanus immunization: unknown. - Social history:: Smoking status: Patient denies any tobacco usage or history of. - Family history:: not pertinent. - Hospitalizations: : No recent hospitalization is reported. ROS: 04:24 Constitutional: Negative for fever, chills, and weight loss, Eyes: Negative for injury, rn pain, redness, and discharge, ENT: + swelling and pain to lower lip Neck: Negative for injury, pain, and swelling, Cardiovascular: Negative for chest pain, palpitations, and edema, Respiratory: Negative for shortness of breath, cough, wheezing, and pleuritic chest pain, Abdomen/GI: Negative for abdominal pain, nausea, vomiting, diarrhea, and constipation, Back: Negative for injury and pain, : Negative for injury, bleeding, discharge, and swelling, MS/Extremity: Negative for injury and deformity, Skin: Positive for skin tears Neuro: Negative for headache, weakness, numbness, tingling, and seizure. Exam: 04:24 Constitutional: This is a well developed, well nourished patient who is awake, alert, rn and in no acute distress. Head/Face: Upside down V, superficial 3 cm, laceration above upper lip crossing the philtrum. No active bleeding. Eyes: Periorbital areas with no swelling, redness, or edema. ENT: No dental trauma noted. Positive moderate hematoma involving the lower lip and lower gingival surface. No active bleeding. No hematoma to floor of mouth. Neck: No midline cervical tenderness Chest/axilla: Normal chest wall appearance and motion. Nontender with no deformity. No lesions are appreciated. Cardiovascular: Regular rate and rhythm. No pulse deficits. Respiratory: No increased work of breathing, no retractions or nasal flaring. Abdomen/GI: Soft, non-tender Skin: Warm, dry MS/ Extremity: Pulses equal, no cyanosis. Neuro: Awake and alert, GCS 15, oriented to person, place, time, and situation. Vital Signs: 04:25 BP 142 / 63; Pulse 62; Resp 16 S; Temp 97.6(O); Pulse Ox 96% on R/A; Weight 95.25 kg bb (R); Height 5 ft. 11 in. (180.34 cm) (R); 06:24 BP 133 / 66; Pulse 65; Resp 18; Pulse Ox 98% on R/A; ak2 04:25 Body Mass Index 29.29 (95.25 kg, 180.34 cm) bb Magi Coma Score: 04:25 Eye Response: spontaneous(4). Verbal Response: oriented(5). Motor Response: obeys bb commands(6). Total: 15. Trauma Score (Adult): 04:25 Eye Response: spontaneous(1); Verbal Response: oriented(1); Motor Response: obeys bb commands(2); Systolic BP: > 89 mm Hg(4); Respiratory Rate: 10 to 29 per min(4); Magi Score: 15; Trauma Score: 12 Laceration: 05:33 Wound Repair of 3cm ( 1.2in ) subcutaneous laceration to philtrum above upper lip. rn Distal neuro/vascular/tendon intact. Anesthesia: Wound infiltrated with 2 mls of 1% lidocaine w/ Epi. Wound prep: Extensive cleansing by nurse, Wound explored. Skin closed with 6 5-0 fast absorbing gut using interrupted sutures and sterile technique. Dressed with steri-strips. Patient tolerated well. MDM: 04:24 Patient medically screened. rn 06:29 Differential diagnosis: abrasion, closed head injury, contusion, fracture, laceration. rn Data reviewed: vital signs, nurses notes, radiologic studies, CT scan, and as a result, I will discharge patient. Counseling: I had a detailed discussion with the patient and/or guardian regarding: the historical points, exam findings, and any diagnostic results supporting the discharge/admit diagnosis, radiology results, the need for outpatient follow up, to return to the emergency department if symptoms worsen or persist or if there are any questions or concerns that arise at home. Response to treatment: the patient's symptoms have markedly improved after treatment, and as a result, I will discharge patient. Special discussion: Based on the patient's history, exam and DX evaluation, there is no indication for emergent intervention or inpatient [place]. It is understood by the patient/guardian that if the SXs persist or worsen they need to return immediately for re-evaluation. I discussed with the patient/guardian in detail that at this point there is no indication for admission to the hospital. It is understood, however, that if the symptoms persist or worsen the patient needs to return immediately for re-evaluation. Based on the history and exam findings, there is no indication for further emergent testing or inpatient evaluation. I discussed with the patient/guardian the need to see the primary care provider for further evaluation of the symptoms. ED course: CT head C-spine and face positive only for nondisplaced nasal bone fracture. Patient doing well without increasing size of lower lip hematoma. Hematoma on external side of teeth between gingiva and lip, do not anticipate any airway obstruction. Upper lip laceration sutured and no longer bleeding. Nursing to dress skin tear wounds on upper extremities. Had a discussion with regarding results and okay to discharge home. Will follow up with Dr. Basilio. 10/07 04:24 Order name: IV Start rn 10/07 05:36 Order name: Ice pack rn 10/07 05:36 Order name: Wound dressing: wrap skin tears, steri-strip lip sutured wound rn Administered Medications: No medications were administered Disposition Summary: 10/07/20 06:33 Discharge Ordered Location: Home rn Problem: new rn Symptoms: have improved rn Condition: Stable rn Diagnosis - Laceration without foreign body of lip rn - Traumatic hematoma of lower lip rn - Fracture of nasal bones, initial encounter for closed fracture rn - Unspecified superficial injury of other part of head, initial encounter rn Followup: rn - With: Abe Basilio MD - When: 1 - 2 days - Reason: Recheck today's complaints, Re-evaluation by your physician Discharge Instructions: - Discharge Summary Sheet rn - Hematoma rn - Facial Laceration rn - Nasal Fracture rn Forms: - Medication Reconciliation Form rn - Thank You Letter rn - Antibiotic international trade specialist - Prescription Opioid Use rn Signatures: Dispatcher [employer] EDMS Viktoria Jane RN RN Stephen Andrade MD MD yarn comber: (The following items were deleted from the chart) 05:34 04:24 Constitutional: This is a well developed, well nourished patient who is awake, rn alert, and in no acute distress. Head/Face: Upside down V, very superficial 2 cm, laceration above upper lip crossing the philtrum. No active bleeding. Eyes: Periorbital areas with no swelling, redness, or edema. ENT: No dental trauma noted. Positive moderate hematoma involving the lower lip and lower gingival surface. No active bleeding. No hematoma to floor of mouth. Neck: No midline cervical tenderness Chest/axilla: Normal chest wall appearance and motion. Nontender with no deformity. No lesions are appreciated. Cardiovascular: Regular rate and rhythm. No pulse deficits. Respiratory: No increased work of breathing, no retractions or nasal flaring. Abdomen/GI: Soft, non-tender Skin: Warm, dry MS/ Extremity: Pulses equal, no cyanosis. Neuro: Awake and alert, GCS 15, oriented to person, place, time, and situation. rn
--- NOTE | 2020-10-07 06:34 | ER ---
Nurse's Notes [facility] Name: Kendrick Worley Age: 79 yrs Sex: Male : 1940 Arrival Date: 10/07/2020 Time: 04:23 Bed 4 Private MD: Diagnosis: Laceration without foreign body of lip;Traumatic hematoma of lower lip;Fracture of nasal bones, initial encounter for closed fracture;Unspecified superficial injury of other part of head, initial encounter Presentation: 10/07 04:25 Chief complaint: EMS states: they were toned out for report of pt fall without LOC. bb Care prior to arrival: None. Mechanism of Injury: Fall. Trauma event details: Injury occurred in the [facility], Injury occurred: at home. Injury occurred: October 07, 2020. 04:25 Acuity: SHERLEY 3 bb 04:25 Method Of Arrival: EMS: [facility] bb 04:28 Coronavirus screen: At this time, the client does not indicate any symptoms associated bb with coronavirus-19. Ebola Screen: No symptoms or risks identified at this time. Initial Sepsis Screen: Does the patient meet any 2 criteria? No. Patient's initial sepsis screen is negative. Does the patient have a suspected source of infection? No. Patient's initial sepsis screen is negative. Risk Assessment: Do you want to hurt yourself or someone else? Patient reports no desire to harm self or others. Onset of symptoms was October 07, 2020. Triage Assessment: 05:11 General: Appears in no apparent distress. Behavior is calm, cooperative. Pain: ak2 Complains of pain in face. Trauma Activation: Alert Physician: ED Physician; Name: Dr Saleem; Notified At: 04:16; Arrived At: 04:16 Physician: General Surgeon; Name: ; Notified At: 04:16; Arrived At: Physician: Radiology; Name: Jamel Anton; Notified At: 04:16; Arrived At: 04:24 Physician: Respiratory; Name: ; Notified At: 04:16; Arrived At: Physician: Lab; Name: ; Notified At: 04:16; Arrived At: Historical: - Allergies: 04:28 Bactrim; bb 04:28 Morphine (Hallucinations); bb - Home Meds: 04:28 cefuroxime axetil 250 mg Oral tab 1 tab 2 times per day [Active]; Farxiga 10 mg Oral bb tab 1 tab once daily [Active]; gabapentin 100 mg Oral cap 3 caps 3 times per day [Active]; levothyroxine 50 mcg tab 1 tab once daily [Active]; lisinopril 5 mg Oral tab 1 tab once daily [Active]; metoprolol tartrate 25 mg Oral tab 1 tab once daily [Active]; montelukast 10 mg Oral tab 1 tab once daily [Active]; Plavix 75 mg Oral tab 1 tab once daily [Active]; tamsulosin 0.4 mg Oral cp24 1 cap once daily [Active]; - PMHx: 04:28 Diabetes - IDDM; Myocardial infarction; bb - Immunization history: Last tetanus immunization: unknown. - Social history:: Smoking status: Patient denies any tobacco usage or history of. - Family history:: not pertinent. - Hospitalizations: : No recent hospitalization is reported. Screenin:25 Abuse screen: Denies threats or abuse. Tuberculosis screening: No symptoms or risk bb factors identified. :29 Nutritional screening: No deficits noted. Fall Risk Fall in past 12 months (25 points). bb Secondary diagnosis (15 points) impaired mobility, IV access (20 points). Ambulatory Aid- Crutches/Cane/Walker (15 pts). Mental Status- Overestimates/Forgets Limitations (15 pts.). Total Leal Fall Scale indicates High Risk Score (45 or more points). Fall prevention measures have been instituted. Side Rails Up X 2 As available patient and family educated on Fall Prevention Program and Strategies. Primary Survey: 04:25 NO uncontrolled hemorrhage observed. A: The patient is alert. Airway: patent. bb Breathing/Chest: Respiratory pattern: regular, Respiratory effort: unlabored. Circulation: Heart tones present. Disability Alert. Assessment: 06:24 Reassessment: Patient and/or family updated on plan of care and expected duration. Pain ak2 level reassessed. General: Appears in no apparent distress. Pain: Denies pain. Neuro: No deficits noted. Cardiovascular: No deficits noted. Respiratory: No deficits noted. Vital Signs: 04:25 BP 142 / 63; Pulse 62; Resp 16 S; Temp 97.6(O); Pulse Ox 96% on R/A; Weight 95.25 kg bb (R); Height 5 ft. 11 in. (180.34 cm) (R); 06:24 BP 133 / 66; Pulse 65; Resp 18; Pulse Ox 98% on R/A; ak2 04:25 Body Mass Index 29.29 (95.25 kg, 180.34 cm) bb Magi Coma Score: 04:25 Eye Response: spontaneous(4). Verbal Response: oriented(5). Motor Response: obeys bb commands(6). Total: 15. Trauma Score (Adult): 04:25 Eye Response: spontaneous(1); Verbal Response: oriented(1); Motor Response: obeys bb commands(2); Systolic BP: > 89 mm Hg(4); Respiratory Rate: 10 to 29 per min(4); Os[place] Score: 15; Trauma Score: 12 ED Course: 04:23 Patient arrived in ED. mw2 04:24 Stephen Saleem MD is Attending Physician. rn 04:25 Patient has correct armband on for positive identification. Placed in gown. Call light bb in reach. Side rails up X2. 04:25 Patient maintains SpO2 saturation greater than 95% on room air. bb 04:26 Triage completed. bb 04:28 Arm band placed on. bb 06:31 Abe Basilio MD is Referral Physician. rn Administered Medications: No medications were administered Intake: 04:25 PO: 0ml; Total: 0ml. bb Outcome: 06:33 Discharge ordered by . rn 07:20 Patient left the ED. hb Signatures: Viktoria Jane RN RN bb Nieto, Roman, MD MD rn Baxter, Heather, RN RN hb Westbrook, MyKena mw2 Henrry Jaimes ak2
[2020-10-07 07:35] VITALS: BP 133/66; O2SAT 98
--- NOTE | 2020-10-07 09:40 | RAD REPORT ---
EXAM DESCRIPTION: CT - Head C Spine Mpr Wo Con - 10/07/2020 7:29 am CLINICAL HISTORY: 79 years Male Fall Trauma TECHNIQUE: Noncontrast CT head, face and cervical spine with coronal and sagittal reformats. All CT scans at this facility use dose modulation, iterative reconstruction, and/or weight based dosing when appropriate to reduce radiation dose to as low as reasonably achievable. COMPARISON: None. FINDINGS: HEAD: Brain: Diffuse parenchymal volume loss. Chronic small vessel disease. No intracranial hemorrhage, mid line shift, mass or mass effect. No obvious large acute territorial infarction. Ventricles: No hydrocephalus. Mastoid: clear. Osseous: Unremarkable. Soft tissues: Unremarkable. FACE: Orbit: Unremarkable. Sinus: Clear. Osseous: Nondisplaced right nasal bone fracture. Soft tissues: Diffuse swelling of the lower lip. CERVICAL SPINE: Vertebra: No acute fracture. Alignment: No spondylolisthesis. Degenerative change: Multilevel degenerative changes. No high grade spinal canal stenosis. Soft tissues: Unremarkable. Lungs: Visualized lung apices are clear. IMPRESSION: CT Head: 1. No acute intracranial findings. CT Face: 1. Nondisplaced right nasal bone fracture. 2. Diffuse swelling of the lower lip. CT Cervical spine: 1. No acute cervical spine pathology. Electronically signed by: Gurvinder Maria MD 10/07/2020 6:14 AM CDT Due to temporary technical issues with the PACS/Fluency reporting system, reports are being signed by the in house radiologist without review as a courtesy to ensure prompt reporting. The interpreting r adiologist is fully responsible for the content of the report.
--- NOTE | 2020-10-07 09:42 | RAD REPORT ---
EXAM DESCRIPTION: CT - Facial Bones W/ Mpr - 10/07/2020 7:17 am CLINICAL HISTORY: 79 years Male Fall Trauma TECHNIQUE: Noncontrast CT head, face and cervical spine with coronal and sagittal reformats. All CT scans at this facility use dose modulation, iterative reconstruction, and/or weight based dosing when appropriate to reduce radiation dose to as low as reasonably achievable. COMPARISON: None. FINDINGS: HEAD: Brain: Diffuse parenchymal volume loss. Chronic small vessel disease. No intracranial hemorrhage, mid line shift, mass or mass effect. No obvious large acute territorial infarction. Ventricles: No hydrocephalus. Mastoid: clear. Osseous: Unremarkable. Soft tissues: Unremarkable. FACE: Orbit: Unremarkable. Sinus: Clear. Osseous: Nondisplaced right nasal bone fracture. Soft tissues: Diffuse swelling of the lower lip. CERVICAL SPINE: Vertebra: No acute fracture. Alignment: No spondylolisthesis. Degenerative change: Multilevel degenerative changes. No high grade spinal canal stenosis. Soft tissues: Unremarkable. Lungs: Visualized lung apices are clear. IMPRESSION: CT Head: 1. No acute intracranial findings. CT Face: 1. Nondisplaced right nasal bone fracture. 2. Diffuse swelling of the lower lip. CT Cervical spine: 1. No acute cervical spine pathology. Electronically signed by: Gurvinder Maria MD 10/07/2020 6:14 AM CDT Due to temporary technical issues with the PACS/Fluency reporting system, reports are being signed by the in house radiologist without review as a courtesy to ensure prompt reporting. The interpreting r adiologist is fully responsible for the content of the report.
== END 2020-10-07 07:20 | disposition home or self-care (01) ==
LOC: ER 06:18
PROC: 0CQ0XZZ Repair Upper Lip, External Approach (ICD-10-PCS; principal; 2020-10-07)
DX: S02.2XXA Fracture of nasal bones, initial encounter for closed fracture (principal); S01.511A Laceration without foreign body of lip, initial encounter; W18.09XA Striking against other object with subsequent fall, initial encounter; Y93.89 Activity, other specified; E11.9 Type 2 diabetes mellitus without complications; Z79.01 Long term (current) use of anticoagulants; Z88.1 Allergy status to other antibiotic agents; Z88.5 Allergy status to narcotic agent
CPT/HCPCS: 70450; 70486; 72125; 76377; 99284; G0390

== ENCOUNTER 2021-01-22 05:12 | Observation (INO) | payer OTHER ==
[2021-01-22] MEDS ORDERED: TETANUS & DIPHTHERIA TOX,ADULT 0.5 ML VIAL ONE (05:47)
[2021-01-22] MEDS ORDERED: NA CHLORIDE 0.9% 500 ML ONE (05:49)
[2021-01-22 05:53] LABS: Protime INR 1.03
[2021-01-22 06:02] LABS: Absolute Lymphocytes (CBC) 2.1 K/uL (0.7-4.9); Hematocrit 42.1 % (39.6-49.0); Lymphocytes % 25.6 % (15.3-44.8); MPV 6.6 fL (7.6-11.3); RBC Red Blood Cell Count 4.85 M/uL (4.33-5.43)
--- NOTE | 2021-01-22 07:12 | EDPHYS ---
Physician Documentation [facility] Name: Kendrick Worley Age: 80 yrs Sex: Male : 1940 Arrival Date: 01/22/2021 Time: 05:17 Bed 19 Private MD: ED Physician Twan Oliva HPI: 01/22 06:00 This 80 yrs old Male presents to ER via EMS with complaints of fall coming in mert the house. 06:00 The patient or guardian complains of decreased range of motion, pain, that is acute. mert The complaints affect the right elbow, left elbow. Context: The problem was sustained at home, outdoors. Onset: The symptoms/episode began/occurred just prior to arrival. Treatment prior to arrival includes: no previous treatment. Modifying factors: The symptoms are alleviated by nothing. the symptoms are aggravated by movement. fall tripped, threshold. Details of fall: The patient fell from an upright position, while walking. Associated injuries: The patient sustained right elbow, painful injury, left elbow, decreased range of motion, painful injury. Historical: - Allergies: 05:25 Bactrim; dc2 05:25 Morphine (Hallucinations); dc2 - Home Meds: 05:30 atorvastatin oral [Active]; cefuroxime axetil 250 mg Oral tab 1 tab 2 times per day dc2 [Active]; Farxiga 10 mg Oral tab 1 tab once daily [Active]; gabapentin 100 mg Oral cap 3 caps 3 times per day [Active]; levothyroxine 50 mcg tab 1 tab once daily [Active]; lisinopril 5 mg Oral tab 1 tab once daily [Active]; metoprolol tartrate 25 mg Oral tab 1 tab once daily [Active]; montelukast 10 mg Oral tab 1 tab once daily [Active]; Plavix 75 mg Oral tab 1 tab once daily [Active]; tamsulosin 0.4 mg Oral cp24 1 cap once daily [Active]; - PMHx: 05:38 Diabetes - IDDM; Myocardial infarction; Hypertensive disorder; Hypercholesterolemia; dc2 - Immunization history:: Adult Immunizations up to date, Client reports receiving the 2nd dose of the Covid vaccine, Last tetanus immunization: unknown. - Social history:: Smoking status: Patient denies any tobacco usage or history of. - Family history:: not pertinent. ROS: 06:00 Constitutional: Negative for fever, chills, and weight loss, Eyes: Negative for injury, mert pain, redness, and discharge, ENT: Negative for injury, pain, and discharge, Neck: Negative for injury, pain, and swelling, Cardiovascular: Negative for chest pain, palpitations, and edema, Respiratory: Negative for shortness of breath, cough, wheezing, and pleuritic chest pain, Abdomen/GI: Negative for abdominal pain, nausea, vomiting, diarrhea, and constipation, Back: Negative for injury and pain, : Negative for injury, bleeding, discharge, and swelling, Skin: Negative for injury, rash, and discoloration, Neuro: Negative for headache, weakness, numbness, tingling, and seizure, Psych: Negative for depression, anxiety, suicide ideation, homicidal ideation, and hallucinations, Allergy/Immunology: Negative for hives, rash, and allergies, Endocrine: Negative for neck swelling, polydipsia, polyuria, polyphagia, and marked weight changes. 06:00 MS/extremity: Positive for decreased range of motion, pain, of the left elbow. Exam: 06:04 Constitutional: This is a well developed, well nourished patient who is awake, alert, mert and in no acute distress. Head/Face: Normocephalic, atraumatic. Eyes: Pupils equal round and reactive to light, extra-ocular motions intact. Lids and lashes normal. Conjunctiva and sclera are non-icteric and not injected. Cornea within normal limits. Periorbital areas with no swelling, redness, or edema. ENT: Nares patent. No nasal discharge, no septal abnormalities noted. Tympanic membranes are normal and external auditory canals are clear. Oropharynx with no redness, swelling, or masses, exudates, or evidence of obstruction, uvula midline. Mucous membranes moist. Neck: Trachea midline, no thyromegaly or masses palpated, and no cervical lymphadenopathy. Supple, full range of motion without nuchal rigidity, or vertebral point tenderness. No Meningismus. Chest/axilla: Normal chest wall appearance and motion. Nontender with no deformity. No lesions are appreciated. Cardiovascular: Regular rate and rhythm with a normal S1 and S2. No gallops, murmurs, or rubs. Normal PMI, no JVD. No pulse deficits. Respiratory: Lungs have equal breath sounds bilaterally, clear to auscultation and percussion. No rales, rhonchi or wheezes noted. No increased work of breathing, no retractions or nasal flaring. Abdomen/GI: Soft, non-tender, with normal bowel sounds. No distension or tympany. No guarding or rebound. No evidence of tenderness throughout. Back: No spinal tenderness. No costovertebral tenderness. Full range of motion. Male : Normal genitalia with no discharge or lesions. Skin: Warm, dry with normal turgor. Normal color with no rashes, no lesions, and no evidence of cellulitis. Neuro: Awake and alert, GCS 15, oriented to person, place, time, and situation. Cranial nerves II-XII grossly intact. Motor strength 5/5 in all extremities. Sensory grossly intact. Cerebellar exam normal. Normal gait. Psych: Awake, alert, with orientation to person, place and time. Behavior, mood, and affect are within normal limits. 06:04 Musculoskeletal/extremity: ROM: intact in all extremities, full active range of motion, full passive range of motion, in the left elbow and right elbow, Circulation is intact in all extremities. Sensation intact. Compartment Syndrome exam of affected extremity: is normal. 06:08 ECG was reviewed by the Attending Physician. [facility] Vital Signs: 05:19 BP 142 / 78; Pulse 63; Resp 18; Temp 98.8(O); Pulse Ox 99% on R/A; Pain 0/10; dc2 05:25 BP 142 / 78; Pulse 63; Resp 18; Pulse Ox 99% ; Weight 106.59 kg; Height 6 ft. 0 in. dc2 (182.88 cm); Pain 0/10; 07:00 BP 144 / 75; Pulse 55; Resp 18; Pulse Ox 99% on R/A; ll1 07:49 BP 143 / 79; Pulse 56; Resp 17; Pulse Ox 99% on R/A; ll1 10:46 BP 121 / 70; Pulse 58; Resp 18; Temp 98.1; Pulse Ox 99% on R/A; Pain 0/10; ll1 05:25 Body Mass Index 31.87 (106.59 kg, 182.88 cm) dc2 MDM: 05:21 Patient medically screened. [facility] 06:06 Differential diagnosis: closed fracture, contusion, abrasion. Differential diagnosis: [facility] abrasion, closed head injury, contusion, fracture, laceration, multiple trauma. Data reviewed: vital signs, nurses notes, lab test result(s), EKG, radiologic studies, CT scan, plain films. Data interpreted: drapery sewer hand: Pulse oximetry:. Test interpretation: by ED physician or midlevel provider: ECG, plain radiologic studies. Counseling: I had a detailed discussion with the patient and/or guardian regarding: the historical points, exam findings, and any diagnostic results supporting the discharge/admit diagnosis, lab results, radiology results, the need for outpatient follow up. 01/22 05:33 Order name: Basic Metabolic Panel; Complete Time: 07:43 [facility] 01/22 05:33 Order name: CBC with Diff; Complete Time: 06:48 [facility] 01/22 05:33 Order name: LFT's; Complete Time: 07:43 [facility] 01/22 05:33 Order name: Magnesium; Complete Time: 07:43 [facility] 01/22 05:33 Order name: NT PRO-BNP; Complete Time: 07:43 [facility] 01/22 05:33 Order name: PT-INR; Complete Time: 06:48 [facility] 01/22 05:33 Order name: Troponin (emerg Dept Use Only); Complete Time: 07:43 [facility] 01/22 05:33 Order name: XRAY Chest (1 view) [facility] 01/22 05:33 Order name: Pelvis XRAY [facility] 01/22 05:54 Order name: CT Traumagram (Head C Spine CAP wo con) [facility] 01/22 06:07 Order name: Hand Left 3 View XRAY [facility] 01/22 06:07 Order name: Elbow Left 3 View XRAY [facility] 01/22 07:21 Order name: COVID-19 SARS RT PCR (Document "Date of Onset" if Symptomatic) 01/22 05:33 Order name: EKG; Complete Time: 05:34 [facility] 01/22 05:33 Order name: Cardiac monitoring; Complete Time: 05:34 [facility] 01/22 05:33 Order name: EKG - Nurse/Tech; Complete Time: 05:34 [facility] 01/22 05:33 Order name: IV Saline Lock; Complete Time: 05:34 [facility] 01/22 05:33 Order name: Labs collected and sent; Complete Time: 05:34 [facility] 01/22 05:33 Order name: O2 Per Protocol; Complete Time: 05:34 [facility] 01/22 05:33 Order name: O2 Sat Monitoring; Complete Time: 05:34 [facility] 01/22 05:33 Order name: Wound Care; Complete Time: 05:43 [facility] 01/22 06:07 Order name: Elbow Right 3 View XRAY [facility] 01/22 09:46 Order name: MRI EDMS EC:08 Rate is 58 beats/min. Rhythm is regular. QRS Hanson is Normal. ME interval is normal. QRS mert interval is normal. QT interval is normal. No Q waves. T waves are Normal. No ST changes noted. Clinical impression: Sinus bradycardia and No evidence of ischemia. Interpreted by me. Reviewed by me. Administered Medications: 05:51 Drug: Tetanus-Diphtheria Toxoid Adult 0.5 ml {Cryptologic Support Specialist: Front Up. Exp: [employer] 07/31/2022. Lot #: [id number]. } Route: IM; Site: right deltoid; 07:50 Follow up: Response: No adverse reaction ll1 05:53 Drug: NS 0.9% 500 ml Route: IV; Rate: bolus; Infused Over: 1 hrs; Site: right dc2 antecubital; Delivery: Primary tubing; 07:50 Follow up: Response: No adverse reaction; IV Status: Completed infusion; IV Intake: ll1 500ml Disposition Summary: 01/22/21 07:11 Hospitalization Ordered Hospitalization Status: Observation mert Provider: Abe Basilio cha Location: Telemetry/MedSurg (observation)(01/22/21 07:11) mert Condition: Fair(01/22/21 07:11) mert Problem: new(01/22/21 07:11) mert Symptoms: have improved(01/22/21 07:11) mert Bed/Room Type: Standard mert Room Assignment: 201(01/22/21 10:30) dw Diagnosis - Fall on same level, unspecified(01/22/21 07:11) mert - Weakness mert - Type 1 diabetes mellitus with hyperglycemia(01/22/21 07:11) mert - Contusion of left elbow - with skin avulsion(01/22/21 07:11) mert - Contusion of right elbow - with skin avulsion(01/22/21 07:11) mert - Contusion of left back wall of thorax mert - Contusion of front wall of thorax mert - Unspecified kidney failure - chronic(01/22/21 07:11) mert Forms: - Medication Reconciliation Form mert - SBAR form mert Signatures: Dispatcher [employer] EDMS Sheridan Jensen RN RN dw Twan Oliva MD MD cha Charters, Denise, RN RN dc2 Hany Mcghee RN ll1 Corrections: (The following items were deleted from the chart) 05:38 05:25 PMHx: Diabetes - IDDM; dc2 dc2 05:38 05:25 PMHx: Myocardial infarction; dc2 dc2 05:38 05:25 PMHx: Hypertensive disorder; dc2 dc2 05:38 05:25 PMHx: Hypercholesterolemia; dc2 dc2 06:30 05:34 Head C Spine CAP W Con+CT.RAD.BRZ ordered. EDMS EDMS 07:08 07:08 Home mert mert 07:08 07:08 new mert mert 07:08 07:08 have improved mert mert 07:08 07:08 Stable mert mert 07:08 07:08 Fall on same level, unspecified mert mert 07:08 07:08 Contusion of left hand - hematoma mert mert 07:08 07:08 Contusion of left elbow - with skin avulsion mert mert 07:08 07:08 Contusion of right elbow - with skin avulsion mert mert 07:08 07:08 Type 1 diabetes mellitus with hyperglycemia mert mert 07:08 07:08 Unspecified kidney failure - chronic mert mert 10:30 07:11 mert dw
--- NOTE | 2021-01-22 07:12 | ER ---
Nurse's Notes [facility] Name: Kendrick Worley Age: 80 yrs Sex: Male : 1940 Arrival Date: 01/22/2021 Time: 05:17 Bed 19 Private MD: Diagnosis: Fall on same level, unspecified;Weakness;Type 1 diabetes mellitus with hyperglycemia;Contusion of left elbow-with skin avulsion;Contusion of right elbow-with skin avulsion;Contusion of left back wall of thorax;Contusion of front wall of thorax;Unspecified kidney failure-chronic Presentation: 01/22 05:19 Chief complaint: EMS states: Per patient " I went outside to [facility] and fell over the dc2 threshold when returning inside" " I didn't want to wake my company up " Pt denies pain and did not want to come to the hospital. wanted pt checked out. Coronavirus screen: Vaccine status: Patient reports receiving the 2nd dose of the covid vaccine. Client denies travel out of the [place] in the last 14 days. Ebola Screen: Patient negative for fever greater than or equal to 101.5 degrees Fahrenheit, and additional compatible Ebola Virus Disease symptoms Patient denies exposure to infectious person. Patient denies travel to an Ebola-affected area in the 21 days before illness onset. Initial Sepsis Screen: Does the patient meet any 2 criteria? No. Patient's initial sepsis screen is negative. Does the patient have a suspected source of infection? No. Patient's initial sepsis screen is negative. Risk Assessment: Do you want to hurt yourself or someone else? Patient reports no desire to harm self or others. Onset of symptoms was January 22, 2021 at 04:30. Care prior to arrival: Medication(s) given: Glucose check: 274. 05:19 Method Of Arrival: EMS: [facility] dc2 05:19 Acuity: SHERLEY 3 dc2 Triage Assessment: 05:25 General: Appears in no apparent distress. comfortable, obese, unkempt. Pain: Denies dc2 pain. 05:25 Derm: Derm: Skin is fragile, is thin, with poor turgor has skin tears on Pt with dc2 scattered bruising throughout and presents with 2 gauze wraps to each arm - per EMS pt has skin tears on elbows. 05:25 General: Behavior is calm, cooperative, . dc2 Historical: - Allergies: 05:25 Bactrim; dc2 05:25 Morphine (Hallucinations); dc2 - Home Meds: 05:30 atorvastatin oral [Active]; cefuroxime axetil 250 mg Oral tab 1 tab 2 times per day dc2 [Active]; Farxiga 10 mg Oral tab 1 tab once daily [Active]; gabapentin 100 mg Oral cap 3 caps 3 times per day [Active]; levothyroxine 50 mcg tab 1 tab once daily [Active]; lisinopril 5 mg Oral tab 1 tab once daily [Active]; metoprolol tartrate 25 mg Oral tab 1 tab once daily [Active]; montelukast 10 mg Oral tab 1 tab once daily [Active]; Plavix 75 mg Oral tab 1 tab once daily [Active]; tamsulosin 0.4 mg Oral cp24 1 cap once daily [Active]; - PMHx: 05:38 Diabetes - IDDM; Myocardial infarction; Hypertensive disorder; Hypercholesterolemia; dc2 - Immunization history:: Adult Immunizations up to date, Client reports receiving the 2nd dose of the Covid vaccine, Last tetanus immunization: unknown. - Social history:: Smoking status: Patient denies any tobacco usage or history of. - Family history:: not pertinent. Screenin:30 Abuse screen: Denies threats or abuse. Denies injuries from another. Nutritional dc2 screening: No deficits noted. Tuberculosis screening: No symptoms or risk factors identified. Never had TB. Fall Risk Fall in past 12 months (25 points). Secondary diagnosis (15 points) No IV (0 pts). Ambulatory Aid- None/Bed Rest/Nurse Assist (0 pts). Gait- Weak (10 pts.). Mental Status- Oriented to own ability (0 pts). Total Leal Fall Scale indicates High Risk Score (45 or more points). Fall prevention measures have been instituted. Side Rails Up X 2 Frequent Obs/Assessments Occuring. Assessment: 05:45 General: Appears in no apparent distress. comfortable, obese, well developed, Behavior dc2 is calm, cooperative, Pt is [place]. Pain: Denies pain. Neuro: No deficits noted. Level of Consciousness is awake, alert, obeys commands, Oriented to person, place, situation, Facial symmetry appears normal, Denies blurred vision headache. : No signs and/or symptoms were reported regarding the genitourinary system. Parent/caregiver report the patient having incontinence Wears Depends. Derm: Skin is fragile, is thin, with poor turgor has skin tears on Bilateral elbows, Blood blister to Left hand Wound noted Left elbow with large scab noted , left forearm with bandaid over skin tear, all from falls by pt report Bruising that is dark purple, brown, green, yellow, on new and old bruising throughout upper and lower extremities. Pt reports " I fall alot". 05:45 Cardiovascular: Heart tones present. Respiratory: Airway is patent Breath sounds are dc2 clear bilaterally. Denies shortness of breath. GI: No deficits noted. No signs and/or symptoms were reported involving the gastrointestinal system. Bowel sounds present X 4 quads. 07:00 Reassessment: No changes from previously documented assessment. Patient and/or family ll1 updated on plan of care and expected duration. Pain level reassessed. 08:00 Reassessment: No changes from previously documented assessment. Patient and/or family ll1 updated on plan of care and expected duration. Pain level reassessed. Patient is alert, oriented x 3, equal unlabored respirations, skin warm/dry/pink. 09:00 Reassessment: No changes from previously documented assessment. Patient and/or family ll1 updated on plan of care and expected duration. Pain level reassessed. Patient is alert, oriented x 3, equal unlabored respirations, skin warm/dry/pink. 10:00 Reassessment: No changes from previously documented assessment. Patient and/or family ll1 updated on plan of care and expected duration. Pain level reassessed. Patient is alert, oriented x 3, equal unlabored respirations, skin warm/dry/pink. Vital Signs: 05:19 BP 142 / 78; Pulse 63; Resp 18; Temp 98.8(O); Pulse Ox 99% on R/A; Pain 0/10; dc2 05:25 BP 142 / 78; Pulse 63; Resp 18; Pulse Ox 99% ; Weight 106.59 kg; Height 6 ft. 0 in. dc2 (182.88 cm); Pain 0/10; 07:00 BP 144 / 75; Pulse 55; Resp 18; Pulse Ox 99% on R/A; ll1 07:49 BP 143 / 79; Pulse 56; Resp 17; Pulse Ox 99% on R/A; ll1 10:46 BP 121 / 70; Pulse 58; Resp 18; Temp 98.1; Pulse Ox 99% on R/A; Pain 0/10; ll1 05:25 Body Mass Index 31.87 (106.59 kg, 182.88 cm) dc2 ED Course: 05:17 Patient arrived in ED. tt3 05:21 Twan Oliva MD is Attending Physician. mert 05:22 Arm band placed on. dc2 05:25 Triage completed. dc2 05:30 No provider procedures requiring assistance completed. dc2 05:30 Patient has correct armband on for positive identification. Allergy band placed. Fall dc2 risk band placed. Placed in gown. Bed in low position. Call light in reach. Side rails up X2. biodiesel processing technician on. Pulse ox on. NIBP on. 05:35 Inserted saline lock: 20 gauge in right antecubital area, using aseptic technique. ds4 Blood collected. 05:42 Gayle Victor, RN is Primary Nurse. cc4 05:42 Basic Metabolic Panel Sent. dc2 05:42 CBC with Diff Sent. dc2 05:42 LFT's Sent. dc2 05:42 Magnesium Sent. dc2 05:43 NT PRO-BNP Sent. dc2 05:43 PT-INR Sent. dc2 05:43 Troponin (emerg Dept Use Only) Sent. dc2 05:53 Pelvis XRAY Sent. dc2 05:53 XRAY Chest (1 view) Sent. dc2 05:54 X-ray(s) taken. dc2 06:05 XRAY Chest (1 view) In Process Unspecified. EDMS 06:05 Pelvis XRAY In Process Unspecified. EDMS 06:[address] dc2 06:28 Patient moved back from CT. dc2 06:30 CT Traumagram (Head C Spine CAP wo con) In Process Unspecified. EDMS 07:08 Hand Left 3 View XRAY In Process Unspecified. EDMS 07:08 Elbow Left 3 View XRAY In Process Unspecified. EDMS 07:08 Elbow Right 3 View XRAY In Process Unspecified. EDMS 07:09 Abe Basilio MD is Hospitalizing Provider. mert 08:24 Wet brief removed. Cleaned and new diaper applied. Significant rash and redness to ll1 scrotal area and skin surrounding. states she has been fighting this rash for 2 weeks. No OTC meds. are helping. 10:48 Awaiting: RN on 2nd unable to take report right now. She will call back. 1 11:21 Patient admitted, IV remains in place. 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 Exp: dc2 07/31/2022. Lot #: [id number]. } Route: IM; Site: right deltoid; 07:50 Follow up: Response: No adverse reaction 1 05:53 Drug: NS 0.9% 500 ml Route: IV; Rate: bolus; Infused Over: 1 hrs; Site: right dc2 antecubital; Delivery: Primary tubing; 07:50 Follow up: Response: No adverse reaction; IV Status: Completed infusion; IV Intake: ll1 500ml Intake: 07:50 IV: 500ml; Total: 500ml. 1 Outcome: 07:08 Discharge ordered by . [facility] 07:11 Decision to Hospitalize by Provider. [facility] 11:20 Admitted to Tele accompanied by tech, via stretcher, room 201, with chart, Report 1 called to Nadya Quintero RN on . 11:20 Condition: stable 11:20 Instructed on the need for admit. 11:50 Patient left the ED. 1 Signatures: Dispatcher [employer] EDTwan Vilchis MD MD cha Swanson, Donovan ds4 Hany Mcghee RN RN ll1 Roman Jimenez3 Gayle Victor RN RN cc4 Ebony Lainez RN RN dc2 Corrections: (The following items were deleted from the chart) 05:38 05:25 PMHx: Diabetes - IDDM; dc2 dc2 05:38 05:25 PMHx: Myocardial infarction; dc2 dc2 05:38 05:25 PMHx: Hypertensive disorder; dc2 dc2 05:38 05:25 PMHx: Hypercholesterolemia; dc2 dc2
[2021-01-22 07:34] LABS: ALT/SGPT 31 U/L (12-78); AST/SGOT 12 U/L (15-37); Albumin 3.4 g/dL (3.4-5.0); Alkaline Phosphatase 68 U/L (45-117); BUN Blood Urea Nitrogen 41 mg/dL (7-18); Bicarbonate 21 mmol/L (21-32); Bilirubin Direct 0.1 mg/dL (0-0.2); Bilirubin Total 0.5 mg/dL (0.2-1.0); Glucose Level 245 mg/dL (74-106); Magnesium 2.2 mg/dL (1.8-2.4); NT PRO-BNP 166 pg/mL (<450); Potassium 3.7 mmol/L (3.5-5.1); Protein, Total 7.3 g/dL (6.4-8.2); Sodium Level 141 mmol/L (136-145); Troponin (Emerg Dept Use Only) < 0.02 ng/mL (0.0-0.045)
--- NOTE | 2021-01-22 08:28 | RAD REPORT ---
EXAM DESCRIPTION: RAD - Chest Single View - 01/22/2021 6:05 am CLINICAL HISTORY: COUGH Chest pain. COMPARISON: Chest Pa And Lat (2 Views) dated 03/21/2019; Chest Single View dated 12/31/2017; CHEST SIN GLE VIEW dated 09/03/2009; CHEST PA AND LAT 2 VIEW dated 12/16/2008; Head C Spine Cap Wo Con dated 01/22 FINDINGS: Portable technique limits examination quality. The lungs are underinflated resulting in mild vascular crowding. The heart is upper limit of normal i n size. No displaced fractures. IMPRESSION: Underinflated lungs.
--- NOTE | 2021-01-22 08:38 | RAD REPORT ---
EXAM DESCRIPTION: CT Head and Cervical Sp CLINICAL HISTORY: The patient is 80 years old and is Male; fall;Pain TECHNIQUE: Axial computed tomography images of the head/brain and cervical spine without intravenous contrast. Sagittal and coronal reformatted images were created and reviewed. This CT exam was pe rformed using one or more of the following dose reduction techniques: automated exposure control, a djustment of the mA and/or kV according to patient size, and/or use of iterative reconstruction techn ique. COMPARISON: No relevant prior studies available. FINDINGS: Brain: Mild nonspecific white matter changes likely related to chronic microvascular isc hemic disease. Mild cerebral atrophy. No hemorrhage. Ventricles: Mild ventricular prominence. Skull: No acute fracture. Sinuses: Unremarkable as visualized. No acute sinusitis. Mastoid air cells: Unremarkable as visualized. No mastoid effusion. Vertebrae: No acute cervical spine fracture or subluxation. Straightening of the normal cervical lordosis. Discs/spinal canal/neural foramina: Multilevel disc space narrowing with degenerative endplate c hanges cervical spine. Moderate to severe right neural foraminal narrowing at C3-4. Moderate to severe right neural foraminal narrowing at C4-5. Moderate right neural foraminal narrowing at C5-6. Soft tissues: Unremarkable. * A single impression for all exams can be found at the end of this report EXAM DESCRIPTION: CT Chest, Abdomen and Pelvis Without Intravenous Contrast CLINICAL HISTORY: The patient is 80 years old and is Male; fall;Pain TECHNIQUE: Axial computed tomography images of the chest, abdomen and pelvis without intravenous con trast. Sagittal and coronal reformatted images were created and reviewed. This CT exam was perfor med using one or more of the following dose reduction techniques: automated exposure control, adjus tment of the mA and/or kV according to patient size, and/or use of iterative reconstruction technique . COMPARISON: No relevant prior studies available. FINDINGS: CHEST: Lungs: Bibasilar dependent atelectasis. Pleural space: Unremarkable. No significant effusion. No pneumothorax. Heart: Coronary artery calcification. No significant pericardial effusion. ABDOMEN: Liver: Unremarkable. Gallbladder and bile ducts: Unremarkable. No calcified stones. No ductal dilation. Pancreas: Unremarkable. No ductal dilation. Spleen: Unremarkable. No splenomegaly. Adrenals: Unremarkable. No mass. Kidneys and ureters: Right kidney is absent. No obstructing stones. No hydronephrosis. Stomach and bowel: Scattered colonic diverticula. No obstruction. No mucosal thickening. PELVIS: Appendix: No findings to suggest acute appendicitis. Bladder: Unremarkable. No stones. Reproductive: Unremarkable as visualized. CHEST, ABDOMEN and PELVIS: Intraperitoneal space: Unremarkable. No significant fluid collection. No free air. Bones/joints: Right hip arthroplasty. No acute fracture. No dislocation. Soft tissues: Unremarkable. Vasculature: Unremarkable. No aortic aneurysm. Lymph nodes: Unremarkable. No enlarged lymph nodes. * A single impression for all exams can be found at the end of this report IMPRESSION: CT Head and Cervical Spine Without Intravenous Contrast: 1. No acute intracranial abnormality. 2. No acute cervical spine fracture or subluxation. CT Chest, Abdomen and Pelvis Without Intravenous Contrast: No acute finding in the chest, abdomen or pelvis. Electronically signed by: Sidney Sweet MD 01/22/2021 7:29 AM CDT Due to temporary technical issues with the PACS/Fluency reporting system, reports are being signed by the in house radiologist without review as a courtesy to ensure prompt reporting. The interpreting r adiologist is fully responsible for the content of the report.
--- NOTE | 2021-01-22 08:41 | RAD REPORT ---
EXAM DESCRIPTION: RAD - Pelvis - 01/22/2021 6:05 am CLINICAL HISTORY: fall Fall, trauma, pain COMPARISON: Hip Bilateral With Pelvis dated 01/01/2018 FINDINGS: Right total hip arthroplasty is noted. The bones are mildly demineralized. No acute fractu re or dislocation is seen.
--- NOTE | 2021-01-22 08:44 | RAD REPORT ---
EXAM DESCRIPTION: RAD - Hand Left 3 View - 01/22/2021 7:07 am CLINICAL HISTORY: PAIN COMPARISON: No comparisons FINDINGS: Advanced arthritic changes involve the first carpometacarpal joint. No acute fracture or d islocation seen.
--- NOTE | 2021-01-22 08:52 | RAD REPORT ---
EXAM DESCRIPTION: RAD - Elbow Left 3 View - 01/22/2021 7:07 am CLINICAL HISTORY: PAIN COMPARISON: No comparisons FINDINGS: No fracture or dislocation is seen. Tiny olecranon spur.
--- NOTE | 2021-01-22 08:53 | RAD REPORT ---
EXAM DESCRIPTION: RAD - Elbow Right 3 View - 01/22/2021 7:07 am CLINICAL HISTORY: PAIN COMPARISON: No comparisons FINDINGS: No acute fracture or dislocation seen. Tiny olecranon spur.
--- NOTE | 2021-01-22 09:45 | RAD REPORT ---
EXAM DESCRIPTION: MRI - Brain Wo Cont - 01/22/2021 8:55 am CLINICAL HISTORY: fall Fall, trauma, head injury COMPARISON: Facial Bones W/ Mpr dated 10/07/2020 TECHNIQUE: Multi-sequence, multiplanar MR imaging of the brain was performed without contrast. FINDINGS: No intracranial hemorrhage, hydrocephalus or extra-axial fluid collections.Moderate genera lized brain atrophy is present with moderate periventricular and deep white matter chronic microvascu lar ischemic changes. No edema or shift of midline structures. No findings to suspect brain mass. DWI is negative for acute CVA. Midline structures are normally formed. Mastoid air cells and paranasal sinuses are clear. IMPRESSION: No acute CVA or intracranial trauma related abnormality. Moderate generalized brain atrophy with chronic microvascular ischemic changes.
[2021-01-22] MEDS ORDERED: FENTANYL CITR 100 MCG/2 ML IV PRN (11:59)
[2021-01-22] MEDS ORDERED: FAMOTIDINE 20 MG/2 ML VIAL IV SCH (11:59)
[2021-01-22] MEDS: LEVALBUTEROL 1.25 MG/3 ML NEB NEB SCH ×3 (11:59→20:18)
[2021-01-22] MEDS ORDERED: ASPIRIN EC 81 MG TAB PO SCH (11:59)
[2021-01-22] MEDS ORDERED: ONDANSETRON 4 MG/2 ML VIAL IV PRN (11:59)
[2021-01-22] MEDS ORDERED: ACETAMINOPHEN 325 MG TABLET PO PRN (12:21)
--- NOTE | 2021-01-22 13:06 | P.SSS ---
Patient History Date of Service: 01/22/21 Reason for admission: WEAKNESS FALLS, CONFUSION History of Present Illness: IS DECONDITIONED GM WHO IS GETTING SLOWER FOR MONTHS. 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 HE HAS FALLEN A FEW TIMES. HE LAST NIGHT GOT UP AND WENT OUTSIDE TO URINATE IN THE [place]. THIS IS NEW PER . Allergies sulfamethoxazole [From Bactrim] Allergy (Intermediate, Verified 03/20/19 17:30) Hives trimethoprim [From Bactrim] Allergy (Intermediate, Verified 03/20/19 17:30) Hives morphine Allergy (Verified 03/20/19 17:30) Itching Home medications list reviewed: Yes Home Medications: Atorvastatin Calcium 20 mg PO BEDTIME 01/01/18 Clopidogrel Bisulfate [Plavix*] 75 mg PO DAILY 01/01/18 Levothyroxine [Synthroid*] 50 mcg PO [id number] 01/01/18 Metoprolol Succinate [Toprol Xl*] 25 mg PO BEDTIME 01/01/18 Tamsulosin [Flomax*] 0.4 mg PO BID 01/01/18 Tramadol HCl [Ultram] 50 mg PO Q6H PRN 01/01/18 lisinopriL [Lisinopril] 5 mg PO DAILY 01/01/18 Gabapentin [Neurontin*] 100 mg PO BEDTIME 12/01/18 Insulin Aspart [Novolog] 15 units SQ SEECOM 12/01/18 Insulin Detemir [Levemir Flextouch] 45 units SQ BEDTIME 12/01/18 Montelukast [Singulair*] 10 mg PO DAILY 08/27/19 Nystatin 5 ml PO Q6H 7 Days ml 09/02/19 predniSONE [Prednisone*] 1 tab PO DAILY 09/02/19 Testosterone Cypionate [Testone Cik] 200 mg IM Q7D #4 kit 09/03/19 - Past Medical/Surgical History Diabetic: Yes -: [place] -: DM -: kidney, bladder cancer -: kidney removal -: knee surgery -: right elbow surgery -: STENT PLACEMENT 3YRS AGO -: KNEE REPLACEMENT -: Hip surgery 08/04 - Family History Father -: Lung disease, Cancer Mother Notes: no known medical condition - Social History Alcohol use: No CD- Drugs: No Caffeine use: Yes Review of Systems 10-point ROS is otherwise unremarkable General: Weakness Physical Examination - Vital Signs Temperature: 98.1 F Blood Pressure: 121/70 Pulse: 58 Respirations: 18 - Physical Exam General: Oriented x3, Mild distress, Obese HEENT: Atraumatic, PERRLA, Mucous membr. moist/pink, EOMI, Sclerae nonicteric Neck: Supple, 2+ carotid pulse no bruit, No LAD, Without JVD or thyroid abnormality Respiratory: Clear to auscultation bilaterally, Normal air movement Cardiovascular: Regular rate/rhythm, Normal S1 S2 Gastrointestinal: Normal bowel sounds, No tenderness Musculoskeletal: No tenderness Integumentary: No rashes Neurological: Normal gait, Normal speech, Normal strength at 5/5 x4 extr (GENERALLY WEAK BUT NORMAL FOR HIM. SLOW.), Normal tone, Normal affect Lymphatics: No axilla or inguinal lymphadenopathy - Studies Laboratory Data (last 24 hrs) 01/22/21 05:34: PT 11.8, INR 1.03 01/22/21 05:34: WBC 8.30, Hgb 14.0, Hct 42.1, Plt Count 194 01/22/21 05:33: Sodium 141, Potassium 3.7, BUN 41 H, Creatinine 2.21 H, Glucose 245 H, Magnesium 2.2, Total Bilirubin 0.5, AST 12 L, ALT 31, Alkaline Phosphatase 68 - Diagnosis (Problem(s)) (1) Dehydration Current Visit: Yes Status: Acute Plan: GENTLE IV HYDRATION. (2) Altered mental state Current Visit: Yes Status: Acute Plan: CHECK LAB TSH, B12, AMMONIA, TESOSTERONE LEVEL, CRP. RULE OUT ISSUES THAT CAN CAUSE CHRONIC FATIGUE. MRI NEG FOR STROKE. NO CLINICAL SIGNS OF STROKE. DEMENTIA IS SET IN. (3) Risk for falls Onset Date: 01/01/18 Current Visit: No Status: Chronic Plan: NO CHANGES. CAN'T AFFORD NH. MAY GO HOME IN AM. - Disposition Disposition: ROUTINE DISCHARGE
[2021-01-22 13:50] VITALS: BMI 36.8
[2021-01-22] MEDS: NA CHLORIDE 0.9% 1,000 ML IV SCH ×2 (14:17→20:39)
[2021-01-22] MEDS: LACTOBACILLUS/ACIDOPHILUS TAB PO SCH ×2 (14:17→20:38)
[2021-01-22 15:35] LABS: C-Reactive Protein 8.33 mg/L (<3.00); Thyroid Stimulating Hormone 2.12 uIU/mL (0.360-3.740)
[2021-01-22] MEDS ORDERED: PNEUMOCOCCAL VACCINE 0.5 ML IMVAC ONE (20:00)
[2021-01-22] MEDS ORDERED: CLOTRIMAZOLE 1% CREAM 15 GM TOP SCH (21:00)
[2021-01-22 22:09] VITALS: O2SAT 95
[2021-01-23] MEDS: LEVALBUTEROL 1.25 MG/3 ML NEB NEB SCH ×2 (02:48→08:00)
[2021-01-23 03:55] VITALS: TEMP 97.4
[2021-01-23 05:55] LABS: Absolute Lymphocytes (CBC) 1.7 K/uL (0.7-4.9); Basophils % 0.7 % (0-1.3); Hematocrit 39.3 % (39.6-49.0); MPV 6.4 fL (7.6-11.3); RBC Red Blood Cell Count 4.52 M/uL (4.33-5.43)
[2021-01-23 06:11] LABS: Potassium 3.8 mmol/L (3.5-5.1)
[2021-01-23] MEDS ORDERED: INSULIN ASPART 100 UNIT/ML SQ SCH (07:00)
[2021-01-23 08:35] VITALS: BP 172/79
[2021-01-23] MEDS ORDERED: predniSONE 20 MG TAB PO SCH (09:00)
[2021-01-23] MEDS ORDERED: MONTELUKAST 10 MG TAB PO SCH (09:00)
[2021-01-23] MEDS ORDERED: CLOPIDOGREL 75 MG TABLET PO SCH (09:00)
[2021-01-23] MEDS ORDERED: ENOXAPARIN 30 MG/0.3 ML SQ SCH (09:00)
[2021-01-23] MEDS ORDERED: TAMSULOSIN 0.4 MG SR CAP PO SCH (09:00)
[2021-01-23] MEDS ORDERED: ENOXAPARIN 40 MG/0.4 ML SQ SCH (09:00)
[2021-01-23] MEDS ORDERED: lisinopriL 5 MG TAB PO SCH (09:00)
[2021-01-23] MEDS ORDERED: POTASSIUM CL SA 10 MEQ TAB PO ONE (09:00)
[2021-01-23] MEDS ORDERED: INSULIN GLARGINE 100 UNITS/ML SQ SCH (21:00)
[2021-01-23] MEDS ORDERED: METOPROLOL XL 25 MG TAB PO SCH (21:00)
[2021-01-23] MEDS ORDERED: ATORVASTATIN 20 MG TAB PO SCH (21:00)
[2021-01-23] MEDS ORDERED: GABAPENTIN 100 MG CAP PO SCH (21:00)
[2021-01-24] MEDS ORDERED: LEVOTHYROXINE SOD 0.05 MG TABLET PO SCH (06:00)
--- OUTSIDE RECORDS SUMMARY | 2021-01-30 12:09 | XMS REPORT | Continuity of Care Document ---
:1940 Author Organization [facility] t Address [address] [place] [address] Care Team Providers Name Role Phone HOMERO STEVEN Attending Clinician Unavailable Homero Steven MD Attending Clinician Davin Marquez DO Attending Clinician INCANALI Attending Clinician Unavailable 2, Mda Procedure Rm Attending Clinician Unavailable Doctor Unassigned, Name Attending Clinician Unavailable Mike FERNÁNDEZ Attending Clinician Unavailable Trevon LEAL Attending Clinician UNDEFINED Attending Clinician Unavailable Pedro Attending Clinician Unavailable Tracy Morin MD Attending Clinician Unavailable Vignesh Attending Clinician Pedro Admitting Clinician Unavailable HUGO Admitting Clinician Unavailable Vignesh Admitting Clinician Payers Payer Name Policy Type Policy Number Effective Date Expiration Date Neha johnson [employer] MANAGED [id number] 2020 MEDICARE PPO-LOGAN 00:00:00 Problems Condition Condition Condition Status Onset Resolution Last Treating Co mments Source Name Details Category Date Date Treatment Clinician Date 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 7-18 Added ity of 00:00: automatic [place] 00 ally from Medical request Branch for surgery [id number] S/P S/P Disease Active 2016-03 Univers revision revision 0-02 ity of of total of total 00:00: [place] knee knee 00 Medical Branch 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 00:00: [place] mellitus mellitus 00 Medica l with stage with stage Br anch 4 chronic 4 chronic kidney kidney disease, disease, with with long-term long-term current current use of use of insulin insulin Type 2 Type 2 Disease Active Univers diabetes, diabetes, 2-22 ity of uncontroll uncontroll [place] ed, with ed, with 00 Medica l renal renal Branch manifestat manifestat ion ion Type 2 Type 2 Disease Active Univers diabetes, diabetes, 2-22 ity of uncontroll uncontroll 00:00: [place] ed, with ed, with 00 Medica l renal renal Branch manifestat manifestat ion ion 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 U jackie semia semia 2-31 ity of 00:00: [place] 00 Medical Branch Malignant Malignant Disease Active 2010-03 Overview: Univers neoplasm neoplasm 0-17 ICD10 ity of of bladder of bladder 00:00: Diagnosis [place] 00 Term [facility] Sitter Branch Utility 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 8-04 ity of disease, disease, 00:00: [place] stage III stage III 00 Medi jero (moderate) (moderate) Br anch Urinary Urinary Disease Active Univers tract tract 8-04 ity of infection, infection, 00:00[place] site not site not 00 Medica l specified specified Bran ch Malignant Malignant Disease Active Uni vers tumor tumor 6-27 ity of renal renal 00:00: [place] pelvis pelvis 00 Medical Branch HLD HLD Disease Active Overview: Univer s (hyperlipi (hyperlipi 6-23 ICD10 it y of demia) demia) 00:00: Diagnosis [place] 00 Term [facility] Utility Essential Essential Disease Active Uni vers hypertensi hypertensi 6-23 it y of on, benign on, benign 00:00: [place] 00 [place] Coronary Coronary Disease Active Overview: [place] atheroscle atheroscle 09-09 1985 it y of rosis of rosis of 00:00: [place] pamunkey pamunkey 00 Medical coronary coronary Branch artery artery Coronary Coronary Disease Active Overview: [place] atheroscle atheroscle 09-09 1985 it y of rosis of rosis of 00:00: [place] pamunkey pamunkey 00 Medical coronary coronary Branch artery artery Malignant Malignant Disease Active 2009-03 Overview: Univers neoplasm neoplasm 1-23 ICD10 ity of of kidney of kidney 00:00: Diagnosis [place] excluding excluding 00 Term [facility] renal renal House Sitter Branch pelvis pelvis Utility Allergies, Adverse Reactions, Alerts Allergy Allergy Status Severity Reaction(s) Onset Inactive Treating Comm ents Source Name Type Date Date Clinician MORPHINE DRUG Active Hallucinates [place] INGREDI 2 ity of 00:00: [place] 00 [facility] Morphine Propensi Active Hallucinatio confusi on Univers ty to ns 2- ity of adverse 00:00: [place] reaction 00 [facility] No Known DA Active U 2002-03 [facility] Contrast 2-24 Clear Allergie 00:00: [place] 00 [facility] No Known DA Active U 2002-03 [facility] Drug 2-24 Clear Allergie 00:00: [place] 00 [facility] No Known DA Active U 2002-03 [facility] Food 2-24 Clear Allergie 00:00: [place] 00 [facility] No Known DA Active U 2002-03 [facility] Other 2-24 Clear Allergie 00:00: [place] 00 [facility] Social History Social Habit Start Date Stop Date Quantity Comments Source Tobacco Comment Quit 30 years Univer sity of ago [facility] Cigarettes smoked 2020-06-30 2020-06-30 Univers ity of current (pack per 00:00:00 00:00:00 ) - Reported Branch Cigarette 2020-06-30 2020-06-30 University of pack-years 00:00:00 00:00:00 [facility] Alcohol intake 2020-06-30 2020-06-30 Current University of 00:00:00 00:00:00 non-drinker of [facility] alcohol Branch (finding) Tobacco use and 2020-06-30 2020-06-30 Never used Universit y of exposure 00:00:00 00:00:00 [facility] Sex Ass[birth year] At [birth year] Universit y of 00:00:00 00:00:00 [facility] Smoking Status Start Date Stop Date Source Former smoker 2020-06-30 00:00:2020-06-30 00:00:00 [facility] Medical Branch Medications Ordered Filled Start Stop Current Ordering Indication Dosage Frequency Signature Comments Components Source Medication Medication Date Date Medication? Clinician (SIG) Name Name furosemide 2019-03 Yes Take by Uni vers (LASIX 1-03 mouth ity of ORAL) 16:10: daily. [place] [address] Medical Branch AMILORIDE-H 2019-03 Yes 5mg Take 5 mg U nivers YDROCHLOROT 1-03 by mouth ity of HIAZIDE 16:10: daily. [place] ORAL Medical Branch furosemide 2019-03 Yes Take by Uni vers (LASIX 1-03 mouth ity of ORAL) 16:10: daily. [place] [address] Medical Branch AMILORIDE-H 2019-03 Yes 5mg Take 5 mg U nivers YDROCHLOROT 1-03 by mouth ity of HIAZIDE 16:10: daily. [place] [address] Medical Branch furosemide 2019-03 Yes Take by Uni vers (LASIX 1-03 mouth ity of ORAL) 16:10: daily. [place] [address] Medical Branch AMILORIDE-H 2019-03 Yes 5mg Take 5 mg U nivers YDROCHLOROT 1-03 by mouth ity of HIAZIDE 16:10: daily. [place] [address] Medical Branch furosemide 2019-03 Yes Take by Uni vers (LASIX 1-03 mouth ity of ORAL) 16:10: daily. [place] [address] Medical Branch AMILORIDE-H 2019-03 Yes 5mg Take 5 mg U nivers YDROCHLOROT 1-03 by mouth ity of HIAZIDE 16:10: daily. [place] [address] Medical Branch furosemide 2019-03 Yes Take by Uni vers (LASIX 1-03 mouth ity of ORAL) 16:10: daily. [place] [address] Medical Branch AMILORIDE-H 2019-03 Yes 5mg Take 5 mg U nivers YDROCHLOROT 1-03 by mouth ity of HIAZIDE 16:10: daily. [place] [address] Medical Branch tadalafiL 2019-03 Yes [id number] 20mg Take 1 U nivers (CIALIS) 20 1-03 tablet by ity of mg tablet 00:00: [place] 00 needed for Medical Erectile Branch dysfunctio n. tadalafiL 2019-03 Yes [id number] 20mg Take 1 U nivers (CIALIS) 20 1-03 tablet by ity of mg tablet 00:00: [place] 00 needed for Medical Erectile Branch dysfunctio n. tadalafiL 2019-03 Yes [id number] 20mg Take 1 U nivers (CIALIS) 20 1-03 tablet by ity of mg tablet 00:00: mouth [place] 00 needed for Medical Erectile Branch dysfunctio n. tadalafiL 2019-03 Yes [id number] 20mg Take 1 U nivers (CIALIS) 20 1-03 tablet by ity of mg tablet 00:00: [place] 00 needed for Medical Erectile Branch dysfunctio n. tadalafiL 2019-03 Yes [id number] 20mg Take 1 U nivers (CIALIS) 20 1-03 tablet by ity of mg tablet 00:00: [place] 00 needed for Medical Erectile Branch dysfunctio n. gentamicin 2019-03- No 80mg Univer s injection 0-30 12- ity of 80 mg 18:00: 17:00 [place] 00 :00 Medical Branch gentamicin 2019-03- No 80mg 80 mg, Univ ers injection 0- Intramuscu ity of 80 mg 18:00: 17:00 lar, ONCE, [place] 00 :00 1 dose, [facility] 12/31/19 at 1300, LESA
Re ason for Anti-Infec tive: Surgical Prophylaxi s
Surgi jero Prophylaxi s: Genitourin wilbur
Dur ation of therapy: within 24 hours of surgery gentamicin 2019-03- No 80mg Univer s injection 0- ity of 80 mg 18:00: 17:00 [place] 00 :00 Medical Branch gentamicin 2019-03- No 80mg 80 mg, Univ ers injection 0- Intramuscu ity of 80 mg 18:00: 17:00 lar, ONCE, [place] 00 :00 1 dose, [facility] 12/31/19 at 1300, LESA
Re ason for Anti-Infec tive: Surgical Prophylaxi s
Surgi jero Prophylaxi s: Genitourin wilbur
Dur ation of therapy: within 24 hours of surgery gentamicin 2019-03- No 80mg Univer s injection 0-30 12- ity of 80 mg 18:00: 17:00 [place] 00 :00 Medical Branch gentamicin 2019-03- No 80mg 80 mg, Univ ers injection 0-13 10- Intramuscu ity of 80 mg 18:00: 17:00 lar, ONCE, [place] 00 :00 1 dose, [facility] 12/31/19 at 1300, LESA
Re ason for Anti-Infec tive: Surgical Prophylaxi s
Surgi jero Prophylaxi s: Genitourin wilbur
Dur ation of therapy: within 24 hours of surgery gentamicin 2019-03- No 80mg Univer s injection 0-13 10- ity of 80 mg 18:00: 17:00 [place] 00 :00 Medical Branch gentamicin 2019-03- No 80mg 80 mg, Univ ers injection 0-13 10- Intramuscu ity of 80 mg 18:00: 17:00 lar, ONCE, [place] 00 :00 1 dose, [facility] 12/31/19 at 1300, LESA
Re ason for Anti-Infec tive: Surgical Prophylaxi s
Surgi jero Prophylaxi s: Genitourin wilbur
Dur ation of therapy: within 24 hours of surgery gentamicin 2019-03- No 80mg Univer s injection 0-13 10- ity of 80 mg 18:00: 17:00 [place] 00 :00 [facility] gentamicin 2019-03- No 80mg 80 mg, Univ ers injection 0-13 10- Intramuscu ity of 80 mg 18:00: 17:00 lar, ONCE, [place] 00 :00 1 dose, [facility] 12/31/19 at 1300, LESA
Re ason for Anti-Infec tive: Surgical Prophylaxi s
Surgi jero Prophylaxi s: Genitourin wilbur
Dur ation of therapy: within 24 hours of surgery predniSONE 2019-03 Yes 10mg Take 10 mg U nivers 20 mg 0-13 by mouth ity of tablet 16:22: daily. [facility] AMILORIDE-H 2019-03 Yes 5mg Take 5 mg U nivers YDROCHLOROT 0-13 by mouth ity of HIAZIDE 16:22: daily. [facility] predniSONE 2019-03 Yes 10mg Take 10 mg U nivers 20 mg 0-13 by mouth ity of tablet 16:22: daily. [address] Branch AMILORIDE-H 2020- Yes 5mg Take 5 mg U nivers YDROCHLOROT 0-13 by mouth ity of HIAZIDE 16:22: daily. [place] ORAL 00 Medical Branch predniSONE 2020 Yes 10mg Take 10 mg U nivers 20 mg 0-13 by mouth ity of tablet 16:22: daily. [address] AMILORIDE-H 2019- Yes 5mg Take 5 mg U nivers YDROCHLOROT 0-13 by mouth ity of HIAZIDE 16:22: daily. [place] ORAL 00 Medical Branch predniSONE 2019- Yes 10mg Take 10 mg U nivers 20 mg 0-13 by mouth ity of tablet 16:22: daily. [address] AMILORIDE-H 2019-03 Yes 5mg Take 5 mg U nivers YDROCHLOROT 0-13 by mouth ity of HIAZIDE 16:22: daily. [address] predniSONE 2019-03 Yes 10mg Take 10 mg U nivers 20 mg 0-13 by mouth ity of tablet 16:22: daily. [address] AMILORIDE-H 2019-03 Yes 5mg Take 5 mg U nivers YDROCHLOROT 0-13 by mouth ity of HIAZIDE 16:22: daily. [place] [address] Medical Branch predniSONE 2019-03 Yes 10mg Take 10 mg U nivers 20 mg 0-13 by mouth ity of tablet 16:22: daily. [address] AMILORIDE-H 2019-03 Yes 5mg Take 5 mg U nivers YDROCHLOROT 0-13 by mouth ity of HIAZIDE 16:22: daily. [place] [address] Medical Branch predniSONE 2020- Yes 10mg Take 10 mg U nivers 20 mg 0-13 by mouth ity of tablet 16:22: daily. [address] predniSONE 2020- Yes 10mg Take 10 mg U nivers 20 mg 0-13 by mouth ity of tablet 16:22: daily. [address] predniSONE 2020- Yes 10mg Take 10 mg U nivers 20 mg 0-13 by mouth ity of tablet 16:22: daily. [address] predniSONE 2020- Yes 10mg Take 10 mg U nivers 20 mg 0-13 by mouth ity of tablet 16:22: daily. [place] 00 Medical Branch predniSONE 2020-1 Yes 10mg Take 10 mg U nivers 20 mg 0-13 by mouth ity of tablet 16:22: daily. [place] Medical Branch levoFLOXaci 2020-1 2020- No [id number] 500mg Take 1 Univers n 0-01 10-12 tablet by ity of (LEVAQUIN) 00:00: 04:59 mouth [place] 500 mg 00 :00 daily for Medical tablet 10 days. Branch furosemide 2019-0 Yes Take by Uni vers (LASIX 9-29 mouth ity of ORAL) 18:26: daily. [place] [address] Medical Branch furosemide 2019-0 Yes Take by Uni vers (LASIX 9-29 mouth ity of ORAL) 18:26: daily. [address] furosemide 2019-0 Yes Take by Uni vers (LASIX 9-29 mouth ity of ORAL) 18:26: daily. [address] furosemide 2019-0 Yes Take by Uni vers (LASIX 9-29 mouth ity of ORAL) 18:26: daily. [address] furosemide 2019-0 Yes Take by Uni vers (LASIX 9-29 mouth ity of ORAL) 18:26: daily. [place] [address] Medical Branch furosemide 2019-0 Yes Take by Uni vers (LASIX 9-29 mouth ity of ORAL) 18:26: daily. [address] furosemide 2020-0 Yes Take by Uni vers (LASIX 9-29 mouth ity of ORAL) 18:26: daily. [address] Branch furosemide 2019-0 Yes Take by Uni vers (LASIX 9-29 mouth ity of ORAL) 18:26: daily. [address] furosemide 2019-0 Yes Take by Uni vers (LASIX 9-29 mouth ity of ORAL) 18:26: daily. [address] Branch NOVOLOG 2018-0 Yes [id number] INJECT 18 Univers U-100 9-10 UNITS ity of INSULIN 00:00: UNDER THE [place] ASPART 100 00 SKIN 3 Medical unit/mL (THREE) Branch solution TIMES DAILY BEFORE MEALS. NOVOLOG 2018-0 Yes [id number] INJECT 18 U nivers U-100 9-10 UNITS ity of INSULIN 00:00: UNDER THE [place] ASPART 100 00 SKIN 3 Medical unit/mL (THREE) Branch solution TIMES DAILY BEFORE MEALS. NOVOLOG 2018-0 Yes [id number] INJECT 18 U nivers U-100 9-10 UNITS ity of INSULIN 00:00: UNDER THE [place] ASPART 100 00 SKIN 3 Medical unit/mL (THREE) Branch solution TIMES DAILY BEFORE MEALS. NOVOLOG 2018-0 Yes [id number] INJECT 18 U nivers U-100 9-10 UNITS ity of INSULIN 00:00: UNDER THE [place] ASPART 100 00 SKIN 3 Medical unit/mL (THREE) Branch solution TIMES DAILY BEFORE MEALS. NOVOLOG 2018-0 Yes [id number] INJECT 18 U nivers U-100 9-10 UNITS ity of INSULIN 00:00: UNDER THE [place] ASPART 100 00 SKIN 3 Medical unit/mL (THREE) Branch solution TIMES DAILY BEFORE MEALS. NOVOLOG 0 Yes [id number] INJECT 18 U nivers U-100 9-10 UNITS ity of INSULIN 00:00: UNDER THE [place] ASPART 100 00 SKIN 3 Medical unit/mL (THREE) Branch solution TIMES DAILY BEFORE MEALS. NOVOLOG 2018-0 Yes [id number] INJECT 18 U nivers U-100 9-10 UNITS ity of INSULIN 00:00: UNDER THE [place] ASPART 100 00 SKIN 3 Medical unit/mL (THREE) Branch solution TIMES DAILY BEFORE MEALS. NOVOLOG 2018-0 Yes [id number] INJECT 18 U nivers U-100 9-10 UNITS ity of INSULIN 00:00: UNDER THE [place] ASPART 100 00 SKIN 3 Medical unit/mL (THREE) Branch solution TIMES DAILY BEFORE MEALS. NOVOLOG 2018-0 Yes [id number] INJECT 18 U nivers U-100 9-10 UNITS ity of INSULIN 00:00: UNDER THE [place] ASPART 100 00 SKIN 3 Medical unit/mL (THREE) Branch solution TIMES DAILY BEFORE MEALS. NOVOLOG 2018-0 Yes [id number] INJECT 18 U nivers U-100 9-10 UNITS ity of INSULIN 00:00: UNDER THE [place] ASPART 100 00 SKIN 3 Medical unit/mL (THREE) Branch solution TIMES DAILY BEFORE MEALS. NOVOLOG 2018-0 Yes [id number] INJECT 18 U nivers U-100 9-10 UNITS ity of INSULIN 00:00: UNDER THE [place] ASPART 100 00 SKIN 3 Medical unit/mL (THREE) Branch solution TIMES DAILY BEFORE MEALS. NOVOLOG 2018-0 Yes [id number] INJECT 18 U nivers U-100 9-10 UNITS ity of INSULIN 00:00: UNDER THE [place] ASPART 100 00 SKIN 3 Medical unit/mL (THREE) Branch solution TIMES DAILY BEFORE MEALS. NOVOLOG 2018-0 Yes [id number] INJECT 18 U nivers U-100 9-10 UNITS ity of INSULIN 00:00: UNDER THE [place] ASPART 100 00 SKIN 3 Medical unit/mL (THREE) Branch solution TIMES DAILY BEFORE MEALS. NOVOLOG 2018-0 Yes [id number] INJECT 18 U nivers U-100 9-10 UNITS ity of INSULIN 00:00: UNDER THE [place] ASPART 100 00 SKIN 3 Medical unit/mL (THREE) Branch solution TIMES DAILY BEFORE MEALS. NOVOLOG 2019-0 Yes [id number] INJECT 18 U nivers U-100 9-10 UNITS ity of INSULIN 00:00: UNDER THE [place] ASPART 100 00 SKIN 3 Medical unit/mL (THREE) Branch solution TIMES DAILY BEFORE MEALS. NOVOLOG 2018-0 Yes [id number] INJECT 18 U nivers U-100 9-10 UNITS ity of INSULIN 00:00: UNDER THE [place] ASPART 100 00 SKIN 3 Medical unit/mL (THREE) Branch solution TIMES DAILY BEFORE MEALS. NOVOLOG 2018- Yes [id number] INJECT 18 U nivers U-100 9-10 UNITS ity of INSULIN 00:00: UNDER THE [place] ASPART 100 00 SKIN 3 Medical unit/mL (THREE) Branch solution TIMES DAILY BEFORE MEALS. insulin 2019- No 18U inject 18 Univ ers aspart 10-30- Units ity of U-100 16:06: 00:00 under the [place] (NOVOLOG 53 :00 skin 3 Medical FLEXPEN (three) Branch U-100 times INSULIN) daily 100 unit/mL before injection meals. cetirizine 2019- No 5mg Take 5 mg U nivers 5 mg tablet 10-30 by mouth. it y of 16:06: 00:00 [place] 53 :00 Medical Branch clopidogrel 2019- No 75mg Take 75 mg Univers (PLAVIX) 75 10-30 by mouth ity of mg tablet 16:06: 00:00 daily. [place] 53 :00 Medical Branch allopurinol 2018-0 2019- No 100mg Take 100 Univers (ZYLOPRIM) 10-30 mg by ity of 100 mg 16:06: 00:00 mouth [place] tablet 53 :00 daily. Medical Branch lactated 2018-0 Yes 1000mL at 42 Univer s ringers IV 8-13 mL/hr, ity of infusion 13:45: 1,000 mL, [place] 1,000 mL 00 IV Medical Infusion, Branch CONTINUOUS , Starting Mon10/30/18 at 0845, Until Discontinu ed, Routine, PACU FENTanyl PF 2019-0 Yes 25ug 25 mcg, Uni vers (SUBLIMAZE 8-13 Slow IV ity of (PF)) 13:30: Push, [place] injection 55 Q5MIN PRN, Medi jero 25 mcg 4 doses, Branch Starting Mon10/30/18 at 0830, Until Discontinu ed, Routine, Pain (scale 4-6), PACU FENTanyl PF 2019-0 Yes 25ug 25 mcg, Uni vers (SUBLIMAZE 8-13 Slow IV ity of (PF)) 13:30: Push, [place] injection 55 Q5MIN PRN, Medi jero 25 mcg 4 doses, Branch Starting Mon10/30/18 at 0830, Until Discontinu ed, Routine, Pain (scale 7-10), PACU ondansetron 2019-0 Yes 4mg 4 mg, Slow Univers (ZOFRAN 8-13 IV Push, ity of (PF)) 13:30: PRN, 1 [place] injection 4 55 dose, Medical mg Starting Branch Mon10/30/18 at 0830, Until Discontinu ed, Routine, Nausea and Vomiting (N/V), PACU belladonna 2019-0 Yes PRN, Univers alkaloids-o 10-30 Starting ity of pium (B&O) 13:04: Tue [place] 30 mg (B&O) 00 10/30/18 at Hi dical 16.2-30 mg 0804, [place] suppository Until Discontinu ed, Routine, Intra-op sodium 2019-0 Yes PRN, Univers chloride 10-30 Starting ity of 0.9 % 12:43: Tue [place] irrigation 00 10/30/18 at Med ical solution 0743, Branch Until Discontinu ed, Intra-op acetaminoph 2019-0 Yes [id number] 650mg Take 1 Univers en (TYLENOL 8-13 tablet by ity of 8 HOUR) 650 00:00: mouth [place] mg CR 00 every 8 Medical tablet (eight) Branch hours as needed for Pain. acetaminoph 2019-0 Yes [id number] 650mg Take 1 Univers en (TYLENOL 8-13 tablet by ity of 8 HOUR) 650 00:00: mouth [place] mg CR 00 every 8 Medical tablet (eight) Branch hours as needed for Pain. acetaminoph 2019-0 Yes [id number] 650mg Take 1 Univers en (TYLENOL 8-13 tablet by ity of 8 HOUR) 650 00:00: mouth [place] mg CR 00 every 8 Medical tablet (eight) Branch hours as needed for Pain. acetaminoph 0 Yes [id number] 650mg Take 1 Univers en (TYLENOL 8-13 tablet by ity of 8 HOUR) 650 00:00: mouth [place] mg CR 00 every 8 Medical tablet (eight) Branch hours as needed for Pain. acetaminoph 0 Yes [id number] 650mg Take 1 Univers en (TYLENOL 8-13 tablet by ity of 8 HOUR) 650 00:00: mouth [place] mg CR 00 every 8 Medical tablet (eight) Branch hours as needed for Pain. acetaminoph 0 Yes [id number] 650mg Take 1 Univers en (TYLENOL 8-13 tablet by ity of 8 HOUR) 650 00:00: mouth [place] mg CR 00 every 8 Medical tablet (eight) Branch hours as needed for Pain. acetaminoph 0 Yes [id number] 650mg Take 1 Univers en (TYLENOL 8-13 tablet by ity of 8 HOUR) 650 00:00: mouth [place] mg CR 00 every 8 Medical tablet (eight) Branch hours as needed for Pain. acetaminoph 0 Yes [id number] 650mg Take 1 Univers en (TYLENOL 8-13 tablet by ity of 8 HOUR) 650 00:00: mouth [place] mg CR 00 every 8 Medical tablet (eight) Branch hours as needed for Pain. acetaminoph 0 Yes [id number] 650mg Take 1 Univers en (TYLENOL 8-13 tablet by ity of 8 HOUR) 650 00:00: mouth [place] mg CR 00 every 8 Medical tablet (eight) Branch hours as needed for Pain. acetaminoph 0 Yes [id number] 650mg Take 1 Univers en (TYLENOL 8-13 tablet by ity of 8 HOUR) 650 00:00: mouth [place] mg CR 00 every 8 Medical tablet (eight) Branch hours as needed for Pain. acetaminoph 0 Yes [id number] 650mg Take 1 Univers en (TYLENOL 8-13 tablet by ity of 8 HOUR) 650 00:00: mouth [place] mg CR 00 every 8 Medical tablet (eight) Branch hours as needed for Pain. acetaminoph 0 Yes [id number] 650mg Take 1 Univers en (TYLENOL 8-13 tablet by ity of 8 HOUR) 650 00:00: mouth [place] mg CR 00 every 8 Medical tablet (eight) Branch hours as needed for Pain. acetaminoph 2019-0 Yes [id number] 650mg Take 1 Univers en (TYLENOL 8-13 tablet by ity of 8 HOUR) 650 00:00: mouth [place] mg CR 00 every 8 Medical tablet (eight) Branch hours as needed for Pain. acetaminoph 2018-0 Yes [id number] 650mg Take 1 Univers en (TYLENOL 8-13 tablet by ity of 8 HOUR) 650 00:00: mouth [place] mg CR 00 every 8 Medical tablet (eight) Branch hours as needed for Pain. acetaminoph 0 Yes [id number] 650mg Take 1 Univers en (TYLENOL 8-13 tablet by ity of 8 HOUR) 650 00:00: mouth [place] mg CR 00 every 8 Medical tablet (eight) Branch hours as needed for Pain. acetaminoph 0 Yes [id number] 650mg Take 1 Univers en (TYLENOL 8-13 tablet by ity of 8 HOUR) 650 00:00: mouth [place] mg CR 00 every 8 Medical tablet (eight) Branch hours as needed for Pain. acetaminoph 0 Yes [id number] 650mg Take 1 Univers en (TYLENOL 8-13 tablet by ity of 8 HOUR) 650 00:00: mouth [place] mg CR 00 every 8 Medical tablet (eight) Branch hours as needed for Pain. acetaminoph 0 Yes [id number] 650mg Take 1 Univers en (TYLENOL 8-13 tablet by ity of 8 HOUR) 650 00:00: mouth [place] mg CR 00 every 8 Medical tablet (eight) Branch hours as needed for Pain. acetaminoph 0 Yes [id number] 650mg Take 1 Univers en (TYLENOL 8-13 tablet by ity of 8 HOUR) 650 00:00: mouth [place] mg CR 00 every 8 Medical tablet (eight) Branch hours as needed for Pain. acetaminoph 2018-0 Yes [id number] 650mg Take 1 Univers en (TYLENOL 8-13 tablet by ity of 8 HOUR) 650 00:00: mouth [place] mg CR 00 every 8 Medical tablet (eight) Branch hours as needed for Pain. clopidogrel 2018-0 Yes 75mg Take 75 mg Univers (PLAVIX) 75 8-09 by mouth ity of mg tablet 19:13: daily. [place] 16 [facility] Branch allopurinol 2019-0 Yes 100mg Take 100 U nivers (ZYLOPRIM) 8-09 mg by ity of 100 mg 19:13: mouth [place] tablet 16 daily. Medical Branch allopurinol 2019-0 Yes 100mg Take 100 U nivers (ZYLOPRIM) 8-06 mg by ity of 100 mg 15:06: mouth [place] tablet 44 daily. Medical Branch cetirizine 2019-0 Yes 5mg Take 5 mg Un [place] 5 mg tablet 7-18 by mouth. ity of 19:45: [place] 23 [facility] Branch clopidogrel 2019-0 Yes 75mg Take 75 mg Univers (PLAVIX) 75 7-18 by mouth ity of mg tablet 19:44: daily. [place] 35 [facility] Branch insulin 2018-0 Yes 18U inject 18 Unive rs aspart 7-18 Units ity of U-100 19:44: under the [place] (NOVOLOG 35 skin 3 Medical FLEXPEN (three) Branch U-100 times INSULIN) daily 100 unit/mL before injection meals. Insulin 0 Yes 10U inject Univers Detemir 4-05 10-20 ity of (LEVEMIR 00:00: Units [place] FLEXTOUCH 00 under the Medic al U-100 skin Branch INSULN) 100 daily. unit/mL (3 mL) injection insulin 0 Yes 18U inject 18 Unive rs aspart 4-05 Units ity of RAPID 00:00: under the [place] (NOVOLOG 00 skin 3 Medical U-100 (three) Branch INSULIN times ASPART) 100 daily unit/mL before injection meals. Insulin 2019- No 10U inject Univers Detemir 4-05 08-13 10-20 ity of (LEVEMIR 00:00: 00:00 Units [place] FLEXTOUCH 00 :00 under the Medic al U-100 skin Branch INSULN) 100 daily. unit/mL (3 mL) injection insulin 2018-0 2019- No 18U inject 18 Univ ers aspart 4-05 08-13 Units ity of RAPID 00:00: 00:00 under the [place] (NOVOLOG 00 :00 skin 3 Medical U-100 (three) Branch INSULIN times ASPART) 100 daily unit/mL before injection meals. mirabegron 2019-0 Yes 25mg Take 1 Unive rs 25 mg 1-03 tablet by ity of tablet 00:00: mouth [place] 00 daily. Medical Branch finasteride 2019-0 Yes 5mg Take 1 Univ ers 5 mg tablet -03 tablet by ity of 00:00: mouth [place] 00 daily. Medical Branch mirabegron 2019- No 25mg Take 1 Univ ers 25 mg 03-22 tablet by ity of tablet 00:00: 00:00 mouth [place] 00 :00 daily. Medical Branch finasteride 2019- No 5mg Take 1 Uni vers 5 mg tablet 03-22 tablet by it y of 00:00: 00:00 mouth [place] 00 :00 daily. Medical Branch INSULIN 2017-03 Yes USE TWICE Unive rs SYRINGE-NEE 0-29 DAILY WITH it y of DLE U-100 00:00: INSULIN [place] 0.3 mL 30 00 INJECTIONS Medi jero gauge x . DX E11.9 Branch 16 Syrg INSULIN 2017-03 2019- No USE TWICE Univ ers SYRINGE-NEE 0-29 - DAILY WITH i ty of DLE U-100 00:00: 00:[place] 0.3 [place] 30 00 :00 INJECTIONS Medi jero gauge x . DX E11.9 Branch 16 Syrg Blood-Gluco 2017- Yes 1{each} 1 Each U nivers se Meter 1-08 daily. Use ity o f (ONETOUCH 00:00: as [place] VERIO FLEX 00 directed Medic al START) Kit Branch blood sugar Yes 1{strip 1 Strip 2 Univers diagnostic 1-08 } (two) ity of (ONETOUCH 00:00: times [place] VERIO) 00 daily. Medical strip DX:E11.9 Branch lancets 2017- Yes 1{each} 1 Each 2 Uni vers (ONE TOUCH 1-08 (two) ity of DELICA) 33 00:00: times [place] gauge Misc 00 daily. Medical DX:E11.9 Branch Blood-Gluco 2018- Yes 1{each} 1 Each U nivers se Meter 1-08 daily. Use ity o f (ONETOUCH 00:00: as [place] VERIO FLEX 00 directed Medic al START) Kit Branch blood sugar 2017- Yes 1{strip 1 Strip 2 Univers diagnostic 1-08 } (two) ity of (ONETOUCH 00:00: times [place] VERIO) 00 daily. Medical strip DX:E11.9 Branch lancets 2018- Yes 1{each} 1 Each 2 Uni vers (ONE TOUCH -08 (two) ity of DELICA) 33 00:00: times [place] gauge Misc 00 daily. Medical DX:E11.9 Branch Blood-Gluco 2019- No 1{each} 1 Each Univers se Meter 03-27 daily. Use ity of (ONETOUCH 00:00: 00:00 as [place] VERIO FLEX 00 :00 directed Medic al START) Kit [place] blood sugar 2019- No 1{strip 1 Strip 2 Univers diagnostic 03-27 } (two) ity of (ONETOUCH 00:00: 00:00 times [place] VERIO) 00 :00 daily. Medical strip DX:E11.9 Branch lancets 2019- No 1{each} 1 Each 2 [place] (ONE TOUCH 03-27 (two) ity of DELICA) 33 00:00: 00:00 times [place] gauge Misc 00 :00 daily. Medical DX:E11.9 Branch pentazocine 2016- Yes 1{tbl} Take 1 [place] -naloxone 0-04 tablet by ity o f 50-0.5 mg 00:00: mouth [place] tablet 00 every 4 Medical (four) Branch hours as needed for Pain. pentazocine 2016-03 Yes 1{tbl} Take 1 [place] -naloxone 0-04 tablet by ity o f 50-0.5 mg 00:00: mouth [place] tablet 00 every 4 Medical (four) Branch hours as needed for Pain. pentazocine 2016-03 2019- No 1{tbl} Take 1 U nivers -naloxone 0-04 -13 tablet by ity of 50-0.5 mg 00:00: 00:00 mouth [place] tablet 00 :00 every 4 Medical (four) Branch hours as needed for Pain. mirabegron 2017-0 Yes 25mg Take 1 Unive rs (MYRBETRIQ) 7-14 tablet by ity of 25 mg 00:00: mouth at [place] tablet 00 bedtime. Medical Branch mirabegron 2017-0 Yes 25mg Take 1 Unive rs (MYRBETRIQ) 7-14 tablet by ity of 25 mg 00:00: mouth at [place] tablet 00 bedtime. Medical Branch mirabegron 2017- 2019- No 25mg Take 1 Univ ers (MYRBETRIQ) 7-14 - tablet by it y of 25 mg 00:00: 00:00 mouth at [place] tablet 00 :00 bedtime. Medical Branch Insulin Yes Use 1 [facility] [place], 3-01 daily, ity of Disposable, 00:00: DX:E11.9 [place] (BD INSULIN 00 Medical PEN NEEDLE Branch UF) 31 gauge x 5/16" Ndle Insulin Yes Use 1 [facility] [place], 3-01 daily, ity of Disposable, 00:00: DX:E11.9 [place] ([place] INSULIN 00 Medical PEN NEEDLE Branch UF) 31 gauge x 5/16" N[place] Insulin 2019- No Use 1 [facility] [place], 3-03 27- daily, ity of Disposable, 00:00: 00:00 DX:E11.9 [place] (BD INSULIN 00 :00 Medical PEN NEEDLE Branch UF) 31 gauge x 5/16" Ndle safety Yes 1{syrin 1 Syringe Uni vers needles 26 1-24 ge} every 2 ity of gauge x 1" 00:00: (two) [place] Ndle 00 weeks. Medical Branch safety Yes 1{syrin 1 Syringe Uni vers needles 26 1-24 ge} every 2 ity of gauge x 1" 00:00: (two) [place] Ndle 00 weeks. Medical Branch safety 2017 2019- No 1{syrin 1 Syringe [place] needles 26 1-24 08-13 ge} every 2 ity o f gauge x 1" 00:00: 00:00 (two) [place] Ndle 00 :00 weeks. Medical Branch Safety Yes [id number] Use as Univ ers [place] (BD 1-13 directed ity of SAFETYGLIDE 00:00: [place] NEEDLE) 18 00 Medical gauge x 1 Branch 1/2" Ndle Safety Yes [id number] Use as Univ ers [place] (BD 1-13 directed ity of SAFETYGLIDE 00:00: [place] NEEDLE) 22 00 Medical gauge x 1 Branch 1/2" Ndle Safety Yes [id number] Use as Univ ers [place] (BD 1-13 directed ity of SAFETYGLIDE 00:00: [place] NEEDLE) 18 00 Medical gauge x 1 Branch 1/2" Ndle Safety Yes [id number] Use as Univ ers [place] (BD 1-13 directed ity of SAFETYGLIDE 00:00: [place] NEEDLE) 22 00 Medical gauge x 1 Branch 1/2" Ndle Safety 2019- No [id number] Use as Uni vers [place] (BD 113 - directed ity of SAFETYGLIDE 00:00: 00:00 [place] NEEDLE) 18 00 :00 Medical gauge x 1 Branch 1/2" Ndle Safety 2019- No [id number] Use as Uni vers [place] (BD 1- directed ity of SAFETYGLIDE 00:00: 00:00 [place] NEEDLE) 22 00 :00 Medical gauge x 1 Branch 1/2" Ndle furosemide 2015-03 Yes TAKE 1 Unive rs 40 mg 0-27 TABLET BY ity of tablet 00:00: MOUTH [place] 00 EVERY DAY Medical NEEDED Branch FOR EDEMA furosemide 2015-03 Yes TAKE 1 Unive rs 40 mg 0-27 TABLET BY ity of tablet 00:00: MOUTH [place] 00 EVERY DAY Medical NEEDED Branch FOR EDEMA furosemide 2015-03 2019- No TAKE 1 Univ ers 40 mg 0-27 - TABLET BY ity of tablet 00:00: 00:00 MOUTH [place] 00 :00 EVERY DAY Medical NEEDED Branch FOR EDEMA FLUZONE Yes Univers HIGH-DOSE 9-23 ity of , 00:00: [place] PF, 180 00 Medical mcg/0.5 mL Branch syringe FLUZONE Yes Univers HIGH-DOSE 9-23 ity of , 00:00: [place] PF, 180 00 Medical mcg/0.5 mL Branch syringe FLUZONE 2018- No Univers HIGH-DOSE 9-23 - ity of , 00:00: 00:00 [place] PF, 180 00 :00 Medical mcg/0.5 mL Branch syringe lisinopril Yes 5mg Take 5 mg [place] (PRINIVIL,Z 6-20 by mouth ity of ESTRIL) 5 00:00: daily. [place] mg tablet 00 Medical Branch lisinopril Yes 5mg Take 5 mg [place] (PRINIVIL,Z 6-20 by mouth ity of ESTRIL) 5 00:00: daily. [place] mg tablet 00 Medical Branch lisinopril 2019- No 5mg Take 5 mg U nivers (PRINIVIL,Z 6-20 08-13 by mouth ity of ESTRIL) 5 00:00: 00:00 daily. [place] mg tablet 00 :00 Medical Branch metoprolol Yes 25mg Take 25 mg U nivers succinate 4-11 by mouth ity of XL (TOPROL 00:00: daily. [place] XL) 25 mg 00 Medical 24 hr Branch tablet metoprolol Yes 25mg Take 25 mg U nivers succinate 4-11 by mouth ity of XL (TOPROL 00:00: daily. [place] XL) 25 mg 00 Medical 24 hr Branch tablet metoprolol 2019- No 25mg Take 25 mg Univers succinate 4-11 08-13 by mouth ity o f XL (TOPROL 00:00: 00:00 [place]. [place] XL) 25 mg 00 :00 Medical 24 hr Branch tablet atorvastati Yes 20mg Take 20 mg Univers n (LIPITOR) 1-06 by mouth ity of 20 mg 00:00: every [place] tablet 00 evening. Medical Branch atorvastati Yes 20mg Take 20 mg Univers n (LIPITOR) 1-06 by mouth ity of 20 mg 00:00: every [place] tablet 00 evening. Medical Branch atorvastati 2019- No 20mg Take 20 mg Univers n (LIPITOR) 1-06 08-13 by mouth ity of 20 mg 00:00: 00:00 every [place] tablet 00 :00 evening. Medical Branch tamsulosin Yes .4mg Take 1 Cap U nivers (FLOMAX) 9-21 by mouth ity of 0.4 mg 24 00:00: daily. [place] hr capsule 00 Medical Branch tamsulosin Yes .4mg Take 1 Cap U nivers (FLOMAX) 9-21 by mouth ity of 0.4 mg 24 00:00: daily. [place] hr capsule Medical Branch tamsulosin 2019- No .4mg Take 1 Cap Univers (FLOMAX) 9-21 08-13 by mouth ity of 0.4 mg 24 00:00: 00:00 daily. [place] hr capsule 00 :00 Medical Branch levothyroxi Yes 50ug Take 50 Uni vers ne 3-23 mcg by ity of (SYNTHROID) 00:00: mouth [place] 50 mcg 00 daily. Medical tablet Branch levothyroxi Yes 50ug Take 50 Uni vers ne 3-23 mcg by ity of (SYNTHROID) 00:00: mouth [place] 50 mcg 00 daily. Medical tablet Branch levothyroxi 2019- No 50ug Take 50 [place] ne 3-23 08-13 mcg by ity of (SYNTHROID) 00:00: 00:00 [place] 50 mcg 00 :00 daily. Medical tablet Branch SYRINGE 2013-03 Yes Univers DISPOSABLE 2-16 ity of 3CC 3 mL 00:00: [place] Syrg 00 Medical Branch SYRINGE 2013-03 Yes Univers DISPOSABLE 2-16 ity of 3CC 3 mL 00:00: [place] Syrg 00 Medical Branch SYRINGE 2013-03 2019- No Univers DISPOSABLE 2-16 08-13 ity of 3CC 3 mL 00:00: 00:00 [place] Syrg 00 :00 Medical Branch Insulin Yes Use as Univers Syringes, 6-16 directed ity of Disposable, 00:00: [place] (MONOJECT 00 Medical INSULIN Branch SYRINGE) 1 mL Syrg Insulin Yes Use as Univers Syringes, 616 directed ity of Disposable, 00:00: [place] (MONOJECT 00 Medical INSULIN Branch SYRINGE) 1 mL Syrg Insulin 2019- No Use as Univers Syringes, 16 - directed ity o f Disposable, 00:00: 00:00 [place] (MONOJECT 00 :00 Medical INSULIN Branch SYRINGE) 1 mL Syrg metoprolol Yes 25mg Take 1 Tab U nivers tartrate 1-19 by mouth 2 ity o f (LOPRESSOR) 00:00: (two) [place] 25 mg 00 times Medical tablet daily. Branch metoprolol Yes 25mg Take 1 Tab U nivers tartrate 1-19 by mouth 2 ity o f (LOPRESSOR) 00:00: (two) [place] 25 mg 00 times Medical tablet daily. Branch metoprolol 2019- No 25mg Take 1 Tab Univers tartrate 1-19 08-13 by mouth 2 ity of (LOPRESSOR) 00:00: 00:00 (two) [place] 25 mg 00 :00 times Medical tablet daily. Branch Immunizations Ordered Filled Immunization Date Status Comments [facility] e Immunization Name Name Influenza Virus 2010-01-18 Completed Universit y of Vaccine 00:00:00 [facility] Pneumococcal 7 2010-01-18 Completed University of Conjugate, PCV7 00:00:00 [place] Med ical (Prevnar7) [place] Influenza Virus 2010-01-18 Completed Universit y of Vaccine 00:00:00 [facility] Pneumococcal 7 2010-01-18 Completed University of Conjugate, PCV7 00:00:00 [place] Med ical (Prevnar7) [place] Influenza Virus 2010-01-18 Completed Universit y of Vaccine 00:00:00 [facility] Pneumococcal 7 2010-01-18 Completed University of Conjugate, PCV7 00:00:00 [place] Med ical (Prevnar7) [place] Influenza Virus 2010-01-18 Completed Universit y of Vaccine 00:00:00 [facility] Pneumococcal 7 2010-01-18 Completed University of Conjugate, PCV7 00:00:00 [place] Med ical (Prevnar7) [place] Influenza Virus 2010-01-18 Completed Universit y of Vaccine 00:00:00 [facility] Pneumococcal 7 2010-01-18 Completed University of Conjugate, PCV7 00:00:00 [place] Med ical (Prevnar7) [place] Influenza Virus 2010-01-18 Completed Universit y of Vaccine 00:00:00 [facility] Pneumococcal 7 2010-01-18 Completed University of Conjugate, PCV7 00:00:00 [place] Med ical (Prevnar7) [place] Influenza Virus 2010-01-18 Completed Universit y of Vaccine 00:00:00 [facility] Pneumococcal 7 2010-01-18 Completed University of Conjugate, PCV7 00:00:00 [place] Med ical (Prevnar7) [place] Influenza Virus 2010-01-18 Completed Universit y of Vaccine 00:00:00 [facility] Pneumococcal 7 2010-01-18 Completed University of Conjugate, PCV7 00:00:00 [place] Med ical (Prevnar7) [place] Influenza Virus 2010-01-18 Completed Universit y of Vaccine 00:00:00 [facility] Pneumococcal 7 2010-01-18 Completed University of Conjugate, PCV7 00:00:00 [place] Med ical (Prevnar7) [place] Influenza Virus 2010-01-18 Completed Universit y of Vaccine 00:00:00 [facility] Pneumococcal 7 2010-01-18 Completed University of Conjugate, PCV7 00:00:00 [place] Med ical (Prevnar7) [place] Influenza Virus 2010-01-18 Completed Universit y of Vaccine 00:00:00 [facility] Pneumococcal 7 2010-01-18 Completed University of Conjugate, PCV7 00:00:00 [place] Med ical (Prevnar7) [place] Influenza Virus 2010-01-18 Completed Universit y of Vaccine 00:00:00 [facility] Pneumococcal 7 2010-01-18 Completed University of Conjugate, PCV7 00:00:00 [place] Med ical (Prevnar7) [place] Influenza Virus 2010-01-18 Completed Universit y of Vaccine 00:00:00 [facility] Pneumococcal 7 2010-01-18 Completed University of Conjugate, PCV7 00:00:00 [place] Med ical (Prevnar7) [place] Influenza Virus 2010-01-18 Completed Universit y of Vaccine 00:00:00 [facility] Pneumococcal 7 2010-01-18 Completed University of Conjugate, PCV7 00:00:00 [place] Med ical (Prevnar7) [place] Influenza Virus 2010-01-18 Completed Universit y of Vaccine 00:00:00 [facility] Pneumococcal 7 2010-01-18 Completed University of Conjugate, PCV7 00:00:00 [place] Med ical (Prevnar7) [place] Influenza Virus 2010-01-18 Completed Universit y of Vaccine 00:00:00 [facility] Pneumococcal 7 2010-01-18 Completed University of Conjugate, PCV7 00:00:00 [place] Med ical (Prevnar7) [place] Influenza Virus 2010-01-18 Completed Universit y of Vaccine 00:00:00 [facility] Pneumococcal 7 2010-01-18 Completed University of Conjugate, PCV7 00:00:00 [place] Med ical (Prevnar7) [place] Influenza Virus 2010-01-18 Completed Universit y of Vaccine 00:00:00 [facility] Pneumococcal 7 2010-01-18 Completed University of Conjugate, PCV7 00:00:00 [place] Med ical (Prevnar7) [place] Influenza Virus 2010-01-18 Completed Universit y of Vaccine 00:00:00 [facility] Pneumococcal 7 2010-01-18 Completed University of Conjugate, PCV7 00:00:00 [place] Med ical (Prevnar7) [place] Influenza Virus 2010-01-18 Completed Universit y of Vaccine 00:00:00 [facility] Pneumococcal 7 2010-01-18 Completed University of Conjugate, PCV7 00:00:00 [place] Med ical (Prevnar7) [place] Influenza Virus 2010-01-18 Completed Universit y of Vaccine 00:00:00 [facility] Pneumococcal 7 2010-01-18 Completed University of Conjugate, PCV7 00:00:00 [place] Med ical (Prevnar7) Branch Influenza Virus 2010-01-18 Completed Universit y of Vaccine 00:00:00 [facility] Pneumococcal 7 2010-01-18 Completed University of Conjugate, PCV7 00:00:00 [facility] ical (Prevnar7) [place] Vital Signs Vital Name Observation Time Observation Value Comments Source Systolic blood 2020-06-30 143 mm[Hg] University of pressure 15:20:00 [facility] Diastolic blood 2020-06-30 76 mm[Hg] University o f pressure 15:20:00 [facility] Heart rate 2020-06-30 71 /min University of 15:20:00 [facility] Respiratory rate 2020-06-30 18 /min University of 15:20:00 [facility] Oxygen saturation 2020-06-30 97 /min [facility] in Arterial blood 15:20:00 [facility] by Pulse oximetry Branch Systolic blood 2020-06-30 143 mm[Hg] University of pressure 15:20:00 [facility] Diastolic blood 2020-06-30 76 mm[Hg] University o f pressure 15:20:00 [facility] Heart rate 2020-06-30 71 /min University of 15:20:00 [facility] Respiratory rate 2020-06-30 18 /min University of 15:20:00 [facility] Oxygen saturation 2020-06-30 97 /min University of in Arterial blood 15:20:00 [facility] by Pulse oximetry Branch Systolic blood 2020-01-21 157 mm[Hg] University of pressure 16:10:00 [facility] Diastolic blood 2020-01-21 75 mm[Hg] University o f pressure 16:10:00 [facility] Heart rate 2020-01-21 66 /min University of 16:10:00 [facility] Respiratory rate 2020-01-21 18 /min University of 16:10:00 [facility] Body weight 2020-01-21 97.387 kg University of 16:10:00 [facility] BMI 2020-01-21 29.94 kg/m2 University of 16:10:00 [facility] Oxygen saturation 2020-01-21 96 /min University of in Arterial blood 16:10:00 [facility] by Pulse oximetry Branch Systolic blood 2019-12-31 131 mm[Hg] University of pressure 16:17:00 [place] [facility] Diastolic blood 2019-12-31 77 mm[Hg] University o f pressure 16:17:00 [place] [facility] Heart rate 2019-12-31 64 /min University of 16:17:00 [place] [facility] Body temperature 2019-12-31 36.44 [place] University of 16:17:00 [place] [facility] Respiratory rate 2019-12-31 18 /min University of 16:17:00 [facility] Branch Body weight 2019-12-31 98.839 kg University of 16:17:00 [place] [facility] BMI 2019-12-31 30.39 kg/m2 University of 16:17:00 [facility] Branch Oxygen saturation 2019-12-31 95 /min University of in Arterial blood 16:17:00 [facility] by Pulse oximetry Branch Systolic blood 2019-12-17 129 mm[Hg] University of pressure 18:12:00 [facility] Branch Diastolic blood 2019-12-17 77 mm[Hg] University o f pressure 18:12:00 [facility] Branch Heart rate 2019-12-17 78 /min University of 18:12:00 [facility] Branch Body temperature 2019-12-17 36.89 [place] University of 18:12:00 [facility] Branch Respiratory rate 2019-12-17 20 /min University of 18:12:00 [facility] Branch Body height 2019-12-17 180.3 cm University of 18:12:00 [facility] Body weight 2019-12-17 99.791 kg University of 18:12:00 [facility] BMI 2019-12-17 30.68 kg/m2 University of 18:12:00 [facility] Branch Oxygen saturation 2019-12-17 96 /min University of in Arterial blood 18:12:00 [facility] by Pulse oximetry Branch Systolic blood 2018-11-01 161 mm[Hg] refused 2nd B/P University of pressure 19:59:00 [facility] Branch Diastolic blood 2018-11-01 78 mm[Hg] refused 2nd B/P Universit y of pressure 19:59:00 [facility] Branch Heart rate 2018-11-01 73 /min University of 19:59:00 [facility] Branch Respiratory rate 2018-11-01 18 /min University of 19:59:00 [facility] Branch Body height 2018-11-01 182.9 cm University of 19:59:00 [facility] Body weight 2018-11-01 104.781 kg [facility] 19:59:00 [facility] BMI 2018-11-01 31.33 kg/m2 [facility] 19:59:00 [facility] Systolic blood 2018-10-30 126 mm[Hg] [facility] pressure 15:15:00 [facility] Diastolic blood 2018-10-30 63 mm[Hg] [facility] pressure 15:15:00 [facility] Heart rate 2018-10-30 58 /min [facility] 15:15:00 [facility] Respiratory rate 2018-10-30 10 /min [facility] 15:15:00 [facility] Oxygen saturation 2018-10-30 95 /min [facility] Arterial blood 15:15:00 [facility] by Pulse oximetry [place] Body temperature 2018-10-30 36 Eileen [facility] 13:46:00 [facility] Body height 2018-10-30 182.9 cm [facility] 10:25:00 [facility] Body weight 2018-10-30 103.9 kg [facility] 10:25:00 [facility] BMI 2018-10-30 31.07 kg/m2 [facility] 10:25:00 [facility] Procedures Procedure Date / Time Performed Performing Clinician [facility] e URINALYSIS 2019-12-31 17:15:00 [facility] URINE CULTURE 2019-12-31 17:15:00 [facility] POCT URINALYSIS 2019-12-31 16:39:00 [facility] DISCLOSURE AND 2019-12-31 05:01:00 Doctor Unassigned, No [facility] CONSENT, MEDICAL AND Name Medical [facility] SURGICAL PROCEDURES URINALYSIS 2019-12-17 20:01:00 [facility] URINE CULTURE 2019-12-17 20:01:00 [facility] TYPE AND SCREEN 2018-10-30 10:41:00 Nikki Rosa [facility] Medical [place] POCT GLUCOSE 2018-10-30 10:40:00 Jorge Medellin [facility] (AUTOMATED) Medical Branch ASSIGNMENT OF BENEFITS 2018-10-30 10:05:27 Doctor Unassigned, No [facility] Name Medical Branch DISCLOSURE AND 2018-10-04 05:01:00 Doctor Unassigned, No Param [facility] CONSENT, MEDICAL AND Name Medical [facility] SURGICAL PROCEDURES EXTERNAL PROVIDER 2017-07-05 05:01:00 Doctor Unassigned, No Prane[facility] RECORDS Name Medical Branch Encounters Start End Encounter Admission Attending Care Care Encounter Source Date/Time Date/Time Type Type Clinicians Facility Department ID 2021-01-05 2021-01-05 Outpatient R TENISHA [facility] [id number] Univers 10:00:00 10:00:00 MIKE [id number] [facility] 2021-01-05 2021-01-05 [facility] [id number] Univers 10:00:00 10:00:00 MIKE [facility] 2020-06-30 2020-06-30 [facility] [id number] 10:11:23 10:41:23 Visit [facility] [id number] [facility] [id number] Center - [id number] [facility] 204 2020-06-30 2020-06-30 [facility] [id number] Univers 10:11:23 10:41:23 Visit [facility] [id number] it y of Homero Cancer [id number] Remi as Center - [id number] Med ical [facility] 204 Branch 2020-06-30 2020-06-30 Outpatient R TENISHA [facility] [id number] Univers 10:15:00 10:15:00 MIKE [id number] [facility] 2020-06-30 2020-06-30 [facility] [id number] Univers 10:15:00 10:15:00 MIKE [facility] 2020-04-12 2020-04-12 Patient Jimmy [facility] [id number] Univers 00:00:00 00:00:00 Outreach Steve PRIMARY [id number] i ty of [facility] [id number] [place] [phone] Hi dical [address] [place] [address] 2020-03-24 2020-03-24 Outpatient R SARAJHONNY [facility] [id number] Univers 10:30:00 10:30:00 MIKE tye [facility] 2020-01-21 2020-01-21 [facility] [id number] Univers 10:15:00 10:15:00 [facility] 2020-01-21 [facility] [id number] Univers 10:15:00 10:15:00 [facility] 2020-01-21 2020-01-21 [facility] [id number] Univers 09:46:41 10:01:41 Visit [facility] [id number] it y of Homero Cancer [id number] Remi as Center - [phone] Med ical [facility] [address] [place] [address] 2020-01-09 2020-01-09 Outpatient INCAVO, [facility] [id number] 00:00:00 00:00:00 MISTI [address] i 2020-01-09 2020-01-09 Outpatient INCAVO, [facility] [id number] 00:00:00 00:00:00 MISTI [address] 2019-12-31 2020-01-08 Office Mike Steven [facility] [id number] Univers 10:40:25 07:47:35 Visit 2, Naomi Mda [facility] [id number] ity [place] Cancer [id number] [place] - [phone] Med ical MDA [facility] Branch 2019-12-31 2019-12-31 Outpatient R SARAJHONNY [facility] [id number] N-20 Univers 10:45:00 10:45:00 MIKE [id number] [facility] 2019-12-31 2019-12-31 [facility] [id number] Univers 10:45:00 10:45:00 [facility] 2019-12-31 2019-12-31 Orders Doctor FLAVIO [id number] Univers 00:00:00 00:00:00 Only Unassigned, [place] [id number] [id number] Remi as [phone] [address] 2019-12-19 2019-12-19 Telephone [facility] [id number] Univers 00:00:00 00:00:00 [facility] [id number] it y of Homero Cancer [id number] Remi as Center - [id number] [address] 2019-12-17 2019-12-17 [facility] [id number] [id number] Univers 13:15:00 13:15:00 MIKE [id number] [facility] 2019-12-17 2019-12-17 [facility] [id number] Univers 13:15:00 13:15:00 [facility] 2019-12-17 2019-12-17 Office [facility] 1.2.840.114 [id number] Univers 12:59:50 13:14:50 Visit [facility] 350.1.13.10 it y of [facility] 4.2.7.2.686 Remi as Center - [phone] [address] 2019-12-10 2019-12-10 [facility] [id number]-20 Univers 09:30:00 09:30:00 MIKE [id number] [facility] 2019-12-10 2019-12-10 [facility] [id number] Univers 09:30:00 09:30:00 MIKE [facility] 2019-10-01 2019-10-01 [facility] 2698 [id number] Univers 13:20:00 13:20:00 CHICHI [id number] [facility] 2019-10-01 2019-10-01 Outpatient Saskia FERNÁNDEZ [facility] [id number] Univers 13:20:00 13:20:00 CHICHI [facility] 2019-08-26 2019-08-26 Refill ROLAN Lester 1.2.840.114 [id number] Univers 00:00:00 00:00:00 Janes Encisoton 350.1.13.10 i woodrow rick Fong 4.2.7.2.686 Luis Benson [phone] Hi dical nal 220 [facility] 2019-08-22 2019-08-22 Outpatient INCAVO, [facility] [id number] [address] 00:00:00 00:00:00 MIST[address] 2019-08-15 2019-08-15 Outpatient UNDEFINED HCACL OUTD Y1948 [facility] 23:51:00 23:51:00 13438 [facility] 2019-08-15 2019-08-15 Outpatient Pedro, HCAPM RADI [id number] [facility] 21:15:00 21:15:00 Dary [id number] [facility] 2019-08-15 2019-08-15 Outpatient MURALI, HCAPM LABO Y1948 [facility] 11:17:00 11:17:00 MARCO ANTONIO Fine [facility] 2019-08-13 2019-08-13 Outpatient MURALI, HCAPM LABO Y1948 [facility] 09:38:00 09:38:00 MARCO ANTONIO Maradiaga [facility] 2019-08-05 2019-08-06 Inpatient INCAVO, [facility] 021 [id number] 00:00:00 00:00:00 MISTI 099 Method i 2019-07-29 2019-07-29 Outpatient INCAVO, [facility] [id number] 00:00:00 00:00:00 MISTI 563 [address] i 2019-06-04 2019-06-04 Outpatient INCAVO, [facility] [id number] 00:00:00 00:00:00 MISTI 083 Method i 2019-06-04 2019-06-04 Outpatient [facility] [id number] 00:00:00 00:00:[address] 2019-06-04 2019-06-04 Outpatient [facility] [id number] 00:00:00 00:00:[address] 2019-04-29 2019-04-29 Refill ROLAN Morin 1.2.840.114 [id number] Univers 00:00:00 00:00:00 Madelaine Viveros 350.1.13.10 i ty of [place] [phone] [facility] [address] 2018-11-22 2018-11-22 [facility] 1.2.840.114 [id number] Univers 00:00:00 00:00:00 Madelaine Viveros 350.1.13.10 i ty of [place] [phone] [facility] 220 [facility] 2018-11-01 2018-11-01 Office [facility] 1.2.804.752 [id number] Univers 14:29:14 15:38:07 Visit Jorge LIA 350.1.13.10 [place].[address] [place] [facility] [phone] [facility] Primary & [address] [facility] 2018-10-30 2018-10-30 [facility] Lauren Medellin 1.2.840.114 [id number] Univers 05:07:00 10:40:00 Encounter Jorgedi Hardwick 350.1.13.10 ity of Hospital 4.2.7.2.686 Remi as [phone] [facility] [address] 2018-10-30 2018-10-30 Orders Doctor FLAVIO 1.2.840.114 [id number] Univers 00:00:00 00:00:00 Only Unassigned, [place] 350.1.13.[address] [facility] 4.2.7.2.686 Remi as [phone] [facility] [address] 2017-07-05 2017-07-05 Orders Doctor FLAVIO 1.2.840.114 [id number] Univers 00:00:00 00:00:00 Only Unassigned, [place] 350.1.13.[address] [facility] 4.2.7.2.686 Remi as [phone] [facility] [address] Results Test Description Test Time Test Comments Results Result Comments Source URINE CULTURE 2020-01-01 16:36:00 Test Item Value Reference Range Interpretation Comme nts URINE CULTURE (test code = 630-4) No aerobic growth (< 1000 CFU/mL) [facility]2020-10-13 17:59:00 Test Item Value Reference Range Interpretation Comments APPEARANCE (test code = Clear Clear 8797007499) COLOR (test code = Straw Yellow A 7893009097) PH (test code = 4.8-8.0 0535208252) SP GRAVITY (test code = 1.003-1.030 6557768370) GLU U QUAL (test code = 500 mg/dL Normal A 1646764644) BLOOD (test code = Negative Negative 9179997039) KETONES (test code = Negative Negative 1241708973) PROTEIN (test code = Negative Negative 2887-8) UROBILIN (test code = Normal Normal 9300078067) BILIRUBIN (test code = Negative Negative 6553579168) NITRITE (test code = Negative Negative 0546869594) LEUK LIZETTE (test code = Negative Negative 5239303544) RBC/HPF (test code = <1 See_Comment [Autom ated message] 1377791447) The system [employer] generated this result transmit devon reference range : 0 - 3 HPF. The refe rence range was not u sed to interpret th is result as normal/abnormal . WBC/HPF (test code = <1 See_Comment [Autom ated message] 2311185353) The system [employer] generated this result transmit devon reference range : 0 - 5 HPF. The refe rence range was not u sed to interpret th is result as normal/abnormal . BACTERIA (test code = Negative Negative 2098469864) Lab Interpretation (test Abnormal code = 92454-5) [facility]00 Test Item Value Reference Range Interpretation Comments APPEARANCE (test code = Clear Clear 1768092439) COLOR (test code = Straw Yellow A 4832647274) PH (test code = 4.8-8.0 2985602711) SP GRAVITY (test code = 1.003-1.030 3906598417) GLU U QUAL (test code = 500 mg/dL Normal A 4398612085) BLOOD (test code = Negative Negative 0713106191) KETONES (test code = Negative Negative 6529902923) PROTEIN (test code = Negative Negative 2887-8) UROBILIN (test code = Normal Normal 4261761590) BILIRUBIN (test code = Negative Negative 7206266728) NITRITE (test code = Negative Negative 0824282031) LEUK LIZETTE (test code = Negative Negative 4069267344) RBC/HPF (test code = <1 See_Comment [Autom ated message] 4302299199) The system [employer] generated this result transmit devon reference range : 0 - 3 HPF. The refe rence range was not u sed to interpret th is result as normal/abnormal . WBC/HPF (test code = <1 See_Comment [Autom ated message] 1061333822) The system [employer] generated this result transmit devon reference range : 0 - 5 HPF. The refe rence range was not u sed to interpret th is result as normal/abnormal . BACTERIA (test code = Negative Negative 7841576239) Lab Interpretation (test Abnormal code = 42912-6) [facility] 17:59:00 Test Item Value Reference Range Interpretation Comments APPEARANCE (test code = Clear Clear 8085328968) COLOR (test code = Straw Yellow A 3181561658) PH (test code = 4.8-8.0 0106579867) SP GRAVITY (test code = 1.003-1.030 0353976376) GLU U QUAL (test code = 500 mg/dL Normal A 2018210779) BLOOD (test code = Negative Negative 0415996707) KETONES (test code = Negative Negative 8524926820) PROTEIN (test code = Negative Negative 2887-8) UROBILIN (test code = Normal Normal 9205632248) BILIRUBIN (test code = Negative Negative 0760854967) NITRITE (test code = Negative Negative 4484757557) LEUK LIZETTE (test code = Negative Negative 2245261201) RBC/HPF (test code = <1 See_Comment [Autom ated message] 1657210732) The system [employer] generated this result transmit devon reference range : 0 - 3 HPF. The refe rence range was not u sed to interpret th is result as normal/abnormal . WBC/HPF (test code = <1 See_Comment [Autom ated message] 5933820758) The system [employer] generated this result transmit devon reference range : 0 - 5 HPF. The refe rence range was not u sed to interpret th is result as normal/abnormal . BACTERIA (test code = Negative Negative 3116898677) Lab Interpretation (test Abnormal code = 97552-2) [facility] 17:59:00 Test Item Value Reference Range Interpretation Comments APPEARANCE (test code = Clear Clear 8369682791) COLOR (test code = Straw Yellow A 8080017295) PH (test code = 4.8-8.0 2728803174) SP GRAVITY (test code = 1.003-1.030 4052973511) GLU U QUAL (test code = 500 mg/dL Normal A 4614368525) BLOOD (test code = Negative Negative 9438661519) KETONES (test code = Negative Negative 0039142959) PROTEIN (test code = Negative Negative 2887-8) UROBILIN (test code = Normal Normal 4908574828) BILIRUBIN (test code = Negative Negative 1329163584) NITRITE (test code = Negative Negative 9531409373) LEUK LIZETTE (test code = Negative Negative 9526973660) RBC/HPF (test code = <1 See_Comment [Autom ated message] 2943056590) The system [employer] generated this result transmit devon reference range : 0 - 3 HPF. The refe rence range was not u sed to interpret th is result as normal/abnormal . WBC/HPF (test code = <1 See_Comment [Autom ated message] 7827114970) The system [employer] generated this result transmit devon reference range : 0 - 5 HPF. The refe rence range was not u sed to interpret th is result as normal/abnormal . BACTERIA (test code = Negative Negative 1283163449) Lab Interpretation (test Abnormal code = 42105-7) [facility] 17:59:00 Test Item Value Reference Range Interpretation Comments APPEARANCE (test code = Clear Clear 8277546052) COLOR (test code = Straw Yellow A 6449397154) PH (test code = 4.8-8.0 9011124250) SP GRAVITY (test code = 1.003-1.030 6694421142) GLU U QUAL (test code = 500 mg/dL Normal A 6083351970) BLOOD (test code = Negative Negative 2504428095) KETONES (test code = Negative Negative 1868959270) PROTEIN (test code = Negative Negative 2887-8) UROBILIN (test code = Normal Normal 8343211824) BILIRUBIN (test code = Negative Negative 1079386602) NITRITE (test code = Negative Negative 2669087360) LEUK LIZETTE (test code = Negative Negative 4317950755) RBC/HPF (test code = <1 See_Comment [Autom ated message] 3658251010) The system [employer] generated this result transmit devon reference range : 0 - 3 HPF. The refe rence range was not u sed to interpret th is result as normal/abnormal . WBC/HPF (test code = <1 See_Comment [Autom ated message] 1435399402) The system [employer] generated this result transmit devon reference range : 0 - 5 HPF. The refe rence range was not u sed to interpret th is result as normal/abnormal . BACTERIA (test code = Negative Negative 2007233807) Lab Interpretation (test Abnormal code = 22606-1) [facility] URINALYSIS W SPECIFIC [id number] 16:40:00 Test Item Value Reference Range Interpretation Comments POCT U SP GRAV (test code = 1.005 mg/dl 1.005-1.025 3255) POCT PH U (test code = 3254) 5 mg/dl 5-8 POCT U LEUK EST (test code = negative Negative - Negative 3263) POCT U NIT (test code = 3262) negative Negative - Negative POCT U PROT (test code = negative Negative - Negative 3259) POCT U GLU (test code = 3256) negative Negative - Negative POCT U KETONE (test code = negative Negative - Negative 3258) POCT U UROBILI (test code = 0.2 mg/dl 0.2-1 3260) POCT U BILI (test code = negative Negative - Negative 3261) POCT U BLD (test code = 3257) negative Negative - Negative POCT U COLOR (test code = yellow 3266) POCT U APPEAR (test code = clear 3267) Lab Interpretation (test code Normal = 23732-4) [facility] URINALYSIS W SPECIFIC [id number] 16:40:00 Test Item Value Reference Range Interpretation Comments POCT U SP GRAV (test code = 1.005 mg/dl 1.005-1.025 3255) POCT PH U (test code = 3254) 5 mg/dl 5-8 POCT U LEUK EST (test code = negative Negative - Negative 3263) POCT U NIT (test code = 3262) negative Negative - Negative POCT U PROT (test code = negative Negative - Negative 3259) POCT U GLU (test code = 3256) negative Negative - Negative POCT U KETONE (test code = negative Negative - Negative 3258) POCT U UROBILI (test code = 0.2 mg/dl 0.2-1 3260) POCT U BILI (test code = negative Negative - Negative 3261) POCT U BLD (test code = 3257) negative Negative - Negative POCT U COLOR (test code = yellow 3266) POCT U APPEAR (test code = clear 3267) Lab Interpretation (test code Normal = 94123-7) [facility] URINALYSIS W SPECIFIC [id number] 16:40:00 Test Item Value Reference Range Interpretation Comments POCT U SP GRAV (test code = 1.005 mg/dl 1.005-1.025 3255) POCT PH U (test code = 3254) 5 mg/dl 5-8 POCT U LEUK EST (test code = negative Negative - Negative 3263) POCT U NIT (test code = 3262) negative Negative - Negative POCT U PROT (test code = negative Negative - Negative 3259) POCT U GLU (test code = 3256) negative Negative - Negative POCT U KETONE (test code = negative Negative - Negative 3258) POCT U UROBILI (test code = 0.2 mg/dl 0.2-1 3260) POCT U BILI (test code = negative Negative - Negative 3261) POCT U BLD (test code = 3257) negative Negative - Negative POCT U COLOR (test code = yellow 3266) POCT U APPEAR (test code = clear 3267) Lab Interpretation (test code Normal = 32605-4) [facility] URINALYSIS W SPECIFIC [id number] 16:40:00 Test Item Value Reference Range Interpretation Comments POCT U SP GRAV (test code = 1.005 mg/dl 1.005-1.025 3255) POCT PH U (test code = 3254) 5 mg/dl 5-8 POCT U LEUK EST (test code = negative Negative - Negative 3263) POCT U NIT (test code = 3262) negative Negative - Negative POCT U PROT (test code = negative Negative - Negative 3259) POCT U GLU (test code = 3256) negative Negative - Negative POCT U KETONE (test code = negative Negative - Negative 3258) POCT U UROBILI (test code = 0.2 mg/dl 0.2-1 3260) POCT U BILI (test code = negative Negative - Negative 3261) POCT U BLD (test code = 3257) negative Negative - Negative POCT U COLOR (test code = yellow 3266) POCT U APPEAR (test code = clear 3267) Lab Interpretation (test code Normal = 23990-7) [facility]CIFIC [id number] 16:40:00 Test Item Value Reference Range Interpretation Comments POCT U SP GRAV (test code = 1.005 mg/dl 1.005-1.025 5) POCT PH U (test code = 3254) 5 mg/dl 5-8 POCT U LEUK EST (test code = negative Negative - Negative 3263) POCT U NIT (test code = 3262) negative Negative - Negative POCT U PROT (test code = negative Negative - Negative 3259) POCT U GLU (test code = 3256) negative Negative - Negative POCT U KETONE (test code = negative Negative - Negative 3258) POCT U UROBILI (test code = 0.2 mg/dl 0.2-1 3260) POCT U BILI (test code = negative Negative - Negative 3261) POCT U BLD (test code = 3257) negative Negative - Negative POCT U COLOR (test code = yellow 3266) POCT U APPEAR (test code = clear 3267) Lab Interpretation (test code Normal = 56296-3) [facility] 22:08:00 Test Item Value Reference Range Interpretation Comments APPEARANCE (test code = Hazy Clear A 9428334195) COLOR (test code = Yellow Yellow 6701893761) PH (test code = 4.8-8.0 5624061903) SP GRAVITY (test code = 1.003-1.030 0388661558) GLU U QUAL (test code = 500 mg/dL Normal A 3950086434) BLOOD (test code = 1+ Negative A 0452059797) KETONES (test code = Negative Negative 9060339216) PROTEIN (test code = Negative Negative 2887-8) UROBILIN (test code = Normal Normal 0678104595) BILIRUBIN (test code = Negative Negative 3246847667) NITRITE (test code = Negative Negative 1106580230) LEUK LIZETTE (test code = 75/uL Negative A 4501083856) RBC/HPF (test code = See_Comment [Autom ated message] 4879748813) The system [employer] generated this result transmit devon reference range : 0 - 3 HPF. The refe rence range was not u sed to interpret th is result as normal/abnormal . WBC/HPF (test code = See_Comment H [Autom ated message] 5901463485) The system [employer] generated this result transmit devon reference range : 0 - 5 HPF. The refe rence range was not u sed to interpret th is result as normal/abnormal . BACTERIA (test code = Negative Negative 2060983275) SQ EPITH (test code = See_Comment [Auto mated message] 0033256222) The system [employer] generated this result transmit devon reference range : <=2 HPF. The refere nce range was not u sed to interpret th is result as normal/abnormal . Lab Interpretation (test Abnormal code = 86305-8) [facility] 22:08:00 Test Item Value Reference Range Interpretation Comments APPEARANCE (test code = Hazy Clear A 9619003166) COLOR (test code = Yellow Yellow 8586830219) PH (test code = 4.8-8.0 9545696997) SP GRAVITY (test code = 1.003-1.030 7331949486) GLU U QUAL (test code = 500 mg/dL Normal A 3125271087) BLOOD (test code = 1+ Negative A 9254276842) KETONES (test code = Negative Negative 5236681155) PROTEIN (test code = Negative Negative 2887-8) UROBILIN (test code = Normal Normal 8348016812) BILIRUBIN (test code = Negative Negative 5420285751) NITRITE (test code = Negative Negative 4922145694) LEUK LIZETTE (test code = 75/uL Negative A 5198763882) RBC/HPF (test code = See_Comment [Autom ated message] 6120615880) The system [employer] generated this result transmit devon reference range : 0 - 3 HPF. The refe rence range was not u sed to interpret th is result as normal/abnormal . WBC/HPF (test code = See_Comment H [Autom ated message] 2263396126) The system [employer] generated this result transmit devon reference range : 0 - 5 HPF. The refe rence range was not u sed to interpret th is result as normal/abnormal . BACTERIA (test code = Negative Negative 7878320677) SQ EPITH (test code = See_Comment [Auto mated message] 0178471745) The system [employer] generated this result transmit devon reference range : <=2 HPF. The refere nce range was not u sed to interpret th is result as normal/abnormal . Lab Interpretation (test Abnormal code = 31636-7) [facility] 2019-08-28 17:26:00 Test Item Value Reference Range Interpretation Comments SARS-COV2/RT-PCR (test Not Detected Not Detected, Negative code = 0250167) SARS-COV-2 PERFORMING LAB [facility] (test code = 3467911) Negative results do not preclude SARS-CoV-2 infection [...] of the Act.Fact Sheet for Healthcare Pro viders:https://www.Devex/Documents/Xpert%20Xpress%20SARS%20CoV-2/Fact%20Sh eets/302-3802%21CTUC-CNF-0%20HEALTHCARE%20PROVIDERS%20FACT%20SHEET.pdfFact Sheet for Healthcare Patients:https://www.Clipyoo/Documents/Xpert%20Xpress%20SARS%20CoV-2/Fact%20Sheets/302-3801%20SARS-COV -2%20PATIENT%20FACT%20SHEET.pdfPerforming Laboratory:[facility] [place] [address]- CT HEAD/BRAIN W/O [id number] 21:43:00 Name: BREA RACHEL [facility]ly [facility] : 1940 Age/S: 78 / M [address] Unit #: [id number] Loc: [place] [address] Phys: Dary Vasquez MD Acct: [id number] Dis Date: Status: REG REF PHONE #: [phone] Exam Date: 08/15/20192127 FAX #: Reason: ams, stiffened posture EXAMS: CPT: [id number] CT HEAD/BRAIN W/O CONT 16140 Location code: H5 CT Brain Without Contrast Indication: ams, stiffened posture Comparison: None Technical factors: Axial images were obtained from the base of the skull to the vertex. Sagittal and coronal reconstruction. This exam was performed according to our departmental dose-optimization program, which includes automated exposure control, adjustment of the mA and/or kV according to patient size and/or use of iterative reconstruction technique. Findings: Ventricles and sulci are of normal caliber for patient age. Demyelination changes in the deep white matter bilaterally. No hemorrhage, mass-effect, or abnormal extra-axial fluid collection. No evidence of acute infarct. Calvarium is unremarkable. No confluent otomastoid disease. Orbits are normal in appearance. Paranasal sinuses are clear. Impression: 1. Senescent changes. 2. No evidence of acute pathology. at 2143 Reported and signed by: Robert Hdez M.D. PAGE 1 Signed Report (CONTINUED) Name: BREA RACHEL : 1940 Age/S: 78 / M [address] Unit #: [id number] Loc: [place] [address] Phys: Dary Vasquez MD Acct: [id number] Dis Date: Status: REG REF PHONE #: [phone] Exam Date: 08/15/20192127 FAX #: Reason: ams, stiffened posture EXAMS: CPT: [id number] CT HEAD/BRAIN W/O CONT 18178 <Con tinued> CC: Dary Vasquez MD Technologist:Isabel Lr, RT(R)(CT)(MRI) CTDI: DLP: Trnscb Date/Time: 08/15/2019 (2142) RangelDRB1 PAGE 2 Signed ReportUA RFLX MICR CULT IF [id number] 11:59:00 Test Item Value Reference Range Interpretation [...] CHK code = UACULT) Criteria BASIC METABOLIC [id number] 11:52:00 Test Item Value Reference Range Interpretation [...] 8.5-10.1 N UA RFLX MICR CULT IF [id number] 11:26:00 Test Item Value Reference Range Interpretation [...] Criteria Culture CHK = UACULT) CBC W/AUTO [id number] 11:24:00 Test Item Value Reference Range Interpretation [...] CRITERIA MDIFF) UA RFLX MICR CULT IF [id number] 09:55:00 Test Item Value Reference Range Interpretation [...] DIPSTICK (test code = LEUU) UR PROTEIN [id number] 09:55:00 Test Item Value Reference Range Interpretation Comments UR PROTEIN TOTAL (test code = 27.7 MG/DL 0.0-12.0 H PROTU) UR CREATININE [id number] 09:55:00 Test Item Value Reference Range Interpretation Comments UR CREATININE RANDOM (test code = 127.0 MG/DL 30-125 H CREATU) UA RFLX MICR CULT IF [id number] 09:48:00 Test Item Value Reference Range Interpretation [...] Culture CHK code = UACULT) UR PROTEIN [id number] 09:48:00 Test Item Value Reference Range Interpretation Comments UR PROTEIN TOTAL (test code = PROTU) MG/DL 0.0-12.0 UR CREATININE [id number] 09:48:00 Test Item Value Reference Range Interpretation Comments UR CREATININE RANDOM (test code = MG/DL 30-125 CREATU) UA RFLX MICR CULT IF [id number] 09:48:00 Test Item Value Reference Range Interpretation [...] DIPSTICK (test code = LEUU) UR PROTEIN [id number] 09:48:00 Test Item Value Reference Range Interpretation Comments UR PROTEIN TOTAL (test code = PROTU) MG/DL 0.0-12.0 UR CREATININE [id number] 09:48:00 Test Item Value Reference Range Interpretation Comments UR CREATININE RANDOM (test code = MG/DL 30-125 CREATU) Type and Screen - ONCE [id number] 11:21:00 Test Item Value Reference Range Interpretation Comments ABO & RH (test code A POSITIVE Performe d at [facility] = 20) Laboratory Serv [facility]3 [address] [facility] [address]Cnkt Free: [phone] A No. [id number] IAT (test code = Negative Performed a t [facility] 1185) Laboratory Serv [facility] [address] [facility] [address]Jcal Free: [phone] A No. [id number] [facility]2018-10-30 10:44:00 Test Item Value Reference Range Interpretation Comments POCT GLU (test code = 0390927978) 185 mg/dL 70-110 H Lab Interpretation (test code = Abnormal 26871-5) [facility]
== END 2021-01-23 09:28 | disposition home or self-care (01) ==
LOC: ER 05:12 → ERHOLD 07:39 → 2ND 11:28
PROVIDERS: ADMIT Internal Medicine; ATTEND Internal Medicine
DX: E86.0 Dehydration (principal); R41.82 Altered mental status, unspecified; S50.02XA Contusion of left elbow, initial encounter; S50.01XA Contusion of right elbow, initial encounter; S20.229A Contusion of unspecified back wall of thorax, initial encounter; W18.30XA Fall on same level, unspecified, initial encounter; Y92.009 Unspecified place in unspecified non-institutional (private) residence as the place of occurrence of the external cause; F03.90 Unspecified dementia, unspecified severity, without behavioral disturbance, psychotic disturbance, mood disturbance, and anxiety; Z91.81 History of falling; E11.9 Type 2 diabetes mellitus without complications; Z96.60 Presence of unspecified orthopedic joint implant; Z88.2 Allergy status to sulfonamides; Z85.528 Personal history of other malignant neoplasm of kidney; Z85.51 Personal history of malignant neoplasm of bladder; Z20.822 Contact with and (suspected) exposure to COVID-19
CPT/HCPCS: 96361; 93005; 85025 ×2; 80048 ×2; 36415 ×2; 82140; 83735; 85049; 85610; 82947 ×3; 80076; 85652; 84443; 84484 ×2; 82607; 84403; 83880; 86140; 70450; 71250; 72125; 71045; 72170; 73130; 73080 ×2; 90471; 70551; 90714; 97116; 97161; 97530; 94010 ×2; 94640; 96360; 99285; U0003; J7040; J7030 ×2; G0378 ×3

== ENCOUNTER 2021-02-07 14:59 | Emergency (ER) | payer OTHER ==
--- OUTSIDE RECORDS SUMMARY | 2021-02-07 15:05 | XMS REPORT | Continuity of Care Document ---
:1940 Author Organization [facility] t Address 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 7-18 Added ity of 00:00: automatic [place] 00 ally from Medical request Branch for surgery [id number] S/P S/P Disease Active 2016-03 Univers revision [...] bladder 00:00: Diagnosis [place] 00 Term Medical Pharmaceutical Laboratory Technician Branch Utility Chronic Chronic Disease Active Univers [...] demia) 00:00: Diagnosis [place] 00 Term Medical Pharmaceutical Laboratory Technician Branch Utility Essential Essential Disease Active Uni vers hypertensi hypertensi 6-23 it y of on, benign [place], benign 00:[place]: [place] 00 [place] Coronary Coronary Disease Active Overview: [place] atheroscle atheroscle 09-09 1985 it y of rosis of rosis of 00:00: [place] standing rock standing [place] 00 Medical coronary coronary Branch artery artery Coronary Coronary Disease Active Overview: [place] atheroscle atheroscle 09-09 1985 it y of rosis of rosis of 00:00: [place] 00 Medical coronary coronary Branch artery artery Malignant Malignant Disease Active 2009-03 Overview: Univers neoplasm neoplasm 1-23 ICD10 ity of of kidney of kidney 00:00: Diagnosis [place] excluding excluding 00 Term [facility] renal renal Pharmaceutical Laboratory Technician Branch pelvis pelvis Utility Allergies, Adverse Reactions, Alerts Allergy Allergy Status Severity Reaction(s) Onset Inactive Treating Comm ents Source Name Type Date Date Clinician MORPHINE DRUG Active Hallucinates [place] INGREDI 2 ity of 00:00: [place] 00 [facility] Morphine Propensi Active Hallucinatio confusi on Univers ty to ns 2- ity of adverse 00:00: [place] reaction 00 [facility] No Known DA Active U 2002-03 [facility] Contrast 2-24 Clear Allergie 00:00: [place] 00 [facility] No Known DA Active U 2002-03 [facility] Drug 2-24 Clear Allergie 00:00: [place] 00 [facility] No Known DA Active U 2002-03 [facility] Food 2-24 Clear Allergie 00:00: [place] 00 [facility] No Known DA Active U 2002-03 [facility] Other 2-24 Clear Allergie 00:00: [place] 00 [facility] Social History Social Habit Start Date Stop Date Quantity Comments Source Tobacco Comment Quit 30 years Univer sity of ago [facility] Cigarettes smoked 2020-06-30 2020-06-30 Univers ity of current (pack per 00:00:00 00:00:00 ) - Reported Branch Cigarette 2020-06-30 2020-06-30 University of pack-years 00:00:00 00:00:00 [facility] Alcohol intake 2020-06-30 2020-06-30 Current University of 00:00:00 00:00:00 non-drinker of [facility] alcohol Branch (finding) Tobacco use and 2020-06-30 2020-06-30 Never used Universit y of exposure 00:00:00 00:00:00 [facility] Sex Ass[birth year] At [birth year] Universit y of 00:00:00 00:00:00 [facility] Smoking Status Start Date Stop Date Source Former smoker 2020-06-30 00:00:2020-06-30 00:00:00 [facility] Medical Branch Medications Ordered Filled Start Stop Current Ordering Indication Dosage Frequency Signature Comments Components Source Medication Medication Date Date Medication? Clinician (SIG) Name Name furosemide 2019-03 Yes Take by Uni vers (LASIX 1-03 mouth ity of ORAL) 16:10: daily. [place] [address] Medical Branch AMILORIDE-H 2019-03 Yes 5mg Take 5 mg U nivers YDROCHLOROT 1-03 by mouth ity of HIAZIDE 16:10: daily. [place] ORAL Medical Branch furosemide 2019-03 Yes Take by Uni vers (LASIX 1-03 mouth ity of ORAL) 16:10: daily. [place] [address] Medical Branch AMILORIDE-H 2019-03 Yes 5mg Take 5 mg U nivers YDROCHLOROT 1-03 by mouth ity of HIAZIDE 16:10: daily. [place] [address] Medical Branch furosemide 2019-03 Yes Take by Uni vers (LASIX 1-03 mouth ity of ORAL) 16:10: daily. [place] [address] Medical Branch AMILORIDE-H 2019-03 Yes 5mg Take 5 mg U nivers YDROCHLOROT 1-03 by mouth ity of HIAZIDE 16:10: daily. [place] [address] Medical Branch furosemide 2019-03 Yes Take by Uni vers (LASIX 1-03 mouth ity of ORAL) 16:10: daily. [place] [address] Medical Branch AMILORIDE-H 2019-03 Yes 5mg Take 5 mg U nivers YDROCHLOROT 1-03 by mouth ity of HIAZIDE 16:10: daily. [place] [address] Medical Branch furosemide 2019-03 Yes Take by Uni vers (LASIX 1-03 mouth ity of ORAL) 16:10: daily. [place] [address] Medical Branch AMILORIDE-H 2019-03 Yes 5mg Take 5 mg U nivers YDROCHLOROT 1-03 by mouth ity of HIAZIDE 16:10: daily. [place] [address] Medical Branch tadalafiL 2019-03 Yes [id number] 20mg Take 1 U nivers (CIALIS) 20 1-03 tablet by ity of mg tablet 00:00: [place] 00 needed for Medical Erectile Branch dysfunctio n. 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 tadalafiL 2019-03 Yes [id number] 20mg Take 1 U nivers (CIALIS) 20 [...] lar, ONCE, [place] 00 :00 1 dose, [facility] 12/31/19 at 1300, LESA
Re ason for [...] lar, ONCE, [place] 00 :00 1 dose, [facility] 12/31/19 at 1300, LESA
Re ason for [...] lar, ONCE, [place] 00 :00 1 dose, [facility] 12/31/19 at 1300, LESA
Re ason for [...] lar, ONCE, [place] 00 :00 1 dose, [facility] 12/31/19 at 1300, LESA
Re ason for Anti-Infec tive: Surgical Prophylaxi s
Surgi jeor Prophylaxi s: Genitourin wilbur
Dur ation of therapy: within 24 hours of surgery gentamicin 2019-03- No 80mg Univer s injection 0-13 10- ity of 80 mg 18:00: 17:00 [place] 00 :00 [facility] gentamicin 2019-03- No 80mg 80 mg, Univ ers injection 0-13 10- Intramuscu ity of 80 mg 18:00: 17:00 lar, ONCE, [place] 00 :00 1 dose, [facility] 12/31/19 at 1300, LESA
Re ason for Anti-Infec tive: Surgical Prophylaxi s
Surgi jero Prophylaxi s: Genitourin wil[place]
Dur ation of therapy: within 24 hours of surgery predniSONE 2019-03 Yes 10mg Take 10 mg U nivers 20 mg 0-13 by mouth ity of tablet 16:22: daily. [facility] AMILORIDE-H 2019-03 Yes 5mg Take 5 mg U nivers YDROCHLOROT 0-13 by mouth ity of HIAZIDE 16:22: daily. [facility] predniSONE 2019-03 Yes 10mg Take 10 mg U nivers 20 mg 0-13 by mouth ity of tablet 16:22: daily. [address] Branch AMILORIDE-H 2020- Yes 5mg Take 5 mg U nivers YDROCHLOROT 0-13 by mouth ity of HIAZIDE 16:22: daily. [place] ORAL 00 Medical Branch predniSONE 2020 Yes 10mg Take 10 mg U nivers 20 mg 0-13 by mouth ity of tablet 16:22: daily. [address] AMILORIDE-H 2019- Yes 5mg Take 5 mg U nivers YDROCHLOROT 0-13 by mouth ity of HIAZIDE 16:22: daily. [place] ORAL 00 Medical Branch predniSONE 2019- Yes 10mg Take 10 mg U nivers 20 mg 0-13 by mouth ity of tablet 16:22: daily. [address] AMILORIDE-H 2019-03 Yes 5mg Take 5 mg U nivers YDROCHLOROT 0-13 by mouth ity of HIAZIDE 16:22: daily. [address] predniSONE 2019-03 Yes 10mg Take 10 mg U nivers 20 mg 0-13 by mouth ity of tablet 16:22: daily. [address] AMILORIDE-H 2019-03 Yes 5mg Take 5 mg U nivers YDROCHLOROT 0-13 by mouth ity of HIAZIDE 16:22: daily. [place] [address] Medical Branch predniSONE 2019-03 Yes 10mg Take 10 mg U nivers 20 mg 0-13 by mouth ity of tablet 16:22: daily. [address] AMILORIDE-H 2019-03 Yes 5mg Take 5 mg U nivers YDROCHLOROT 0-13 by mouth ity of HIAZIDE 16:22: daily. [place] [address] Medical Branch predniSONE 2020- Yes 10mg Take 10 mg U nivers 20 mg 0-13 by mouth ity of tablet 16:22: daily. [address] predniSONE 2020- Yes 10mg Take 10 mg U nivers 20 mg 0-13 by mouth ity of tablet 16:22: daily. [address] predniSONE 2020- Yes 10mg Take 10 mg U nivers 20 mg 0-13 by mouth ity of tablet 16:22: daily. [address] predniSONE 2020- Yes 10mg Take 10 mg U nivers 20 mg 0-13 by mouth ity of tablet 16:22: daily. [place] 00 Medical Branch predniSONE 2020-1 Yes 10mg Take 10 mg U nivers 20 mg 0-13 by mouth ity of tablet 16:22: daily. [place] Medical Branch levoFLOXaci 2020-1 2020- No [id number] 500mg Take 1 Univers n 0-01 10-12 tablet by ity of (LEVAQUIN) 00:00: 04:59 mouth [place] 500 mg 00 :00 daily for Medical tablet 10 days. Branch furosemide 2019-0 Yes Take by Uni vers (LASIX 9-29 mouth ity of ORAL) 18:26: daily. [place] [address] Medical Branch furosemide 2019-0 Yes Take by Uni vers (LASIX 9-29 mouth ity of ORAL) 18:26: daily. [address] furosemide 2019-0 Yes Take by Uni vers (LASIX 9-29 mouth ity of ORAL) 18:26: daily. [address] furosemide 2019-0 Yes Take by Uni vers (LASIX 9-29 mouth ity of ORAL) 18:26: daily. [address] furosemide 2019-0 Yes Take by Uni vers (LASIX 9-29 mouth ity of ORAL) 18:26: daily. [place] [address] Medical Branch furosemide 2019-0 Yes Take by Uni vers (LASIX 9-29 mouth ity of ORAL) 18:26: daily. [address] furosemide 2020-0 Yes Take by Uni vers (LASIX 9-29 mouth ity of ORAL) 18:26: daily. [address] Branch furosemide 2019-0 Yes Take by Uni vers (LASIX 9-29 mouth ity of ORAL) 18:26: daily. [address] furosemide 2019-0 Yes Take by Uni vers (LASIX 9-29 mouth ity of ORAL) 18:26: daily. [address] Branch NOVOLOG 2018-0 Yes [id number] INJECT 18 Univers U-100 9-10 UNITS ity of INSULIN 00:00: UNDER THE [place] ASPART 100 00 SKIN 3 Medical unit/mL (THREE) Branch solution TIMES DAILY BEFORE MEALS. NOVOLOG 2018-0 Yes [id number] INJECT 18 U nivers U-100 9-10 UNITS ity of INSULIN 00:00: UNDER THE [place] ASPART 100 00 SKIN 3 Medical unit/mL (THREE) Branch solution TIMES DAILY BEFORE MEALS. NOVOLOG 2018-0 Yes [id number] INJECT 18 U nivers U-100 9-10 UNITS ity of INSULIN 00:00: UNDER THE [place] ASPART 100 00 SKIN 3 Medical unit/mL (THREE) Branch solution TIMES DAILY BEFORE MEALS. NOVOLOG 2018-0 Yes [id number] INJECT 18 U nivers U-100 9-10 UNITS ity of INSULIN 00:00: UNDER THE [place] ASPART 100 00 SKIN 3 Medical unit/mL (THREE) Branch solution TIMES DAILY BEFORE MEALS. NOVOLOG 2018-0 Yes [id number] INJECT 18 U nivers U-100 9-10 UNITS ity of INSULIN 00:00: UNDER THE [place] ASPART 100 00 SKIN 3 Medical unit/mL (THREE) Branch solution TIMES DAILY BEFORE MEALS. NOVOLOG 0 Yes [id number] INJECT 18 U nivers U-100 9-10 UNITS ity of INSULIN 00:00: UNDER THE [place] ASPART 100 00 SKIN 3 Medical unit/mL (THREE) Branch solution TIMES DAILY BEFORE MEALS. NOVOLOG 2018-0 Yes [id number] INJECT 18 U nivers U-100 9-10 UNITS ity of INSULIN 00:00: UNDER THE [place] ASPART 100 00 SKIN 3 Medical unit/mL (THREE) Branch solution TIMES DAILY BEFORE MEALS. NOVOLOG 2018-0 Yes [id number] INJECT 18 U nivers U-100 9-10 UNITS ity of INSULIN 00:00: UNDER THE [place] ASPART 100 00 SKIN 3 Medical unit/mL (THREE) Branch solution TIMES DAILY BEFORE MEALS. NOVOLOG 2018-0 Yes [id number] INJECT 18 U nivers U-100 9-10 UNITS ity of INSULIN 00:00: UNDER THE [place] ASPART 100 00 SKIN 3 Medical unit/mL (THREE) Branch solution TIMES DAILY BEFORE MEALS. NOVOLOG 2018-0 Yes [id number] INJECT 18 U nivers U-100 9-10 UNITS ity of INSULIN 00:00: UNDER THE [place] ASPART 100 00 SKIN 3 Medical unit/mL (THREE) Branch solution TIMES DAILY BEFORE MEALS. NOVOLOG 2018-0 Yes [id number] INJECT 18 U nivers U-100 9-10 UNITS ity of INSULIN 00:00: UNDER THE [place] ASPART 100 00 SKIN 3 Medical unit/mL (THREE) Branch solution TIMES DAILY BEFORE MEALS. NOVOLOG 2018-0 Yes [id number] INJECT 18 U nivers U-100 9-10 UNITS ity of INSULIN 00:00: UNDER THE [place] ASPART 100 00 SKIN 3 Medical unit/mL (THREE) Branch solution TIMES DAILY BEFORE MEALS. NOVOLOG 2018-0 Yes [id number] INJECT 18 U nivers U-100 9-10 UNITS ity of INSULIN 00:00: UNDER THE [place] ASPART 100 00 SKIN 3 Medical unit/mL (THREE) Branch solution TIMES DAILY BEFORE MEALS. NOVOLOG 2018-0 Yes [id number] INJECT 18 U nivers U-100 9-10 UNITS ity of INSULIN 00:00: UNDER THE [place] ASPART 100 00 SKIN 3 Medical unit/mL (THREE) Branch solution TIMES DAILY BEFORE MEALS. NOVOLOG 2019-0 Yes [id number] INJECT 18 U nivers U-100 9-10 UNITS ity of INSULIN 00:00: UNDER THE [place] ASPART 100 00 SKIN 3 Medical unit/mL (THREE) Branch solution TIMES DAILY BEFORE MEALS. NOVOLOG 2018-0 Yes [id number] INJECT 18 U nivers U-100 9-10 UNITS ity of INSULIN 00:00: UNDER THE [place] ASPART 100 00 SKIN 3 Medical unit/mL (THREE) Branch solution TIMES DAILY BEFORE MEALS. NOVOLOG 2018- Yes [id number] INJECT 18 U nivers U-100 9-10 UNITS ity of INSULIN 00:00: UNDER THE [place] ASPART 100 00 SKIN 3 Medical unit/mL (THREE) Branch solution TIMES DAILY BEFORE MEALS. insulin 2019- No 18U inject 18 Univ ers aspart 10-30- Units ity of U-100 16:06: 00:00 under the [place] (NOVOLOG 53 :00 skin 3 Medical FLEXPEN (three) Branch U-100 times INSULIN) daily 100 unit/mL before injection meals. cetirizine 2019- No 5mg Take 5 mg U nivers 5 mg tablet 10-30 by mouth. it y of 16:06: 00:00 [place] 53 :00 Medical Branch clopidogrel 2019- No 75mg Take 75 mg Univers (PLAVIX) 75 10-30 by mouth ity of mg tablet 16:06: 00:00 daily. [place] 53 :00 Medical Branch allopurinol 2018-0 2019- No 100mg Take 100 Univers (ZYLOPRIM) 10-30 mg by ity of 100 mg 16:06: 00:00 mouth [place] tablet 53 :00 daily. Medical Branch lactated [...] [place] 30 mg (B&O) 00 10/30/18 at Fl dical 16.2-30 mg 0804, [place] suppository Until Discontinu ed, Routine, Intra-op sodium 2019-0 Yes PRN, Univers chloride 10-30 Starting ity of 0.9 % 12:43: Tue [place] irrigation 00 10/30/18 at Med ical solution 0743, Branch Until Discontinu ed, Intra-op acetaminoph 2019-0 Yes [id number] 650mg Take 1 Univers en (TYLENOL 8-13 tablet by ity of 8 HOUR) 650 00:00: mouth [place] mg CR 00 every 8 Medical tablet (eight) Branch hours as needed for Pain. acetaminoph 2019-0 Yes [id number] 650mg Take 1 Univers en (TYLENOL 8-13 tablet by ity of 8 HOUR) 650 00:00: mouth [place] mg CR 00 every 8 Medical tablet (eight) Branch hours as needed for Pain. acetaminoph 2019-0 Yes [id number] 650mg Take 1 Univers en (TYLENOL 8-13 tablet by ity of 8 HOUR) 650 00:00: mouth [place] mg CR 00 every 8 Medical tablet (eight) Branch hours as needed for Pain. acetaminoph 0 Yes [id number] 650mg Take 1 Univers en (TYLENOL 8-13 tablet by ity of 8 HOUR) 650 00:00: mouth [place] mg CR 00 every 8 Medical tablet (eight) Branch hours as needed for Pain. acetaminoph 0 Yes [id number] 650mg Take 1 Univers en (TYLENOL 8-13 tablet by ity of 8 HOUR) 650 00:00: mouth [place] mg CR 00 every 8 Medical tablet (eight) Branch hours as needed for Pain. acetaminoph 0 Yes [id number] 650mg Take 1 Univers en (TYLENOL 8-13 tablet by ity of 8 HOUR) 650 00:00: mouth [place] mg CR 00 every 8 Medical tablet (eight) Branch hours as needed for Pain. acetaminoph 0 Yes [id number] 650mg Take 1 Univers en (TYLENOL 8-13 tablet by ity of 8 HOUR) 650 00:00: mouth [place] mg CR 00 every 8 Medical tablet (eight) Branch hours as needed for Pain. acetaminoph 0 Yes [id number] 650mg Take 1 Univers en (TYLENOL 8-13 tablet by ity of 8 HOUR) 650 00:00: mouth [place] mg CR 00 every 8 Medical tablet (eight) Branch hours as needed for Pain. acetaminoph 0 Yes [id number] 650mg Take 1 Univers en (TYLENOL 8-13 tablet by ity of 8 HOUR) 650 00:00: mouth [place] mg CR 00 every 8 Medical tablet (eight) Branch hours as needed for Pain. acetaminoph 0 Yes [id number] 650mg Take 1 Univers en (TYLENOL 8-13 tablet by ity of 8 HOUR) 650 00:00: mouth [place] mg CR 00 every 8 Medical tablet (eight) Branch hours as needed for Pain. acetaminoph 0 Yes [id number] 650mg Take 1 Univers en (TYLENOL 8-13 tablet by ity of 8 HOUR) 650 00:00: mouth [place] mg CR 00 every 8 Medical tablet (eight) Branch hours as needed for Pain. acetaminoph 0 Yes [id number] 650mg Take 1 Univers en (TYLENOL 8-13 tablet by ity of 8 HOUR) 650 00:00: mouth [place] mg CR 00 every 8 Medical tablet (eight) Branch hours as needed for Pain. acetaminoph 2019-0 Yes [id number] 650mg Take 1 Univers en (TYLENOL 8-13 tablet by ity of 8 HOUR) 650 00:00: mouth [place] mg CR 00 every 8 Medical tablet (eight) Branch hours as needed for Pain. acetaminoph 2018-0 Yes [id number] 650mg Take 1 Univers en (TYLENOL 8-13 tablet by ity of 8 HOUR) 650 00:00: mouth [place] mg CR 00 every 8 Medical tablet (eight) Branch hours as needed for Pain. acetaminoph 0 Yes [id number] 650mg Take 1 Univers en (TYLENOL 8-13 tablet by ity of 8 HOUR) 650 00:00: mouth [place] mg CR 00 every 8 Medical tablet (eight) Branch hours as needed for Pain. acetaminoph 0 Yes [id number] 650mg Take 1 Univers en (TYLENOL 8-13 tablet by ity of 8 HOUR) 650 00:00: mouth [place] mg CR 00 every 8 Medical tablet (eight) Branch hours as needed for Pain. acetaminoph 0 Yes [id number] 650mg Take 1 Univers en (TYLENOL 8-13 tablet by ity of 8 HOUR) 650 00:00: mouth [place] mg CR 00 every 8 Medical tablet (eight) Branch hours as needed for Pain. acetaminoph 0 Yes [id number] 650mg Take 1 Univers en (TYLENOL 8-13 tablet by ity of 8 HOUR) 650 00:00: mouth [place] mg CR 00 every 8 Medical tablet (eight) Branch hours as needed for Pain. acetaminoph 0 Yes [id number] 650mg Take 1 Univers en (TYLENOL 8-13 tablet by ity of 8 HOUR) 650 00:00: mouth [place] mg CR 00 every 8 Medical tablet (eight) Branch hours as needed for Pain. acetaminoph 2018-0 Yes [id number] 650mg Take 1 Univers en (TYLENOL 8-13 tablet by ity of 8 HOUR) 650 00:00: mouth [place] mg CR 00 every 8 Medical tablet (eight) Branch hours as needed for Pain. clopidogrel 2018-0 Yes 75mg Take 75 mg Univers (PLAVIX) 75 8-09 by mouth ity of mg tablet 19:13: daily. [place] 16 [facility] Branch allopurinol 2019-0 Yes 100mg Take 100 [...] tablet 7-18 by mouth. ity of 19:45: [place] 23 [facility] Branch clopidogrel 2019-0 Yes 75mg Take 75 mg Univers (PLAVIX) 75 7-18 by mouth ity of mg tablet 19:44: daily. [place] 35 [facility] Branch insulin 2018-0 Yes 18U inject 18 Unive rs aspart 7-18 Units ity of U-100 19:44: under the [place] (NOVOLOG 35 skin 3 Medical FLEXPEN (three) [...] Units ity of RAPID 00:00: under the [place] (NOVOLOG 00 skin 3 Medical U-100 (three) [...] ity of RAPID 00:00: 00:00 under the [place] (NOVOLOG 00 :00 skin 3 Medical U-100 [...] 00 :00 directed Medic al START) Kit [place] blood sugar 2019- No 1{strip 1 Strip [...] Medical Branch Insulin Yes Use 1 Univers [place], 3-01 daily, ity of Disposable, 00:00: DX:E11.9 [place] (BD INSULIN 00 Medical PEN NEEDLE Branch UF) 31 gauge x 5/16" Ndle Insulin Yes Use 1 Univers [place], 3-01 daily, ity of Disposable, 00:00: DX:E11.9 [place] (BD INSULIN 00 Medical PEN NEEDLE Branch UF) 31 gauge x 5/16" Ndle Insulin 2019- No Use 1 Univers [place], 3-03 27- daily, ity of Disposable, 00:00: [...] 00 :00 weeks. Medical Branch Safety Yes [id number] Use as Univ ers [place] (BD 1-13 directed ity of SAFETYGLIDE 00:00: [place] NEEDLE) 18 00 Medical gauge x 1 Branch 1/2" Ndle Safety Yes [id number] Use as Univ ers [place] (BD 1-13 directed ity of SAFETYGLIDE 00:00: [place] NEEDLE) 22 00 Medical gauge x 1 Branch 1/2" Ndle Safety Yes [id number] Use as Univ ers [place] (BD 1-13 directed ity of SAFETYGLIDE 00:00: [place] NEEDLE) 18 00 Medical gauge x 1 Branch 1/2" Ndle Safety Yes [id number] Use as Univ ers [place] (BD 1-13 directed ity of SAFETYGLIDE 00:00: [place] NEEDLE) 22 00 Medical gauge x 1 Branch 1/2" Ndle Safety 2019- No [id number] Use as Uni vers [place] (BD 113 - directed ity of SAFETYGLIDE 00:00: 00:00 [place] NEEDLE) 18 00 :00 Medical gauge x 1 Branch 1/2" Ndle Safety 2019- No [id number] Use as Uni vers [place] (BD 1- directed ity of SAFETYGLIDE 00:00: [...] Univers HIGH-DOSE 9-23 ity of , 00:00: [place] PF, 180 00 Medical mcg/0.5 mL Branch syringe FLUZONE Yes Univers HIGH-DOSE 9-23 ity of , 00:00: [place] PF, 180 00 Medical mcg/0.5 mL Branch [...] Immunizations Ordered Filled Immunization Date Status Comments [facility] e Immunization Name Name Influenza Virus 2010-01-18 Completed Universit y of Vaccine 00:00:00 [facility] Pneumococcal 7 2010-01-18 Completed University of Conjugate, PCV7 00:00:00 [place] Med ical (Prevnar7) [place] Influenza Virus 2010-01-18 Completed Universit y of Vaccine 00:00:00 [facility] Pneumococcal 7 2010-01-18 Completed University of Conjugate, PCV7 00:00:00 [place] Med ical (Prevnar7) [place] Influenza Virus 2010-01-18 Completed Universit y of Vaccine 00:00:00 [facility] Pneumococcal 7 2010-01-18 Completed University of Conjugate, PCV7 00:00:00 [place] Med ical (Prevnar7) [place] Influenza Virus 2010-01-18 Completed Universit y of Vaccine 00:00:00 [facility] Pneumococcal 7 2010-01-18 Completed University of Conjugate, PCV7 00:00:00 [place] Med ical (Prevnar7) [place] Influenza Virus 2010-01-18 Completed Universit y of Vaccine 00:00:00 [facility] Pneumococcal 7 2010-01-18 Completed University of Conjugate, PCV7 00:00:00 [place] Med ical (Prevnar7) [place] Influenza Virus 2010-01-18 Completed Universit y of Vaccine 00:00:00 [facility] Pneumococcal 7 2010-01-18 Completed University of Conjugate, PCV7 00:00:00 [place] Med ical (Prevnar7) [place] Influenza Virus 2010-01-18 Completed Universit y of Vaccine 00:00:00 [facility] Pneumococcal 7 2010-01-18 Completed University of Conjugate, PCV7 00:00:00 [place] Med ical (Prevnar7) [place] Influenza Virus 2010-01-18 Completed Universit y of Vaccine 00:00:00 [facility] Pneumococcal 7 2010-01-18 Completed University of Conjugate, PCV7 00:00:00 [place] Med ical (Prevnar7) [place] Influenza Virus 2010-01-18 Completed Universit y of Vaccine 00:00:00 [facility] Pneumococcal 7 2010-01-18 Completed University of Conjugate, PCV7 00:00:00 [place] Med ical (Prevnar7) [place] Influenza Virus 2010-01-18 Completed Universit y of Vaccine 00:00:00 [facility] Pneumococcal 7 2010-01-18 Completed University of Conjugate, PCV7 00:00:00 [place] Med ical (Prevnar7) [place] Influenza Virus 2010-01-18 Completed Universit y of Vaccine 00:00:00 [facility] Pneumococcal 7 2010-01-18 Completed University of Conjugate, PCV7 00:00:00 [place] Med ical (Prevnar7) [place] Influenza Virus 2010-01-18 Completed Universit y of Vaccine 00:00:00 [facility] Pneumococcal 7 2010-01-18 Completed University of Conjugate, PCV7 00:00:00 [place] Med ical (Prevnar7) [place] Influenza Virus 2010-01-18 Completed Universit y of Vaccine 00:00:00 [facility] Pneumococcal 7 2010-01-18 Completed University of Conjugate, PCV7 00:00:00 [place] Med ical (Prevnar7) [place] Influenza Virus 2010-01-18 Completed Universit y of Vaccine 00:00:00 [facility] Pneumococcal 7 2010-01-18 Completed University of Conjugate, PCV7 00:00:00 [place] Med ical (Prevnar7) [place] Influenza Virus 2010-01-18 Completed Universit y of Vaccine 00:00:00 [facility] Pneumococcal 7 2010-01-18 Completed University of Conjugate, PCV7 00:00:00 [place] Med ical (Prevnar7) [place] Influenza Virus 2010-01-18 Completed Universit y of Vaccine 00:00:00 [facility] Pneumococcal 7 2010-01-18 Completed University of Conjugate, PCV7 00:00:00 [place] Med ical (Prevnar7) [place] Influenza Virus 2010-01-18 Completed Universit y of Vaccine 00:00:00 [facility] [facility] Pneumococcal 7 2010-01-18 Completed University of Conjugate, PCV7 00:00:00 [place] [facility] (Prevnar7) [place] Influenza Virus 2010-01-18 Completed Universit y of Vaccine 00:00:00 [facility] Pneumococcal 7 2010-01-18 Completed University of Conjugate, PCV7 00:00:00 [place] [facility] (Prevnar7) [place] Influenza Virus 2010-01-18 Completed Universit y of Vaccine 00:00:00 [facility] Pneumococcal 7 2010-01-18 Completed University of Conjugate, PCV7 00:00:00 [place] [facility] (Prevnar7) [place] Influenza Virus 2010-01-18 Completed Universit y of Vaccine 00:00:00 [facility] Pneumococcal 7 2010-01-18 Completed University of Conjugate, PCV7 00:00:00 [place] [facility] (Prevnar7) [place] Influenza Virus 2010-01-18 Completed Universit y of Vaccine 00:00:00 [facility] Pneumococcal 7 2010-01-18 Completed University of Conjugate, PCV7 00:00:00 [place] [facility] (Prevnar7) [facility] Influenza Virus 2010-01-18 Completed Universit y of Vaccine 00:00:00 [facility] Pneumococcal 7 2010-01-18 Completed University of Conjugate, PCV7 00:00:00 [facility] ical (Prevnar7) [place] Vital Signs Vital Name Observation Time Observation Value Comments Source Systolic blood 2020-06-30 143 mm[Hg] University of pressure 15:20:00 [facility] Diastolic blood 2020-06-30 76 mm[Hg] University o f pressure 15:20:00 [facility] Heart rate 2020-06-30 71 /min University of 15:20:00 [facility] Respiratory rate 2020-06-30 18 /min University of 15:20:00 [facility] Oxygen saturation 2020-06-30 97 /min [facility] in Arterial blood 15:20:00 [facility] by Pulse oximetry Branch Systolic blood 2020-06-30 143 mm[Hg] University of pressure 15:20:00 [facility] Diastolic blood 2020-06-30 76 mm[Hg] University o f pressure 15:20:00 [facility] Heart rate 2020-06-30 71 /min University of 15:20:00 [facility] Respiratory rate 2020-06-30 18 /min University of 15:20:00 [facility] Oxygen saturation 2020-06-30 97 /min University of in Arterial blood 15:20:00 [facility] by Pulse oximetry Branch Systolic blood 2020-01-21 157 mm[Hg] University of pressure 16:10:00 [facility] Diastolic blood 2020-01-21 75 mm[Hg] University o f pressure 16:10:00 [facility] Heart rate 2020-01-21 66 /min University of 16:10:00 [facility] Respiratory rate 2020-01-21 18 /min University of 16:10:00 [facility] Body weight 2020-01-21 97.387 kg University of 16:10:00 [facility] BMI 2020-01-21 29.94 kg/m2 University of 16:10:00 [facility] Oxygen saturation 2020-01-21 96 /min University of in Arterial blood 16:10:00 [facility] by Pulse oximetry Branch Systolic blood 2019-12-31 131 mm[Hg] University of pressure 16:17:00 [facility] Diastolic blood 2019-12-31 77 mm[Hg] University o f pressure 16:17:00 [facility] Heart rate 2019-12-31 64 /min University of 16:17:00 [facility] Body temperature 2019-12-31 36.44 Eileen University of 16:17:00 [facility] Respiratory rate 2019-12-31 18 /min University of 16:17:00 [facility] Body weight 2019-12-31 98.839 kg University of 16:17:00 [facility] BMI 2019-12-31 30.39 kg/m2 University of 16:17:00 [facility] Oxygen saturation 2019-12-31 95 /min University of in Arterial blood 16:17:00 [facility] by Pulse oximetry Branch Systolic blood 2019-12-17 129 mm[Hg] University of pressure 18:12:00 [facility] Diastolic blood 2019-12-17 77 mm[Hg] University o f pressure 18:12:00 [facility] Heart rate 2019-12-17 78 /min University of 18:12:00 [facility] Body temperature 2019-12-17 36.89 Eileen University of 18:12:00 [facility] Respiratory rate 2019-12-17 20 /min University of 18:12:00 [facility] Body height 2019-12-17 180.3 cm University of 18:12:00 [facility] Body weight 2019-12-17 99.791 kg University of 18:12:00 [facility] BMI 2019-12-17 30.68 kg/m2 University of 18:12:00 [facility] Oxygen saturation 2019-12-17 96 /min University of in Arterial blood 18:12:00 [facility] by Pulse oximetry Branch Systolic blood 2018-11-01 161 mm[Hg] refused 2nd B/P University of pressure 19:59:00 [facility] Diastolic blood 2018-11-01 78 mm[Hg] refused 2nd B/P Universit y of pressure 19:59:00 [facility] Heart rate 2018-11-01 73 /min University of 19:59:00 [facility] Respiratory rate 2018-11-01 18 /min University of 19:59:00 [facility] Body height 2018-11-01 182.9 cm University of 19:59:00 [facility] Body weight 2018-11-01 104.781 kg [facility] 19:59:00 [facility] BMI 2018-11-01 31.33 kg/m2 [facility] 19:59:00 [facility] Systolic blood 2018-10-30 126 mm[Hg] [facility] pressure 15:15:00 [facility] Diastolic blood 2018-10-30 63 mm[Hg] [facility] pressure 15:15:00 [facility] Heart rate 2018-10-30 58 /min [facility] 15:15:00 [facility] Respiratory rate 2018-10-30 10 /min [facility] 15:15:00 [facility] Oxygen saturation 2018-10-30 95 /min [facility] Arterial blood 15:15:00 [facility] by Pulse oximetry [place] Body temperature 2018-10-30 36 Eileen [facility] 13:46:00 [facility] Body height 2018-10-30 182.9 cm [facility] 10:25:00 [facility] Body weight 2018-10-30 103.9 kg [facility] 10:25:00 [facility] BMI 2018-10-30 31.07 kg/m2 [facility] 10:25:00 [facility] Procedures Procedure Date / Time Performed Performing Clinician [facility] e URINALYSIS 2019-12-31 17:15:00 [facility] URINE CULTURE 2019-12-31 17:15:00 [facility] POCT URINALYSIS 2019-12-31 16:39:00 [facility] DISCLOSURE AND 2019-12-31 05:01:00 Doctor Unassigned, No [facility] CONSENT, MEDICAL AND Name Medical Bra [facility] SURGICAL PROCEDURES URINALYSIS 2019-12-17 20:01:00 [facility] URINE CULTURE 2019-12-17 20:01:00 [facility] TYPE AND SCREEN 2018-10-30 10:41:00 Nikki Rosa [facility] Medical [place] POCT GLUCOSE 2018-10-30 10:40:00 Jorge Medellin [facility] (AUTOMATED) Medical Branch ASSIGNMENT OF BENEFITS 2018-10-30 10:05:27 Doctor Unassigned, No [facility] Name Medical Branch DISCLOSURE AND 2018-10-04 05:01:00 Doctor Unassigned, No Param [facility] CONSENT, MEDICAL AND Name Medical Bra [facility] SURGICAL PROCEDURES EXTERNAL PROVIDER 2017-07-05 05:01:00 Doctor Unassigned, No Praneeth [facility] RECORDS Name Medical Branch Encounters Start End Encounter Admission Attending Care Care Encounter Source Date/Time Date/Time Type Type Clinicians Facility Department ID 2021-01-05 2021-01-05 Outpatient R [facility] [id number] Univers 10:00:00 10:00:00 MIKE [id number] [facility] 2021-01-05 2021-01-05 [facility] [id number] Univers 10:00:00 10:00:00 MIKE [facility] 2020-06-30 2020-06-30 Office [facility] 1.2.840.114 [id number] Univers 10:11:23 10:41:23 Visit [facility] [id number] it y of [place] [facility] 4.2.7.2.686 [facility] as Center - [phone] Med ical [facility] 204 Branch 2020-06-30 2020-06-30 Office [facility] 1.2.840.114 [id number] 10:11:23 10:41:23 Visit [facility] [id number] [facility] [facility] 4.2.7.2.686 Center - [phone] [facility] 204 2020-06-30 2020-06-30 Outpatient R [facility] [id number] Univers 10:15:00 10:15:00 MIKE [id number] [facility] 2020-06-30 2020-06-30 [facility] [id number] Univers 10:15:00 10:15:00 MIKE [facility] 2020-04-12 2020-04-12 Patient Jimmy [facility] 1.2.840.114 [id number] Univers 00:00:00 00:00:00 Outreach Steve PRIMARY [id number] i ty of [facility] [place] [phone] Fl dical [address] [place] [address] 2020-03-24 2020-03-24 Outpatient R [facility] [id number] Univers 10:30:00 10:30:00 MIKE tye [facility] 2020-01-21 2020-01-21 Outpatient [facility] [id number] Univers 10:15:00 10:15:00 [facility]-01[facility]21 2020-01-21 [facility] [id number] Univers 10:15:00 10:15:00 [facility] 2020-01-21 2020-01-21 Office [facility] 1.2.840.114 [id number] Univers 09:46:41 10:01:41 Visit [facility] [id number] it y of [place] 4.2.7.2.686 [place] as Center - [phone] Med ical MDA [address] [place] [address] 2020-01-09 2020-01-09 Outpatient INCAVO, [facility] [id number] 00:00:00 00:00:00 MISTI 781 Method i 2020-01-09 2020-01-09 Outpatient INCAVO, [facility] [id number] 00:00:00 00:00:00 MISTI [address] 2019-12-31 2020-01-08 Office Mike Steven [facility] 1 .2.840.114 [id number] Univers 10:40:25 07:47:35 Visit 2, Naomi Mda [facility] 350.1. 13.10 ity [place] [phone] Med ical MDA [facility] Branch 2019-12-31 2019-12-31 Outpatient [facility] [id number] Univers 10:45:00 10:45:00 MIKE [id number] [facility] 2019-12-31 2019-12-31 [facility] [id number] Univers 10:45:00 10:45:00 [facility] 2019-12-31 2019-12-31 Orders Doctor FLAVIO 1.2.840.114 [id number] Univers 00:00:00 00:00:00 Only Unassigned, [place] [id number] ity of [place] [facility] 4.2.7.2.686 Remi as [phone] [address] 2019-12-19 2019-12-19 Telephone [facility] 1.2.840.114 [id number] Univers 00:00:00 00:00:00 [facility] [id number] it y of [place] 4.2.7.2.686 [place] as Center - [phone] [address] 2019-12-17 2019-12-17 Outpatient [facility] [id number] Univers 13:15:00 13:15:00 MIKE [id number] [facility] 2019-12-17 2019-12-17 Outpatient [facility] [id number] Univers 13:15:00 13:15:00 [facility] 2019-12-17 2019-12-17 Office [facility] 1.2.840.114 [id number] Univers 12:59:50 13:14:50 Visit [facility] [id number] it y of [place] 4.2.7.2.686 [place] as Center - [phone] [address] 2019-12-10 2019-12-10 Outpatient [facility] [id number] Univers 09:30:00 09:30:00 MIKE [id number] [facility] 2019-12-10 2019-12-10 Outpatient [facility] [id number] Univers 09:30:00 09:30:00 MIKE [facility] 2019-10-01 2019-10-01 Outpatient [facility] [id number] Univers 13:20:00 13:20:00 CHICHI [id number] [facility] 2019-10-01 2019-10-01 Outpatient Saskia [facility] [id number] Univers 13:20:00 13:20:00 CHICHI [facility] 2019-08-26 2019-08-26 Refill ROLAN Lester 1.2.840.114 [id number] Univers 00:00:00 00:00:00 Janes Encisoton 350.1.13.10 i [place]row r[place] 4.2.7.2.686 Luis Benson [phone] Fl dical nal [address] [facility] 2019-08-22 2019-08-22 Outpatient INCAVO, [facility] [id number] 00:00:00 00:00:00 MISTI [address] 2019-08-15 2019-08-15 Outpatient UNDEFINED HCACL OUTD [id number] [facility] 23:51:00 23:51:00 [id number] [facility] 2019-08-15 2019-08-15 Outpatient Pedro, HCAPM RADI [id number] [facility] 21:15:00 21:15:00 Dary [id number] [facility] 2019-08-15 2019-08-15 Outpatient MURALI, HCAPM LABO [id number] [facility] 11:17:00 11:17:00 MARCO ANTONIO Fine [facility] 2019-08-13 2019-08-13 Outpatient MURALI, HCAPM LABO [id number] [facility] 09:38:00 09:38:00 MARCO ANTONIO Maradiaga [facility] 2019-08-05 2019-08-06 Inpatient INCAVO, [facility] [id number] 00:00:00 00:00:00 MISTI 099 Method i 2019-07-29 2019-07-29 Outpatient INCAVO, [facility] [id number] 00:00:00 00:00:00 MISTI 563 Method i 2019-06-04 2019-06-04 Outpatient INCAVO, [facility] [id number] 00:00:00 00:00:00 MISTI 083 Method i 2019-06-04 2019-06-04 Outpatient [facility] [id number] [place] 00:00:00 00:00:[address] 2019-06-04 2019-06-04 Outpatient [facility] [id number] 00:00:00 00:00:[address] 2019-04-29 2019-04-29 Refill ROLAN Morin 1.2.840.114 [id number] Univers 00:00:00 00:00:00 Madelaine Viveros 350.1.13.10 i ty [place] [phone] [facility] [address] Building 2018-11-22 2018-11-22 [facility] 1.2.840.114 [id number] Univers 00:00:00 00:00:00 Madelaine Viveros 350.1.13.10 i ty [place] [phone] [facility] [address] [facility] 2018-11-01 2018-11-01 Office [facility] [id number] [id number] Univers 14:29:14 15:38:07 Visit Jorge LIA 350.1.13.10 it [place]2.[place] [facility] [phone] [facility] Primary & 204 Branch Specialty Care 2018-10-30 2018-10-30 [facility] Lauren Medellin 1.2.840.114 [id number] Univers 05:07:00 10:40:00 Encounter Jorgedi Hardwick 350.1.13.10 ity of Hospital 4.2.7.2.686 Remi as [phone] [facility] 104 Branch 2018-10-30 2018-10-30 Orders Doctor FLAVIO 1.2.840.114 [id number] Univers 00:00:00 00:00:00 Only Unassigned, [place] 350.1.13.10 ity of [place] [facility] 4.2.7.2.686 Remi as [phone] [facility] 009 Branch 2017-07-05 2017-07-05 Orders Doctor FLAVIO 1.2.840.114 [id number] Univers 00:00:00 00:00:00 Only Unassigned, [place] 350.1.13.10 ity of [place] [facility] 4.2.7.2.686 Remi as [phone] [facility] 009 Branch Results Test Description Test Time Test Comments Results Result Comments Source URINE CULTURE 2020-01-01 16:36:00 Test Item Value Reference Range Interpretation Comme nts URINE CULTURE (test code = 630-4) No aerobic growth (< 1000 CFU/mL) [facility]2020-10-13 17:59:00 Test Item Value Reference Range Interpretation Comments APPEARANCE (test code = Clear Clear 8586241415) COLOR (test code = Straw Yellow A 4588146360) PH (test code = 4.8-8.0 3759396567) SP GRAVITY (test code = 1.003-1.030 3413692847) GLU U QUAL (test code = 500 mg/dL Normal A 4808405473) BLOOD (test code = Negative Negative 2229746773) KETONES (test code = Negative Negative 0992378869) PROTEIN (test code = Negative Negative 2887-8) UROBILIN (test code = Normal Normal 6362655996) BILIRUBIN (test code = Negative Negative 8334196573) NITRITE (test code = Negative Negative 3616492346) LEUK LIZETTE (test code = Negative Negative 6310333144) RBC/HPF (test code = <1 See_Comment [Autom ated message] 5107634917) The system [employer] generated this result transmit devon reference range : 0 - 3 HPF. The refe rence range was not u sed to interpret th is result as normal/abnormal . WBC/HPF (test code = <1 See_Comment [Autom ated message] 6285018713) The system [employer] generated this result transmit devon reference range : 0 - 5 HPF. The refe rence range was not u sed to interpret th is result as normal/abnormal . BACTERIA (test code = Negative Negative 9759211587) Lab Interpretation (test Abnormal code = 35957-7) [facility] Test Item Value Reference Range Interpretation Comments APPEARANCE (test code = Clear Clear 0217996806) COLOR (test code = Straw Yellow A 4147771147) PH (test code = 4.8-8.0 2878937696) SP GRAVITY (test code = 1.003-1.030 9681443206) GLU U QUAL (test code = 500 mg/dL Normal A 6851228135) BLOOD (test code = Negative Negative 7953426428) KETONES (test code = Negative Negative 0195314730) PROTEIN (test code = Negative Negative 2887-8) UROBILIN (test code = Normal Normal 5707482882) BILIRUBIN (test code = Negative Negative 0555622049) NITRITE (test code = Negative Negative 6528209079) LEUK LIZETTE (test code = Negative Negative 9158700007) RBC/HPF (test code = <1 See_Comment [Autom ated message] 4895658552) The system [employer] generated this result transmit devon reference range : 0 - 3 HPF. The refe rence range was not u sed to interpret th is result as normal/abnormal . WBC/HPF (test code = <1 See_Comment [Autom ated message] 7908700547) The system [employer] generated this result transmit devon reference range : 0 - 5 HPF. The refe rence range was not u sed to interpret th is result as normal/abnormal . BACTERIA (test code = Negative Negative 6934150946) Lab Interpretation (test Abnormal code = 44702-8) [facility] Test Item Value Reference Range Interpretation Comments APPEARANCE (test code = Clear Clear 3425459061) COLOR (test code = Straw Yellow A 4493343712) PH (test code = 4.8-8.0 4752615556) SP GRAVITY (test code = 1.003-1.030 4090765652) GLU U QUAL (test code = 500 mg/dL Normal A 0194402732) BLOOD (test code = Negative Negative 9505717332) KETONES (test code = Negative Negative 4191170147) PROTEIN (test code = Negative Negative 2887-8) UROBILIN (test code = Normal Normal 5337546914) BILIRUBIN (test code = Negative Negative 0825178013) NITRITE (test code = Negative Negative 6316882295) LEUK LIZETTE (test code = Negative Negative 7885402110) RBC/HPF (test code = <1 See_Comment [Autom ated message] 8204302582) The system [employer] generated this result transmit devon reference range : 0 - 3 HPF. The refe rence range was not u sed to interpret th is result as normal/abnormal . WBC/HPF (test code = <1 See_Comment [Autom ated message] 8745897645) The system [employer] generated this result transmit devon reference range : 0 - 5 HPF. The refe rence range was not u sed to interpret th is result as normal/abnormal . BACTERIA (test code = Negative Negative 5288605355) Lab Interpretation (test Abnormal code = 95735-0) [facility] 17:59:00 Test Item Value Reference Range Interpretation Comments APPEARANCE (test code = Clear Clear 0578414624) COLOR (test code = Straw Yellow A 1350914136) PH (test code = 4.8-8.0 5012181874) SP GRAVITY (test code = 1.003-1.030 0537324498) GLU U QUAL (test code = 500 mg/dL Normal A 3485144302) BLOOD (test code = Negative Negative 8235482436) KETONES (test code = Negative Negative 3743861393) PROTEIN (test code = Negative Negative 2887-8) UROBILIN (test code = Normal Normal 6661372120) BILIRUBIN (test code = Negative Negative 2620561881) NITRITE (test code = Negative Negative 5912736132) LEUK LIZETTE (test code = Negative Negative 1211167311) RBC/HPF (test code = <1 See_Comment [Autom ated message] 7929879533) The system [employer] generated this result transmit devon reference range : 0 - 3 HPF. The refe rence range was not u sed to interpret th is result as normal/abnormal . WBC/HPF (test code = <1 See_Comment [Autom ated message] 4518022808) The system [employer] generated this result transmit devon reference range : 0 - 5 HPF. The refe rence range was not u sed to interpret th is result as normal/abnormal . BACTERIA (test code = Negative Negative 6014755930) Lab Interpretation (test Abnormal code = 85161-9) [facility] 17:59:00 Test Item Value Reference Range Interpretation Comments APPEARANCE (test code = Clear Clear 6410861662) COLOR (test code = Straw Yellow A 5354149098) PH (test code = 4.8-8.0 8321763301) SP GRAVITY (test code = 1.003-1.030 9410059388) GLU U QUAL (test code = 500 mg/dL Normal A 0354565246) BLOOD (test code = Negative Negative 4213692076) KETONES (test code = Negative Negative 7531269441) PROTEIN (test code = Negative Negative 2887-8) UROBILIN (test code = Normal Normal 0037421155) BILIRUBIN (test code = Negative Negative 2459859643) NITRITE (test code = Negative Negative 8219507246) LEUK LIZETTE (test code = Negative Negative 0254953063) RBC/HPF (test code = <1 See_Comment [Autom ated message] 7651447776) The system [employer] generated this result transmit devon reference range : 0 - 3 HPF. The refe rence range was not u sed to interpret th is result as normal/abnormal . WBC/HPF (test code = <1 See_Comment [Autom ated message] 9132495724) The system [employer] generated this result transmit devon reference range : 0 - 5 HPF. The refe rence range was not u sed to interpret th is result as normal/abnormal . BACTERIA (test code = Negative Negative 3634275326) Lab Interpretation (test Abnormal code = 28475-9) [facility] URINALYSIS W SPECIFIC [id number] 16:40:00 Test Item Value Reference Range Interpretation [...] 3267) Lab Interpretation (test code Normal = 74496-3) [facility] URINALYSIS W SPECIFIC [id number] 16:40:00 Test Item Value Reference Range Interpretation [...] 3267) Lab Interpretation (test code Normal = 16535-3) [facility] URINALYSIS W SPECIFIC [id number] 16:40:00 Test Item Value Reference Range Interpretation [...] 3267) Lab Interpretation (test code Normal = 45374-6) [facility] URINALYSIS W SPECIFIC [id number] 16:40:00 Test Item Value Reference Range Interpretation [...] 3267) Lab Interpretation (test code Normal = 68369-4) [facility] SPECIFIC [id number] 16:40:00 Test Item Value Reference Range Interpretation [...] 3267) Lab Interpretation (test code Normal = 85672-1) [facility] 22:08:00 Test Item Value Reference Range Interpretation Comments APPEARANCE (test code = Hazy Clear A 7613215557) COLOR (test code = Yellow Yellow 4762488664) PH (test code = 4.8-8.0 8005553202) SP GRAVITY (test code = 1.003-1.030 0752500755) GLU U QUAL (test code = 500 mg/dL Normal A 8050117749) BLOOD (test code = 1+ Negative A 9685145270) KETONES (test code = Negative Negative 0708431727) PROTEIN (test code = Negative Negative 2887-8) UROBILIN (test code = Normal Normal 3255709452) BILIRUBIN (test code = Negative Negative 0455609545) NITRITE (test code = Negative Negative 5813499733) LEUK LIZETTE (test code = 75/uL Negative A 0499036084) RBC/HPF (test code = See_Comment [Autom ated message] 8818728739) The system [employer] generated this result transmit devon reference range : 0 - 3 HPF. The refe rence range was not u sed to interpret th is result as normal/abnormal . WBC/HPF (test code = See_Comment H [Autom ated message] 2360839292) The system [employer] generated this result transmit devon reference range : 0 - 5 HPF. The refe rence range was not u sed to interpret th is result as normal/abnormal . BACTERIA (test code = Negative Negative 9857048671) SQ EPITH (test code = See_Comment [Auto mated message] 6519443952) The system WiserTogether generated this result transmit devon reference range : <=2 HPF. The refere nce range was not u sed to interpret th is result as normal/abnormal . Lab Interpretation (test Abnormal code = 24813-2) [facility] Test Item Value Reference Range Interpretation Comments APPEARANCE (test code = Hazy Clear A 7651126219) COLOR (test code = Yellow Yellow 6986887888) PH (test code = 4.8-8.0 7809744605) SP GRAVITY (test code = 1.003-1.030 5812935246) GLU U QUAL (test code = 500 mg/dL Normal A 4877156047) BLOOD (test code = 1+ Negative A 1178485781) KETONES (test code = Negative Negative 1036458745) PROTEIN (test code = Negative Negative 2887-8) UROBILIN (test code = Normal Normal 0836592168) BILIRUBIN (test code = Negative Negative 1567269599) NITRITE (test code = Negative Negative 5379896030) LEUK LIZETTE (test code = 75/uL Negative A 2042960537) RBC/HPF (test code = See_Comment [Autom ated message] 0600296221) The system [employer]iser[employer] generated this result transmit devon reference range : 0 - 3 HPF. The refe rence range was not u sed to interpret th is result as normal/abnormal . WBC/HPF (test code = See_Comment H [Autom ated message] 2286419327) The system [employer] generated this result transmit devon reference range : 0 - 5 HPF. The refe rence range was not u sed to interpret th is result as normal/abnormal . BACTERIA (test code = Negative Negative 8964856537) SQ EPITH (test code = See_Comment [Auto mated message] 3610016348) The system [employer]iser[employer] generated this result transmit devon reference range : <=2 HPF. The refere nce range was not u sed to interpret th is result as normal/abnormal . Lab Interpretation (test Abnormal code = 98937-7) [facility] 2019-08-28 17:26:00 Test Item Value Reference Range Interpretation Comments SARS-COV2/RT-PCR (test Not Detected Not Detected, Negative code = 9364665) SARS-COV-2 PERFORMING LAB [facility] (test code = 8887534) Negative results do not preclude SARS-CoV-2 infection [...] of the Act.Fact Sheet for Healthcare Pro viders:https://www.Totango/Documents/Xpert%20Xpress%20SARS%20CoV-2/Fact%20Sh eets/302-3802%46HLRU-CFR-6%20HEALTHCARE%20PROVIDERS%20FACT%20SHEET.pdfFact Sheet for Healthcare Patients:https://www.Q Chip/Documents/Xpert%20Xpress%20SARS%20CoV-2/Fact%20Sheets/302-3801%20SARS-COV -2%20PATIENT%20FACT%20SHEET.pdfPerforming Laboratory:[facility] [place] [address]- CT HEAD/BRAIN W/O [id number] 21:43:00 Name: BREA R[facility] : 1940 Age/S: 78 / M [address] [place] Unit #: [id number] Loc: [place] [address] Phys: Dary Vasquez MD Acct: [id number] Dis Date: Status: REG REF PHONE #: [phone] Exam Date: 08/15/20192127 FAX #: Reason: ams, stiffened posture EXAMS: CPT: [id number] CT HEAD/BRAIN W/O CONT 13641 Location code: H5 CT Brain Without Contrast [...] RACHEL : 1940 Age/S: 78 / M [address] [place] Unit #: [id number] Loc: [place] [address] Phys: Dary Vasquez MD Acct: [id number] Dis Date: Status: REG REF PHONE #: [phone] Exam Date: 08/15/20192127 FAX #: Reason: ams, stiffened posture EXAMS: CPT: [id number] CT HEAD/BRAIN W/O CONT 68846 <Con tinued> CC: Dary Vasquez MD Technologist:Isabel Lr, RT(R)(CT)(MRI) CTDI: DLP: Trnscb Date/Time: 08/15/2019 (2142) RangelDRB1 PAGE 2 Signed ReportUA RFLX MICR CULT IF [id number] 11:59:00 Test Item Value Reference Range Interpretation [...] CHK code = UACULT) Criteria BASIC METABOLIC [id number] 11:52:00 Test Item Value Reference Range Interpretation [...] 8.5-10.1 N UA RFLX MICR CULT IF [id number] 11:26:00 Test Item Value Reference Range Interpretation [...] Criteria Culture CHK = UACULT) CBC W/AUTO [id number] 11:24:00 Test Item Value Reference Range Interpretation [...] CRITERIA MDIFF) UA RFLX MICR CULT IF [id number] 09:55:00 Test Item Value Reference Range Interpretation [...] DIPSTICK (test code = LEUU) UR PROTEIN [id number] 09:55:00 Test Item Value Reference Range Interpretation Comments UR PROTEIN TOTAL (test code = 27.7 MG/DL 0.0-12.0 H PROTU) UR CREATININE [id number] 09:55:00 Test Item Value Reference Range Interpretation Comments UR CREATININE RANDOM (test code = 127.0 MG/DL 30-125 H CREATU) UA RFLX MICR CULT IF [id number] 09:48:00 Test Item Value Reference Range Interpretation [...] Culture CHK code = UACULT) UR PROTEIN [id number] 09:48:00 Test Item Value Reference Range Interpretation Comments UR PROTEIN TOTAL (test code = PROTU) MG/DL 0.0-12.0 UR CREATININE [id number] 09:48:00 Test Item Value Reference Range Interpretation Comments UR CREATININE RANDOM (test code = MG/DL 30-125 CREATU) UA RFLX MICR CULT IF [id number] 09:48:00 Test Item Value Reference Range Interpretation [...] DIPSTICK (test code = LEUU) UR PROTEIN [id number] 09:48:00 Test Item Value Reference Range Interpretation Comments UR PROTEIN TOTAL (test code = PROTU) MG/DL 0.0-12.0 UR CREATININE [id number] 09:48:00 Test Item Value Reference Range Interpretation Comments UR CREATININE RANDOM (test code = MG/DL 30-125 CREATU) Type and Screen - ONCE [id number] 11:21:00 Test Item Value Reference Range Interpretation Comments ABO & RH (test code A POSITIVE Performe d at [facility] = 20) Laboratory Serv [facility] [address] [facility] [address]Wqxh Free: [phone] A No. [id number] IAT (test code = Negative Performed a t [facility] 1185) Laboratory Serv [facility] [address] [facility] [address]Suge Free: [phone] A No. [id number] [facility]2018-10-30 10:44:00 Test Item Value Reference Range Interpretation Comments POCT GLU (test code = 4231962434) 185 mg/dL 70-110 H Lab Interpretation (test code = Abnormal 55149-1) [facility]
--- NOTE | 2021-02-07 15:48 | RAD REPORT ---
EXAM DESCRIPTION: RAD - Chest Single View - 02/07/2021 3:32 pm CLINICAL HISTORY: weakness COMPARISON: January 22 TECHNIQUE: AP portable chest image was obtained 02/07/2021 3:32 pm . FINDINGS: Lung volumes are very low due to shallow inspiration. This is the cause for bibasilar atel ectasis and further limitation of retrocardiac left base. No significant failure or volume overload s uspected. Heart and vasculature are normal. No measurable pleural effusion and no pneumothorax. No ac ankur bony abnormality seen. No acute aortic findings suspected. IMPRESSION: No acute cardiopulmonary process seen on this limited portable study. . Retrocardiac left base assessment is limited.
[2021-02-07 15:50] LABS: Absolute Lymphocytes (CBC) 1.6 K/uL (0.7-4.9); Basophils % 0.7 % (0-1.3); Hematocrit 42.5 % (39.6-49.0); Lymphocytes % 13.3 % (15.3-44.8); MPV 6.4 fL (7.6-11.3); RBC Red Blood Cell Count 4.93 M/uL (4.33-5.43)
[2021-02-07 16:00] LABS: Protime INR 1.05
[2021-02-07 16:00] LABS: ALT/SGPT 23 U/L (12-78); AST/SGOT 10 U/L (15-37); Albumin 3.5 g/dL (3.4-5.0); Alkaline Phosphatase 74 U/L (45-117); BUN Blood Urea Nitrogen 36 mg/dL (7-18); Bicarbonate 23 mmol/L (21-32); Bilirubin Direct 0.2 mg/dL (0-0.2); Bilirubin Total 0.5 mg/dL (0.2-1.0); Glucose Level 298 mg/dL (74-106); Magnesium 2.2 mg/dL (1.8-2.4); NT PRO-BNP 108 pg/mL (<450); Potassium 4.2 mmol/L (3.5-5.1); Protein, Total 7.5 g/dL (6.4-8.2); Sodium Level 137 mmol/L (136-145); Troponin (Emerg Dept Use Only) < 0.02 ng/mL (0.0-0.045)
[2021-02-07 16:40] LABS: Urine Blood 3+ (Negative); Urine Glucose 3+ (Negative); Urine Protein 1+ (Negative); Urine Specific Gravity 1.015 (1.005-1.030)
--- NOTE | 2021-02-07 17:01 | ER ---
Nurse's Notes [facility] Name: Kendrick Worley Age: 80 yrs Sex: Male : 1940 Arrival Date: 02/07/2021 Time: 15:00 Bed 4 Private MD: Diagnosis: UTI/ Urinary tract infection, site not specified;Repeated falls Presentation: 02/07 15:03 Chief complaint: Patient states: Weakness all over, multiple falls this month; blood in [facility] urine (on plavix). Coronavirus screen: Vaccine status: Patient reports receiving the 2nd dose of the covid vaccine. Client denies travel out of the [place] in the last 14 days. Ebola Screen: Patient negative for fever greater than or equal to 101.5 degrees Fahrenheit, and additional compatible Ebola Virus Disease symptoms Patient denies exposure to infectious person. Patient denies travel to an Ebola-affected area in the 21 days before illness onset. 15:03 Method Of Arrival: EMS: [facility] 15:08 Initial Sepsis Screen: Does the patient meet any 2 criteria? No. Patient's initial [facility] sepsis screen is negative. Does the patient have a suspected source of infection? No. Patient's initial sepsis screen is negative. Risk Assessment: Do you want to hurt yourself or someone else? Patient reports no desire to harm self or others. Onset of symptoms is unknown. 15:08 Acuity: SHERLEY 3 [facility] Triage Assessment: 15:14 General: Appears in no apparent distress. comfortable, Behavior is calm, cooperative, [facility] appropriate for age. Pain: Denies pain. Neuro: Level of Consciousness is awake, alert, obeys commands, Oriented to person, place, time, situation, Appropriate for age Speech is normal. Cardiovascular: No deficits noted. Capillary refill < 3 seconds Patient's skin is warm and dry. Respiratory: No deficits noted. Airway is patent Trachea midline Respiratory effort is even, unlabored, Respiratory pattern is regular, symmetrical. Historical: - Allergies: 15:09 Bactrim; [facility] 15:09 Morphine (Hallucinations); [facility] - Home Meds: 15:09 atorvastatin Oral [Active]; cefuroxime axetil 250 mg Oral tab 1 tab 2 times per day [facility] [Active]; Farxiga 10 mg Oral tab 1 tab once daily [Active]; gabapentin 100 mg Oral cap 3 caps 3 times per day [Active]; levothyroxine 50 mcg tab 1 tab once daily [Active]; lisinopril 5 mg Oral tab 1 tab once daily [Active]; metoprolol tartrate 25 mg Oral tab 1 tab once daily [Active]; montelukast 10 mg Oral tab 1 tab once daily [Active]; Plavix 75 mg Oral tab 1 tab once daily [Active]; tamsulosin 0.4 mg Oral cp24 1 cap once daily [Active]; - PMHx: 15:09 Diabetes - IDDM; Hypercholesterolemia; Hypertensive disorder; Myocardial infarction; jh5 - Immunization history:: Adult Immunizations up to date. - Social history:: Smoking status: unknown. Screenin:16 Abuse screen: Denies threats or abuse. Denies injuries from another. Nutritional 5 screening: No deficits noted. Tuberculosis screening: No symptoms or risk factors identified. Fall Risk None identified. Assessment: 15:20 General: Appears in no apparent distress. comfortable, Behavior is calm, cooperative. ll3 15:20 Pain: Denies pain. Neuro: No deficits noted. Level of Consciousness is awake, alert, ll3 obeys commands, Speech is normal, Facial symmetry appears normal. Cardiovascular: Patient's skin is warm and dry. Respiratory: Airway is patent Trachea midline Respiratory effort is even, unlabored, Respiratory pattern is regular, symmetrical. GI: Abdomen is round. Derm: Skin is pink, warm \T\ dry. 16:30 Reassessment: Patient appears in no apparent distress at this time. No changes from ll3 previously documented assessment. Patient and/or family updated on plan of care and expected duration. Pain level reassessed. Patient is alert, oriented x 3, equal unlabored respirations, skin warm/dry/pink. 16:43 Reassessment: Liliana Worley () [phone] home or [phone] [facility]. [facility] 17:26 Reassessment: Patient appears in no apparent distress at this time. No changes from ll3 previously documented assessment. Patient and/or family updated on plan of care and expected duration. Pain level reassessed. Patient is alert, oriented x 3, equal unlabored respirations, skin warm/dry/pink. 18:12 Reassessment: Patient appears in no apparent distress at this time. No changes from ll3 previously documented assessment. Patient and/or family updated on plan of care and expected duration. Pain level reassessed. Patient is alert, oriented x 3, equal unlabored respirations, skin warm/dry/pink. Vital Signs: 15:03 BP 140 / 77; Pulse 79; Resp 16; Temp 98.3; Pulse Ox 98% ; jh5 16:15 BP 145 / 89; Pulse 75; Resp 18; Pulse Ox 97% ; ll3 17:00 BP 131 / 73; Pulse 72; Resp 20; Pulse Ox 97% ; ll3 18:10 BP 149 / 83; Pulse 75; Resp 18; Pulse Ox 94% ; ll3 ED Course: 15:00 Patient arrived in ED. ds1 15:06 Dileep Lawrence PA is PHCP. m 15:06 Stephen Saleem MD is Attending Physician. [facility] 15:09 Triage completed. jh5 15:17 Arm band placed on right wrist. jh5 15:17 Patient has correct armband on for positive identification. Bed in low position. Call 5 light in reach. Side rails up X2. 15:17 No provider procedures requiring assistance completed. jh5 15:29 Angela Malcolm, JANET is Primary Nurse. ll3 15:31 XRAY Chest (1 view) In Process Unspecified. EDMS 15:45 Initial lab(s) drawn, by ED staff, sent to lab. jl7 15:45 Inserted saline lock: 20 gauge in left antecubital area, using aseptic technique. Blood jl7 collected. 16:00 Basic Metabolic Panel Sent. ll3 16:35 Straight cath inserted, using sterile technique, 16 Fr. Specimen obtained. Returned jl7 cloudy urine. Patient tolerated well. 18:27 IV discontinued, intact, bleeding controlled, No redness/swelling at site. Pressure ll3 dressing applied. Administered Medications: 17:15 Drug: Rocephin (cefTRIAXone) 1 grams Route: IV; Rate: calculated rate; Site: left ll3 antecubital; 17:20 Follow up: Response: No adverse reaction; IV Status: Completed infusion ll3 17:27 Follow up: Response: No adverse reaction ll3 Outcome: 17:00 Discharge ordered by . [facility] 18:27 Discharged to home via ambulance. 3 18:27 Condition: stable 18:27 Discharge instructions given to significant other, Instructed on discharge instructions, follow up and referral plans. medication usage, Demonstrated understanding of instructions, follow-up care, medications, Prescriptions given X 1. 18:29 Patient left the ED. ll3 Signatures: Dispatcher [employer] EDDileep Jackman PA PA jmm Sanford, Demi ds1 Karrie Hopper, RN RN jl7 Jacqueline Strauss RN RN jh5 Angela Malcolm RN RN ll3 Corrections: (The following items were deleted from the chart) 16:13 16:10 General: Appears in no apparent distress. comfortable, Behavior is calm, ll3 cooperative, ll3
--- NOTE | 2021-02-07 17:01 | EDPHYS ---
Physician Documentation [facility] Name: Kendrick Worley Age: 80 yrs Sex: Male : 1940 Arrival Date: 02/07/2021 Time: 15:00 Bed 4 Private MD: ED Physician Stephen Saleem HPI: 02/07 15:14 This 80 yrs old Male presents to ER via EMS with complaints of Weakness, Blood In Urine.[facility] 15:14 Details of fall: The patient fell from an upright position, while walking. Onset: The [facility] symptoms/episode began/occurred acutely, 2 day(s) ago. Is an 80-year-old male with history of diabetes mellitus, hyperlipidemia, hypertension the presents to the emergency department with complaints of multiple falls over the past few weeks. Patient was initially diagnosed patient was initially admitted for a similar episode 3 weeks ago. At the time the declined senior living. states now that she is ready to put her in a senior living. Denies hitting his head.. Historical: - Allergies: 15:09 Bactrim; jh5 15:09 Morphine (Hallucinations); 5 - Home Meds: 15:09 atorvastatin Oral [Active]; cefuroxime axetil 250 mg Oral tab 1 tab 2 times per day [facility] [Active]; Farxiga 10 mg Oral tab 1 tab once daily [Active]; gabapentin 100 mg Oral cap 3 caps 3 times per day [Active]; levothyroxine 50 mcg tab 1 tab once daily [Active]; lisinopril 5 mg Oral tab 1 tab once daily [Active]; metoprolol tartrate 25 mg Oral tab 1 tab once daily [Active]; montelukast 10 mg Oral tab 1 tab once daily [Active]; Plavix 75 mg Oral tab 1 tab once daily [Active]; tamsulosin 0.4 mg Oral cp24 1 cap once daily [Active]; - PMHx: 15:09 Diabetes - IDDM; Hypercholesterolemia; Hypertensive disorder; Myocardial infarction; jh5 - Immunization history:: Adult Immunizations up to date. - Social history:: Smoking status: unknown. ROS: 15:14 Constitutional: Negative for fever, chills, and weight loss, Cardiovascular: Negative [facility] for chest pain, palpitations, and edema, Respiratory: Negative for shortness of breath, cough, wheezing, and pleuritic chest pain. 15:14 Back: Positive for pain with movement. 15:14 Neuro: Positive for weakness. 15:14 All other systems are negative. Exam: 15:14 Constitutional: This is a well developed, well nourished patient who is awake, alert, jmm and in no acute distress. Head/Face: atraumatic. Eyes: EOMI, no conjunctival erythema appreciated ENT: Moist Mucus Membranes Neck: Trachea midline, Supple Chest/axilla: Normal chest wall appearance and motion. Cardiovascular: Regular rate and rhythm. No edema appreciated Respiratory: Normal respirations, no respiratory distress appreciated Abdomen/GI: Non distended, soft Back: Normal ROM 15:14 Skin: Appearance: Color: normal in color. 15:14 Neuro: Motor: is normal. 15:14 Psych: Behavior/mood is pleasant, cooperative. Vital Signs: 15:03 BP 140 / 77; Pulse 79; Resp 16; Temp 98.3; Pulse Ox 98% ; jh5 16:15 BP 145 / 89; Pulse 75; Resp 18; Pulse Ox 97% ; ll3 17:00 BP 131 / 73; Pulse 72; Resp 20; Pulse Ox 97% ; ll3 18:10 BP 149 / 83; Pulse 75; Resp 18; Pulse Ox 94% ; ll3 MDM: 15:14 Patient medically screened. [facility] 16:59 Data reviewed: vital signs, nurses notes. Counseling: I had a detailed discussion with [facility] the patient and/or guardian regarding: the historical points, exam findings, and any diagnostic results supporting the discharge/admit diagnosis, lab results, the need for outpatient follow up, to return to the emergency department if symptoms worsen or persist or if there are any questions or concerns that arise at home. ED course: I discussed the patient with Dr. Basilio whom stated the patient did not meet criteria for inpatient and would need to contact nursing homes outpatient for further care. . 02/07 15:15 Order name: Basic Metabolic Panel [facility] 02/07 15:15 Order name: CBC with Diff; Complete Time: 16:14 [facility] 02/07 15:15 Order name: LFT's; Complete Time: 16:14 [facility] 02/07 15:15 Order name: Magnesium; Complete Time: 16:14 [facility] 02/07 15:15 Order name: NT PRO-BNP; Complete Time: 16:14 [facility] 02/07 15:15 Order name: PT-INR; Complete Time: 16:14 [facility] 02/07 15:15 Order name: Troponin (emerg Dept Use Only); Complete Time: 16:14 [facility] 02/07 15:15 Order name: XRAY Chest (1 view); Complete Time: 16:14 [facility] 02/07 15:15 Order name: SARS-COV-2 RT PCR (Document "Date of Onset" if Symptomatic); Complete Time: [facility] 16:44 02/07 15:15 Order name: Urine Microscopic Only; Complete Time: 22:58 [facility] 02/07 15:16 Order name: Basic Metabolic Panel; Complete Time: 16:14 [facility] 02/07 16:40 Order name: Urine Dipstick-Ancillary; Complete Time: 16:44 [facility] 02/07 16:48 Order name: Urine Culture [facility] 02/07 15:15 Order name: EKG; Complete Time: 15:16 [facility] 02/07 15:15 Order name: Cardiac monitoring; Complete Time: 15:31 [facility] 02/07 15:15 Order name: EKG - Nurse/Tech; Complete Time: 15:59 [facility] 02/07 15:15 Order name: IV Saline Lock; Complete Time: 15:31 [facility] 02/07 15:15 Order name: Labs collected and sent; Complete Time: 15:31 [facility] 02/07 15:15 Order name: O2 Per Protocol; Complete Time: 15:31 [facility] 02/07 15:15 Order name: O2 Sat Monitoring; Complete Time: 15:31 [facility] 02/07 15:15 Order name: Urine Dipstick-Ancillary (obtain specimen); Complete Time: 16:37 [facility] 02/07 16:15 Order name: Straight Cath - Urine; Complete Time: 16:37 [facility] Administered Medications: 17:15 Drug: Rocephin (cefTRIAXone) 1 grams Route: IV; Rate: calculated rate; Site: left ll3 antecubital; 17:20 Follow up: Response: No adverse reaction; IV Status: Completed infusion ll3 17:27 Follow up: Response: No adverse reaction ll3 Disposition: 18:34 Co-signature as Attending Physician, Stephen Saleem MD I agree with the assessment and rn plan of care. Attestation: The patient's history, exam findings, diagnostics, and a summary of any interventions or procedures was reviewed in detail with Dileep MAHAN. Disposition Summary: 02/07/21 17:00 Discharge Ordered Location: Home [facility] Condition: Stable [facility] Diagnosis - UTI/ Urinary tract infection, site not specified jmm - Repeated falls jm Followup: jm - With: Private Physician - When: 1 - 2 days - Reason: Recheck today's complaints, Continuance of care, Re-evaluation by your physician Discharge Instructions: - Discharge Summary Sheet jm - Urinary Tract Infection, Adult jmm - Fall Prevention in the Home, Adult, Jryr-ep-Qnil [facility] Forms: - Medication Reconciliation Form [facility] - Thank You Letter jmm - Antibiotic Education jmm - Prescription Opioid Use [facility] Prescriptions: - Augmentin 875-125 mg Oral Tablet - take 1 tablet by ORAL route every 12 hours for 10 days; 20 tablet; Refills: 0, jmm Product Selection Permitted Signatures: Dispatcher [employer] EDDileep Jackman PA PA jmm Nieto, Roman, MD MD rn Carlos AJacqueline RN RN jh5 Angela Malcolm RN RN ll3 Corrections: (The following items were deleted from the chart) 18:25 15:16 Head C Spine MPR Wo Con+CT.RAD.BRZ ordered. EDMS EDMS
[2021-02-07] MEDS ORDERED: CEFTRIAXONE 1000 MG/VIAL ONE (17:02)
[2021-02-07 17:08] LABS: Urine Bacteria <20 /HPF (NONE SEEN)
[2021-02-07 18:34] VITALS: TEMP 98.3
[2021-02-07 18:38] VITALS: BP 149/83; O2SAT 94
--- NOTE | 2021-02-10 08:11 | EKG ---
Test Date: 2021-02-07 Test Time: 15:54:20 Card Maker: CROW MEASUREMENT RESULTS: Intervals: Rate: 71 ME: 188 QRSD: 82 QT: 374 QTc: 406 [employer]: P: 33 ME: 188 QRS: -23 T: 19 INTERPRETIVE STATEMENTS: Normal sinus rhythm Septal infarct, age undetermined Inferior infarct, age undetermined Abnormal ECG Compared to ECG 01/22/2021 05:26:59 Sinus bradycardia no longer present Sinus arrhythmia no longer present Myocardial infarct finding still present Electronically Signed On 02-10-21 08:04:11 CAN CLEANER by Prosper Gipson
== END 2021-02-07 18:29 | disposition home or self-care (01) ==
LOC: ER 14:59
DX: N39.0 Urinary tract infection, site not specified (principal); R29.6 Repeated falls; I10 Essential (primary) hypertension; E11.9 Type 2 diabetes mellitus without complications; I25.2 Old myocardial infarction; Z79.01 Long term (current) use of anticoagulants; Z88.1 Allergy status to other antibiotic agents; Z88.5 Allergy status to narcotic agent; Z20.822 Contact with and (suspected) exposure to COVID-19
CPT/HCPCS: 93005; 87088; 85025; 87086; 80048; 36415; 83735; 85610; 80076; 87077; 87186; 84484; 83880; 71045; 51702; 96374; 99284; U0003; 81003; 81015

== ENCOUNTER 2021-02-09 15:36 | Emergency (ER) | payer OTHER ==
--- OUTSIDE RECORDS SUMMARY | 2021-02-09 15:43 | XMS REPORT | Continuity of Care Document ---
:1940 Author Organization [facility] t Address [address] [place] [address] Care Team Providers Name Role Phone HOMERO STEVEN Attending Clinician Unavailable Homero Steven MD Attending Clinician Davin Marquez DO Attending Clinician INCAVO Attending Clinician Unavailable 2, Mda Procedure Rm Attending Clinician Unavailable Doctor Unassigned, Name Attending Clinician Unavailable Mike FERNÁNDEZ Attending Clinician Unavailable Trevon LEAL Attending Clinician UNDEFINED Attending Clinician Unavailable Pedro Attending Clinician Unavailable Tracy Morin MD Attending Clinician Unavailable Vignesh Attending Clinician Pedro Admitting Clinician Unavailable INCAVAntwan Admitting Clinician Unavailable Vignesh Admitting Clinician Payers Payer Name Policy Type Policy Number Effective Date Expiration Date Neha johnson [employer] MANAGED [id number] 2020 MEDICARE PPO-LOGAN 00:00:00 Problems Condition Condition Condition Status Onset Resolution Last Treating Co mments Source Name Details Category Date Date Treatment Clinician Date 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 7-18 Added ity of 00:00: automatic [place] 00 ally from Medical request Branch for surgery [id number] S/P S/P Disease Active 2016-03 Univers revision [...] ion 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 U nivers semia semia 2-31 ity of 00:00: [place] 00 Medical Branch Malignant Malignant Disease Active 2010-03 Overview: Univers neoplasm neoplasm 0-17 ICD10 ity of of bladder of bladder 00:00: Diagnosis [place] Term 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 Branch Utility Chronic Chronic Disease Active Univers [...] demia) 00:00: Diagnosis [place] 00 Term 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 Branch Utility Essential Essential Disease Active Uni vers hypertensi hypertensi 6-23 it y of on, benign [place], benign 00:[place] Coronary Coronary Disease Active Overview: [place] atheroscle atheroscle 6-1984 it y of rosis of rosis of 00:00: [place] 00 Medical coronary coronary Branch artery artery Coronary Coronary Disease Active Overview: [place] atheroscle atheroscle 6-1984 it y of rosis of rosis of 00:00: [place] 00 Medical coronary coronary Branch artery artery Malignant Malignant Disease Active 2009-03 Overview: [facility] neoplasm neoplasm 1-23 ICD10 ity of of kidney of kidney 00:00: Diagnosis [place] excluding excluding [facility] renal renal 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 Branch pelvis pelvis Utility Allergies, Adverse Reactions, Alerts Allergy Allergy Status Severity Reaction(s) Onset Inactive Treating Comm ents Source Name Type Date Date Clinician MORPHINE DRUG Active Hallucinates [place] INGREDI 04-22 ity of 00:00: [place] 00 [facility] Morphine Propensi Active Hallucinatio confusi on Univers ty to ns 2 ity of adverse 00:00: [place] reaction 00 Medical [facility] No Known DA Active U 2002-03 [facility] Contrast 2-24 Clear Allergie 00:00: [place] 00 [facility] No Known DA Active U 2002-03 [facility] Drug 2-24 Clear Allergie 00:00: [place] 00 [facility] No Known DA Active U 2002-03 [facility] Food 2-24 Clear Allergie 00:00: [place] 00 [facility] No Known DA Active U 2002-03 [facility] Other 2-24 Clear Allergie 00:00: [place] 00 [facility] Social History Social Habit Start Date Stop Date Quantity Comments Source Tobacco Comment Quit 30 years Univer sity of ago [facility] Cigarettes smoked 2020-06-30 2020-06-30 Univers ity of current (pack per 00:00:00 00:00:00 ) - Reported Branch Cigarette 2020-06-30 2020-06-30 University of pack-years 00:00:00 00:00:00 [facility] Alcohol intake 2020-06-30 2020-06-30 Current University of 00:00:00 00:00:00 non-drinker of [facility] alcohol Branch (finding) Tobacco use and 2020-06-30 2020-06-30 Never used Universit y of exposure 00:00:00 00:00:00 [facility] Sex Ass[birth year] At [birth year] Universit y of 00:00:00 00:00:00 [facility] Smoking Status Start Date Stop Date Source Former smoker 2020-06-30 00:00:00 2020-06-30 00:00:00 Universi ty of [facility] Medications Ordered Filled Start Stop Current Ordering Indication Dosage Frequency Signature Comments Components Source Medication Medication Date Date Medication? Clinician (SIG) Name Name furosemide 2019-03 Yes Take by Uni vers (LASIX 1-03 mouth ity of ORAL) 16:10: daily. [place] [address] Medical Branch AMILORIDE-H 2019-03 Yes 5mg Take 5 mg U nivers YDROCHLOROT 1-03 by mouth ity of HIAZIDE 16:10: daily. [place] [address] Medical Branch furosemide 2019-03 Yes Take by Uni vers (LASIX 1-03 mouth ity of ORAL) 16:10: daily. [place] [address] Medical Branch AMILORIDE-H 2019-03 Yes 5mg Take 5 mg U nivers YDROCHLOROT 1-03 by mouth ity of HIAZIDE 16:10: daily. [place] [address] Medical Branch furosemide 2019-03 Yes Take by Uni vers (LASIX 1-03 mouth ity of ORAL) 16:10: daily. [place] [address] Medical Branch AMILORIDE-H 2019-03 Yes 5mg Take 5 mg U nivers YDROCHLOROT 1-03 by mouth ity of HIAZIDE 16:10: daily. [place] [address] Medical Branch furosemide 2019-03 Yes Take by Uni vers (LASIX 1-03 mouth ity of ORAL) 16:10: daily. [place] [address] Medical Branch AMILORIDE-H 2019-03 Yes 5mg Take 5 mg U nivers YDROCHLOROT 1-03 by mouth ity of HIAZIDE 16:10: daily. [place] [address] Medical Branch furosemide 2019-03 Yes Take by Uni vers (LASIX 1-03 mouth ity of ORAL) 16:10: daily. [place] [address] Medical Branch AMILORIDE-H 2019-03 Yes 5mg Take 5 mg U nivers YDROCHLOROT 1-03 by mouth ity of HIAZIDE 16:10: daily. [place] [address] Medical Branch tadalafiL 2019-03 Yes [id number] 20mg Take 1 U nivers (CIALIS) 20 1-03 tablet by ity of mg tablet 00:00: [place] 00 needed for Medical Erectile Branch dysfunctio n. tadalafiL 2019-03 Yes [id number] 20mg Take 1 U nivers (CIALIS) 20 1-03 tablet by ity of mg tablet 00:00: [place] 00 needed for Medical Erectile Branch dysfunctio n. 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 tadalafiL 2019-03 Yes [id number] 20mg Take 1 U nivers (CIALIS) 20 [...] lar, ONCE, [place] 00 :00 1 dose, [facility] 12/31/19 at 1300, LESA
Re ason for [...] lar, ONCE, [place] 00 :00 1 dose, Medical e [place] 12/31/19 at 1300, LESA
Re ason for Anti-Infec tive: Surgical Prophylaxi s
Surgi jero Prophylaxi s: Genitourin wilbur
Dur ation of therapy: within 24 hours of surgery gentamicin 2019-03- No 80mg Univer s injection 0-30 12- ity of 80 mg 18:00: 17:00 [place] 00 :00 Medical Branch gentamicin 2019-03- No 80mg 80 mg, Univ ers injection 0-30 12- Intramuscu ity of 80 mg 18:00: 17:00 lar, ONCE, [place] 00 :00 1 dose, [facility] 12/31/19 at 1300, LESA
Re ason for Anti-Infec tive: Surgical Prophylaxi s
Surgi jero Prophylaxi s: Genitourin wilbur
Dur ation of therapy: within 24 hours of surgery gentamicin 2019-03- No 80mg Univer s injection 0-13 - ity of 80 mg 18:00: 17:00 [place] 00 :00 Medical Branch gentamicin 2019-03- No 80mg 80 mg, Univ ers injection 0-30 12- Intramuscu ity of 80 mg 18:00: 17:00 lar, ONCE, [place] 00 :00 1 dose, [facility] 12/31/19 at 1300, LESA
Re ason for Anti-Infec tive: Surgical Prophylaxi s
Surgi jero Prophylaxi s: Genitourin wilbur
Dur ation of therapy: within 24 hours of surgery gentamicin 2019-03- No 80mg Univer s injection 0-30 12- ity of 80 mg 18:00: 17:00 [place] 00 :00 Medical Branch gentamicin 2019-03- No 80mg 80 mg, Univ ers injection 0-30 12- Intramuscu ity of 80 mg 18:00: 17:00 lar, ONCE, [place] 00 :00 1 dose, [facility] 12/31/19 at 1300, LESA
Re ason for Anti-Infec tive: Surgical Prophylaxi s
Surgi jero Prophylaxi s: Genitourin wilbur
Dur ation of therapy: within 24 hours of surgery predniSONE 2019-03 Yes 10mg Take 10 mg U nivers 20 mg 0-13 by mouth ity of tablet 16:22: daily. [place] [facility] AMILORIDE-H 2019-03 Yes 5mg Take 5 mg U nivers YDROCHLOROT 0-13 by mouth ity of HIAZIDE 16:22: daily. [address] predniSONE 2019-03 Yes 10mg Take 10 mg U nivers 20 mg 0-13 by mouth ity of tablet 16:22: daily. [address] Branch AMILORIDE-H 2020- Yes 5mg Take 5 mg U nivers YDROCHLOROT 0-13 by mouth ity of HIAZIDE 16:22: daily. [place] ORAL 00 Medical Branch predniSONE 2020- Yes 10mg Take 10 mg U nivers 20 mg 0-13 by mouth ity of tablet 16:22: daily. [address] Branch AMILORIDE-H 2020- Yes 5mg Take 5 mg U nivers YDROCHLOROT 0-13 by mouth ity of HIAZIDE 16:22: daily. [place] ORAL 00 Medical Branch predniSONE 2020- Yes 10mg Take 10 mg U nivers 20 mg 0-13 by mouth ity of tablet 16:22: daily. [address] Branch AMILORIDE-H 2020- Yes 5mg Take 5 mg U nivers YDROCHLOROT 0-13 by mouth ity of HIAZIDE 16:22: daily. [place] [address] Medical Branch predniSONE 2020- Yes 10mg Take 10 mg U nivers 20 mg 0-13 by mouth ity of tablet 16:22: daily. [address] Branch AMILORIDE-H 2019-03 Yes 5mg Take 5 mg U nivers YDROCHLOROT 0-13 by mouth ity of HIAZIDE 16:22: daily. [place] [address] Medical Branch predniSONE 2020- Yes 10mg Take 10 mg U nivers 20 mg 0-13 by mouth ity of tablet 16:22: daily. [place] [address] Medical Branch AMILORIDE-H 2019- Yes 5mg Take 5 mg U nivers YDROCHLOROT 0-13 by mouth ity of HIAZIDE 16:22: daily. [place] [address] Medical Branch predniSONE 2020- Yes 10mg Take 10 mg U nivers 20 mg 0-13 by mouth ity of tablet 16:22: daily. [address] Branch predniSONE 2020- Yes 10mg Take 10 mg U nivers 20 mg 0-13 by mouth ity of tablet 16:22: daily. [address] Branch predniSONE 2020- Yes 10mg Take 10 mg U nivers 20 mg 0-13 by mouth ity of tablet 16:22: daily. [address] predniSONE 2020- Yes 10mg Take 10 mg U nivers 20 mg 0-13 by mouth ity of tablet 16:22: daily. [address] Branch predniSONE 2020- Yes 10mg Take 10 mg U nivers 20 mg 0-13 by mouth ity of tablet 16:22: daily. [place] 00 [facility] Branch levoFLOXaci 2020-1 2020- No [id number] 500mg Take 1 Univers n 0-01 10-12 tablet by ity of (LEVAQUIN) 00:00: 04:59 mouth [place] 500 mg 00 :00 daily for Medical tablet 10 days. Branch furosemide 2020-0 Yes Take by Uni vers (LASIX 9-29 mouth ity of ORAL) 18:26: daily. [place] 30 Medical Branch furosemide 2020-0 Yes Take by Uni vers (LASIX 9-29 mouth ity of ORAL) 18:26: daily. [place] 30 Medical Branch furosemide 2020-0 Yes Take by Uni vers (LASIX 9-29 mouth ity of ORAL) 18:26: daily. [place] 30 Medical Branch furosemide 2020-0 Yes Take by Uni vers (LASIX 9-29 mouth ity of ORAL) 18:26: daily. [place] 30 Medical Branch furosemide 2020-0 Yes Take by Uni vers (LASIX 9-29 mouth ity of ORAL) 18:26: daily. [place] 30 Medical Branch furosemide 2020-0 Yes Take by Uni vers (LASIX 9-29 mouth ity of ORAL) 18:26: daily. [place] 30 Medical Branch furosemide 2020-0 Yes Take by Uni vers (LASIX 9-29 mouth ity of ORAL) 18:26: daily. [place] 30 Medical Branch furosemide 2020-0 Yes Take by Uni vers (LASIX 9-29 mouth ity of ORAL) 18:26: daily. [place] [address] Medical Branch furosemide 2020-0 Yes Take by Uni vers (LASIX 9-29 mouth ity of ORAL) 18:26: daily. [place] 30 [facility] Branch NOVOLOG 2019-0 Yes [id number] INJECT 18 Univers U-100 9-10 UNITS ity of INSULIN 00:00: UNDER THE [place] ASPART 100 00 SKIN 3 Medical unit/mL (THREE) Branch solution TIMES DAILY BEFORE MEALS. NOVOLOG 2019-0 Yes [id number] INJECT 18 U nivers U-100 9-10 UNITS ity of INSULIN 00:00: UNDER THE [place] ASPART 100 00 SKIN 3 Medical unit/mL (THREE) Branch solution TIMES DAILY BEFORE MEALS. NOVOLOG 2019-0 Yes [id number] INJECT 18 U nivers U-100 9-10 UNITS ity of INSULIN 00:00: UNDER THE [place] ASPART 100 00 SKIN 3 Medical unit/mL (THREE) Branch solution TIMES DAILY BEFORE MEALS. NOVOLOG 2019-0 Yes [id number] INJECT 18 U nivers U-100 9-10 UNITS ity of INSULIN 00:00: UNDER THE [place] ASPART 100 00 SKIN 3 Medical unit/mL (THREE) Branch solution TIMES DAILY BEFORE MEALS. NOVOLOG 2018-0 Yes [id number] INJECT 18 U nivers U-100 9-10 UNITS ity of INSULIN 00:00: UNDER THE [place] ASPART 100 00 SKIN 3 Medical unit/mL (THREE) Branch solution TIMES DAILY BEFORE MEALS. NOVOLOG 2018-0 Yes [id number] INJECT 18 U nivers U-100 9-10 UNITS ity of INSULIN 00:00: UNDER THE [place] ASPART 100 00 SKIN 3 Medical unit/mL (THREE) Branch solution TIMES DAILY BEFORE MEALS. NOVOLOG 2018-0 Yes [id number] INJECT 18 U nivers U-100 9-10 UNITS ity of INSULIN 00:00: UNDER THE [place] ASPART 100 00 SKIN 3 Medical unit/mL (THREE) Branch solution TIMES DAILY BEFORE MEALS. NOVOLOG 2018-0 Yes [id number] INJECT 18 U nivers U-100 9-10 UNITS ity of INSULIN 00:00: UNDER THE [place] ASPART 100 00 SKIN 3 Medical unit/mL (THREE) Branch solution TIMES DAILY BEFORE MEALS. NOVOLOG 2018-0 Yes [id number] INJECT 18 U nivers U-100 9-10 UNITS ity of INSULIN 00:00: UNDER THE [place] ASPART 100 00 SKIN 3 Medical unit/mL (THREE) Branch solution TIMES DAILY BEFORE MEALS. NOVOLOG 2018-0 Yes [id number] INJECT 18 U nivers U-100 9-10 UNITS ity of INSULIN 00:00: UNDER THE [place] ASPART 100 00 SKIN 3 Medical unit/mL (THREE) Branch solution TIMES DAILY BEFORE MEALS. NOVOLOG 2018-0 Yes [id number] INJECT 18 U nivers U-100 9-10 UNITS ity of INSULIN 00:00: UNDER THE [place] ASPART 100 00 SKIN 3 Medical unit/mL (THREE) Branch solution TIMES DAILY BEFORE MEALS. NOVOLOG 2018-0 Yes [id number] INJECT 18 U nivers U-100 9-10 UNITS ity of INSULIN 00:00: UNDER THE [place] ASPART 100 00 SKIN 3 Medical unit/mL (THREE) Branch solution TIMES DAILY BEFORE MEALS. NOVOLOG 2018-0 Yes [id number] INJECT 18 U nivers U-100 9-10 UNITS ity of INSULIN 00:00: UNDER THE [place] ASPART 100 00 SKIN 3 Medical unit/mL (THREE) Branch solution TIMES DAILY BEFORE MEALS. NOVOLOG 2019- Yes [id number] INJECT 18 U nivers U-100 9-10 UNITS ity of INSULIN 00:00: UNDER THE [place] ASPART 100 00 SKIN 3 Medical unit/mL (THREE) Branch solution TIMES DAILY BEFORE MEALS. NOVOLOG 2019-0 Yes [id number] INJECT 18 U nivers U-100 9-10 UNITS ity of INSULIN 00:00: UNDER THE [place] ASPART 100 00 SKIN 3 Medical unit/mL (THREE) Branch solution TIMES DAILY BEFORE MEALS. NOVOLOG 2019-0 Yes [id number] INJECT 18 U nivers U-100 9-10 UNITS ity of INSULIN 00:00: UNDER THE [place] ASPART 100 00 SKIN 3 Medical unit/mL (THREE) Branch solution TIMES DAILY BEFORE MEALS. NOVOLOG 2018-0 Yes [id number] INJECT 18 U nivers U-100 9-10 UNITS ity of INSULIN 00:00: UNDER THE [place] ASPART 100 00 SKIN 3 Medical unit/mL (THREE) Branch solution TIMES DAILY BEFORE MEALS. insulin 2019- No 18U inject 18 Univ ers aspart 10-30 Units ity of U-100 16:06: 00:00 under the [place] (NOVOLOG 53 :00 skin 3 Medical FLEXPEN (three) Branch U-100 times INSULIN) daily 100 unit/mL before injection meals. cetirizine 2019- No 5mg Take 5 mg U nivers 5 mg tablet 10-30 by mouth. it y of 16:06: 00:00 [place] 53 :00 Medical Branch clopidogrel 2018-0 2019- No 75mg Take 75 mg Univers (PLAVIX) 75 10-30 by mouth ity of mg tablet 16:06: 00:00 daily. [place] 53 :00 [facility] Branch allopurinol 2018-0 2019- No 100mg Take 100 Univers (ZYLOPRIM) 10-30 mg by ity of 100 mg 16:06: 00:00 mouth [place] tablet 53 :00 daily. Medical Branch lactated 2019-0 Yes 1000mL at 42 Univer s ringers [...] Routine, Pain (scale 4-6), PACU FENTanyl PF 2018-0 Yes 25ug 25 mcg, Uni vers (SUBLIMAZE 8-13 Slow IV ity of (PF)) 13:30: Push, [place] injection 55 Q5MIN PRN, Medi jero 25 mcg 4 doses, Branch Starting Mon10/30/18 at 0830, Until Discontinu ed, Routine, Pain (scale 7-10), PACU ondansetron 2018-0 Yes 4mg 4 mg, Slow Univers (ZOFRAN 8-13 IV Push, ity of (PF)) 13:30: PRN, 1 [place] injection 4 55 dose, Medical mg Starting Branch Mon10/30/18 at 0830, Until Discontinu ed, Routine, Nausea and Vomiting (N/V), PACU belladonna 2018-0 Yes PRN, Univers alkaloids-o 8-13 Starting ity of pium (B&O) 13:04: Tue [place] 30 mg (B&O) 00 10/30/18 at Nm dical 16.2-30 mg 803, [place] suppository Until Discontinu ed, Routine, Intra-op sodium 2018-0 Yes PRN, Univers chloride 8-13 Starting ity of 0.9 % 12:43: Tue [place] irrigation 00 10/30/18 at Med ical solution 0743, Branch Until Discontinu ed, Intra-op acetaminoph 2019-0 Yes [id number] 650mg Take 1 Univers en (TYLENOL 8-13 tablet by ity of 8 HOUR) 650 00:00: mouth [place] mg CR 00 every 8 Medical tablet (eight) Branch hours as needed for Pain. acetaminoph 2019-0 Yes [id number] 650mg Take 1 Univers en (TYLENOL 8-13 tablet by ity of 8 HOUR) 650 00:00: mouth [place] mg CR 00 every 8 Medical tablet (eight) Branch hours as needed for Pain. acetaminoph 2019- Yes [id number] 650mg Take 1 Univers en (TYLENOL 8-13 tablet by ity of 8 HOUR) 650 00:00: mouth [place] mg CR 00 every 8 Medical tablet (eight) Branch hours as needed for Pain. acetaminoph 0 Yes [id number] 650mg Take 1 Univers en (TYLENOL 8-13 tablet by ity of 8 HOUR) 650 00:00: mouth [place] mg CR 00 every 8 Medical tablet (eight) Branch hours as needed for Pain. acetaminoph 0 Yes [id number] 650mg Take 1 Univers en (TYLENOL 8-13 tablet by ity of 8 HOUR) 650 00:00: mouth [place] mg CR 00 every 8 Medical tablet (eight) Branch hours as needed for Pain. acetaminoph 0 Yes [id number] 650mg Take 1 Univers en (TYLENOL 8-13 tablet by ity of 8 HOUR) 650 00:00: mouth [place] mg CR 00 every 8 Medical tablet (eight) Branch hours as needed for Pain. acetaminoph 0 Yes [id number] 650mg Take 1 Univers en (TYLENOL 8-13 tablet by ity of 8 HOUR) 650 00:00: mouth [place] mg CR 00 every 8 Medical tablet (eight) Branch hours as needed for Pain. acetaminoph 0 Yes [id number] 650mg Take 1 Univers en (TYLENOL 8-13 tablet by ity of 8 HOUR) 650 00:00: mouth [place] mg CR 00 every 8 Medical tablet (eight) Branch hours as needed for Pain. acetaminoph 0 Yes [id number] 650mg Take 1 Univers en (TYLENOL 8-13 tablet by ity of 8 HOUR) 650 00:00: mouth [place] mg CR 00 every 8 Medical tablet (eight) Branch hours as needed for Pain. acetaminoph 0 Yes [id number] 650mg Take 1 Univers en (TYLENOL 8-13 tablet by ity of 8 HOUR) 650 00:00: mouth [place] mg CR 00 every 8 Medical tablet (eight) Branch hours as needed for Pain. acetaminoph 20190 Yes [id number] 650mg Take 1 Univers en (TYLENOL 8-13 tablet by ity of 8 HOUR) 650 00:00: mouth [place] mg CR 00 every 8 Medical tablet (eight) Branch hours as needed for Pain. acetaminoph 2019-0 Yes [id number] 650mg Take 1 Univers en (TYLENOL 8-13 tablet by ity of 8 HOUR) 650 00:00: mouth [place] mg CR 00 every 8 Medical tablet (eight) Branch hours as needed for Pain. acetaminoph 0 Yes [id number] 650mg Take 1 Univers en (TYLENOL 8-13 tablet by ity of 8 HOUR) 650 00:00: mouth [place] mg CR 00 every 8 Medical tablet (eight) Branch hours as needed for Pain. acetaminoph 0 Yes [id number] 650mg Take 1 Univers en (TYLENOL 8-13 tablet by ity of 8 HOUR) 650 00:00: mouth [place] mg CR 00 every 8 Medical tablet (eight) Branch hours as needed for Pain. acetaminoph 0 Yes [id number] 650mg Take 1 Univers en (TYLENOL 8-13 tablet by ity of 8 HOUR) 650 00:00: mouth [place] mg CR 00 every 8 Medical tablet (eight) Branch hours as needed for Pain. acetaminoph Yes [id number] 650mg Take 1 Univers en (TYLENOL 8-13 tablet by ity of 8 HOUR) 650 00:00: mouth [place] mg CR 00 every 8 Medical tablet (eight) Branch hours as needed for Pain. acetaminoph Yes [id number] 650mg Take 1 Univers en (TYLENOL 8-13 tablet by ity of 8 HOUR) 650 00:00: mouth [place] mg CR 00 every 8 Medical tablet (eight) Branch hours as needed for Pain. acetaminoph 0 Yes [id number] 650mg Take 1 Univers en (TYLENOL 8-13 tablet by ity of 8 HOUR) 650 00:00: mouth [place] mg CR 00 every 8 Medical tablet (eight) Branch hours as needed for Pain. acetaminoph 0 Yes [id number] 650mg Take 1 Univers en (TYLENOL 8-13 tablet by ity of 8 HOUR) 650 00:00: mouth [place] mg CR 00 every 8 Medical tablet (eight) Branch hours as needed for Pain. acetaminoph 0 Yes [id number] 650mg Take 1 Univers en (TYLENOL 8-13 tablet by ity of 8 HOUR) 650 00:00: mouth [place] mg CR 00 every 8 Medical tablet (eight) Branch hours as needed for Pain. clopidogrel Yes 75mg Take 75 mg Univers (PLAVIX) 75 8- by mouth ity of mg tablet 19:13: daily. [place] 16 Medical Branch allopurinol 2019-0 Yes 100mg Take 100 U nivers (ZYLOPRIM) 8-09 mg by ity of 100 mg 19:13: mouth [place] tablet 16 daily. Medical Branch allopurinol 2018-0 Yes 100mg Take 100 U nivers (ZYLOPRIM) 8-06 mg by ity of 100 mg 15:06: mouth [place] tablet 44 daily. Medical Branch cetirizine 2018-0 Yes 5mg Take 5 mg [place] 5 mg tablet 7-18 by mouth. ity of 19:45: [place] 23 Medical Branch clopidogrel 2019-0 Yes 75mg Take 75 mg Univers (PLAVIX) 75 7-18 by mouth ity of mg tablet 19:44: daily. [place] 35 [facility] Branch insulin 0 Yes 18U inject 18 Unive rs aspart 7-18 Units ity of U-100 19:44: under the [place] (NOVOLOG 35 skin 3 Medical FLEXPEN (three) Branch U-100 times INSULIN) daily 100 unit/mL before injection meals. Insulin Yes 10U inject Univers Detemir 4-05 10-20 ity of (LEVEMIR 00:00: Units [place] FLEXTOUCH 00 under the Medic al U-100 skin Branch INSULN) 100 daily. unit/mL (3 mL) injection insulin 0 Yes 18U inject 18 Unive rs aspart 4-05 Units ity of RAPID 00:00: under the [place] (NOVOLOG 00 skin 3 Medical U-100 (three) Branch INSULIN times ASPART) 100 daily unit/mL before injection meals. Insulin 2019- No 10U inject Univers Detemir 4-05 08-13 10-20 ity of (LEVEMIR 00:00: 00:00 Units [place] FLEXTOUCH 00 :00 under the Medic al U-100 skin Branch INSULN) 100 daily. unit/mL (3 mL) injection insulin 2019- No 18U inject 18 Univ ers aspart 4-05 08-13 Units ity of RAPID 00:00: 00:00 under the [place] (NOVOLOG 00 :00 skin 3 Medical U-100 (three) Branch INSULIN times ASPART) 100 daily unit/mL before injection meals. mirabegron 2018-0 Yes 25mg Take 1 Unive rs 25 mg 1-03 tablet by ity of tablet 00:00: mouth [place] 00 daily. Medical Branch finasteride 2018-0 Yes 5mg Take 1 Univ ers 5 mg tablet 03-22 tablet by ity of 00:00: mouth [place] 00 daily. Medical Branch mirabegron 2018- 2019- No 25mg Take 1 Univ ers 25 mg 03-22 tablet by ity of tablet 00:00: 00:00 mouth [place] 00 :00 daily. Medical Branch finasteride 2018- 2019- No 5mg Take 1 Uni vers [...] jero gauge x . DX E11.9 Branch 516 Syrg Blood-Gluco Yes 1{each} 1 Each U nivers se Meter 1-08 daily. Use ity o f (ONETOUCH 00:00: as [place] VERIO FLEX 00 directed Medic al START) Kit Branch blood sugar Yes 1{strip 1 Strip 2 Univers diagnostic 1-08 } (two) ity of (ONETOUCH 00:00: times [place] VERIO) 00 daily. Medical strip DX:E11.9 Branch lancets Yes 1{each} 1 Each 2 Uni vers (ONE TOUCH 1-08 (two) ity of DELICA) 33 00:00: times [place] gauge Misc 00 daily. Medical DX:E11.9 Branch Blood-Gluco Yes 1{each} 1 Each U nivers se Meter 1-08 daily. Use ity o f (ONETOUCH 00:00: as [place] VERIO FLEX 00 directed Medic al START) Kit Branch blood sugar Yes 1{strip 1 Strip 2 Univers diagnostic 1-08 } (two) ity of (ONETOUCH 00:00: times [place] VERIO) 00 daily. Medical strip DX:E11.9 Branch lancets Yes 1{each} 1 Each 2 Uni vers (ONE TOUCH 03-27 (two) ity of DELICA) 33 00:00: times [place] gauge Misc 00 daily. Medical DX:E11.9 Branch Blood-Gluco 2019- No 1{each} 1 Each Univers se Meter 03-27 daily. Use ity of (ONETOUCH 00:00: 00:00 as [place] VERIO FLEX 00 :00 directed Medic al START) Kit [place] blood sugar 2019- No 1{strip 1 Strip [...] 1{tbl} Take 1 U nivers -naloxone 0-04 - tablet by ity of 50-0.5 mg 00:00: 00:00 mouth [place] tablet 00 :00 every 4 Medical (four) Branch hours as needed for Pain. mirabegron 2017- Yes 25mg Take 1 Unive rs (MYRBETRIQ) 7-14 tablet by ity of 25 mg 00:00: mouth at [place] tablet 00 bedtime. Medical Branch mirabegron 2017-0 Yes 25mg Take 1 Unive rs (MYRBETRIQ) 7-14 tablet by ity of 25 mg 00:00: mouth at [place] tablet 00 bedtime. Medical Branch mirabegron 2017- 2019- No 25mg Take 1 Univ ers (MYRBETRIQ) 7-14 08-13 tablet by it y of 25 mg 00:00: 00:00 mouth at [place] tablet 00 :00 bedtime. Medical Branch Insulin Yes Use 1 Univers [place], 3-01 daily, ity of Disposable, 00:00: DX:E11.9 [place] (BD INSULIN 00 Medical PEN NEEDLE Branch UF) 31 gauge x 5/16" Ndle Insulin Yes Use 1 Univers [place], 3-01 daily, ity of Disposable, 00:00: DX:E11.9 [place] (BD INSULIN 00 Medical PEN NEEDLE Branch UF) 31 gauge x 5/16" Ndle Insulin 2019- No Use 1 Univers [place], 3- daily, ity of Disposable, 00:00: 00:00 DX:E11.9 [...] 00 :00 weeks. Medical Branch Safety Yes [id number] Use as Univ ers [place] (BD 1-13 directed ity of SAFETYGLIDE 00:00: [place] NEEDLE) 18 00 Medical gauge x 1 Branch 1/2" Ndle Safety Yes [id number] Use as Univ ers [place] (BD 1-13 directed ity of SAFETYGLIDE 00:00: [place] NEEDLE) 22 00 Medical gauge x 1 Branch 1/2" Ndle Safety Yes [id number] Use as Univ ers [place] (BD 1-13 directed ity of SAFETYGLIDE 00:00: [place] NEEDLE) 18 00 Medical gauge x 1 Branch 1/2" Ndle Safety Yes [id number] Use as Univ ers [place] (BD 1-13 directed ity of SAFETYGLIDE 00:00: [place] NEEDLE) 22 00 Medical gauge x 1 Branch 1/2" Ndle Safety 2017-0 2019- No [id number] Use as Uni vers [place] (BD 1-10-30 directed ity of SAFETYGLIDE 00:00: 00:00 [place] NEEDLE) 18 00 :00 Medical gauge x 1 Branch 1/2" Ndle Safety 2017-0 2019- No [id number] Use as Uni vers [place] (BD 1-10-30 directed ity of SAFETYGLIDE 00:00: 00:00 [place] [...] Univers HIGH-DOSE 9-23 ity of , 00:00: [place] PF, 180 00 Medical mcg/0.5 mL Branch syringe FLUZONE Yes Univers HIGH-DOSE 9-23 ity of , 00:00: [place] PF, 180 00 Medical mcg/0.5 mL Branch syringe FLUZONE 2019- No Univers HIGH-DOSE -10-30 ity of , 00:00: 00:00 [place] PF, [...] daily. [place] hr capsule Medical Branch tamsulosin Yes .4mg Take 1 Cap U nivers (FLOMAX) 9-21 by mouth ity of 0.4 mg 24 00:00: daily. [place] hr capsule 00 Medical Branch tamsulosin 2019- No .4mg Take 1 Cap Univers (FLOMAX) 9-21 08-13 by mouth ity of 0.4 mg 24 00:00: 00:00 daily. [place] hr capsule 00 :00 Medical Branch levothyroxi Yes 50ug Take 50 Uni vers ne 3-23 mcg by ity of (SYNTHROID) 00:00: mouth [place] 50 mcg 00 [facility]. [facility] levothyroxi Yes 50ug Take 50 Uni [...] Syrg Insulin Yes Use as Univers Syringes, -16 directed ity of Disposable, 00:00: [place] (MONOJECT 00 Medical INSULIN Branch SYRINGE) 1 mL Syrg Insulin 2019- No Use as Univers Syringes, 616 -13 directed ity o f Disposable, 00:00: 00:00 [...] Immunizations Ordered Filled Immunization Date Status Comments [facility] Immunization Name Name Influenza Virus 2010-01-18 Completed Universit y of Vaccine 00:00:00 [facility] Pneumococcal 7 2010-01-18 Completed University of Conjugate, PCV7 00:00:00 [place] Med ical (Prevnar7) [place] Influenza Virus 2010-01-18 Completed Universit y of Vaccine 00:00:00 [facility] Pneumococcal 7 2010-01-18 Completed University of Conjugate, PCV7 00:00:00 [place] [facility] [facility] (Prevnar7) [place] Influenza Virus 2010-01-18 Completed Universit y of Vaccine 00:00:00 [facility] Pneumococcal 7 2010-01-18 Completed University of Conjugate, PCV7 00:00:00 [place] [facility] ical (Prevnar7) [place] Influenza Virus 2010-01-18 Completed Universit y of Vaccine 00:00:00 [facility] Pneumococcal 7 2010-01-18 Completed University of Conjugate, PCV7 00:00:00 [place] [facility] [facility] (Prevnar7) [place] Influenza Virus 2010-01-18 Completed Universit y of Vaccine 00:00:00 [facility] Pneumococcal 7 2010-01-18 Completed University of Conjugate, PCV7 00:00:00 [place] [facility] [facility] (Prevnar7) [place] Influenza Virus 2010-01-18 Completed Universit y of Vaccine 00:00:00 [facility] Pneumococcal 7 2010-01-18 Completed University of Conjugate, PCV7 00:00:00 [place] [facility] ical (Prevnar7) [place] Influenza Virus 2010-01-18 Completed Universit y of Vaccine 00:00:00 [facility] Pneumococcal 7 2010-01-18 Completed University of Conjugate, PCV7 00:00:00 [place] [facility] [facility] (Prevnar7) [place] Influenza Virus 2010-01-18 Completed Universit y of Vaccine 00:00:00 [facility] Pneumococcal 7 2010-01-18 Completed University of Conjugate, PCV7 00:00:00 [place] [facility] [facility] (Prevnar7) [place] Influenza Virus 2010-01-18 Completed Universit y of Vaccine 00:00:00 [facility] Pneumococcal 7 2010-01-18 Completed University of Conjugate, PCV7 00:00:00 [place] [facility] [facility] (Prevnar7) [place] Influenza Virus 2010-01-18 Completed Universit y of Vaccine 00:00:00 [facility] Pneumococcal 7 2010-01-18 Completed University of Conjugate, PCV7 00:00:00 [place] [facility] [facility] (Prevnar7) [place] Influenza Virus 2010-01-18 Completed Universit y of Vaccine 00:00:00 [facility] Pneumococcal 7 2010-01-18 Completed University of Conjugate, PCV7 00:00:00 [place] [facility] [facility] (Prevnar7) [place] Influenza Virus 2010-01-18 Completed Universit y of Vaccine 00:00:00 [facility] Pneumococcal 7 2010-01-18 Completed University of Conjugate, PCV7 00:00:00 [place] [facility] [facility] (Prevnar7) [place] Influenza Virus 2010-01-18 Completed Universit y of Vaccine 00:00:00 [facility] Pneumococcal 7 2010-01-18 Completed University of Conjugate, PCV7 00:00:00 [place] [facility] [facility] (Prevnar7) [place] Influenza Virus 2010-01-18 Completed Universit y of Vaccine 00:00:00 [facility] Pneumococcal 7 2010-01-18 Completed University of Conjugate, PCV7 00:00:00 [place] [facility] [facility] (Prevnar7) [place] Influenza Virus 2010-01-18 Completed Universit y of Vaccine 00:00:00 [facility] Pneumococcal 7 2010-01-18 Completed University of Conjugate, PCV7 00:00:00 [place] [facility] [facility] (Prevnar7) [place] Influenza Virus 2010-01-18 Completed Universit y of Vaccine 00:00:00 [facility] Pneumococcal 7 2010-01-18 Completed University of Conjugate, PCV7 00:00:00 [place] [facility] [facility] (Prevnar7) [place] Influenza Virus 2010-01-18 Completed Universit y of Vaccine 00:00:00 [facility] Pneumococcal 7 2010-01-18 Completed University of Conjugate, PCV7 00:00:00 [place] [facility] [facility] (Prevnar7) [place] Influenza Virus 2010-01-18 Completed Universit y of Vaccine 00:00:00 [facility] Pneumococcal 7 2010-01-18 Completed University of Conjugate, PCV7 00:00:00 [place] [facility] [facility] (Prevnar7) [place] Influenza Virus 2010-01-18 Completed Universit y of Vaccine 00:00:00 [facility] Pneumococcal 7 2010-01-18 Completed University of Conjugate, PCV7 00:00:00 [place] [facility] [facility] (Prevnar7) [place] Influenza Virus 2010-01-18 Completed Universit y of Vaccine 00:00:00 [facility] Pneumococcal 7 2010-01-18 Completed University of Conjugate, PCV7 00:00:00 [place] [facility] [facility] (Prevnar7) [place] Influenza Virus 2010-01-18 Completed Universit y of Vaccine 00:00:00 [facility] Pneumococcal 7 2010-01-18 Completed University of Conjugate, PCV7 00:00:00 [facility] ical (Prevnar7) Branch Influenza Virus 2010-01-18 Completed Universit y of Vaccine 00:00:00 [facility] Pneumococcal 7 2010-01-18 Completed [place] of Conjugate, PCV7 00:00:00 [facility] ical (Prevnar7) [place] Vital Signs Vital Name Observation Time Observation Value Comments Source Systolic blood 2020-06-30 143 mm[Hg] University of pressure 15:20:00 [facility] Diastolic blood 2020-06-30 76 mm[Hg] University o f pressure 15:20:00 [facility] Heart rate 2020-06-30 71 /min University 15:20:00 [facility] Respiratory rate 2020-06-30 18 /min University of 15:20:00 [facility] Oxygen saturation 2020-06-30 97 /min [facility] in Arterial blood 15:20:00 [facility] by Pulse oximetry Branch Systolic blood 2020-06-30 143 mm[Hg] University of pressure 15:20:00 [facility] Diastolic blood 2020-06-30 76 mm[Hg] University o f pressure 15:20:00 [facility] Heart rate 2020-06-30 71 /min University of 15:20:00 [facility] Respiratory rate 2020-06-30 18 /min University of 15:20:00 [facility] Oxygen saturation 2020-06-30 97 /min [facility] in Arterial blood 15:20:00 [facility] by Pulse oximetry Branch Systolic blood 2020-01-21 157 mm[Hg] University of pressure 16:10:00 [facility] Diastolic blood 2020-01-21 75 mm[Hg] University o f pressure 16:10:00 [facility] Heart rate 2020-01-21 66 /min University of 16:10:00 [facility] Respiratory rate 2020-01-21 18 /min University of 16:10:00 [facility] Body weight 2020-01-21 97.387 kg University of 16:10:00 [facility] BMI 2020-01-21 29.94 kg/m2 University of 16:10:00 [facility] Oxygen saturation 2020-01-21 96 /min University of in Arterial blood 16:10:00 [facility] by Pulse oximetry Branch Systolic blood 2019-12-31 131 mm[Hg] University of pressure 16:17:00 [place] [facility] Diastolic blood 2019-12-31 77 mm[Hg] University o f pressure 16:17:00 [place] [facility] Heart rate 2019-12-31 64 /min University of 16:17:00 [facility] Branch Body temperature 2019-12-31 36.44 Eileen University of 16:17:00 [facility] Branch Respiratory rate 2019-12-31 18 /min University of 16:17:00 [facility] Branch Body weight 2019-12-31 98.839 kg University of 16:17:00 [facility] Branch BMI 2019-12-31 30.39 kg/m2 University of 16:17:00 [facility] Branch Oxygen saturation 2019-12-31 95 /min University of in Arterial blood 16:17:00 [facility] jero by Pulse oximetry Branch Systolic blood 2019-12-17 129 mm[Hg] University of pressure 18:12:00 [facility] Branch Diastolic blood 2019-12-17 77 mm[Hg] University o f pressure 18:12:00 [facility] Branch Heart rate 2019-12-17 78 /min University of 18:12:00 [facility] Body temperature 2019-12-17 36.89 Eileen University of 18:12:00 [facility] Branch Respiratory rate 2019-12-17 20 /min University of 18:12:00 [facility] Branch Body height 2019-12-17 180.3 cm University of 18:12:00 [facility] Body weight 2019-12-17 99.791 kg University of 18:12:00 [facility] BMI 2019-12-17 30.68 kg/m2 University of 18:12:00 [facility] Oxygen saturation 2019-12-17 96 /min University of in Arterial blood 18:12:00 [facility] jero by Pulse oximetry Branch Systolic blood 2018-11-01 161 mm[Hg] refused 2nd B/P University of pressure 19:59:00 [place] [facility] Diastolic blood 2018-11-01 78 mm[Hg] refused 2nd B/P Universit y of pressure 19:59:00 [facility] Branch Heart rate 2018-11-01 73 /min University of 19:59:00 [facility] Branch Respiratory rate 2018-11-01 18 /min University of 19:59:00 [facility] Body height 2018-11-01 182.9 cm University of 19:59:00 [facility] Body weight 2018-11-01 104.781 kg University of 19:59:00 [facility] BMI 2018-11-01 31.33 kg/m2 [facility] 19:59:00 [facility] Systolic blood 2018-10-30 126 mm[Hg] [facility] pressure 15:15:00 [facility] Diastolic blood 2018-10-30 63 mm[Hg] [facility] [place] pressure 15:15:00 [facility] Heart rate 2018-10-30 58 /min [facility] 15:15:00 [facility] Respiratory rate 2018-10-30 10 /min [facility] 15:15:00 [facility] Oxygen saturation 2018-10-30 95 /min [facility] in Arterial blood 15:15:00 [facility] by Pulse oximetry [place] Body temperature 2018-10-30 36 Eileen [facility] 13:46:00 [facility] Body height 2018-10-30 182.9 cm [facility] 10:25:00 [facility] Body weight 2018-10-30 103.9 kg [facility] 10:25:00 [facility] BMI 2018-10-30 31.07 kg/m2 [facility] 10:25:00 [facility] Procedures Procedure Date / Time Performed Performing Clinician [facility] URINALYSIS 2019-12-31 17:15:00 [facility] URINE CULTURE 2019-12-31 17:15:00 [facility] POCT URINALYSIS 2019-12-31 16:39:00 [facility] DISCLOSURE AND 2019-12-31 05:01:00 Doctor Unassigned, No [facility] CONSENT, MEDICAL AND Name Medical Bra pending sale to [facility] SURGICAL PROCEDURES URINALYSIS 2019-12-17 20:01:00 [facility] URINE CULTURE 2019-12-17 20:01:00 [facility] TYPE AND SCREEN 2018-10-30 10:41:00 Nikki Rosa [facility] Medical [place] POCT GLUCOSE 2018-10-30 10:40:00 Joreg Medellin [facility] (AUTOMATED) Medical Branch ASSIGNMENT OF BENEFITS 2018-10-30 10:05:27 Doctor Unassigned, No [facility] Name Medical Branch DISCLOSURE AND 2018-10-04 05:01:00 Doctor Unassigned, No [facility] CONSENT, MEDICAL AND Name Medical Bra pending sale to [facility] SURGICAL PROCEDURES EXTERNAL PROVIDER 2017-07-05 05:01:00 Doctor Unassigned, No Univ [facility] RECORDS Name Medical Branch Encounters Start End Encounter Admission Attending Care Care Encounter Source Date/Time Date/Time Type Type Clinicians Facility Department ID 2021-01-05 2021-01-05 [facility] [id number] Univers 10:00:00 10:00:00 [facility] [id number] [facility] 2021-01-05 2021-01-05 [facility] [id number] Univers 10:00:00 10:00:00 MIKE [facility] 2020-06-30 2020-06-30 [facility] [id number] 10:11:23 10:41:23 Visit [facility] [id number] [facility] Cancer [id number] Center - [id number] [facility] 204 2020-06-30 2020-06-30 [facility] [id number] Univers 10:11:23 10:41:23 Visit [facility] [id number] it y of [place] Cancer [id number] Rem[place] as Center - [phone] [facility] 204 Branch 2020-06-30 2020-06-30 [facility] [id number] N-20 Univers 10:15:00 10:15:00 [facility] [id number] [facility] [place] [facility] 2020-06-30 2020-06-30 [facility] [id number] Univers 10:15:00 10:15:00 MIKE [facility] 2020-04-12 2020-04-12 Patient Jimmy [facility] [id number] Univers 00:00:00 00:00:00 Outreach Steve PRIMARY [id number] i ty of [facility] [id number] [place] [phone] Nm dical 388 [place] 2020-03-24 2020-03-24 Outpatient R TENISHA [facility] [id number] Univers 10:30:00 10:30:00 MIKE tye [facility] 2020-01-21 2020-01-21 Outpatient TENISHA [facility] [id number]-20 Univers 10:15:00 10:15:00 MIKE ittye [facility] 2020-01-21 2020-01-21 Outpatient R TENISHA [facility] [id number] Univers 10:15:00 10:15:00 MIKE tye [facility] 2020-01-21 2020-01-21 [facility] [id number] Univers 09:46:41 10:01:41 Visit [facility] [id number] it y of Homero Cancer [id number] [facility] as Center - [phone] Med ical MDA 204 [place] 2020-01-09 2020-01-09 [facility] [id number] [place] 00:00:00 00:00:00 MISTI [address] 2020-01-09 2020-01-09 Outpatient INCAVO, [facility] [id number] [place] 00:00:00 00:00:00 MISTI [address] 2019-12-31 2020-01-08 Office Mike Steven [facility] 1 .[id number] Univers 10:40:25 07:47:35 Visit 2, Naomi Mda Procedure [facility] [id number] ity of Cancer [id number] [facility] - [phone] Med ical MDA [facility] Branch 2019-12-31 2019-12-31 Outpatient R TENISHA [facility] [id number]-20 Univers 10:45:00 10:45:00 MIKE [id number] [facility] 2019-12-31 2019-12-31 Outpatient R TENISHA [facility] [id number] Univers 10:45:00 10:45:00 MIKE [facility] 2019-12-31 2019-12-31 Orders Doctor MUNIZ 1.2.840.114 [id number] Univers 00:00:00 00:00:00 Only Unassigned, [place] [id number] [facility]y [facility] [place] [facility] [id number] Remi as [phone] [address] 2019-12-19 2019-12-19 [facility] 1.2.840.114 [id number] Univers 00:00:00 00:00:00 [facility] [id number] it y of Homero Cancer [id number] Remi as Center - [phone] [address] 2019-12-17 2019-12-17 [facility] [id number] N-20 Univers 13:15:00 13:15:00 MIKE [id number] [facility] 2019-12-17 2019-12-17 [facility] [id number] Univers 13:15:00 13:15:00 [facility] 2019-12-17 2019-12-17 Office [facility] 1.2.840.114 [id number] Univers 12:59:50 13:14:50 Visit [facility] [id number] it y of Homero Cancer [id number] Remi as Center - [phone] [address] 2019-12-10 2019-12-10 [facility] [id number] N-20 Univers 09:30:00 09:30:00 MIKE [id number] [facility] 2019-12-10 2019-12-10 [facility] [id number] Univers 09:30:00 09:30:00 MIKE [facility] 2019-10-01 2019-10-01 [facility] [id number] Univers 13:20:00 13:20:00 CHICHI [id number] [facility] 2019-10-01 2019-10-01 [facility] [id number] Univers 13:20:00 13:20:00 CHICHI [facility] 2019-08-26 2019-08-26 [facility] 1.2.840.114 [id number] Univers 00:00:00 00:00:00 Janes Viveros [id number] i ty of [place] [id number] Luis Benson [phone] Nm dical nal 220 [facility] 2019-08-22 2019-08-22 Outpatient INCAVO, [facility] [id number] [place] 00:00:00 00:00:00 MISTI [address] 2019-08-15 2019-08-15 Outpatient UNDEFINED HCACL OUTD [id number] [facility] 23:51:00 23:51:00 [id number] [facility] 2019-08-15 2019-08-15 Outpatient Pedro, HCAPM RADI [id number] [facility] 21:15:00 21:15:00 Dary [id number] [facility] 2019-08-15 2019-08-15 Outpatient MURALI, HCAPM LABO [id number] [facility] 11:17:00 11:17:00 MARCO ANTONIO [id number] [facility] 2019-08-13 2019-08-13 Outpatient MURALI, HCAPM LABO [id number] [facility] 09:38:00 09:38:00 MARCO ANTONIO [id number] [facility] 2019-08-05 2019-08-06 Inpatient INCAVO, [facility] [id number] [place] 00:00:00 00:00:00 MISTI [address] 2019-07-29 2019-07-29 Outpatient INCAVO, [facility] [id number] [place] 00:00:00 00:00:00 MISTI [address] 2019-06-04 2019-06-04 Outpatient [facility] [id number] [place] 00:00:00 00:00:[address] 2019-06-04 2019-06-04 Outpatient [facility] [id number] [place] 00:00:00 00:00:[address] 2019-06-04 2019-06-04 Outpatient INCAVO, [facility] [id number] [place] 00:00:00 00:00:00 MISTI [address] 2019-04-29 2019-04-29 Cindy Morin [facility] 1.2.840.[id number] [place] [address] 00:00:00 00:00:00 Madelaine Viveros [id number] i ty of [place] Profess[place] [phone] [facility] 220 Branch Building 2018-11-22 2018-11-22 Cindy Morin [facility] 1.2.840.114 [id number] Univers 00:00:00 00:00:00 Madelaine Viveros [id number] i ty of [place].2.686 [place] essio [id number] [facility] 220 [facility] 2018-11-01 2018-11-01 Office [facility] [id number] [facility] 14:29:14 15:38:07 Visit Jorgeantwan FITZGERALD [id number] it [place] [facility] [phone] [facility] & 204 Branch Specialty Care 2018-10-30 2018-10-30 [facility] Lauren Medellin 1.2.840.114 [id number] [facility] 05:07:00 10:40:00 Encounter Jorgedi Hardwick [id number] ity of Hospital [phone] [facility] 104 Branch 2018-10-30 2018-10-30 Orders Doctor FLAVIO 1.2.840.114 [id number] Univers 00:00:00 00:00:00 Only Unassigned, [place] [id number] ity of [place] [facility] 4.2.7.2.[id number] [facility] 009 Branch 2017-07-05 2017-07-05 Orders Doctor FLAVIO 1.2.840.114 [id number] Univers 00:00:00 00:00:00 Only Unassigned, [place] [id number] ity of [place] [facility] 4.2.7.2.686 Remi as [id number] [place] [address] Branch Results Test Description Test Time Test Comments Results Result Comments Source URINE CULTURE 2020-01-01 16:36:00 Test Item Value Reference Range Interpretation Comme nts URINE CULTURE (test code = 630-4) No aerobic growth (< 1000 CFU/mL) [facility]59[facility]00 Test Item Value Reference Range Interpretation Comments APPEARANCE (test code = Clear Clear 0649464406) COLOR (test code = Straw Yellow A 8894775298) PH (test code = 4.8-8.0 2950510824) SP GRAVITY (test code = 1.003-1.030 9962059007) GLU U QUAL (test code = 500 mg/dL Normal A 6423415036) BLOOD (test code = Negative Negative 2413141845) KETONES (test code = Negative Negative 1266381715) PROTEIN (test code = Negative Negative 2887-8) UROBILIN (test code = Normal Normal 1144957681) BILIRUBIN (test code = Negative Negative 7491388955) NITRITE (test code = Negative Negative 6288580351) LEUK LIZETTE (test code = Negative Negative 6937916233) RBC/HPF (test code = <1 See_Comment [Autom ated message] 7914456844) The system [employer] generated this result transmit devon reference range : 0 - 3 HPF. The refe rence range was not u sed to interpret th is result as normal/abnormal . WBC/HPF (test code = <1 See_Comment [Autom ated message] 2011549788) The system [employer] generated this result transmit devon reference range : 0 - 5 HPF. The refe rence range was not u sed to interpret th is result as normal/abnormal . BACTERIA (test code = Negative Negative 5787684609) Lab Interpretation (test Abnormal code = 68160-7) [facility] 17:59:00 Test Item Value Reference Range Interpretation Comments APPEARANCE (test code = Clear Clear 4030065356) COLOR (test code = Straw Yellow A 8009484133) PH (test code = 4.8-8.0 2402416344) SP GRAVITY (test code = 1.003-1.030 6943642680) GLU U QUAL (test code = 500 mg/dL Normal A 9058514162) BLOOD (test code = Negative Negative 8061153974) KETONES (test code = Negative Negative 8738248226) PROTEIN (test code = Negative Negative 2887-8) UROBILIN (test code = Normal Normal 0942973528) BILIRUBIN (test code = Negative Negative 3858566161) NITRITE (test code = Negative Negative 9534977562) LEUK LIZETTE (test code = Negative Negative 9414586789) RBC/HPF (test code = <1 See_Comment [Autom ated message] 5525994430) The system [employer] generated this result transmit devon reference range : 0 - 3 HPF. The refe rence range was not u sed to interpret th is result as normal/abnormal . WBC/HPF (test code = <1 See_Comment [Autom ated message] 9329103739) The system [employer] generated this result transmit devon reference range : 0 - 5 HPF. The refe rence range was not u sed to interpret th is result as normal/abnormal . BACTERIA (test code = Negative Negative 1014964050) Lab Interpretation (test Abnormal code = 38382-6) [facility] Test Item Value Reference Range Interpretation Comments APPEARANCE (test code = Clear Clear 5034907245) COLOR (test code = Straw Yellow A 1877363849) PH (test code = 4.8-8.0 6960960078) SP GRAVITY (test code = 1.003-1.030 2425479673) GLU U QUAL (test code = 500 mg/dL Normal A 1166353551) BLOOD (test code = Negative Negative 6604568097) KETONES (test code = Negative Negative 2951633647) PROTEIN (test code = Negative Negative 2887-8) UROBILIN (test code = Normal Normal 8489120037) BILIRUBIN (test code = Negative Negative 3952139632) NITRITE (test code = Negative Negative 7327580698) LEUK LIZETTE (test code = Negative Negative 7285225215) RBC/HPF (test code = <1 See_Comment [Autom ated message] 8967302639) The system [employer] generated this result transmit devon reference range : 0 - 3 HPF. The refe rence range was not u sed to interpret th is result as normal/abnormal . WBC/HPF (test code = <1 See_Comment [Autom ated message] 2127423830) The system [employer] generated this result transmit devon reference range : 0 - 5 HPF. The refe rence range was not u sed to interpret th is result as normal/abnormal . BACTERIA (test code = Negative Negative 3851283924) Lab Interpretation (test Abnormal code = 42008-2) [facility] Test Item Value Reference Range Interpretation Comments APPEARANCE (test code = Clear Clear 8437368895) COLOR (test code = Straw Yellow A 5690769159) PH (test code = 4.8-8.0 0061025070) SP GRAVITY (test code = 1.003-1.030 3195591202) GLU U QUAL (test code = 500 mg/dL Normal A 9251067463) BLOOD (test code = Negative Negative 2665434500) KETONES (test code = Negative Negative 7999678436) PROTEIN (test code = Negative Negative 2887-8) UROBILIN (test code = Normal Normal 2693476519) BILIRUBIN (test code = Negative Negative 7143884402) NITRITE (test code = Negative Negative 9548539356) LEUK LIZETTE (test code = Negative Negative 5390652439) RBC/HPF (test code = <1 See_Comment [Autom ated message] 1258386303) The system [employer] generated this result transmit devon reference range : 0 - 3 HPF. The refe rence range was not u sed to interpret th is result as normal/abnormal . WBC/HPF (test code = <1 See_Comment [Autom ated message] 2938907419) The system [employer] generated this result transmit devon reference range : 0 - 5 HPF. The refe rence range was not u sed to interpret th is result as normal/abnormal . BACTERIA (test code = Negative Negative 7432924309) Lab Interpretation (test Abnormal code = 02676-7) [facility] Test Item Value Reference Range Interpretation Comments APPEARANCE (test code = Clear Clear 6515759516) COLOR (test code = Straw Yellow A 7737469867) PH (test code = 4.8-8.0 9645981276) SP GRAVITY (test code = 1.003-1.030 5938388393) GLU U QUAL (test code = 500 mg/dL Normal A 8314940568) BLOOD (test code = Negative Negative 6009566382) KETONES (test code = Negative Negative 0829679273) PROTEIN (test code = Negative Negative 2887-8) UROBILIN (test code = Normal Normal 7817522686) BILIRUBIN (test code = Negative Negative 3903412377) NITRITE (test code = Negative Negative 2694070223) LEUK LIZETTE (test code = Negative Negative 2495166453) RBC/HPF (test code = <1 See_Comment [Autom ated message] 5258414987) The system [employer] generated this result transmit devon reference range : 0 - 3 HPF. The refe rence range was not u sed to interpret th is result as normal/abnormal . WBC/HPF (test code = <1 See_Comment [Autom ated message] 7096514723) The system [employer] generated this result transmit devon reference range : 0 - 5 HPF. The refe rence range was not u sed to interpret th is result as normal/abnormal . BACTERIA (test code = Negative Negative 5234695714) Lab Interpretation (test Abnormal code = 26560-3) [facility] URINALYSIS W SPECIFIC [id number] 16:40:00 Test Item Value Reference Range Interpretation [...] 3267) Lab Interpretation (test code Normal = 40182-9) [facility] URINALYSIS W SPECIFIC [id number] 16:40:00 Test Item Value Reference Range Interpretation [...] 3267) Lab Interpretation (test code Normal = 59686-8) [facility] URINALYSIS W SPECIFIC [id number] 16:40:00 Test Item Value Reference Range Interpretation [...] UROBILI (test code = 0.2 mg/dl 0.2-1 0) POCT U BILI (test code = negative Negative - Negative 3261) POCT U BLD (test code = 3257) negative Negative - Negative POCT U COLOR (test code = yellow 3266) POCT U APPEAR (test code = clear 3267) Lab Interpretation (test code Normal = 74505-3) [facility] URINALYSIS W SPECIFIC [id number] 16:40:00 Test Item Value Reference Range Interpretation [...] 3267) Lab Interpretation (test code Normal = 83568-0) [facility] URINALYSIS W SPECIFIC [id number] 16:40:00 Test Item Value Reference Range Interpretation [...] 3267) Lab Interpretation (test code Normal = 18027-1) [facility]:08[facility]00 Test Item Value Reference Range Interpretation Comments APPEARANCE (test code = Hazy Clear A 9797289554) COLOR (test code = Yellow Yellow 3453525479) PH (test code = 4.8-8.0 6069450834) SP GRAVITY (test code = 1.003-1.030 5354791402) GLU U QUAL (test code = 500 mg/dL Normal A 0485925912) BLOOD (test code = 1+ Negative A 2699242305) KETONES (test code = Negative Negative 8302632767) PROTEIN (test code = Negative Negative 2887-8) UROBILIN (test code = Normal Normal 7890927848) BILIRUBIN (test code = Negative Negative 8878462328) NITRITE (test code = Negative Negative 9094957656) LEUK LIZETTE (test code = 75/uL Negative A 0596425871) RBC/HPF (test code = See_Comment [Autom ated message] 9016184217) The system [employer] generated this result transmit devon reference range : 0 - 3 HPF. The refe rence range was not u sed to interpret th is result as normal/abnormal . WBC/HPF (test code = See_Comment H [Autom ated message] 5958827340) The system [employer] generated this result transmit devon reference range : 0 - 5 HPF. The refe rence range was not u sed to interpret th is result as normal/abnormal . BACTERIA (test code = Negative Negative 8517620876) SQ EPITH (test code = See_Comment [Auto mated message] 0144996083) The system [employer] generated this result transmit devon reference range : <=2 HPF. The refere nce range was not u sed to interpret th is result as normal/abnormal . Lab Interpretation (test Abnormal code = 59048-7) [facility]:08[facility]00 Test Item Value Reference Range Interpretation Comments APPEARANCE (test code = Hazy Clear A 7043908580) COLOR (test code = Yellow Yellow 0928371476) PH (test code = 4.8-8.0 7525572381) SP GRAVITY (test code = 1.003-1.030 2365754845) GLU U QUAL (test code = 500 mg/dL Normal A 3956720792) BLOOD (test code = 1+ Negative A 9837475762) KETONES (test code = Negative Negative 6064103737) PROTEIN (test code = Negative Negative 2887-8) UROBILIN (test code = Normal Normal 4965892662) BILIRUBIN (test code = Negative Negative 3504394374) NITRITE (test code = Negative Negative 9681673872) LEUK LIZETTE (test code = 75/uL Negative A 6306436057) RBC/HPF (test code = See_Comment [Autom ated message] 0776141473) The system [employer] generated this result transmit devon reference range : 0 - 3 HPF. The refe rence range was not u sed to interpret th is result as normal/abnormal . WBC/HPF (test code = See_Comment H [Autom ated message] 4663833380) The system [employer] generated this result transmit devon reference range : 0 - 5 HPF. The refe rence range was not u sed to interpret th is result as normal/abnormal . BACTERIA (test code = Negative Negative 6836305188) SQ EPITH (test code = See_Comment [Auto mated message] 5872614722) The system [employer] generated this result transmit devon reference range : <=2 HPF. The refere nce range was not u sed to interpret th is result as normal/abnormal . Lab Interpretation (test Abnormal code = 20570-9) [facility] 2019-08-28 17:26:00 Test Item Value Reference Range Interpretation Comments SARS-COV2/RT-PCR (test Not Detected Not Detected, Negative code = 6942482) SARS-COV-[address] [facility] (test code = 6235399) Negative results do not preclude SARS-CoV-2 infection [...] of the Act.Fact Sheet for Healthcare Pro viders:https://www.[employer]/Documents/Xpert%20Xpress%20SARS%20CoV-2/Fact%20Sh eets/302-3802%02GHFT-FNA-3%20HEALTHCARE%20PROVIDERS%20FACT%20SHEET.pdfFact Sheet for Healthcare Patients:https://www.[employer]/Documents/Xpert%20Xpress%20SARS%20CoV-2/Fact%20Sheets/302-3801%20SARS-COV -2%20PATIENT%20FACT%20SHEET.pdfPerforming Laboratory:[facility] [place] [address]- CT HEAD/BRAIN W/O [id number] 21:43:00 Name: BREA RACHELland : 1940 Age/S: 78 / M [address] Unit #: [id number] Loc: [place] [address] Phys: Dary Vasquez MD Acct: [id number] Dis Date: Status: REG REF PHONE #: [phone] Exam Date: 08/15/20192127 FAX #: Reason: ams, stiffened posture EXAMS: CPT: [id number] CT HEAD/BRAIN W/O CONT 65259 Location code: H5 CT Brain Without Contrast [...] RACHEL : 1940 Age/S: 78 / M [address] Unit #: [id number] Loc: [place] [address] Phys: Dary Vasquez MD Acct: [id number] Dis Date: Status: REG REF PHONE #: [phone] Exam Date: 08/15/20192127 FAX #: Reason: ams, stiffened posture EXAMS: CPT: [id number] CT HEAD/BRAIN W/O CONT 56865 <Con tinued> CC: Dary Vasquez MD Technologist:Isabel Lr, RT(R)(CT)(MRI) CTDI: DLP: Trnscb Date/Time: 08/15/2019 (2142) RoyceRlTDRB1 PAGE 2 Signed ReportUA RFLX MICR CULT IF [id number] 11:59:00 Test Item Value Reference Range Interpretation [...] CHK code = UACULT) Criteria BASIC METABOLIC [id number] 11:52:00 Test Item Value Reference Range Interpretation [...] 8.5-10.1 N UA RFLX MICR CULT IF [id number] 11:26:00 Test Item Value Reference Range Interpretation [...] Criteria Culture CHK = UACULT) CBC W/AUTO [id number] 11:24:00 Test Item Value Reference Range Interpretation [...] CRITERIA MDIFF) UA RFLX MICR CULT IF [id number] 09:55:00 Test Item Value Reference Range Interpretation [...] DIPSTICK (test code = LEUU) UR PROTEIN [id number] 09:55:00 Test Item Value Reference Range Interpretation Comments UR PROTEIN TOTAL (test code = 27.7 MG/DL 0.0-12.0 H PROTU) UR CREATININE [id number] 09:55:00 Test Item Value Reference Range Interpretation Comments UR CREATININE RANDOM (test code = 127.0 MG/DL 30-125 H CREATU) UA RFLX MICR CULT IF [id number] 09:48:00 Test Item Value Reference Range Interpretation [...] Culture CHK code = UACULT) UR PROTEIN [id number] 09:48:00 Test Item Value Reference Range Interpretation Comments UR PROTEIN TOTAL (test code = PROTU) MG/DL 0.0-12.0 UR CREATININE [id number] 09:48:00 Test Item Value Reference Range Interpretation Comments UR CREATININE RANDOM (test code = MG/DL 30-125 CREATU) UA RFLX MICR CULT IF [id number] 09:48:00 Test Item Value Reference Range Interpretation [...] DIPSTICK (test code = LEUU) UR PROTEIN [id number] 09:48:00 Test Item Value Reference Range Interpretation Comments UR PROTEIN TOTAL (test code = PROTU) MG/DL 0.0-12.0 UR CREATININE [id number] 09:48:00 Test Item Value Reference Range Interpretation Comments UR CREATININE RANDOM (test code = MG/DL 30-125 CREATU) Type and Screen - ONCE [id number] 11:21:00 Test Item Value Reference Range Interpretation Comments ABO & RH (test code A POSITIVE Performe d at [facility] = 20) Laboratory Serv [facility] [address] [facility] [id number] Free: [phone] A No. [id number] IAT (test code = Negative Performed a t [facility] 1185) Laboratory Serv [facility] [address] [facility] [address]Xdyg Free: [phone] A No. [id number] [facility]2018-10-30 10:44:00 Test Item Value Reference Range Interpretation Comments POCT GLU (test code = 8296839710) 185 mg/dL 70-110 H Lab Interpretation (test code = Abnormal 08016-4) [facility]
--- NOTE | 2021-02-09 16:26 | ER ---
Nurse's Notes [facility] Name: Kendrick Worley Age: 80 yrs Sex: Male : 1940 Arrival Date: 02/09/2021 Time: 15:38 Bed 19 Private MD: Diagnosis: Muscle weakness (generalized) Presentation: 02/09 15:41 Chief complaint: EMS states: pt has had increasing weakness over past month, they have iw ran on him several times and now he's at a point where he can't move his legs, was seen here a couple days ago and sent home with abx for UTI , hx of Alzheimer's sees Dr. Basilio , told EMS that he was admitted to [facility] pending paperwork. Coronavirus screen: At this time, the client does not indicate any symptoms associated with coronavirus-19. Ebola Screen: Patient negative for fever greater than or equal to 101.5 degrees Fahrenheit, and additional compatible Ebola Virus Disease symptoms Patient denies exposure to infectious person. Patient denies travel to an Ebola-affected area in the 21 days before illness onset. No symptoms or risks identified at this time. Initial Sepsis Screen: Does the patient meet any 2 criteria? No. Patient's initial sepsis screen is negative. Does the patient have a suspected source of infection? No. Patient's initial sepsis screen is negative. Risk Assessment: Do you want to hurt yourself or someone else? Patient reports no desire to harm self or others. Onset of symptoms was February 09, 2021. 15:41 Method Of Arrival: EMS: [facility] iw 15:41 Acuity: SHERLEY 3 iw Triage Assessment: 16:54 General: Appears in no apparent distress. Behavior is calm, cooperative. iw Historical: - Allergies: 15:49 Bactrim; iw 15:49 Morphine (Hallucinations); iw - Home Meds: 15:49 atorvastatin Oral [Active]; cefuroxime axetil 250 mg Oral tab 1 tab 2 times per day iw [Active]; Farxiga 10 mg Oral tab 1 tab once daily [Active]; gabapentin 100 mg Oral cap 3 caps 3 times per day [Active]; levothyroxine 50 mcg tab 1 tab once daily [Active]; lisinopril 5 mg Oral tab 1 tab once daily [Active]; metoprolol tartrate 25 mg Oral tab 1 tab once daily [Active]; montelukast 10 mg Oral tab 1 tab once daily [Active]; Plavix 75 mg Oral tab 1 tab once daily [Active]; tamsulosin 0.4 mg Oral cp24 1 cap once daily [Active]; - PMHx: 15:49 Diabetes - IDDM; Hypercholesterolemia; Hypertensive disorder; Myocardial infarction; iw Screenin:54 Abuse screen: Denies threats or abuse. Denies injuries from another. Nutritional iw screening: On. Tuberculosis screening: No symptoms or risk factors identified. Fall Risk Fall in past 12 months (25 points). Assessment: 15:59 Reassessment: left voicemail at [facility]. iw 16:03 Reassessment: thermoplastic technician present at bedside to complete CXR, however patient sourav and his has refused exam - states patient is only here to be transferred to [facility] and not here to be seen as an ER medical visit. 16:36 Reassessment: spoke withDalissa at [facility], pt is supposed to have been transported iw to their facility to start admission paperwork. Vital Signs: 15:49 Temp 97.6; iw 15:54 BP 131 / 87; Pulse 76; Resp 16; Pulse Ox 94% on R/A; iw ED Course: 15:38 Patient arrived in ED. iw 15:45 Noel Byrnes PA is [facility]. jr8 15:45 Kiran Jacinto MD is Attending Physician. jr8 15:45 Triage completed. iw 15:54 Arm band placed on. iw 16:02 Jillian Love, JANET is Primary Nurse. sl2 16:53 No provider procedures requiring assistance completed. Patient did not have IV access iw during this emergency room visit. Administered Medications: No medications were administered Outcome: 16:26 Discharge ordered by . jr8 16:54 Discharged to alf. to [facility] via EMS iw 16:54 Condition: unchanged 16:54 Discharge instructions given to patient, family, Instructed on discharge instructions. 16:55 Patient left the ED. iw Signatures: Kerry George RN RN iw Noel Byrnes PA PA jr8 Jillian Love, JANET RN 2
--- NOTE | 2021-02-09 16:26 | EDPHYS ---
Physician Documentation [facility] Name: Kendrick Worley Age: 80 yrs Sex: Male : 1940 Arrival Date: 02/09/2021 Time: 15:38 Bed 19 Private MD: ED Physician Kiran Jacinto HPI: 02/09 20:25 This 80 yrs old Male presents to ER via EMS with complaints of General Weakness. jr8 20:25 Was sent into the emergency room for further evaluation for general weakness. Patient jr8 stated that he was seen 2 days ago for similar work-up. Currently has complaints of general weakness only but denies anything else at this time.. Historical: - Allergies: 15:49 Bactrim; iw 15:49 Morphine (Hallucinations); iw - Home Meds: 15:49 atorvastatin Oral [Active]; cefuroxime axetil 250 mg Oral tab 1 tab 2 times per day iw [Active]; Farxiga 10 mg Oral tab 1 tab once daily [Active]; gabapentin 100 mg Oral cap 3 caps 3 times per day [Active]; levothyroxine 50 mcg tab 1 tab once daily [Active]; lisinopril 5 mg Oral tab 1 tab once daily [Active]; metoprolol tartrate 25 mg Oral tab 1 tab once daily [Active]; montelukast 10 mg Oral tab 1 tab once daily [Active]; Plavix 75 mg Oral tab 1 tab once daily [Active]; tamsulosin 0.4 mg Oral cp24 1 cap once daily [Active]; - PMHx: 15:49 Diabetes - IDDM; Hypercholesterolemia; Hypertensive disorder; Myocardial infarction; iw ROS: 20:25 Eyes: Negative for injury, pain, redness, and discharge, ENT: Negative for injury, jr8 pain, and discharge, Neck: Negative for injury, pain, and swelling, Cardiovascular: Negative for chest pain, palpitations, and edema, Respiratory: Negative for shortness of breath, cough, wheezing, and pleuritic chest pain, Abdomen/GI: Negative for abdominal pain, nausea, vomiting, diarrhea, and constipation, Back: Negative for injury and pain, MS/Extremity: Negative for injury and deformity, Skin: Negative for injury, rash, and discoloration, Neuro: Negative for headache, weakness, numbness, tingling, and seizure. Exam: 20:25 Constitutional: This is a well developed, well nourished patient who is awake, alert, jr8 and in no acute distress. Cardiovascular: Regular rate and rhythm with a normal S1 and S2. No gallops, murmurs, or rubs. Normal PMI, no JVD. No pulse deficits. Respiratory: Lungs have equal breath sounds bilaterally, clear to auscultation and percussion. No rales, rhonchi or wheezes noted. No increased work of breathing, no retractions or nasal flaring. Abdomen/GI: Soft, non-tender, with normal bowel sounds. No distension or tympany. No guarding or rebound. No evidence of tenderness throughout. Skin: Warm, dry with normal turgor. Normal color with no rashes, no lesions, and no evidence of cellulitis. MS/ Extremity: Pulses equal, no cyanosis. Neurovascular intact. Full, normal range of motion. Neuro: Awake and alert, GCS 15, oriented to person, place, time, and situation. Cranial nerves II-XII grossly intact. Motor strength 5/5 in all extremities. Sensory grossly intact. Vital Signs: 15:49 Temp 97.6; iw 15:54 BP 131 / 87; Pulse 76; Resp 16; Pulse Ox 94% on R/A; iw MDM: 15:45 Patient medically screened. jr8 16:25 ED course: After of patient arrived to the emergency room it was found out that jr8 patient should be at [facility] for further care. Patient was here a day ago and was worked up. Was supposed to be placed at [facility] today but could not find a way to get there is so came back to the emergency room. Family is denying any further work-up at this time he just needs transfer to [facility].. 20:25 Data reviewed: vital signs, nurses notes. Data interpreted: Pulse oximetry: on room air jr8 is 94 %. Interpretation: acceptable. Counseling: I had a detailed discussion with the patient and/or guardian regarding: the historical points, exam findings, and any diagnostic results supporting the discharge/admit diagnosis, the need for outpatient follow up, a family practitioner. 02/09 15:51 Order name: Basic Metabolic Panel [facility] 02/09 15:51 Order name: CBC with Diff [facility] 02/09 15:51 Order name: Cardiac monitoring [facility] 02/09 15:51 Order name: EKG - Nurse/Tech jr8 02/09 15:51 Order name: IV Saline Lock jr8 02/09 15:51 Order name: Labs collected and sent jr8 02/09 15:51 Order name: O2 Per Protocol jr8 02/09 15:51 Order name: O2 Sat Monitoring jr8 02/09 15:51 Order name: Urine Dipstick-Ancillary (obtain specimen) jr8 02/09 15:51 Order name: Straight Cath - Urine jr8 Administered Medications: No medications were administered Disposition: 02/10 08:13 Co-signature as Attending Physician, Kiran Jacinto MD I agree with the assessment and kdr plan of care. Disposition Summary: 02/09/21 16:26 Discharge Ordered Location: Home jr Problem: new jr8 Symptoms: are unchanged jr8 Condition: Stable jr8 Diagnosis - Muscle weakness (generalized) jr8 Followup: jr8 - With: Private Physician - When: Upon discharge from the Emergency Department - Reason: Recheck today's complaints, Continuance of care, Re-evaluation by your physician Discharge Instructions: - Discharge Summary Sheet jr8 - Weakness jr8 Forms: - Medication Reconciliation Form jr8 - Thank You Letter jr8 - Antibiotic Education jr8 - Prescription Opioid Use jr8 Signatures: Dispatcher [employer] EDMS Kiran Jacinto MD MD kdr Kerry George RN RN iw Noel Byrnes PA PA jr8 Corrections: (The following items were deleted from the chart) 02/09 16:35 15:52 Chest Single View+RAD.RAD.BRZ ordered. EDAR EDMS
[2021-02-09 17:11] VITALS: TEMP 97.6
[2021-02-09 17:12] VITALS: BP 131/87; O2SAT 94
== END 2021-02-09 16:55 | disposition home or self-care (01) ==
LOC: ER 15:36
DX: M62.81 Muscle weakness (generalized) (principal); I10 Essential (primary) hypertension; E11.9 Type 2 diabetes mellitus without complications; I25.2 Old myocardial infarction; Z79.01 Long term (current) use of anticoagulants; Z88.1 Allergy status to other antibiotic agents; Z88.5 Allergy status to narcotic agent
CPT/HCPCS: 99283

== ENCOUNTER 2021-08-22 19:26 | Inpatient (IN) | payer OTHER ==
--- OUTSIDE RECORDS SUMMARY | 2021-08-22 19:32 | XMS REPORT | Continuity of Care Document ---
:1940 Author Organization [facility] t Address [address] [place] [address] Care Team Providers Name Role Phone [phone] Attending Clinician Unavailable HOMERO STEVEN Attending Clinician Unavailable Homero Steven MD Attending Clinician Davin Marquez DO Attending Clinician INCANALI Attending Clinician Unavailable 2, Mda Procedure Rm Attending Clinician Unavailable Doctor Unassigned, Name Attending Clinician Unavailable Mike FERNÁNDEZ Attending Clinician Unavailable Trevon LEAL Attending Clinician UNDEFINED Attending Clinician Unavailable Pedro Attending Clinician Unavailable Tracy Morin MD Attending Clinician Unavailable Vignesh Attending Clinician [id number] Admitting Clinician Unavailable Pedro Admitting Clinician Unavailable INCAVO Admitting Clinician Unavailable Vignesh Admitting Clinician Payers Payer Name Policy Type Policy Number Effective Date Expiration Date S ource AETM AETM [id number] AETNA MANAGED [id number] 2020 MEDICARE PPO-LOGAN 00:00:00 Problems Condition Condition Condition Status Onset Resolution Last Treating Co mments Source Name Details Category Date Date Treatment Clinician Date 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 7-18 Added ity of 00:00: automatic [place] 00 ally from Medical request Branch for surgery [id number] S/P S/P Disease Active 2016-03 Univers revision revision 0-02 ity of of total of total 00:00: [place] knee knee 00 Medical Branch 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 2-24 ity of [...] ion 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 U murphybry semia semia 2-31 ity of 00:00: [place] 00 Medical Branch Malignant Malignant Disease Active 2010-03 Overview: Univers neoplasm neoplasm 0-17 ICD10 ity of of bladder of bladder 00:00: Diagnosis [place] 00 Term Medical Wall Attendant Branch Utility 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 8-04 ity of disease, disease, 00:00: [place] stage III stage III 00 Medi jero (moderate) (moderate) Br anch Urinary Urinary Disease Active Univers tract tract 8-04 ity of infection, infection, 00:[place] site not site not 00 Medica l specified specified Bran ch Malignant Malignant Disease Active Uni vers tumor tumor 6 ity of renal renal 00:00: [place] pelvis pelvis 00 Medical Branch HLD HLD Disease Active Overview: Univer s (hyperlipi (hyperlipi 6-23 ICD10 it y of demia) demia) 00:00: Diagnosis [place] 00 Term Medical Wall Attendant Branch Utility Essential Essential Disease Active Uni vers hypertensi hypertensi 6-23 it y of on, benign on, benign 00:00: [place] 00 [place] Coronary Coronary Disease Active Overview: [facility] [place] atheroscle atheroscle 09-09 1985 it y of rosis of rosis of 00:00: [place] 00 Medical coronary coronary Branch artery artery Coronary Coronary Disease Active Overview: [place] atheroscle atheroscle 6-23 1985 it y of rosis of rosis of 00:00: [place] 00 Medical coronary coronary Branch artery artery Malignant Malignant Disease Active 2009-03 Overview: Univers neoplasm neoplasm 1-23 ICD10 ity of of kidney of kidney 00:00: Diagnosis [place] excluding excluding 00 Term [facility] renal renal Wall Attendant Branch pelvis pelvis Utility Allergies, Adverse Reactions, Alerts Allergy Allergy Status Severity Reaction(s) Onset Inactive Treating Comm ents Source Name Type Date Date Clinician MORPHINE DRUG Active Hallucinates [place] INGREDI 2 ity of 00:00: [place] 00 Medical Branch Morphine Propensi Active Hallucinatio confusi on Univers ty to ns 04-22 ity of adverse 00:00: [place] reaction 00 Medical Branch No Known DA Active U 2002-03 [facility] Contrast 2-24 Clear Allergie 00:00: [place] 00 [facility] No Known DA Active U 2002-03 [facility] Drug 2-24 Clear Allergie 00:00: [place] 00 [facility] No Known DA Active U 2002-03 [facility] Food 2-24 Clear Allergie 00:00: [place] 00 [facility] No Known DA Active U 2002-03 [facility] Other 2-24 Clear Allergie 00:00: [place] 00 [facility] Social History Social Habit Start Date Stop Date Quantity Comments Source Tobacco Comment Quit 30 years Univer sity of ago [facility] Cigarettes smoked 2020-06-30 2020-06-30 Univers ity of current (pack per 00:00:00 00:00:00 ) - Reported Branch Cigarette 2020-06-30 2020-06-30 University of pack-years 00:00:00 00:00:00 [facility] Alcohol intake 2020-06-30 2020-06-30 Current University of 00:00:00 00:00:00 non-drinker of [facility] alcohol Branch (finding) Tobacco use and 2020-06-30 2020-06-30 Never used Universit y of exposure 00:00:00 00:00:00 [facility] Sex [birth year] Universit y of 00:00:00 00:00:00 [place] [facility] Smoking Status Start Date Stop Date Source Former smoker 2020-06-30 00:00:00 2020-06-30 00:00:00 [facility] Medical Branch Medications Ordered Filled Start Stop Current Ordering Indication Dosage Frequency Signature Comments Components Source Medication Medication Date Date Medication? Clinician (SIG) Name Name furosemide 2019-03 Yes Take by Uni vers (LASIX 1-03 mouth ity of ORAL) 16:10: daily. [place] [address] Medical Branch AMILORIDE-H 2019-03 Yes 5mg Take 5 mg U nivers YDROCHLOROT 1-03 by mouth ity of HIAZIDE 16:10: daily. [place] ORAL Medical Branch furosemide 2019-03 Yes Take by Uni vers (LASIX 1-03 mouth ity of ORAL) 16:10: daily. [place] [address] Medical Branch AMILORIDE-H 2019-03 Yes 5mg Take 5 mg U nivers YDROCHLOROT 1-03 by mouth ity of HIAZIDE 16:10: daily. [place] [address] Medical Branch furosemide 2019-03 Yes Take by Uni vers (LASIX 1-03 mouth ity of ORAL) 16:10: daily. [place] [address] Medical Branch AMILORIDE-H 2019-03 Yes 5mg Take 5 mg U nivers YDROCHLOROT 1-03 by mouth ity of HIAZIDE 16:10: daily. [place] [address] Medical Branch furosemide 2019-03 Yes Take by Uni vers (LASIX 1-03 mouth ity of ORAL) 16:10: daily. [place] [address] Medical Branch AMILORIDE-H 2019-03 Yes 5mg Take 5 mg U nivers YDROCHLOROT 1-03 by mouth ity of HIAZIDE 16:10: daily. [place] [address] Medical Branch furosemide 2019-03 Yes Take by Uni vers (LASIX 1-03 mouth ity of ORAL) 16:10: daily. [place] [address] Medical Branch AMILORIDE-H 2019-03 Yes 5mg Take 5 mg U nivers YDROCHLOROT 1-03 by mouth ity of HIAZIDE 16:10: daily. [place] [address] Medical Branch tadalafiL 2019-03 Yes [id number] 20mg Take 1 U nivers (CIALIS) 20 1-03 tablet by ity of mg tablet 00:00: [place] 00 needed for Medical Erectile Branch dysfunctio n. tadalafiL 2019-03 Yes [id number] 20mg Take 1 U nivers (CIALIS) 20 1-03 tablet by ity of mg tablet 00:00: [place] 00 needed for Medical Erectile Branch dysfunctio n. tadalafiL 2019-03 Yes [id number] 20mg Take 1 U nivers (CIALIS) 20 1-03 tablet by ity of mg tablet 00:00: mouth [place] 00 needed for Medical Erectile Branch dysfunctio n. tadalafiL 2019-03 Yes [id number] 20mg Take 1 U nivers (CIALIS) 20 1-03 tablet by ity of mg tablet 00:00: mouth [place] 00 needed for Medical Erectile Branch dysfunctio n. tadalafiL 2019-03 Yes [id number] 20mg Take 1 U nivers (CIALIS) 20 [...] lar, ONCE, [place] 00 :00 1 dose, [facility] 12/31/19 at 1300, LESA
Re ason for [...] lar, ONCE, [place] 00 :00 1 dose, [facility] 12/31/19 at 1300, ELSA
Re ason for Anti-Infec tive: Surgical Prophylaxi s
Surgi jero Prophylaxi s: Genitourin wilbur
Dur ation of therapy: within 24 hours of surgery gentamicin 2019-03- No 80mg Univer s injection 0-13 10- ity of 80 mg 18:00: 17:00 [place] 00 :00 Medical Branch gentamicin 2019-03- No 80mg 80 mg, Univ ers injection 0-13 - Intramuscu ity of 80 mg 18:00: 17:00 lar, ONCE, [place] 00 :00 1 dose, [facility] 12/31/19 at 1300, LESA
Re ason for [...] lar, ONCE, [place] 00 :00 1 dose, [facility] 12/31/19 at 1300, LESA
Re ason for [...] lar, ONCE, [place] 00 :00 1 dose, [facility] 12/31/19 at 1300, LESA
Re ason for Anti-Infec tive: Surgical Prophylaxi s
Surgi jero Prophylaxi s: Genitourin wil[place]
Dur ation of therapy: within 24 hours of surgery predniSONE 2019-03 Yes 10mg Take 10 mg U nivers 20 mg 0-13 by mouth ity of tablet 16:22: daily. 00 [facility] AMILORIDE-H 2019-03 Yes 5mg Take 5 mg U nivers YDROCHLOROT 0-13 by mouth ity of HIAZIDE 16:22: daily. [facility] 00 Medical Branch predniSONE 2020- Yes 10mg Take 10 mg U nivers 20 mg 0-13 by mouth ity of tablet 16:22: daily. [place] [address] Medical Branch AMILORIDE-H 2020- Yes 5mg Take 5 mg U nivers YDROCHLOROT 0-13 by mouth ity of HIAZIDE 16:22: daily. [place] ORAL 00 Medical Branch predniSONE 2020- Yes 10mg Take 10 mg U nivers 20 mg 0-13 by mouth ity of tablet 16:22: daily. [address] Branch AMILORIDE-H 2020- Yes 5mg Take 5 mg U nivers YDROCHLOROT 0-13 by mouth ity of HIAZIDE 16:22: daily. [place] ORAL 00 Medical Branch predniSONE 2020- Yes 10mg Take 10 mg U nivers 20 mg 0-13 by mouth ity of tablet 16:22: daily. [address] AMILORIDE-H 2019- Yes 5mg Take 5 mg U nivers YDROCHLOROT 0-13 by mouth ity of HIAZIDE 16:22: daily. [place] [address] Medical Branch predniSONE 2020- Yes 10mg Take 10 mg U nivers 20 mg 0-13 by mouth ity of tablet 16:22: daily. [place] [address] Medical Branch AMILORIDE-H 2020- Yes 5mg Take 5 mg U nivers YDROCHLOROT 0-13 by mouth ity of HIAZIDE 16:22: daily. [place] [address] Medical Branch predniSONE 2020- Yes 10mg Take 10 mg U nivers 20 mg 0-13 by mouth ity of tablet 16:22: daily. [address] AMILORIDE-H 2020- Yes 5mg Take 5 mg U nivers YDROCHLOROT 0-13 by mouth ity of HIAZIDE 16:22: daily. [place] [address] Medical Branch predniSONE 2020- Yes 10mg Take 10 mg U nivers 20 mg 0-13 by mouth ity of tablet 16:22: daily. [place] [address] Medical Branch predniSONE 2020- Yes 10mg Take 10 mg U nivers 20 mg 0-13 by mouth ity of tablet 16:22: daily. [address] predniSONE 2020- Yes 10mg Take 10 mg U nivers 20 mg 0-13 by mouth ity of tablet 16:22: daily. [place] [address] Medical Branch predniSONE 2020- Yes 10mg Take 10 mg U nivers 20 mg 0-13 by mouth ity of tablet 16:22: daily. [place] Medical Branch predniSONE 2020-1 Yes 10mg Take 10 mg U nivers 20 mg 0-13 by mouth ity of tablet 16:22: daily. [place] Medical Branch levoFLOXaci 2020-1 2020- No [id number] 500mg Take 1 Univers n 0-01 10-12 tablet by ity of (LEVAQUIN) 00:00: 04:59 mouth [place] 500 mg 00 :00 daily for Medical tablet 10 days. Branch furosemide 2020-0 Yes Take by Uni vers (LASIX 9-29 mouth ity of ORAL) 18:26: daily. [place] 30 Medical Branch furosemide 2020-0 Yes Take by Uni vers (LASIX 9-29 mouth ity of ORAL) 18:26: daily. [place] [address] Medical Branch furosemide 2020-0 Yes Take by Uni vers (LASIX 9-29 mouth ity of ORAL) 18:26: daily. [address] Branch furosemide 2020-0 Yes Take by Uni vers (LASIX 9-29 mouth ity of ORAL) 18:26: daily. [place] 30 Medical Branch furosemide 2020-0 Yes Take by Uni vers (LASIX 9-29 mouth ity of ORAL) 18:26: daily. [place] [address] Medical Branch furosemide 2020-0 Yes Take by Uni vers (LASIX 9-29 mouth ity of ORAL) 18:26: daily. [place] [address] Medical Branch furosemide 2020-0 Yes Take by Uni vers (LASIX 9-29 mouth ity of ORAL) 18:26: daily. [address] Branch furosemide 2020-0 Yes Take by Uni vers (LASIX 9-29 mouth ity of ORAL) 18:26: daily. [place] [address] Medical Branch furosemide 2020-0 Yes Take by Uni vers (LASIX 9-29 mouth ity of ORAL) 18:26: daily. [address] Branch NOVOLOG 2019-0 Yes [id number] INJECT 18 Univers U-100 9-10 UNITS ity of INSULIN 00:00: UNDER THE [place] ASPART 100 00 SKIN 3 Medical unit/mL (THREE) Branch solution TIMES DAILY BEFORE MEALS. NOVOLOG 2018-0 Yes [id number] INJECT 18 U nivers U-100 9-10 UNITS ity of INSULIN 00:00: UNDER THE [place] ASPART 100 00 SKIN 3 Medical unit/mL (THREE) Branch solution TIMES DAILY BEFORE MEALS. NOVOLOG 2018-0 Yes [id number] INJECT 18 U nivers U-100 9-10 UNITS ity of INSULIN 00:00: UNDER THE [place] ASPART 100 00 SKIN 3 Medical unit/mL (THREE) Branch solution TIMES DAILY BEFORE MEALS. NOVOLOG 2018-0 Yes [id number] INJECT 18 U nivers U-100 9-10 UNITS ity of INSULIN 00:00: UNDER THE [place] ASPART 100 00 SKIN 3 Medical unit/mL (THREE) Branch solution TIMES DAILY BEFORE MEALS. NOVOLOG 2018-0 Yes [id number] INJECT 18 U nivers U-100 9-10 UNITS ity of INSULIN 00:00: UNDER THE [place] ASPART 100 00 SKIN 3 Medical unit/mL (THREE) Branch solution TIMES DAILY BEFORE MEALS. NOVOLOG 2018-0 Yes [id number] INJECT 18 U nivers U-100 9-10 UNITS ity of INSULIN 00:00: UNDER THE [place] ASPART 100 00 SKIN 3 Medical unit/mL (THREE) Branch solution TIMES DAILY BEFORE MEALS. NOVOLOG Yes [id number] INJECT 18 U nivers U-100 9-10 UNITS ity of INSULIN 00:00: UNDER THE [place] ASPART 100 00 SKIN 3 Medical unit/mL (THREE) Branch solution TIMES DAILY BEFORE MEALS. NOVOLOG 0 Yes [id number] INJECT 18 U nivers U-100 9-10 UNITS ity of INSULIN 00:00: UNDER THE [place] ASPART 100 00 SKIN 3 Medical unit/mL (THREE) Branch solution TIMES DAILY BEFORE MEALS. NOVOLOG 0 Yes [id number] INJECT 18 U nivers U-100 9-10 UNITS ity of INSULIN 00:00: UNDER THE [place] ASPART 100 00 SKIN 3 Medical unit/mL (THREE) Branch solution TIMES DAILY BEFORE MEALS. NOVOLOG 0 Yes [id number] INJECT 18 U nivers U-100 9-10 UNITS ity of INSULIN 00:00: UNDER THE [place] ASPART 100 00 SKIN 3 Medical unit/mL (THREE) Branch solution TIMES DAILY BEFORE MEALS. NOVOLOG 2018-0 Yes [id number] INJECT 18 U nivers U-100 9-10 UNITS ity of INSULIN 00:00: UNDER THE [place] ASPART 100 00 SKIN 3 Medical unit/mL (THREE) Branch solution TIMES DAILY BEFORE MEALS. NOVOLOG 2018-0 Yes [id number] INJECT 18 U nivers U-100 9-10 UNITS ity of INSULIN 00:00: UNDER THE [place] ASPART 100 00 SKIN 3 Medical unit/mL (THREE) Branch solution TIMES DAILY BEFORE MEALS. NOVOLOG Yes [id number] INJECT 18 U nivers U-100 9-10 UNITS ity of INSULIN 00:00: UNDER THE [place] ASPART 100 00 SKIN 3 Medical unit/mL (THREE) Branch solution TIMES DAILY BEFORE MEALS. NOVOLOG 2019-0 Yes [id number] INJECT 18 U nivers U-100 9-10 UNITS ity of INSULIN 00:00: UNDER THE [place] ASPART 100 00 SKIN 3 Medical unit/mL (THREE) Branch solution TIMES DAILY BEFORE MEALS. NOVOLOG 2019-0 Yes [id number] INJECT 18 U nivers U-100 9-10 UNITS ity of INSULIN 00:00: UNDER THE [place] ASPART 100 00 SKIN 3 Medical unit/mL (THREE) Branch solution TIMES DAILY BEFORE MEALS. NOVOLOG 2018-0 Yes [id number] INJECT 18 U nivers U-100 9-10 UNITS ity of INSULIN 00:00: UNDER THE [place] ASPART 100 00 SKIN 3 Medical unit/mL (THREE) Branch solution TIMES DAILY BEFORE MEALS. NOVOLOG 2018- Yes [id number] INJECT 18 U nivers U-100 9-10 UNITS ity of INSULIN 00:00: UNDER THE [place] ASPART 100 00 SKIN 3 Medical unit/mL (THREE) Branch solution TIMES DAILY BEFORE MEALS. insulin 2019- No 18U inject 18 Univ ers aspart 10-30-13 Units ity of U-100 16:06: 00:00 under the [place] (NOVOLOG 53 :00 skin 3 Medical FLEXPEN (three) Branch U-100 times INSULIN) daily 100 unit/mL before injection meals. cetirizine 2019- No 5mg Take 5 mg U nivers 5 mg tablet 10-30 by mouth. it y of 16:06: 00:00 [place] 53 :00 Medical Branch clopidogrel 2019- No 75mg Take 75 mg Univers (PLAVIX) 75 10-30 by mouth ity of mg tablet 16:06: 00:00 daily. [place] 53 :00 Medical Branch allopurinol 2018-0 2019- No 100mg Take 100 Univers (ZYLOPRIM) 10-30-13 mg by ity of 100 mg 16:06: 00:00 mouth [place] tablet 53 :00 daily. Medical Branch lactated [...] PACU belladonna 2019-0 Yes PRN, Univers alkaloids-o - Starting ity of pium (B&O) 13:04: Tue [place] 30 mg (B&O) 00 10/30/18 at Oh dical 16.2-30 mg 0804, Branch suppository Until Discontinu ed, Routine, Intra-op sodium 2019-0 Yes PRN, Univers chloride -13 Starting ity of 0.9 % 12:43: Tue [place] irrigation 00 10/30/18 at Med ical solution 0743, Branch Until Discontinu ed, Intra-op acetaminoph 2019-0 Yes [id number] 650mg Take 1 Univers en (TYLENOL 8-13 tablet by ity of 8 HOUR) 650 00:00: mouth [place] mg CR 00 every 8 Medical tablet (eight) Branch hours as needed for Pain. acetaminoph 2019-0 Yes [id number] 650mg Take 1 Univers en (TYLENOL 8-13 tablet by ity of 8 HOUR) 650 00:00: mouth [place] mg CR 00 every 8 Medical tablet (eight) Branch hours as needed for Pain. acetaminoph 0 Yes [id number] 650mg Take 1 Univers en (TYLENOL 8-13 tablet by ity of 8 HOUR) 650 00:00: mouth [place] mg CR 00 every 8 Medical tablet (eight) Branch hours as needed for Pain. acetaminoph 0 Yes [id number] 650mg Take 1 Univers en (TYLENOL 8-13 tablet by ity of 8 HOUR) 650 00:00: mouth [place] mg CR 00 every 8 Medical tablet (eight) Branch hours as needed for Pain. acetaminoph Yes [id number] 650mg Take 1 Univers en (TYLENOL 8-13 tablet by ity of 8 HOUR) 650 00:00: mouth [place] mg CR 00 every 8 Medical tablet (eight) Branch hours as needed for Pain. acetaminoph 0 Yes [id number] 650mg Take 1 Univers en (TYLENOL 8-13 tablet by ity of 8 HOUR) 650 00:00: mouth [place] mg CR 00 every 8 Medical tablet (eight) Branch hours as needed for Pain. acetaminoph Yes [id number] 650mg Take 1 Univers en (TYLENOL 8-13 tablet by ity of 8 HOUR) 650 00:00: mouth [place] mg CR 00 every 8 Medical tablet (eight) Branch hours as needed for Pain. acetaminoph 0 Yes [id number] 650mg Take 1 Univers en (TYLENOL 8-13 tablet by ity of 8 HOUR) 650 00:00: mouth [place] mg CR 00 every 8 Medical tablet (eight) Branch hours as needed for Pain. acetaminoph 0 Yes [id number] 650mg Take 1 Univers en (TYLENOL 8-13 tablet by ity of 8 HOUR) 650 00:00: mouth [place] mg CR 00 every 8 Medical tablet (eight) Branch hours as needed for Pain. acetaminoph 0 Yes [id number] 650mg Take 1 Univers en (TYLENOL 8-13 tablet by ity of 8 HOUR) 650 00:00: mouth [place] mg CR 00 every 8 Medical tablet (eight) Branch hours as needed for Pain. acetaminoph 0 Yes [id number] 650mg Take 1 Univers en (TYLENOL 8-13 tablet by ity of 8 HOUR) 650 00:00: mouth [place] mg CR 00 every 8 Medical tablet (eight) Branch hours as needed for Pain. acetaminoph 0 Yes [id number] 650mg Take 1 Univers en (TYLENOL 8-13 tablet by ity of 8 HOUR) 650 00:00: mouth [place] mg CR 00 every 8 Medical tablet (eight) Branch hours as needed for Pain. acetaminoph 0 Yes [id number] 650mg Take 1 Univers en (TYLENOL 8-13 tablet by ity of 8 HOUR) 650 00:00: mouth [place] mg CR 00 every 8 Medical tablet (eight) Branch hours as needed for Pain. acetaminoph Yes [id number] 650mg Take 1 Univers en (TYLENOL 8-13 tablet by ity of 8 HOUR) 650 00:00: mouth [place] mg CR 00 every 8 Medical tablet (eight) Branch hours as needed for Pain. acetaminoph 0 Yes [id number] 650mg Take 1 Univers en (TYLENOL 8-13 tablet by ity of 8 HOUR) 650 00:00: mouth [place] mg CR 00 every 8 Medical tablet (eight) Branch hours as needed for Pain. acetaminoph Yes [id number] 650mg Take 1 Univers en (TYLENOL 8-13 tablet by ity of 8 HOUR) 650 00:00: mouth [place] mg CR 00 every 8 Medical tablet (eight) Branch hours as needed for Pain. acetaminoph 0 Yes [id number] 650mg Take 1 Univers en (TYLENOL 8-13 tablet by ity of 8 HOUR) 650 00:00: mouth [place] mg CR 00 every 8 Medical tablet (eight) Branch hours as needed for Pain. acetaminoph 0 Yes [id number] 650mg Take 1 Univers en (TYLENOL 8-13 tablet by ity of 8 HOUR) 650 00:00: mouth [place] mg CR 00 every 8 Medical tablet (eight) Branch hours as needed for Pain. acetaminoph 0 Yes [id number] 650mg Take 1 Univers en (TYLENOL 8-13 tablet by ity of 8 HOUR) 650 00:00: mouth [place] mg CR 00 every 8 Medical tablet (eight) Branch hours as needed for Pain. acetaminoph 0 Yes [id number] 650mg Take 1 Univers en (TYLENOL 8-13 tablet by ity of 8 HOUR) 650 00:00: mouth [place] mg CR 00 every 8 Medical tablet (eight) Branch hours as needed for Pain. clopidogrel 2019-0 Yes 75mg Take 75 mg Univers (PLAVIX) 75 8-09 by mouth ity of mg tablet 19:13: daily. [place] 16 [facility] Branch allopurinol 2019-0 Yes 100mg Take 100 [...] tablet 7-18 by mouth. ity of 19:45: [place] 23 Medical Branch clopidogrel 2019-0 Yes 75mg Take 75 mg Univers (PLAVIX) 75 7-18 by mouth ity of mg tablet 19:44: daily. [place] 35 [facility] Branch insulin 2018-0 Yes 18U inject 18 Unive rs aspart 7-18 Units ity of U-100 19:44: under the [place] (NOVOLOG 35 skin 3 Medical FLEXPEN (three) [...] Units ity of RAPID 00:00: under the [place] (NOVOLOG 00 skin 3 Medical U-100 (three) [...] ity of RAPID 00:00: 00:00 under the [place] (NOVOLOG 00 :00 skin 3 Medical U-100 [...] x . DX E11.9 Branch 516 Syrg INSULIN 2017-03 2019- No USE TWICE Univ ers SYRINGE-NEE 0-29 08-13 DAILY WITH i ty of DLE U-100 00:00: 00:00 INSULIN [place] 0.3 mL 30 00 :00 INJECTIONS Medi jero gauge x . DX E11.9 Branch 5/16 Syrg Blood-Gluco Yes 1{each} 1 Each U [...] Misc 00 daily. Medical DX:E11.9 Branch Blood-Gluco 2017- Yes 1{each} 1 Each U nivers se Meter 1-08 daily. Use ity o f (ONETOUCH 00:00: as [place] VERIO FLEX 00 directed Medic al START) Kit Branch blood sugar Yes 1{strip 1 Strip 2 Univers diagnostic 1-08 } (two) ity of (ONETOUCH 00:00: times [place] VERIO) 00 daily. Medical strip DX:E11.9 Branch lancets 2018 Yes 1{each} 1 Each 2 Uni vers (ONE TOUCH -08 (two) ity of DELICA) 33 00:00: times [place] gauge Misc 00 daily. Medical DX:E11.9 Branch Blood-Gluco 2019- No 1{each} 1 Each Univers se Meter 03-27 daily. Use ity of (ONETOUCH 00:00: 00:00 as [place] VERIO FLEX 00 :00 directed Medic al START) Kit Branch blood sugar 2019- No 1{strip 1 Strip [...] 1{tbl} Take 1 U nivers -naloxone 0-04 08-13 tablet by ity of 50-0.5 mg 00:00: [...] [place] tablet 00 bedtime. Medical Branch mirabegron 2019- No 25mg Take 1 Univ ers (MYRBETRIQ) 7-14 - tablet by it y of 25 mg 00:00: 00:00 mouth at [place] tablet 00 :00 bedtime. Medical Branch Insulin Yes Use 1 Univers [place], 3-01 daily, ity of Disposable, 00:00: DX:E11.9 [place] (BD INSULIN 00 Medical PEN NEEDLE Branch UF) 31 gauge x 5/16" Ndle Insulin Yes Use 1 Univers [place], 3- daily, ity of Disposable, 00:00: DX:E11.9 [place] (BD INSULIN 00 Medical PEN NEEDLE Branch UF) 31 gauge x 5/16" Ndle Insulin 2019- No Use 1 Univers [place], 3-03 27- daily, ity of Disposable, 00:00: [...] [place] Ndle 00 weeks. Medical Branch safety 2019- No 1{syrin 1 Syringe Un [place] needles 26 1-24 08-13 ge} every 2 ity o f gauge x 1" 00:00: 00:00 (two) [place] Ndle 00 :00 weeks. Medical Branch Safety Yes [id number] Use as Univ ers [place] (BD 1-13 directed ity of SAFETYGLIDE 00:00: [place] NEEDLE) 18 00 Medical gauge x 1 Branch 1/2" Ndle Safety Yes [id number] Use as Univ ers [place] (BD 1-13 directed ity of SAFETYGLIDE 00:00: [place] NEEDLE) 22 00 Medical gauge x 1 Branch 1/2" Ndle Safety Yes [id number] Use as Univ ers [place] (BD 1-13 directed ity of SAFETYGLIDE 00:00: [place] NEEDLE) 18 00 Medical gauge x 1 Branch 1/2" Ndle Safety Yes [id number] Use as Univ ers [place] (BD 1-13 directed ity of SAFETYGLIDE 00:00: [place] NEEDLE) 22 00 Medical gauge x 1 Branch 1/2" Ndle Safety 2016- 2019- No [id number] Use as Uni vers [place] (BD 1-13 08-13 directed ity of SAFETYGLIDE 00:00: 00:00 [place] NEEDLE) 18 00 :00 Medical gauge x 1 Branch 1/2" Ndle Safety 2017- 2019- No [id number] Use as Uni vers [place] (BD 1-13 08-13 directed ity of SAFETYGLIDE 00:00: 00:00 [place] [...] TAKE 1 Univ ers 40 mg 0-27 -13 TABLET BY ity of tablet 00:00: 00:00 MOUTH [place] 00 :00 EVERY DAY Medical NEEDED Branch FOR EDEMA FLUZONE Yes Univers HIGH-DOSE 9-23 ity of , 00:00: [place] PF, 180 00 Medical mcg/0.5 mL Branch syringe FLUZONE Yes Univers HIGH-DOSE 9-23 ity of , 00:00: [place] PF, 180 00 Medical mcg/0.5 mL Branch syringe FLUZONE 2019- No Univers HIGH-DOSE 9-23 - ity of [...] hr capsule 00 :00 Medical Branch levothyroxi 2015-0 Yes 50ug Take 50 Uni vers ne [...] Branch Insulin Yes Use as Univers Syringes, 616 directed ity of Disposable, 00:00: [place] (MONOJECT 00 Medical INSULIN Branch SYRINGE) 1 mL Syrg Insulin Yes Use as Univers Syringes, 616 directed ity of Disposable, 00:00: [place] (MONOJECT 00 Medical INSULIN Branch SYRINGE) 1 mL Syrg Insulin 2019- No Use as Univers Syringes, 09-02 directed ity o f Disposable, 00:00: 00:00 [...] Immunizations Ordered Filled Immunization Date Status Comments [facility] Branch e Immunization Name Name Influenza Virus 2010-01-18 Completed Universit y of Vaccine 00:00:00 [facility] Pneumococcal 7 2010-01-18 Completed University of Conjugate, PCV7 00:00:00 [place] [facility] (Prevnar7) [place] Influenza Virus 2010-01-18 Completed Universit y of Vaccine 00:00:00 [facility] Pneumococcal 7 2010-01-18 Completed University of Conjugate, PCV7 00:00:00 [place] [facility] (Prevnar7) [place] Influenza Virus 2010-01-18 Completed Universit y of Vaccine 00:00:00 [facility] Pneumococcal 7 2010-01-18 Completed University of Conjugate, PCV7 00:00:00 [place] [facility] (Prevnar7) [place] Influenza Virus 2010-01-18 Completed Universit y of Vaccine 00:00:00 [facility] Pneumococcal 7 2010-01-18 Completed University of Conjugate, PCV7 00:00:00 [place] [facility] (Prevnar7) [place] Influenza Virus 2010-01-18 Completed Universit y of Vaccine 00:00:00 [facility] Pneumococcal 7 2010-01-18 Completed University of Conjugate, PCV7 00:00:00 [place] [facility] (Prevnar7) [place] Influenza Virus 2010-01-18 Completed Universit y of Vaccine 00:00:00 [facility] Pneumococcal 7 2010-01-18 Completed University of Conjugate, PCV7 00:00:00 [place] [facility] (Prevnar7) [place] Influenza Virus 2010-01-18 Completed Universit y of Vaccine 00:00:00 [facility] Pneumococcal 7 2010-01-18 Completed University of Conjugate, PCV7 00:00:00 [place] [facility] (Prevnar7) [facility] Influenza Virus 2010-01-18 Completed Universit y of Vaccine 00:00:00 [facility] Pneumococcal 7 2010-01-18 Completed University of Conjugate, PCV7 00:00:00 [place] [facility] (Prevnar7) [facility] Influenza Virus 2010-01-18 Completed Universit y of Vaccine 00:00:00 [facility] Pneumococcal 7 2010-01-18 Completed University of Conjugate, PCV7 00:00:00 [place] [facility] (Prevnar7) [place] Influenza Virus 2010-01-18 Completed Universit y of Vaccine 00:00:00 [facility] Pneumococcal 7 2010-01-18 Completed University of Conjugate, PCV7 00:00:00 [place] [facility] (Prevnar7) [place] Influenza Virus 2010-01-18 Completed Universit y of Vaccine 00:00:00 [facility] Pneumococcal 7 2010-01-18 Completed University of Conjugate, PCV7 00:00:00 [place] [facility] (Prevnar7) [facility] Influenza Virus 2010-01-18 Completed Universit y of Vaccine 00:00:00 [facility] Pneumococcal 7 2010-01-18 Completed University of Conjugate, PCV7 00:00:00 [place] [facility] (Prevnar7) [place] Influenza Virus 2010-01-18 Completed Universit y of Vaccine 00:00:00 [facility] Pneumococcal 7 2010-01-18 Completed University of Conjugate, PCV7 00:00:00 [place] [facility] (Prevnar7) [place] Influenza Virus 2010-01-18 Completed Universit y of Vaccine 00:00:00 [facility] Pneumococcal 7 2010-01-18 Completed University of Conjugate, PCV7 00:00:00 [place] [facility] (Prevnar7) [place] Influenza Virus 2010-01-18 Completed Universit y of Vaccine 00:00:00 [facility] Pneumococcal 7 2010-01-18 Completed University of Conjugate, PCV7 00:00:00 [place] [facility] (Prevnar7) [place] Influenza Virus 2010-01-18 Completed Universit y of Vaccine 00:00:00 [facility] Pneumococcal 7 2010-01-18 Completed University of Conjugate, PCV7 00:00:00 [place] [facility] (Prevnar7) [place] Influenza Virus 2010-01-18 Completed Universit y of Vaccine 00:00:00 [facility] Pneumococcal 7 2010-01-18 Completed University of Conjugate, PCV7 00:00:00 [place] [facility] (Prevnar7) [facility] Influenza Virus 2010-01-18 Completed Universit y of Vaccine 00:00:00 [facility] Pneumococcal 7 2010-01-18 Completed University of Conjugate, PCV7 00:00:00 [place] [facility] (Prevnar7) [place] Influenza Virus 2010-01-18 Completed Universit y of Vaccine 00:00:00 [facility] Pneumococcal 7 2010-01-18 Completed University of Conjugate, PCV7 00:00:00 [place] [facility] (Prevnar7) [place] Influenza Virus 2010-01-18 Completed Universit y of Vaccine 00:00:00 [facility] Pneumococcal 7 2010-01-18 Completed University of Conjugate, PCV7 00:00:00 [place] [facility] (Prevnar7) [place] Influenza Virus 2010-01-18 Completed Universit y of Vaccine 00:00:00 [facility] Pneumococcal 7 2010-01-18 Completed University of Conjugate, PCV7 00:00:00 [place] [facility] (Prevnar7) [place] Influenza Virus 2010-01-18 Completed Universit y of Vaccine 00:00:00 [facility] Pneumococcal 7 2010-01-18 Completed University of Conjugate, PCV7 00:00:00 [facility] (Prevnar7) [place] Vital Signs Vital Name Observation Time Observation Value Comments Source Systolic blood 2020-06-30 143 mm[Hg] University of pressure 15:20:00 [facility] Diastolic blood 2020-06-30 76 mm[Hg] University o f pressure 15:20:00 [facility] Heart rate 2020-06-30 71 /min University 15:20:00 [facility] Respiratory rate 2020-06-30 18 /min University 15:20:00 [facility] Oxygen saturation 2020-06-30 97 /min [place] of in Arterial blood 15:20:00 [facility] by Pulse oximetry [place] Systolic blood 2020-06-30 143 mm[Hg] University of pressure 15:20:00 [facility] Diastolic blood 2020-06-30 76 mm[Hg] University o f pressure 15:20:00 [facility] Heart rate 2020-06-30 71 /min University of 15:20:00 [facility] Respiratory rate 2020-06-30 18 /min University of 15:20:00 [facility] Oxygen saturation 2020-06-30 97 /min University of in Arterial blood 15:20:00 [facility] by Pulse oximetry [place] Systolic blood 2020-01-21 157 mm[Hg] University of pressure 16:10:00 [facility] Diastolic blood 2020-01-21 75 mm[Hg] University o f pressure 16:10:00 [facility] Heart rate 2020-01-21 66 /min University of 16:10:00 [facility] Respiratory rate 2020-01-21 18 /min University of 16:10:00 [facility] Body weight 2020-01-21 97.387 kg University of 16:10:00 [facility] BMI 2020-01-21 29.94 kg/m2 University of 16:10:00 [facility] Oxygen saturation 2020-01-21 96 /min University of in Arterial blood 16:10:00 [facility] jero by Pulse oximetry [facility] Systolic blood 2019-12-31 131 mm[Hg] University of pressure 16:17:00 [facility] Diastolic blood 2019-12-31 77 mm[Hg] University o f pressure 16:17:00 [facility] Heart rate 2019-12-31 64 /min University of 16:17:00 [facility] Body temperature 2019-12-31 36.44 Eileen University of 16:17:00 [facility] Respiratory rate 2019-12-31 18 /min University of 16:17:00 [facility] Body weight 2019-12-31 98.839 kg University of 16:17:00 [facility] BMI 2019-12-31 30.39 kg/m2 University of 16:17:00 [facility] Oxygen saturation 2019-12-31 95 /min University of in Arterial blood 16:17:00 [facility] by Pulse oximetry [facility] Systolic blood 2019-12-17 129 mm[Hg] University of pressure 18:12:00 [facility] Diastolic blood 2019-12-17 77 mm[Hg] University o f pressure 18:12:00 [facility] Heart rate 2019-12-17 78 /min University of 18:12:00 [facility] Body temperature 2019-12-17 36.89 Eileen University of 18:12:00 [facility] Respiratory rate 2019-12-17 20 /min University of 18:12:00 [facility] Body height 2019-12-17 180.3 cm University of 18:12:00 [facility] Body weight 2019-12-17 99.791 kg University of 18:12:00 [facility] BMI 2019-12-17 30.68 kg/m2 University of 18:12:00 [facility] Oxygen saturation 2019-12-17 96 /min University of in Arterial blood 18:12:00 [facility] by Pulse oximetry Branch Systolic blood 2018-11-01 161 mm[Hg] refused 2nd B/P University of pressure 19:59:00 [facility] Diastolic blood 2018-11-01 78 mm[Hg] refused 2nd B/P Universit y of pressure 19:59:00 [facility] Heart rate 2018-11-01 73 /min University of 19:59:00 [facility] Respiratory rate 2018-11-01 18 /min University of 19:59:00 [facility] Body height 2018-11-01 182.9 cm [facility] 19:59:00 [facility] Body weight 2018-11-01 104.781 kg [facility] 19:59:00 [facility] BMI 2018-11-01 31.33 kg/m2 [facility] 19:59:00 [facility] Systolic blood 2018-10-30 126 mm[Hg] [facility] pressure 15:15:00 [facility] Diastolic blood 2018-10-30 63 mm[Hg] [facility] pressure 15:15:00 [facility] Heart rate 2018-10-30 58 /min [facility] 15:15:00 [facility] Respiratory rate 2018-10-30 10 /min [facility] 15:15:00 [facility] Oxygen saturation 2018-10-30 95 /min [facility] Arterial blood 15:15:00 [facility] by Pulse oximetry [place] Body temperature 2018-10-30 36 Eileen [facility] 13:46:00 [facility] Body height 2018-10-30 182.9 cm [facility] 10:25:00 [facility] Body weight 2018-10-30 103.9 kg [facility] 10:25:00 [facility] BMI 2018-10-30 31.07 kg/m2 [facility] 10:25:00 [facility] Procedures Procedure Date / Time Performed Performing Clinician [facility] e URINALYSIS 2019-12-31 17:15:00 [facility] URINE CULTURE 2019-12-31 17:15:00 [facility] POCT URINALYSIS 2019-12-31 16:39:00 [facility] DISCLOSURE AND 2019-12-31 05:01:00 Doctor Unassigned, Laxmi [facility] CONSENT, MEDICAL AND Name [facility] SURGICAL PROCEDURES URINALYSIS 2019-12-17 20:01:00 [facility] URINE CULTURE 2019-12-17 20:01:00 [facility] TYPE AND SCREEN 2018-10-30 10:41:00 Nikki Rosa [facility] Medical [place] POCT GLUCOSE 2018-10-30 10:40:00 Jorge Medellin [facility] (AUTOMATED) Medical [place] ASSIGNMENT OF BENEFITS 2018-10-30 10:05:27 Doctor Unassigned, No [facility] Name Medical Branch DISCLOSURE AND 2018-10-04 05:01:00 Doctor Unassigned, No [facility] CONSENT, MEDICAL AND Name [facility] SURGICAL PROCEDURES EXTERNAL PROVIDER 2017-07-05 05:01:00 Doctor Unassigned, No [facility] RECORDS Name Medical Branch Encounters Start End Encounter Admission Attending Care Care Encounter Source Date/Time Date/Time Type Type Clinicians Facility Department ID 2021-04-15 Outpatient 3 [id number] [facility] REF [id number] [facility] 09:58:59 0611 2021-04-15 Outpatient 3 [id number] [facility] REF [id number] [facility] 09:58:05 0609 2021-04-15 Outpatient 3 [id number] [facility] REF [id number] [facility] 09:57:48 0608 2021-04-15 Outpatient 3 [id number] [facility] REF [id number] [facility] 09:51:24 0521 2021-01-05 2021-01-05 Outpatient R TENISHA [facility] [id number] Univers 10:00:00 10:00:00 MIKE [id number] [facility] 2021-01-05 2021-01-05 [facility] [id number] Univers 10:00:00 10:00:00 MIKE [facility] 2020-06-30 2020-06-[address] [facility] [id number] 10:11:23 10:41:23 Visit [facility] [id number] [facility] [id number] Center - [phone] [facility] 204 2020-06-30 2020-06-30 [facility] [id number] Univers 10:11:23 10:41:23 Visit [facility] [id number] y of [facility] 4.2.7.2.686 [facility] as Center - [phone] Med ical [facility] 204 Branch 2020-06-30 2020-06-30 Outpatient Saskia STEVEN [facility] [id number] Univers 10:15:00 10:15:00 MIKE [id number] [facility] 2020-06-30 2020-06-30 Outpatient [facility] [id number] Univers 10:15:00 10:15:00 [facility] 2020-04-12 2020-04-12 [facility] [id number] Univers 00:00:00 00:00:00 Outreach Steve PRIMARY [id number] i ty of [facility] 4.2.7.2.686 [place] [id number] [place] [address] 2020-03-24 2020-03-24 Outpatient R [facility] [id number] Univers 10:30:00 10:30:00 MIKE [facility] 2020-01-21 2020-01-21 [facility] [id number]-20 Univers 10:15:00 10:15:00 MIKE [id number] [facility] 2020-01-21 2020-01-21 Outpatient R [facility] [id number] Univers 10:15:00 10:15:00 [facility] 2020-01-21 2020-01-21 Office [facility] 1.2.840.114 [id number] Univers 09:46:41 10:01:41 Visit [facility] [id number] it y of [facility] 4.2.7.2.686 [facility] - [phone] Med ical [facility] 204 Branch 2020-01-09 2020-01-09 Outpatient INCAVO, [facility] [id number] 00:00:00 00:00:00 MISTI 781 Method i 2020-01-09 2020-01-09 Outpatient INCAVO, [facility] [id number] 00:00:00 00:00:00 MISTI 935 Method i 2019-12-31 2020-01-08 Office Mike Steven [facility] 1 .2.840.114 [id number] Univers 10:40:25 07:47:35 Visit 2, Naomi Mda Procedure [facility] 350.1. [id number] [place]2.[place] - [id number] [address] 2019-12-31 2019-12-31 Outpatient R [facility] [id number] Univers 10:45:00 10:45:00 MIKE [id number] ity [facility] 2019-12-31 2019-12-31 Outpatient R [facility] [id number] Univers 10:45:00 10:45:00 MIKE ity [facility] 2019-12-31 2019-12-31 Orders Doctor FLAVIO 1.2.840.114 [id number] Univers 00:00:00 00:00:00 Only Unassigned, [place] [id number] ity of [place] [facility] 4.2.7.2.686 Remi as [phone] [address] 2019-12-19 2019-12-[address] [facility] 1.2.840.114 [id number] Univers 00:00:00 00:00:00 [facility] [id number] it y of [facility] 4.2.7.2.686 Rem[place] as Center - [phone] [address] 2019-12-17 2019-12-17 Outpatient R [facility] [id number] Univers 13:15:00 13:15:00 MIKE [id number] ity [facility] 2019-12-17 2019-12-17 [facility] [id number] Univers 13:15:00 13:15:00 [facility] 2019-12-17 2019-12-[address] [facility] 1.2.840.114 [id number] Univers 12:59:50 13:14:50 Visit [facility] [id number] it y of [facility] 4.2.7.2.686 Remi as Center - [id number] [address] 2019-12-10 2019-12-10 Outpatient R [facility] [id number]-20 Univers 09:30:00 09:30:00 MIKE [id number] ity [facility] 2019-12-10 2019-12-10 Outpatient R SARAJHONNY [facility] [id number] Univers 09:30:00 09:30:00 MIKE [facility] 2019-10-01 2019-10-01 [facility] [id number] Univers 13:20:00 13:20:00 CHICHI [id number] [facility] 2019-10-01 2019-10-01 Outpatient Sask[facility] [id number] Univers 13:20:00 13:20:00 CHICHI [facility] 2019-08-26 2019-08-26 Refill [facility] 1.2.840.114 [id number] 89 [facility] 00:00:00 00:00:00 Janes Viveros [id number] i [place] 4.2.7.2.686 Luis mcneal Kelley [phone] Oh dical [address] 2019-08-22 2019-08-22 Outpatient INCAVO, [facility] [id number] 00:00:00 00:00:00 MISTI 176 Method i 2019-08-15 2019-08-15 Outpatient UNDEFINED HCACL OUTD [id number] [facility] 23:51:00 23:51:00 [id number] [facility] 2019-08-15 2019-08-15 Outpatient Pedro, HCAPM RADI [id number] [facility] 21:15:00 21:15:00 Dary [id number] [facility] 2019-08-15 2019-08-15 Outpatient MURALI, HCAPM LABO [id number] [facility] 11:17:00 11:17:00 MARCO ANTONIO [id number] [facility] 2019-08-13 2019-08-13 Outpatient MURALI, HCAPM LABO [id number] [facility] 09:38:00 09:38:00 MARCO ANTONIO Briseno26 [facility] 2019-08-05 2019-08-06 Inpatient INCAVO, [facility] [id number] 00:00:00 00:00:[address]IST[address] 2019-07-29 2019-07-29 Outpatient INCAVO, [facility] [id number] 00:00:00 00:00:[address]ISTI [address] 2019-06-04 2019-06-04 Outpatient INCAVO, [facility] [id number] 00:00:00 00:00:00 MISTI 083 Method i 2019-06-04 2019-06-04 Outpatient [facility] [id number] 00:00:00 00:00:00 615 Method i 2019-06-04 2019-06-04 Outpatient [facility] [id number] 00:00:00 00:00:00 787 Method i 2019-04-29 2019-04-29 [facility] 1.2.840.114 [id number] [facility] 00:00:00 00:00:00 Madelaine Viveros 350.1.13.10 i ty of [facility] 4.2.7.2.686 [place] [facility] [id number] [facility] 220 [facility] 2018-11-22 2018-11-22 Cindy [facility] 1.2.840.[id number] [place] [address] 00:00:00 00:00:00 Madelaine Viveros 350.1.13.10 i ty of [facility] 4.2.7.2.686 [place] Profess[place] [phone] [facility] 220 [facility] 2018-11-01 2018-11-01 Office [facility] [id number] [id number] [facility] 14:29:14 15:38:07 Visit Jorge FITZGERALD 350.1.13.10 it y [place].2.686 [place] [facility] [phone] [facility] & 204 [facility] 2018-10-30 2018-10-30 Hospital Lauren Medellin 1.2.840.114 [id number] Univers 05:07:00 10:40:00 Encounter Jorge Hardwick 350.1.13.10 ity of [facility] 4.2.7.2.686 Remi as [phone] [facility] 104 Branch 2018-10-30 2018-10-30 Orders Doctor MUNIZ 1.2.840.114 [id number] Univers 00:00:00 00:00:00 Only Unassigned, [place] 350.1.13.10 ity of [place] [facility] 4.2.7.2.686 Remi as [id number] [address] 2017-07-05 2017-07-05 Orders Doctor FLAVIO 1.2.840.114 [id number] Univers 00:00:00 00:00:00 Only Unassigned, [place] 350.1.13.10 ity of [place] [facility] 4.2.7.2.686 Remi as [id number] [address] Results Test Description Test Time Test Comments Results Result Comments Source URINE CULTURE 2020-01-01 16:36:00 Test Item Value Reference Range Interpretation Comme nts URINE CULTURE (test code = 630-4) No aerobic growth (< 1000 CFU/mL) [facility] 17:59[facility]00 Test Item Value Reference Range Interpretation Comments APPEARANCE (test code = Clear Clear 4760239952) COLOR (test code = Straw Yellow A 8534982219) PH (test code = 4.8-8.0 4651357668) SP GRAVITY (test code = 1.003-1.030 3252647095) GLU U QUAL (test code = 500 mg/dL Normal A 5508595322) BLOOD (test code = Negative Negative 3662875388) KETONES (test code = Negative Negative 0913429394) PROTEIN (test code = Negative Negative 2887-8) UROBILIN (test code = Normal Normal 6225664686) BILIRUBIN (test code = Negative Negative 6599329798) NITRITE (test code = Negative Negative 9580449747) LEUK LIZETTE (test code = Negative Negative 5397655691) RBC/HPF (test code = <1 See_Comment [Autom ated message] 3844785455) The system Bapul generated this result transmit devon reference range : 0 - 3 HPF. The refe rence range was not u sed to interpret th is result as normal/abnormal . WBC/HPF (test code = <1 See_Comment [Autom ated message] 6572926311) The system Bap[employer] generated this result transmit deovn reference range : 0 - 5 HPF. The refe rence range was not u sed to interpret th is result as normal/abnormal . BACTERIA (test code = Negative Negative 9922069763) Lab Interpretation (test Abnormal code = 55914-8) [facility] 17:59:00 Test Item Value Reference Range Interpretation Comments APPEARANCE (test code = Clear Clear 4473902290) COLOR (test code = Straw Yellow A 8546067285) PH (test code = 4.8-8.0 9550353368) SP GRAVITY (test code = 1.003-1.030 7063193701) GLU U QUAL (test code = 500 mg/dL Normal A 3903692090) BLOOD (test code = Negative Negative 2622090194) KETONES (test code = Negative Negative 9531883826) PROTEIN (test code = Negative Negative 2887-8) UROBILIN (test code = Normal Normal 5916021881) BILIRUBIN (test code = Negative Negative 6022664105) NITRITE (test code = Negative Negative 6742706657) LEUK LIZETTE (test code = Negative Negative 2986058352) RBC/HPF (test code = <1 See_Comment [Autom ated message] 1224162644) The system [employer] generated this result transmit devon reference range : 0 - 3 HPF. The refe rence range was not u sed to interpret th is result as normal/abnormal . WBC/HPF (test code = <1 See_Comment [Autom ated message] 0880184203) The system B[employer] generated this result transmit devon reference range : 0 - 5 HPF. The refe rence range was not u sed to interpret th is result as normal/abnormal . BACTERIA (test code = Negative Negative 1099590921) Lab Interpretation (test Abnormal code = 82907-6) [facility] 17:59:00 Test Item Value Reference Range Interpretation Comments APPEARANCE (test code = Clear Clear 5150268988) COLOR (test code = Straw Yellow A 6332014416) PH (test code = 4.8-8.0 9955022541) SP GRAVITY (test code = 1.003-1.030 7510639901) GLU U QUAL (test code = 500 mg/dL Normal A 2333649969) BLOOD (test code = Negative Negative 6997204605) KETONES (test code = Negative Negative 4513261540) PROTEIN (test code = Negative Negative 2887-8) UROBILIN (test code = Normal Normal 4651228076) BILIRUBIN (test code = Negative Negative 9582192936) NITRITE (test code = Negative Negative 1640995086) LEUK LIZETTE (test code = Negative Negative 6948639397) RBC/HPF (test code = <1 See_Comment [Autom ated message] 6619088560) The system B[employer] generated this result transmit devon reference range : 0 - 3 HPF. The refe rence range was not u sed to interpret th is result as normal/abnormal . WBC/HPF (test code = <1 See_Comment [Autom ated message] 1871924358) The system Bap[employer] generated this result transmit devon reference range : 0 - 5 HPF. The refe rence range was not u sed to interpret th is result as normal/abnormal . BACTERIA (test code = Negative Negative 0607812618) Lab Interpretation (test Abnormal code = 69871-8) [facility]13 17:59:00 Test Item Value Reference Range Interpretation Comments APPEARANCE (test code = Clear Clear 3291525016) COLOR (test code = Straw Yellow A 0270043047) PH (test code = 4.8-8.0 6235429674) SP GRAVITY (test code = 1.003-1.030 6989291823) GLU U QUAL (test code = 500 mg/dL Normal A 4451806665) BLOOD (test code = Negative Negative 0505815377) KETONES (test code = Negative Negative 4625886472) PROTEIN (test code = Negative Negative 2887-8) UROBILIN (test code = Normal Normal 5659631534) BILIRUBIN (test code = Negative Negative 7742121620) NITRITE (test code = Negative Negative 2732645218) LEUK LIZETTE (test code = Negative Negative [id number]) RBC/HPF (test code = <1 See_Comment [Autom ated message] [id number]) The system Bapul generated this result transmit devon reference range : 0 - 3 HPF. The refe rence range was not u sed to interpret th is result as normal/abnormal . WBC/HPF (test code = <1 See_Comment [Autom ated message] 4327533290) The system Bapul generated this result transmit devon reference range : 0 - 5 HPF. The refe rence range was not u sed to interpret th is result as normal/abnormal . BACTERIA (test code = Negative Negative 6811823755) Lab Interpretation (test Abnormal code = 36770-6) [facility] 17[facility]59:00 Test Item Value Reference Range Interpretation Comments APPEARANCE (test code = Clear Clear 8003619760) COLOR (test code = Straw Yellow A 5755052511) PH (test code = 4.8-8.0 3946884377) SP GRAVITY (test code = 1.003-1.030 0944220916) GLU U QUAL (test code = 500 mg/dL Normal A 1989891950) BLOOD (test code = Negative Negative 9168233233) KETONES (test code = Negative Negative 7276342968) PROTEIN (test code = Negative Negative 2887-8) UROBILIN (test code = Normal Normal 8012307489) BILIRUBIN (test code = Negative Negative 9394118257) NITRITE (test code = Negative Negative 5444897263) LEUK LIZETTE (test code = Negative Negative 0481549984) RBC/HPF (test code = <1 See_Comment [Autom ated message] 6426461436) The system Bapul generated this result transmit devon reference range : 0 - 3 HPF. The refe rence range was not u sed to interpret th is result as normal/abnormal . WBC/HPF (test code = <1 See_Comment [Autom ated message] 0371049661) The system Bapul generated this result transmit devon reference range : 0 - 5 HPF. The refe rence range was not u sed to interpret th is result as normal/abnormal . BACTERIA (test code = Negative Negative 4821799656) Lab Interpretation (test Abnormal code = 10627-0) [facility] SPECIFIC [id number] 16:40:00 Test Item Value Reference Range Interpretation [...] 3267) Lab Interpretation (test code Normal = 09926-2) [facility] URINALYSIS W SPECIFIC [id number] 16:40:00 Test Item Value Reference Range Interpretation [...] (test code = negative Negative - Negative 8) POCT U UROBILI (test code = 0.2 mg/dl 0.2-1 3260) POCT U BILI (test code = negative Negative - Negative 3261) POCT U BLD (test code = 3257) negative Negative - Negative POCT U COLOR (test code = yellow 3266) POCT U APPEAR (test code = clear 3267) Lab Interpretation (test code Normal = 92883-3) [facility] URINALYSIS W SPECIFIC [id number] 16:40:00 Test Item Value Reference Range Interpretation [...] 3267) Lab Interpretation (test code Normal = 94274-4) [facility] URINALYSIS W SPECIFIC [id number] 16:40:00 Test Item Value Reference Range Interpretation Comments POCT U SP GRAV (test code = 1.005 mg/dl 1.005-1.025 3255) POCT PH U (test code = 3254) 5 mg/dl 5-8 POCT U LEUK EST (test code = negative Negative - Negative 3263) POCT U NIT (test code = 3262) negative Negative - Negative POCT U PROT (test code = negative Negative - Negative 325) POCT U GLU (test code = 3256) [...] 3267) Lab Interpretation (test code Normal = 61556-3) [facility] URINALYSIS W SPECIFIC [id number] 16:40:00 Test Item Value Reference Range Interpretation [...] 3267) Lab Interpretation (test code Normal = 41922-5) [facility]29 22:08:00 Test Item Value Reference Range Interpretation Comments APPEARANCE (test code = Hazy Clear A 0839176341) COLOR (test code = Yellow Yellow 3777111711) PH (test code = 4.8-8.0 0240993778) SP GRAVITY (test code = 1.003-1.030 3264158141) GLU U QUAL (test code = 500 mg/dL Normal A 4544506537) BLOOD (test code = 1+ Negative A 0946504952) KETONES (test code = Negative Negative 3041471021) PROTEIN (test code = Negative Negative 2887-8) UROBILIN (test code = Normal Normal 5774391590) BILIRUBIN (test code = Negative Negative 8805551388) NITRITE (test code = Negative Negative 5900915283) LEUK LIZETTE (test code = 75/uL Negative A 3787003493) RBC/HPF (test code = See_Comment [Autom ated message] 9486664488) The system Bapul generated this result transmit devon reference range : 0 - 3 HPF. The refe rence range was not u sed to interpret th is result as normal/abnormal . WBC/HPF (test code = See_Comment H [Autom ated message] 8117097673) The system Bapul generated this result transmit devon reference range : 0 - 5 HPF. The refe rence range was not u sed to interpret th is result as normal/abnormal . BACTERIA (test code = Negative Negative 8900324935) SQ EPITH (test code = See_Comment [Auto mated message] 6473816652) The system Bapul generated this result transmit devon reference range : <=2 HPF. The refere nce range was not u sed to interpret th is result as normal/abnormal . Lab Interpretation (test Abnormal code = 08832-5) [facility]2020-[facility]29 22:08:00 Test Item Value Reference Range Interpretation Comments APPEARANCE (test code = Hazy Clear A 5667396792) COLOR (test code = Yellow Yellow 9143561428) PH (test code = 4.8-8.0 8498306788) SP GRAVITY (test code = 1.003-1.030 9940289656) GLU U QUAL (test code = 500 mg/dL Normal A 1160857637) BLOOD (test code = 1+ Negative A 1089416543) KETONES (test code = Negative Negative 1097754606) PROTEIN (test code = Negative Negative 2887-8) UROBILIN (test code = Normal Normal 5378793504) BILIRUBIN (test code = Negative Negative 0356844692) NITRITE (test code = Negative Negative 6879676883) LEUK LIZETTE (test code = 75/uL Negative A 6315632183) RBC/HPF (test code = See_Comment [Autom ated message] 3793232122) The system Bapul generated this result transmit devon reference range : 0 - 3 HPF. The refe rence range was not u sed to interpret th is result as normal/abnormal . WBC/HPF (test code = See_Comment H [Autom ated message] 0987601257) The system Bapul generated this result transmit devon reference range : 0 - 5 HPF. The refe rence range was not u sed to interpret th is result as normal/abnormal . BACTERIA (test code = Negative Negative 4435308511) SQ EPITH (test code = See_Comment [Auto mated message] 8286509974) The system Bapul generated this result transmit devon reference range : <=2 HPF. The refere nce range was not u sed to interpret th is result as normal/abnormal . Lab Interpretation (test Abnormal code = 33413-3) [facility]OV[facility] ([facility]) 2019-08-28 17:26:00 Test Item Value Reference Range Interpretation Comments SARS-COV2/RT-PCR (test Not Detected Not Detected, Negative code = 7674296) SARS-COV-2 PERFORMING LAB [facility] (test code = 1372748) Negative results do not preclude SARS-CoV-2 infection [...] of the Act.Fact Sheet for Healthcare Pro viders:https://www.Liquid/Documents/Xpert%20Xpress%20SARS%20CoV-2/Fact%20Sh eets/302-3802%18HDOJ-DON-5%20HEALTHCARE%20PROVIDERS%20FACT%20SHEET.pdfFact Sheet for Healthcare Patients:https://www.Yapta/Documents/Xpert%20Xpress%20SARS%20CoV-2/Fact%20Sheets/302-3801%20SARS-COV -2%20PATIENT%20FACT%20SHEET.pdfPerforming Laboratory:[facility] [place] [address]- CT HEAD/BRAIN W/O [id number] 21:43:00 Name: BREA RACHEL [facility] : 1940 Age/S: 78 / M [address] Unit #: [id number] Loc: [place] [address] Phys: Dary Vasquez MD Acct: [id number] Dis Date: Status: REG REF PHONE #: [phone] Exam Date: 08/15/20192127 FAX #: Reason: ams, stiffened posture EXAMS: CPT: [id number] CT HEAD/BRAIN W/O CONT 35701 Location code: H5 CT Brain Without Contrast [...] 1 Signed Report (CONTINUED) Name: BREA RACHEL [place] : 1940 Age/S: 78 / M [address] Unit #: [id number] Loc: [place] [address] Phys: Dary Vasquez MD Acct: [id number] Dis Date: Status: REG REF PHONE #: [phone] Exam Date: 08/15/20192127 FAX #: Reason: ams, stiffened posture EXAMS: CPT: [id number] CT HEAD/BRAIN W/O CONT 46488 <Con tinued> CC: Dary Vasquez MD Technologist:Isabel Lr, RT(R)(CT)(MRI) CTDI: DLP: Trnscb Date/Time: 08/15/2019 (2142) RangelDRB1 PAGE 2 Signed ReportUA RFLX MICR CULT IF [id number] 11:59:00 Test Item Value Reference Range Interpretation [...] CHK code = UACULT) Criteria BASIC METABOLIC [id number] 11:52:00 Test Item Value Reference Range Interpretation [...] 8.5-10.1 N UA RFLX MICR CULT IF [id number] 11:26:00 Test Item Value Reference Range Interpretation [...] Criteria Culture CHK = UACULT) CBC W/AUTO [id number] 11:24:00 Test Item Value Reference Range Interpretation [...] CRITERIA MDIFF) UA RFLX MICR CULT IF [id number] 09:55:00 Test Item Value Reference Range Interpretation [...] DIPSTICK (test code = LEUU) UR PROTEIN [id number] 09:55:00 Test Item Value Reference Range Interpretation Comments UR PROTEIN TOTAL (test code = 27.7 MG/DL 0.0-12.0 H PROTU) UR CREATININE [id number] 09:55:00 Test Item Value Reference Range Interpretation Comments UR CREATININE RANDOM (test code = 127.0 MG/DL 30-125 H CREATU) UA RFLX MICR CULT IF [id number] 09:48:00 Test Item Value Reference Range Interpretation [...] Culture CHK code = UACULT) UR PROTEIN [id number] 09:48:00 Test Item Value Reference Range Interpretation Comments UR PROTEIN TOTAL (test code = PROTU) MG/DL 0.0-12.0 UR CREATININE [id number] 09:48:00 Test Item Value Reference Range Interpretation Comments UR CREATININE RANDOM (test code = MG/DL 30-125 CREATU) UA RFLX MICR CULT IF [id number] 09:48:00 Test Item Value Reference Range Interpretation [...] DIPSTICK (test code = LEUU) UR PROTEIN [id number] 09:48:00 Test Item Value Reference Range Interpretation Comments UR PROTEIN TOTAL (test code = PROTU) MG/DL 0.0-12.0 UR CREATININE [id number] 09:48:00 Test Item Value Reference Range Interpretation Comments UR CREATININE RANDOM (test code = MG/DL 30-125 CREATU) Type and Screen - ONCE [id number] 11:21:00 Test Item Value Reference Range Interpretation Comments ABO & RH (test code A POSITIVE Performe d at [facility] = 20) Laboratory Serv [facility] Blood [facility]3 [address] [facility] [address] Free: [phone] A No. [id number] IAT (test code = Negative Performed a t [facility] 1185) Laboratory Serv [facility] Blood [facility]3 [address] [facility] [address] Free: [phone] A No. [id number] [facility] (AUTOMATED)2018-10-30 10:44:00 Test Item Value Reference Range Interpretation Comments POCT GLU (test code = 2847313851) 185 mg/dL 70-110 H Lab Interpretation (test code = Abnormal 88638-1) [facility]
[2021-08-22 20:03] LABS: Absolute Lymphocytes (CBC) 0.8 K/uL (0.7-4.9); Hematocrit 40.5 % (39.6-49.0); Lymphocytes % 5.8 % (15.3-44.8); MPV 6.2 fL (7.6-11.3); RBC Red Blood Cell Count 4.75 M/uL (4.33-5.43)
[2021-08-22 20:16] LABS: Urine Blood Trace-intact (Negative); Urine Glucose 2+ (Negative); Urine Protein 1+ (Negative)
[2021-08-22 20:21] LABS: Albumin 2.9 g/dL (3.4-5.0); Potassium 4.3 mmol/L (3.5-5.1); Protein, Total 6.3 g/dL (6.4-8.2)
[2021-08-22] MEDS ORDERED: NA CHLORIDE 0.9% 500 ML ONE (20:28)
[2021-08-22 20:31] LABS: Protime INR 1.39
--- NOTE | 2021-08-22 20:57 | ER ---
Nurse's Notes [facility] Name: Kendrick Worley Age: 80 yrs Sex: Male : 1940 Arrival Date: 08/22/2021 Time: 19:36 Bed 5 Private MD: Diagnosis: Severe sepsis without septic shock;Pneumonia, unspecified organism Presentation: 08/22 19:36 Chief complaint: EMS states: [facility] Fever 101 and low O2 82 %, ke1 GCS 7 Narcan given helped patient woke up more , patient on [place] at retirement. Coronavirus screen: Vaccine status:. Ebola Screen: No symptoms or risks identified at this time. Initial Sepsis Screen: Does the patient meet any 2 criteria? RR > 20 per min. HR > 90 bpm. Yes Does the patient have a suspected source of infection? No. Patient's initial sepsis screen is negative. Risk Assessment: Do you want to hurt yourself or someone else? Patient reports no desire to harm self or others. Onset of symptoms was August 22, 2021 at 18:30. 19:36 Method Of Arrival: EMS ke1 19:36 Acuity: SHERLEY 3 ke1 Triage Assessment: 19:40 General: Appears obese, Behavior is drowsy. Pain: Unable to use pain scale. FLACC scale ke1 score is 0 out of 10. Historical: - Allergies: 19:40 Bactrim; ke1 19:40 Morphine (Hallucinations); ke1 - PMHx: 19:40 Diabetes - IDDM; Hypercholesterolemia; Hypertensive disorder; Myocardial infarction; ke1 - Immunization history:: Adult Immunizations unknown. - Social history:: Smoking status: unknown. Screenin:41 Abuse screen: Denies threats or abuse. Nutritional screening: No deficits noted. ke1 Tuberculosis screening: No symptoms or risk factors identified. Fall Risk No fall in past 12 months (0 pts). No secondary diagnosis (0 pts). IV access (20 points). Ambulatory Aid- None/Bed Rest/Nurse Assist (0 pts). Gait- Weak (10 pts.). Mental Status- Overestimates/Forgets Limitations (15 pts.). Total Leal Fall Scale indicates High Risk Score (45 or more points). Fall prevention measures have been instituted. Side Rails Up X 2 Frequent Obs/Assessments Occuring. Sepsis Screening:. Assessment: 19:51 General: Appears ill, Behavior is calm, cooperative. Respiratory: Airway is patent kd3 Trachea midline Respiratory effort is even, unlabored, Respiratory pattern is regular. Vital Signs: 19:36 BP 153 / 72; Pulse 94; Resp 25; Temp 100(O); Pulse Ox 94% on R/A; Weight 99.79 kg; ke1 Height 6 ft. (182.88 cm); 20:36 BP 170 / 86; Pulse 94; Resp 24; Pulse Ox 94% on R/A; kd3 22:18 Temp 98.9(O); kd3 22:18 BP 127 / 69; Pulse 79; Resp 18; Pulse Ox 94% on R/A; kd3 23:40 BP 133 / 85; Pulse 72; Resp 19; Pulse Ox 98% on R/A; kd3 19:36 Body Mass Index 29.84 (99.79 kg, 182.88 cm) ke1 ED Course: 19:36 Patient arrived in ED. ke1 19:36 Raad Rowland, JANET is Primary Nurse. ke1 19:37 Williams Santana DO is Attending Physician. ms3 19:40 Triage completed. ke1 19:42 Arm band placed on. ke1 19:42 Bed in low position. Call light in reach. Side rails up X 1. Side rails up X2. ke1 19:51 Inserted saline lock: 20 gauge in left antecubital area, using aseptic technique. Blood kd3 collected. Maintain EMS IV. Dressing intact. Good blood return noted. Site clean \\T\\ dry. Gauge \\T\\ site: 20 g r ac. 20:55 Mike Mendiola is Hospitalizing Provider. ms3 21:11 COVID-19 SARS RT PCR (Document "Date of Onset" if Symptomatic) Sent. kd3 21:25 XRAY Chest (1 view) In Process Unspecified. EDMS 22:31 No provider procedures requiring assistance completed. Patient admitted, IV remains in kd3 place. Administered Medications: 20:22 Drug: NS 0.9% 500 ml Route: IV; Rate: bolus; Site: right antecubital; kd3 22:20 Follow up: Response: No adverse reaction; IV Status: Completed infusion kd3 20:31 Drug: Tylenol 1000 mg Route: PO; kd3 22:20 Follow up: Response: No adverse reaction; Temperature is decreased kd3 21:07 Drug: Rocephin (cefTRIAXone) 1 grams Route: IV; Rate: calculated rate; Site: left kd3 antecubital; 22:20 Follow up: Response: No adverse reaction; IV Status: Completed infusion kd3 21:07 Drug: AZITHromycin 500 mg Route: IVPB; Infused Over: 1 hrs; Site: right antecubital; kd3 22:20 Follow up: Response: No adverse reaction; IV Status: Completed infusion kd3 Medication: 22:19 VIS not applicable for this client. kd3 Outcome: 20:56 Decision to Hospitalize by Provider. ms3 22:31 Admitted to Med/surg room 216, Report called to ATTEMPTED TO CALL REPORT. WILL RETURN kd3 THE CALL 22:31 Condition: stable 22:31 Discharge instructions given to patient, Instructed on the need for admit, Demonstrated understanding of instructions. 23:07 Patient left the ED. kd3 Signatures: Dispatcher [employer] EDMS Williams Santana DO DO ms3 Sharee Gilbert RN RN kd3 Raad Rowland RN RN ke1 Corrections: (The following items were deleted from the chart) 22:29 22:18 BP 127 / 69; Pulse 19bpm; Resp 18bpm; Pulse Ox 94% RA; kd3 kd3
--- NOTE | 2021-08-22 20:57 | EDPHYS ---
Physician Documentation [facility] Name: Kendrick Worley Age: 80 yrs Sex: Male : 1940 Arrival Date: 08/22/2021 Time: 19:36 Bed 5 Private MD: ED Physician Williams Santana HPI: 08/22 20:01 This 80 yrs old Male presents to ER via EMS with complaints of shortness of breath. ms3 20:01 The patient has shortness of breath at rest. Onset: The symptoms/episode began/occurred ms3 today. Duration: The symptoms are continuous. The patient's shortness of breath has no apparent modifying factors. [facility] states respiratory depression on their arrival with improvement of symptoms with Narcan administration. Nursing facility was concerned for aspiration.. Historical: - Allergies: 19:40 Bactrim; ke1 19:40 Morphine (Hallucinations); ke1 - PMHx: 19:40 Diabetes - IDDM; Hypercholesterolemia; Hypertensive disorder; Myocardial infarction; ke1 - Immunization history:: Adult Immunizations unknown. - Social history:: Smoking status: unknown. ROS: 20:01 Unable to obtain ROS due to altered mental status. ms3 Exam: 19:34 ECG was reviewed by the Attending Physician. ms3 20:01 Head/Face: Normocephalic, atraumatic. Neck: Trachea midline, no cervical ms3 lymphadenopathy. Supple, full range of motion without nuchal rigidity, or vertebral point tenderness. No Meningismus. Chest/axilla: Normal chest wall appearance and motion. Nontender with no deformity. Cardiovascular: Regular rate and rhythm with a normal S1 and S2. No gallops, murmurs, or rubs. Normal PMI, no JVD. No pulse deficits. 20:01 Skin: Warm, dry with normal turgor. Normal color with no rashes, no lesions, and no evidence of cellulitis. MS/ Extremity: Pulses equal, no cyanosis. Neurovascular intact. Full, normal range of motion. Psych: Awake, alert, with orientation to person, place and time. Behavior, mood, and affect are within normal limits. 20:01 Constitutional: The patient appears alert, well developed. 20:01 Respiratory: the patient does not display signs of respiratory distress, Breath sounds: rales, that are moderate, are located in both bases. Vital Signs: 19:36 BP 153 / 72; Pulse 94; Resp 25; Temp 100(O); Pulse Ox 94% on R/A; Weight 99.79 kg; ke1 Height 6 ft. (182.88 cm); 20:36 BP 170 / 86; Pulse 94; Resp 24; Pulse Ox 94% on R/A; kd3 22:18 Temp 98.9(O); kd3 22:18 BP 127 / 69; Pulse 79; Resp 18; Pulse Ox 94% on R/A; kd3 23:40 BP 133 / 85; Pulse 72; Resp 19; Pulse Ox 98% on R/A; kd3 19:36 Body Mass Index 29.84 (99.79 kg, 182.88 cm) ke1 MDM: 20:00 Patient medically screened. ms3 20:01 Differential diagnosis: pneumonia, pulmonary edema, reactive airway disease, Sepsis. ms3 20:42 ED course: Patient meets severe sepsis criteria at this time. Source of infection PNA; ms3 SIRS WBC >12k, RR >20, HR >90, Organ Dysfunction LA >2. Blood cx ordered. LA ordered. Abx ordered. . 20:56 ED course: Discussed case with KALLI Turner. Patient to be admitted to Dr Mendiola. ms3 Patient remains in stable condition.. 22:16 Data reviewed: vital signs, nurses notes, lab test result(s), EKG, radiologic studies, ms3 and as a result, I will admit patient. Data interpreted: monitor car operator: rate is 98 beats/min, rhythm is normal sinus rhythm, regular, with no ectopy, Interpretation: normal rate, normal rhythm. Test interpretation: by ED physician or midlevel provider: ECG, plain radiologic studies. 08/22 19:37 Order name: Blood Culture Adult (2) 08/22 19:37 Order name: CBC with Diff; Complete Time: 22:14 08/22 19:37 Order name: CMP; Complete Time: 20:40 08/22 19:37 Order name: Lactate; Complete Time: 20:40 08/22 19:37 Order name: Protime (+inr); Complete Time: 20:40 08/22 19:37 Order name: Ptt, Activated; Complete Time: 20:40 08/22 19:39 Order name: XRAY Chest (1 view); Complete Time: 21:33 bb 08/22 20:09 Order name: Glucose, Ancillary Testing; Complete Time: 20:40 EDMS 05 20:16 Order name: Urine Dipstick-Ancillary; Complete Time: 20:40 EDMS 05 20:59 Order name: COVID-19 SARS RT PCR (Document "Date of Onset" if Symptomatic); Complete ms3 Time: 22:14 0605 22:04 Order name: CBC Smear Scan; Complete Time: 22:14 EDMS 05 19:37 Order name: Accucheck; Complete Time: 20:05 bb 08/22 19:37 Order name: Cardiac monitoring; Complete Time: 19:51 bb 08/22 19:37 Order name: EKG - Nurse/Tech; Complete Time: 19:51 bb 08/22 19:37 Order name: IV Saline Lock - Large Bore; Complete Time: 19:43 bb 08/22 19:37 Order name: Labs collected and sent; Complete Time: 19:51 bb 08/22 19:37 Order name: O2 Per Protocol; Complete Time: 19:51 bb 08/22 19:37 Order name: O2 Sat Monitoring; Complete Time: 19:51 bb 08/22 19:39 Order name: Urine Dipstick-Ancillary (obtain specimen); Complete Time: 20:13 bb EC:34 Rate is 97 beats/min. Rhythm is regular. Left axis deviation noted. VT interval is ms3 normal. QT interval is normal. Clinical impression: NSR w/ Non-specific ST/T Changes. Interpreted by me. Administered Medications: 20:22 Drug: NS 0.9% 500 ml Route: IV; Rate: bolus; Site: right antecubital; kd3 22:20 Follow up: Response: No adverse reaction; IV Status: Completed infusion kd3 20:31 Drug: Tylenol 1000 mg Route: PO; kd3 22:20 Follow up: Response: No adverse reaction; Temperature is decreased kd3 21:07 Drug: Rocephin (cefTRIAXone) 1 grams Route: IV; Rate: calculated rate; Site: left kd3 antecubital; 22:20 Follow up: Response: No adverse reaction; IV Status: Completed infusion kd3 21:07 Drug: AZITHromycin 500 mg Route: IVPB; Infused Over: 1 hrs; Site: right antecubital; kd3 22:20 Follow up: Response: No adverse reaction; IV Status: Completed infusion kd3 Disposition: 20:56 Critical Care:. ms3 Disposition Summary: 08/22/21 20:56 Hospitalization Ordered Hospitalization Status: Inpatient Admission ms3 Provider: Mike Mendiola ms3 [facility] Condition: Stable ms3 Problem: new ms3 Symptoms: are unchanged ms3 Bed/Room Type: Standard ms3 Room Assignment: 216(08/22/21 22:24) mw Diagnosis - Severe sepsis without septic shock ms3 - Pneumonia, unspecified organism ms3 Forms: - Medication Reconciliation Form ms3 - SBAR form ms3 Critical care time excluding procedures: 20:56 Critical care time: Bedside Care: 35 minutes, Consultation: 5 minutes. Total time: 40 ms3 minutes Signatures: Dispatcher [employer] EDRadha Rizvi RN RN mw Viktoria Jane, RN RN Williams Perez DO DO ms3 Sharee Gilbert RN RN kd3 Raad Rowland RN RN Jillian Haynes, KALLI PA sb3 Corrections: (The following items were deleted from the chart) 22:24 20:56 ms3 mw
[2021-08-22] MEDS ORDERED: CEFTRIAXONE 1000 MG/VIAL ONE (21:05)
[2021-08-22] MEDS ORDERED: NA CHLORIDE 0.9% 0 ML ONE (21:06)
[2021-08-22] MEDS ORDERED: AZITHROMYCIN 500 MG INJ IVPB ONE (21:06)
--- NOTE | 2021-08-22 21:29 | P.HP ---
Certification for Inpatient Patient admitted to: Inpatient With expected LOS: >2 Midnights Patient will require the following post-hospital care: None Practitioner: I am a practitioner with admitting privileges, knowledge of patient current condition, hospital course, and medical plan of care. Services: Services provided to patient in accordance with Admission requirements found in Title 42 Section 412.3 of the Code of Federal Regulations Patient History Date of Service: 08/22/21 Primary Care Provider: Leonardo Reason for admission: PNA, Severe Sepsis History of Present Illness: Patient is an 80-year-old male with CAD, IDDM, hypothyroidism, hypertension who presented to the ED via EMS from [facility] with AMS and concern for aspiration PNA. EMS recorded 101F and O2 82% on RA. He takes [place] so EMS gave Narcan which made him more alert. Patient flagged sepsis upon arrival with temperature of 100F, RR 24, 94% O2 saturation on RA. Labs significant for WBC 13, Cr 2.36, lactic acid 2.9. Chest x-ray negative for acute abnormalities however symptoms and clinical picture suggestive of pneumonia. COVID negative. He was started on Rocephin and azithromycin. Patient is hospitalized for further management. Allergies sulfamethoxazole [From Bactrim] Allergy (Intermediate, Verified 03/20/19 17:30) Hives trimethoprim [From Bactrim] Allergy (Intermediate, Verified 03/20/19 17:30) Hives morphine Allergy (Verified 03/20/19 17:30) Itching Home medications list reviewed: Yes Home Medications: Atorvastatin Calcium 20 mg PO BEDTIME 01/01/18 Clopidogrel Bisulfate [Plavix*] 75 mg PO DAILY 01/01/18 Levothyroxine [Synthroid*] 50 mcg PO GABAW3PC 01/01/18 Metoprolol Succinate [Toprol Xl*] 25 mg PO BEDTIME 01/01/18 Tamsulosin [Flomax*] 0.4 mg PO BID 01/01/18 lisinopriL [Lisinopril] 5 mg PO DAILY 01/01/18 Gabapentin [Neurontin*] 100 mg PO BEDTIME 12/01/18 Insulin Aspart [Novolog Penfill] 15 units SQ SEECOM 12/01/18 Insulin Detemir [Levemir Flextouch] 45 units SQ BEDTIME 12/01/18 Montelukast [Singulair*] 10 mg PO DAILY 08/27/19 predniSONE [Prednisone*] 1 tab PO DAILY 09/02/19 Clotrim/Betameth Cream [Lotrisone Cream] 45 gm TP DAILY #1 tube 01/23/21 - Past Medical/Surgical History Diabetic: Yes -: CAD, [place] -: 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 - Family History Father -: Lung disease, Cancer Mother Notes: no known medical condition - Social History Smoking Status: Unknown if ever smoked Alcohol use: No CD- Drugs: No Caffeine use: Yes Place of Residence: Home Review of Systems is unable to be obtained Physical Examination - Physical Exam General: In no apparent distress, Other (obtunded) HEENT: Atraumatic, PERRLA, EOMI, Sclerae nonicteric Neck: Supple, 2+ carotid pulse no bruit, No LAD, Without JVD or thyroid abnormality Respiratory: Diminished, Crackles/rales, Other (tachypneic) Cardiovascular: No edema, Regular rate/rhythm, Normal S1 S2 Gastrointestinal: Normal bowel sounds, No tenderness Musculoskeletal: No contractures, No tenderness Integumentary: No rashes - Studies Laboratory Data (last 24 hrs) 08/22/21 19:44: PT 15.4 H, INR 1.39, APTT 33.0 08/22/21 19:44: Sodium 137, Potassium 4.3, BUN 32 H, Creatinine 2.36 H, Glucose 328 H, Total Bilirubin 1.0, AST 39 H, ALT 48, Alkaline Phosphatase 64 08/22/21 19:44: WBC 13.2 H, Hgb 13.4 L, Hct 40.5, Plt Count 166 Assessment and Plan - Problems (Diagnosis) (1) Sepsis Current Visit: Yes Status: Acute Qualifiers: Sepsis type: sepsis due to unspecified organism Sepsis acute organ dysfunction status: with acute organ dysfunction Severe sepsis acute organ dysfunction type: acute respiratory failure Acute respiratory failure type: with hypoxia Severe sepsis shock status: without septic shock Qualified Code(s): A41.9 - Sepsis, unspecified organism; R65.20 - Severe sepsis without septic shock; J96.01 - Acute respiratory failure with hypoxia (2) Acute metabolic encephalopathy Current Visit: Yes Status: Acute (3) Pneumonia Current Visit: Yes Status: Acute Qualifiers: Pneumonia type: due to unspecified organism Laterality: unspecified laterality Lung location: unspecified part of lung Qualified Code(s): J18.9 - Pneumonia, unspecified organism (4) Acute on chronic kidney failure Current Visit: Yes Status: Acute Qualifiers: Acute renal failure type: unspecified Chronic kidney disease stage: stage 4 (severe) Qualified Code(s): N17.9 - Acute kidney failure, unspecified; N18.4 - Chronic kidney disease, stage 4 (severe) (5) CAD (coronary artery disease) Current Visit: No Status: Acute Qualifiers: Coronary Disease-Associated Artery/Lesion type: [place] artery [place] vs. transplanted heart: [place] heart Associated angina: without angina Qualified Code(s): I25.10 - Atherosclerotic heart disease of [place] coronary artery without angina pectoris (6) Hypertension Current Visit: Yes Status: Chronic (7) Type 2 diabetes mellitus Current Visit: Yes Status: Chronic Qualifiers: Diabetes mellitus watermaster insulin use: with retirement use Diabetes mellitus complication status: with hyperglycemia Qualified Code(s): E11.65 - Type 2 diabetes mellitus with hyperglycemia; Z79.4 - nursing home (current) use of insulin (8) Hypothyroidism Current Visit: No Status: Chronic Qualifiers: Hypothyroidism type: unspecified Qualified Code(s): E03.9 - Hypothyroidism, unspecified - Plan Severe Sepsis with acute metabolic encephalopathy: Lactic acid 2.9. 2 hour repeat pending. Blood Cultures drawn. Given 500 mL bolus in the ED. Continue fluids. Urine negative. Monitor neuro status. Pneumonia with hypoxia: Azithromycin and ceftriaxone started in ED, will continue. Patient saturating mid 90s on RA. Supplemented O2 PRN, breathing treatments, and incentive spirometry. Pulmonology consulted. JOE on CKD4: Cr elevated at 2.36 (slightly above baseline) likely secondary to sepsis. Will hold nephrotoxic drugs and continue IV hydration. IDDM: Hyperglycemic in ED. Moderate sliding scale with ACHS accu checks and diabetic diet. Hypertension/Hypothyroidism: Reconcile and continue home medications. Physical Therapy consult. Tylenol PRN fever. Heparin for VTE Ppx. DNR Discharge Plan: Retirement Plan to discharge in: Greater than 2 days - Advance Directives Does patient have a Living Will: Yes Does patient have a Durable POA for Healthcare: Yes - Code Status/Comfort Care Code Status Assessed: Yes (DNR) Critical Care: No Time Spent Managing Pts Care (In Minutes): 70
--- NOTE | 2021-08-22 21:31 | RAD REPORT ---
EXAM DESCRIPTION: RAD - Chest Single View - 08/22/2021 9:23 pm CLINICAL HISTORY: DYSPNEA Chest pain. COMPARISON: Chest Single View dated 02/07/2021; Chest Single View dated 01/22/2021; Chest Pa And Lat (2 Views) dated 03/21/2019; Chest Single View dated 12/31/2017 FINDINGS: Portable technique limits examination quality. The lungs are grossly clear. The heart is normal in size. No displaced fractures. IMPRESSION: No acute intrathoracic process suspected.
[2021-08-22 22:03] LABS: Blood Morphology Comment NOT SEEN (NOT SEEN); Platelet Estimate ADEQ; White Blood Cell Scan OK (OK)
[2021-08-22] MEDS ORDERED: ONDANSETRON 4 MG/2 ML VIAL IV PRN (23:05)
[2021-08-22] MEDS ORDERED: ACETAMINOPHEN 500 MG TAB PO PRN (23:05)
[2021-08-22] MEDS ORDERED: ALBUTEROL 2.5 MG/3 ML NEB SOL NEB PRN (23:05)
[2021-08-23] MEDS: NA CHLORIDE 0.9% 1,000 ML IV SCH ×2 (00:12→11:16)
[2021-08-23 01:04] VITALS: BMI 30.4
[2021-08-23] MEDS: HEPARIN 5000 UNIT/ML 1 ML VIAL SQ SCH ×3 (01:16→16:33)
[2021-08-23 06:14] LABS: Absolute Lymphocytes (CBC) 1.1 K/uL (0.7-4.9); Hematocrit 36.3 % (39.6-49.0); Lymphocytes % 9.7 % (15.3-44.8); MPV 6.2 fL (7.6-11.3); RBC Red Blood Cell Count 4.24 M/uL (4.33-5.43)
[2021-08-23 06:38] LABS: Phosphorus 2.7 mg/dL (2.5-4.9); Thyroid Stimulating Hormone 1.8 uIU/mL (0.360-3.740)
[2021-08-23] MEDS: INSULIN -REGULAR HUMAN 50 UNIT/0.5 ML ML SQ SCH ×5 (07:30→21:46)
--- NOTE | 2021-08-23 08:27 | P.CNS ---
Date of Consult: 08/23/21 Reason for Consult: Possible pneumonia Primary Care Provider: Leonardo Chief Complaint: Possible pneumonia sepsis History of Present Illness: Patient is 80 years of age metabolic syndrome is in a half-way nonverbal. With hypoxemia possible sepsis appears to be coughing complaining of some chest congestion started on antibiotics Allergies sulfamethoxazole [From Bactrim] Allergy (Intermediate, Verified 03/20/19 17:30) Hives trimethoprim [From Bactrim] Allergy (Intermediate, Verified 03/20/19 17:30) Hives morphine Allergy (Verified 03/20/19 17:30) Itching Home Medications: Atorvastatin Calcium 1 tab PO DAILY 08/23/21 Cetirizine HCl 1 tab PO DAILY 08/23/21 Cholecalciferol (Vitamin D3) [D3-50] 2 cap PO DAILY 08/23/21 Clopidogrel Bisulfate [Plavix] 1 tab PO DAILY 08/23/21 Dapagliflozin Propanediol [Farxiga] 1 tab PO DAILY 08/23/21 Docusate Sodium 1 tab PO DAILY 08/23/21 Famotidine 1 tab PO BID 08/23/21 Finasteride 1 tab PO DAILY 08/23/21 Gabapentin 1 cap PO TID 08/23/21 Hydrocodone 5/APAP 325 [[place] 5/325*] 1 tab PO TID 08/23/21 Insulin Detemir [Levemir] 42 unit SQ DAILY 08/23/21 Insulin Regular, Human [Novolin R Flexpen] 1 unit SQ SEECOM 08/23/21 Levothyroxine Sodium 1 tab PO DAILY 08/23/21 Meclizine HCl 1 tab PO Q8H PRN 08/23/21 Metoprolol Succinate 25 mg PO DAILY 08/23/21 Montelukast Sodium 1 tab PO DAILY 08/23/21 Tamsulosin HCl [Flomax] 1 cap PO BID 08/23/21 predniSONE [Deltasone*] 1 tab PO DAILY 08/23/21 - Past Medical/Surgical History Diabetic: Yes -: CAD, [place] -: 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 - Family History Father Medical History: Lung disease, Cancer Mother Notes: no known medical condition - Social History Smoking Status: Unknown if ever smoked Alcohol use: No CD- Drugs: No Caffeine use: Yes Place of Residence: Detention Review of Systems is unable to be obtained Physical Examination Temp Pulse Resp BP Pulse Ox 97.2 F 68 16 119/61 95 08/23/21 04:00 08/23/21 04:00 08/23/21 04:00 08/23/21 04:00 08/23/21 04:00 General: Unresponsive Neck: Supple Respiratory: Clear to auscultation bilaterally, Rhonchi/gurgles Gastrointestinal: Normal bowel sounds, Soft and benign Musculoskeletal: No clubbing, No swelling Laboratory Data (last 24 hrs) 08/22/21 19:44: PT 15.4 H, INR 1.39, APTT 33.0 08/22/21 19:44: Sodium 137, Potassium 4.3, BUN 32 H, Creatinine 2.36 H, Glucose 328 H, Total Bilirubin 1.0, AST 39 H, ALT 48, Alkaline Phosphatase 64 08/22/21 19:44: WBC 13.2 H, Hgb 13.4 L, Hct 40.5, Plt Count 166 - Problems (1) Hypoxemia Current Visit: Yes Status: Acute Plan: Patient is 80 years of age admitted with hypoxemia and currently saturations are normal he is nonverbal urinalysis is negative chronic renal failure creatinine is elevated improving White count mildly elevated chest x-ray is clear mild fever on admission I ordered a CT scan of the thorax without contrast no urosepsis cultures pending continue with Rocephin ADRIANA Zithromax for
[2021-08-23] MEDS: CEFTRIAXONE 1,000 MG in NA CHLORIDE 0.9% 50 ML IVPB SCH (08:36)
[2021-08-23] MEDS ORDERED: AZITHROMYCIN IV 500 MG in NA CHLORIDE 0.9% 250 ML IVPB SCH (09:00)
--- NOTE | 2021-08-23 09:20 | RAD REPORT ---
EXAM DESCRIPTION: CT - Thorax Wo Con CLINICAL HISTORY: Chest pain Hypoxemia possible pneumonia COMPARISON: Chest Single View dated 08/22/2021 FINDINGS: Mild linear atelectasis is present in both posterior lung bases. The lungs are otherwise c lear. Trace pleural fluid bilaterally. No pneumothorax. No axillary, mediastinal or hilar adenopathy. No concerning bony finding. No gross upper abdominal finding. All CT scans are performed using dose optimization technique as appropriate and may include automated exposure control or mA/KV adjustment according to patient size. IMPRESSION: Mild linear atelectasis both posterior lung bases with trace pleural fluid.Otherwise, no significant abnormality seen in the chest.
--- NOTE | 2021-08-23 13:21 | EKG ---
Test Date: 2021-08-22 Test Time: 19:34:57 Standards Analyst: JULIA MEASUREMENT RESULTS: Intervals: Rate: 97 MT: 174 QRSD: 82 QT: 384 QTc: 487 Sasabe: P: 38 MT: 174 QRS: -44 T: 60 INTERPRETIVE STATEMENTS: Normal sinus rhythm Left axis deviation Low voltage QRS Inferior infarct, age undetermined Possible Anterolateral infarct, age undetermined Abnormal ECG Compared to ECG 02/07/2021 15:54:20 Left-axis deviation now present Low QRS voltage now present Myocardial infarct finding still present Electronically Signed On 08-23-21 13:19:09 CDT by Maurilio Zimmerman
[2021-08-23] MEDS ORDERED: ALBUTEROL 2.5 MG/3 ML NEB SOL NEB PRN (14:00)
[2021-08-23] MEDS ORDERED: HOME MED 1 EA UNK (Meclizine Hcl [Meclizine Hcl] 25 MG Tablet) PO PRN (17:02)
--- NOTE | 2021-08-23 17:02 | P.PN ---
Subjective Date of Service: 08/23/21 Primary Care Provider: Leonardo Chief Complaint: Possible pneumonia sepsis Patient is minimally verbal. I met with the who stated this is new and concern about stroke. also reported intermittent resting tremors in both hands. He has no fever. He is awake and obeying commands. Physical Examination - Vital Signs Temperature: 99.1 F Blood Pressure: 149/70 Pulse: 77 Respirations: 18 Pulse Ox (%): 95 - Physical Exam General: In no apparent distress, Obese HEENT: Mucous membr. moist/pink, EOMI, Sclerae nonicteric Neck: JVD not distended Respiratory: Clear to auscultation bilaterally, Normal air movement Cardiovascular: No edema, Regular rate/rhythm, Normal S1 S2 Gastrointestinal: Normal bowel sounds, Soft and benign, Non-distended, No tenderness Musculoskeletal: No swelling, No contractures Integumentary: No cyanosis, Other (Multiple bruises on bilateral upper extremities) Neurological: Other (Mild right facial droop, no limb weakness.) - Studies Laboratory Data (last 24 hrs) 08/22/21 19:44: PT 15.4 H, INR 1.39, APTT 33.0 08/22/21 19:44: Sodium 137, Potassium 4.3, BUN 32 H, Creatinine 2.36 H, Glucose 328 H, Total Bilirubin 1.0, AST 39 H, ALT 48, Alkaline Phosphatase 64 08/22/21 19:44: WBC 13.2 H, Hgb 13.4 L, Hct 40.5, Plt Count 166 Assessment And Plan - Current Problems (Diagnosis) (1) Acute metabolic encephalopathy Current Visit: Yes Status: Acute (2) Acute on chronic kidney failure Current Visit: Yes Status: Acute Qualifiers: Acute renal failure type: unspecified Chronic kidney disease stage: stage 4 (severe) Qualified Code(s): N17.9 - Acute kidney failure, unspecified; N18.4 - Chronic kidney disease, stage 4 (severe) (3) Sepsis Current Visit: Yes Status: Acute Qualifiers: Sepsis type: sepsis due to unspecified organism Sepsis acute organ dysfunction status: with acute organ dysfunction Severe sepsis acute organ dysfunction type: acute respiratory failure Acute respiratory failure type: with hypoxia Severe sepsis shock status: without septic shock Qualified Code(s): A41.9 - Sepsis, unspecified organism; R65.20 - Severe sepsis without septic shock; J96.01 - Acute respiratory failure with hypoxia (4) Type 2 diabetes mellitus Current Visit: Yes Status: Chronic Qualifiers: Diabetes mellitus group home insulin use: with group home use Diabetes mellitus complication status: with hyperglycemia Qualified Code(s): E11.65 - Type 2 diabetes mellitus with hyperglycemia; Z79.4 - terminologist (current) use of insulin (5) CAD (coronary artery disease) Current Visit: No Status: Acute Qualifiers: Coronary Disease-Associated Artery/Lesion type: [place] artery [place] vs. transplanted heart: [place] heart Associated angina: without angina Qualified Code(s): I25.10 - Atherosclerotic heart disease of [place] coronary artery without angina pectoris (6) Hypothyroidism Current Visit: No Status: Chronic Qualifiers: Hypothyroidism type: unspecified Qualified Code(s): E03.9 - Hypothyroidism, unspecified - Plan CT chest done today shows no significant evidence of pneumonia. UA is negative for UTI. Patient had mild leukocytosis. We will continue antibiotics for now and follow cultures. Pureed diet recommended by speech. CT head ordered to assess for severe. Continue IV fluid. Reconcile and continue home medication. Check TSH to follow hypothyroidism. PT evaluation.
[2021-08-23] MEDS ORDERED: MECLIZINE HCL 12.5 MG TAB PO PRN (17:32)
--- NOTE | 2021-08-23 18:23 | RAD REPORT ---
EXAM DESCRIPTION: CT - Head Brain Wo Cont - 08/23/2021 5:54 pm CLINICAL HISTORY: AMS COMPARISON: Facial Bones W/ Mpr dated 10/07/2020; Brain Wo Cont dated 01/22/2021 TECHNIQUE: Axial 5 mm thick images of the head were obtained without IV contrast. All CT scans are performed using dose optimization technique as appropriate and may include automated exposure control or mA/KV adjustment according to patient size. FINDINGS: No intracranial hemorrhage, mass, edema or shift of mid-line structures. No acute cortical level infarction seen. No cortical edema or sulcal effacement. Prominent atrophy and chronic ischemi c changes are present. No abnormal extra-axial fluid collections. Ventricles are in proportion to the amount of volume loss. Intracranial findings are not clearly different from the [facility] [address] [facility] Mastoid air cells and visualized portions of the paranasal sinuses are clear. No acute bony findings. IMPRESSION: No hemorrhage, cortical level infarction or acute intracranial process identifiable. Prominent atrophy and chronic ischemic changes are present similar to the MRI comparison.
[2021-08-23] MEDS: FAMOTIDINE 20 MG TAB PO SCH (18:39)
[2021-08-23] MEDS: TAMSULOSIN 0.4 MG SR CAP PO SCH ×2 (21:00→21:45)
[2021-08-23] MEDS: HYDROCODONE/APAP 5/325 MG TAB PO SCH (21:45)
[2021-08-24] MEDS: HEPARIN 5000 UNIT/ML 1 ML VIAL SQ SCH ×3 (00:58→16:54)
[2021-08-24] MEDS: NA CHLORIDE 0.9% 1,000 ML IV SCH ×2 (01:01→16:59)
[2021-08-24 05:49] LABS: Absolute Lymphocytes (CBC) 1.3 K/uL (0.7-4.9); Lymphocytes % 14.6 % (15.3-44.8); MPV 6.3 fL (7.6-11.3); RBC Red Blood Cell Count 4.28 M/uL (4.33-5.43)
[2021-08-24] MEDS: LEVOTHYROXINE SOD 0.05 MG TABLET PO SCH (06:30)
--- NOTE | 2021-08-24 06:38 | P.PN ---
Date of Service: 08/24/21 Subjective: no acute events. 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 UA is negative for bacteriuria Patient had mild leukocytosis on admission We will continue antibiotics for now and follow cultures. Pureed diet recommended by speech. CT head - negative for CVA; +chronic ischemic changes Continue IV fluid., wean as tolerating more PO Reconcile and continue home medication. PT evaluation. VTE: lovenox Code: full Dispo: discussed with at bedside, considering hospice; patient has slowly/consistently deteriorated over the last few months now bedbound, requiring max assist
[2021-08-24] MEDS ORDERED: CEFTRIAXONE 1000 MG/VIAL ONE (08:01)
[2021-08-24] MEDS: INSULIN -REGULAR HUMAN 50 UNIT/0.5 ML ML SQ SCH ×4 (08:33→21:30)
[2021-08-24] MEDS: CLOPIDOGREL 75 MG TABLET PO SCH (08:34)
[2021-08-24] MEDS: CETIRIZINE HCL 5 MG TABLET PO SCH (08:34)
[2021-08-24] MEDS: ATORVASTATIN 20 MG TAB PO SCH (08:35)
[2021-08-24] MEDS: HYDROCODONE/APAP 5/325 MG TAB PO SCH ×3 (08:35→21:29)
[2021-08-24] MEDS: METOPROLOL XL 25 MG TAB PO SCH (08:35)
[2021-08-24] MEDS: HOME MED 1 EA UNK (Cholecalciferol (Vitamin D3) [D3-50] 1,250 MCG Capsule) PO SCH (08:36)
[2021-08-24] MEDS: predniSONE 10 MG TAB PO SCH (08:36)
[2021-08-24] MEDS: DOCUSATE NA 100 MG CAP PO SCH (08:36)
[2021-08-24] MEDS: TAMSULOSIN 0.4 MG SR CAP PO SCH ×2 (08:36→21:29)
[2021-08-24] MEDS: FAMOTIDINE 20 MG TAB PO SCH (08:37)
[2021-08-24] MEDS: MONTELUKAST 10 MG TAB PO SCH (08:37)
[2021-08-24] MEDS: CEFTRIAXONE 1,000 MG in NA CHLORIDE 0.9% 50 ML IVPB SCH (08:37)
[2021-08-24] MEDS: FINASTERIDE 5 MG TAB PO SCH (08:37)
[2021-08-24] MEDS ORDERED: DOCUSATE SODIUM 100 MG PO SCH (09:00)
[2021-08-24] MEDS ORDERED: HOME MED 1 EA UNK (Cetirizine Hcl [Cetirizine Hcl] 10 MG Tablet) PO SCH (09:00)
[2021-08-25] MEDS: HEPARIN 5000 UNIT/ML 1 ML VIAL SQ SCH ×3 (01:08→16:20)
[2021-08-25 04:33] LABS: Absolute Lymphocytes (CBC) 0.7 K/uL (0.7-4.9); Hematocrit 34.4 % (39.6-49.0); Lymphocytes % 10.4 % (15.3-44.8); MPV 6.4 fL (7.6-11.3); RBC Red Blood Cell Count 3.96 M/uL (4.33-5.43)
[2021-08-25 04:41] LABS: Potassium 4.1 mmol/L (3.5-5.1)
[2021-08-25] MEDS: LEVOTHYROXINE SOD 0.05 MG TABLET PO SCH (05:45)
[2021-08-25] MEDS: HOME MED 1 EA UNK (Cholecalciferol (Vitamin D3) [D3-50] 1,250 MCG Capsule) PO SCH (09:00)
[2021-08-25] MEDS: INSULIN -REGULAR HUMAN 50 UNIT/0.5 ML ML SQ SCH ×3 (09:16→16:20)
[2021-08-25] MEDS: TAMSULOSIN 0.4 MG SR CAP PO SCH (09:17)
[2021-08-25] MEDS: ATORVASTATIN 20 MG TAB PO SCH (09:17)
[2021-08-25] MEDS: NA CHLORIDE 0.9% 1,000 ML IV SCH ×2 (09:17→17:45)
[2021-08-25] MEDS: predniSONE 10 MG TAB PO SCH (09:18)
[2021-08-25] MEDS: METOPROLOL XL 25 MG TAB PO SCH (09:18)
[2021-08-25] MEDS: FINASTERIDE 5 MG TAB PO SCH (09:18)
[2021-08-25] MEDS: FAMOTIDINE 20 MG TAB PO SCH (09:18)
[2021-08-25] MEDS: CLOPIDOGREL 75 MG TABLET PO SCH (09:19)
[2021-08-25] MEDS: MONTELUKAST 10 MG TAB PO SCH (09:19)
[2021-08-25] MEDS: HYDROCODONE/APAP 5/325 MG TAB PO SCH ×2 (09:19→13:52)
[2021-08-25] MEDS: DOCUSATE NA 100 MG CAP PO SCH (09:19)
[2021-08-25] MEDS: CETIRIZINE HCL 5 MG TABLET PO SCH (09:19)
[2021-08-25] MEDS: CEFTRIAXONE 1,000 MG in NA CHLORIDE 0.9% 50 ML IVPB SCH (09:20)
[2021-08-25 15:33] VITALS: O2SAT 97
[2021-08-25 16:10] VITALS: BP 185/76; TEMP 97.7
--- NOTE | 2021-08-29 21:58 | P.DS ---
Admission Date: 08/22/21 Discharge Date: 08/25/21 Primary Care Provider: Leonardo Disposition: HOSPICE-MEDICAL FACILITY Discharge Condition: FAIR Reason for Admission: Possible pneumonia sepsis Consultations: Pulmonology - Dr. Alas Brief History of Present Illness: 80-year-old male with CAD, IDDM, hypothyroidism, hypertension who presented to the ED via EMS from [facility] with AMS and concern for aspiration PNA. EMS recorded 101F and O2 82% on RA. He takes [place] so EMS gave Narcan which made him more alert. Patient flagged sepsis upon arrival with temperature of 100F, RR 24, 94% O2 saturation on RA. Labs significant for WBC 13, Cr 2.36, lactic acid 2.9. Chest x-ray negative for acute abnormalities however symptoms and clinical picture suggestive of pneumonia. COVID negative. He was started on Rocephin and azithromycin. Patient is hospitalized for further management. 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 Workup did not reveal an obvious source of infection noted on imaging. Clinically he has rhonchi and upper airway noises/secretions/congestion, which improved with treatment. Patient has severe end-stage alzheimer dementia and has been deterioriating over the last several months. After discussion with his , hospice was consulted. CT head - negative for CVA; +significant chronic ischemic changes Patient will be discharged on hospice. complete 7 more days of antibiotic Pureed diet recommended by speech therapy Vital Signs/Physical Exam: Temp Pulse Resp BP Pulse Ox 97.7 F 82 16 185/76 H 92 08/25/21 16:00 08/25/21 16:00 08/25/21 16:00 08/25/21 16:00 08/25/21 16:00 Physical exam GEN: somnolent, arousable, NAD HEENT: Normal conjunctiva, sclera anicteric CV: Regular rate and rhythm, no edema Pulm: Nonlabored respirations on room air ABD: Soft, nontender, nondistended Integumentary: multiple scattered ecchymosis noted on b/l upper extremities Neuro: no focal deficit obviously apparent, +somnolent but arousable Laboratory Data at Discharge: WBC 6.7 K/uL (4.3-10.9) D 08/25/21 04:00 Hgb 11.3 g/dL (13.6-17.9) L 08/25/21 04:00 Hct 34.4 % (39.6-49.0) L 08/25/21 04:00 Plt Count 143 K/uL (152-406) L 08/25/21 04:00 PT 15.4 SECONDS (9.5-12.5) H 08/22/21 19:44 INR 1.39 08/22/21 19:44 APTT 33.0 SECONDS (24.3-36.9) 08/22/21 19:44 Sodium 140 mmol/L (136-145) 08/25/21 04:00 Potassium 4.1 mmol/L (3.5-5.1) 08/25/21 04:00 BUN 27 mg/dL (7-18) H 08/25/21 04:00 Creatinine 1.89 mg/dL (0.55-1.3) H 08/25/21 04:00 Glucose 189 mg/dL (74-106) H 08/25/21 04:00 Phosphorus 2.7 mg/dL (2.5-4.9) 08/23/21 05:23 Magnesium 2.0 mg/dL (1.8-2.4) 08/23/21 05:23 Total Bilirubin 1.0 mg/dL (0.2-1.0) 08/22/21 19:44 AST 39 U/L (15-37) H 08/22/21 19:44 ALT 48 U/L (12-78) 08/22/21 19:44 Alkaline Phosphatase 64 U/L (45-117) 08/22/21 19:44 Home Medications: Atorvastatin Calcium 1 tab PO DAILY 08/23/21 Cetirizine HCl 1 tab PO DAILY 08/23/21 Cholecalciferol (Vitamin D3) [D3-50] 2 cap PO DAILY 08/23/21 Clopidogrel Bisulfate [Plavix] 1 tab PO DAILY 08/23/21 Dapagliflozin Propanediol [Farxiga] 1 tab PO DAILY 08/23/21 Docusate Sodium 1 tab PO DAILY 08/23/21 Famotidine 1 tab PO BID 08/23/21 Finasteride 1 tab PO DAILY 08/23/21 Gabapentin 1 cap PO TID 08/23/21 Hydrocodone 5/APAP 325 [[place] 5/325*] 1 tab PO TID 08/23/21 Insulin Detemir [Levemir] 42 unit SQ DAILY 08/23/21 Insulin Regular, Human [Novolin R Flexpen] 1 unit SQ SEECOM 08/23/21 Levothyroxine Sodium 1 tab PO DAILY 08/23/21 Meclizine HCl 1 tab PO Q8H PRN 08/23/21 Metoprolol Succinate 25 mg PO DAILY 08/23/21 Montelukast Sodium 1 tab PO DAILY 08/23/21 Tamsulosin HCl [Flomax] 1 cap PO BID 08/23/21 predniSONE [Deltasone*] 1 tab PO DAILY 08/23/21 Cefdinir [Cefdinir*] 300 mg PO DAILY 7 Days #7 cap 08/25/21 New Medications: Cefdinir [Cefdinir*] 300 mg PO DAILY 7 Days #7 cap Followup: Cici Patterson MD [Primary Care Provider] - Time spent managing pt's care (in minutes): 45
== END 2021-08-25 18:25 | disposition hospice, inpatient (51) | DRG 871 ==
LOC: ER 19:26 → ERHOLD 21:17 → 2ND 22:28
PROVIDERS: ADMIT Internal Medicine; ATTEND Internal Medicine
DX: A41.9 Sepsis, unspecified organism (principal); J18.9 Pneumonia, unspecified organism; G93.41 Metabolic encephalopathy; J96.01 Acute respiratory failure with hypoxia; N17.9 Acute kidney failure, unspecified; N18.4 Chronic kidney disease, stage 4 (severe); R65.20 Severe sepsis without septic shock; I25.10 Atherosclerotic heart disease of native coronary artery without angina pectoris; I12.9 Hypertensive chronic kidney disease with stage 1 through stage 4 chronic kidney disease, or unspecified chronic kidney disease; E11.22 Type 2 diabetes mellitus with diabetic chronic kidney disease; E03.9 Hypothyroidism, unspecified; G30.9 Alzheimer's disease, unspecified; F02.80 Dementia in other diseases classified elsewhere, unspecified severity, without behavioral disturbance, psychotic disturbance, mood disturbance, and anxiety; J40 Bronchitis, not specified as acute or chronic; Z85.528 Personal history of other malignant neoplasm of kidney; Z90.5 Acquired absence of kidney; Z79.4 Long term (current) use of insulin; Z20.822 Contact with and (suspected) exposure to COVID-19
CPT/HCPCS: 36415; 70450; 71045; 71250; 80048; 80053; 81003; 82947; 83605; 83735; 84100; 84145; 84443; 85025; 85610; 85730; 87040; 92610; 93005; 94010; 99285; J0456; J1644; J1815; J7030; J7040; J7050; J7512; U0003